=== PATIENT | female | born 1945 | race Caucasian/White ===

== ENCOUNTER → 2021-05-08 | Outpatient (CLI) | payer MEDICARE, OTHER ==
--- NOTE | 2021-05-08 15:21 | CT ---
EXAMINATION TYPE: CT brain wo con DATE OF EXAM: 05/08/2021 COMPARISON: None HISTORY: Headaches CT DLP: 1147.10 mGycm Automated exposure control for dose reduction was used. FINDINGS: Mild to moderate degenerative change of the greater frontal lobe component. Faint low attenuation in the white matter none. No acute hemorrhage. No midline shift or mass effect. Calvarium intact. Craniocervical junction maintained. Partially empty sella turcica. Orbits are symmetric. Lobe somewhat prominent in size likely clinically. Minimal changes of ethmoidal sinusitis or chronic IMPRESSION: 1. Degenerative and nonspecific white matter changes most typical of remote ischemia. 2. The globes are somewhat prominent size correlate with ophthalmological exam
== END | disposition home or self-care (01) ==
LOC: RADCTMAIN 14:43
PROVIDERS: ATTEND Internal Medicine
DX: R90.89 Other abnormal findings on diagnostic imaging of central nervous system (principal); R51.9 Headache, unspecified
CPT/HCPCS: 70450

== ENCOUNTER → 2021-06-14 | Outpatient (CLI) | payer MEDICARE, OTHER ==
[~2021-06-14] MED LIST: IODINE/POTASS IOD (LUGOLS) BOTTLE TOPICAL ONE
--- NOTE | 2021-06-20 08:38 | NM ---
EXAMINATION TYPE: NM DatScan Brain SPECT DATE OF EXAM: 06/14/2021 COMPARISON: Correlation CT 04/30/2021 HISTORY: 76-year-old female G20, Parkinson's disease TECHNIQUE: 10 drops of Lugol's solution was administered 1 hour prior to injection as a thyroid bloc sal agent. After the administration of 4.3 mCi I-123 Ioflupane DaTscan. Images obtained [address] injection. SPECT images of the brain were acquired with axial and coronal reconstructions. FINDINGS: There is normal background activity. On image 29 and 28, there is very questionable minimal asymmetry along the posterior aspect of the right corpus striatum. However, otherwise, activity appears symmet soledad. IMPRESSION: Favor normal study. Minimal asymmetry along the posterior aspect of the right corpus striatum (image 29 and 28) may be positional. Follow-up can be considered.
== END | disposition home or self-care (01) ==
LOC: RADNMMAIN 10:53
PROVIDERS: ATTEND Internal Medicine
DX: G20 Parkinson's disease (principal)
CPT/HCPCS: 78803; A9584

== ENCOUNTER → 2021-09-14 | Outpatient (CLI) | payer MEDICARE, OTHER ==
[2021-09-14 12:00] LABS: C Reactive Protein 0.6 mg/dL (0.00-0.80)
[2021-09-16 13:54] LABS: Anti-DNA, DS unit <1.0 IU/mL; Anti-Smith Ab Interp NEGATIVE (NEGATIVE); Cyclic Citrull Pep IgG Unit <0.5 U/mL; Cyclic Citrullinated Pep IgG NEGATIVE (NEGATIVE); DNA Double-Stranded NEGATIVE (NEGATIVE); JO-1 IgG Antibody <0.2 AI; Scleroderma SC-70 Ab <0.2 AI
== END | disposition home or self-care (01) ==
LOC: LABWHC1 09-13 12:14
PROVIDERS: ATTEND Nurse Practitioner Family
DX: M25.50 Pain in unspecified joint (principal); M62.82 Rhabdomyolysis
CPT/HCPCS: 36415; 82550; 83516; 86038; 86039; 86140; 86200; 86225; 86235; 86431

== ENCOUNTER → 2021-12-06 | Outpatient (CLI) | payer MEDICARE, OTHER ==
[2021-12-07 13:12] LABS: Coronavirus SARS CoV-2 Not Detected (Not Detected)
== END | disposition home or self-care (01) ==
LOC: LABWHC1 09:44
PROVIDERS: ATTEND Surgery
DX: Z01.818 Encounter for other preprocedural examination (principal)
CPT/HCPCS: U0003; C9803; U0005

== ENCOUNTER 2021-12-09 07:21 | Day surgery (SDC) | payer MEDICARE, OTHER ==
[2021-12-05 16:04] VITALS: BMI 25.0
[~2021-12-09 07:21] MED LIST changes: +DEXAMETHASONE SOD PHOSPHATE 4 MG/ML 1 ML VIAL IV ONE; +HYDROmorphone 0.5 MG/0.5 ML SYRINGE IVP PRN; -IODINE/POTASS IOD (LUGOLS) BOTTLE TOPICAL ONE; +LACTATED RINGERS 1,000 ML IV SCH; +LIDOCAINE 1% (10MG/ML) FOR IV START INTRADERMA PRN; +MIDAZOLAM 2 MG/2 ML VIAL IV PRN; +ONDANSETRON 4 MG/2 ML VIAL IVP ONE
[2021-12-09] MEDS ORDERED: HEPARIN SODIUM,PORCINE/PF 5,000 UNIT/0.5 ML SYRINGE SQ ONE (08:19)
[2021-12-09] MEDS ORDERED: ACETAMINOPHEN TAB 500 MG TAB ONE (08:20)
[2021-12-09 08:29] VITALS: RESP 16
[2021-12-09] MEDS ORDERED: PROPOFOL 10 MG/ML 20 ML VIAL IV ONE (08:38)
[2021-12-09] MEDS ORDERED: MIDAZOLAM 2 MG/2 ML VIAL ONE (08:38)
[2021-12-09] MEDS ORDERED: fentaNYL (PF) 50 MCG/ML 2 ML AMP ONE (08:38)
[2021-12-09] MEDS ORDERED: BUPIVACAIN-EPI 0.25%-1:200,000 30 ML VIAL SQ ONE ×2 (08:53→08:56)
[2021-12-09] MEDS ORDERED: ceFAZolin 1,000 MG VIAL IVPB ONE (08:55)
[2021-12-09 09:32] VITALS: TEMP 98
[2021-12-09] MEDS ORDERED: NALOXONE 0.4 MG/ML 1 ML VIAL IV PRN (09:34)
--- NOTE | 2021-12-09 09:37 | P.OP ---
Date of Procedure: 12/09/21 Procedure(s) Performed: PREOPERATIVE DIAGNOSIS: Myositis, muscle weakness POSTOPERATIVE DIAGNOSIS: Same PROCEDURE: Right quadriceps muscle biopsy SURGEON: Thanh EBL: Deny Del Cid ANESTHESIA: Gen. COMPLICATIONS: None OPERATIVE PROCEDURE: Patient place in the operative table in supine position. The patient was placed under general anesthesia. Right thigh was prepped and draped sterilely. A longitudinal incision was made overlying the mid aspect of the right thigh. The subcutaneous tissues were divided using electrocautery. The fascia was then divided as well. A 3 x 1 cm piece of muscle was removed. This was cut into 3 portions and sent to the [facility] as per their instructions. The fascia was reapproximated using a running 3-0 Vicryl stitch. Subcutaneous tissues closed using 3-0 Vicryl sutures. Skin closed using a 4-0 Monocryl sutures. Skin glue and sterile dressing was applied. DISPOSITION: Stable to recovery room
[2021-12-09 10:45] VITALS: BP 133/73; PULSE 61
== END 2021-12-09 11:25 | disposition home or self-care (01) ==
LOC: OR 07:21
PROVIDERS: ATTEND Surgery
DX: M60.9 Myositis, unspecified (principal); M62.81 Muscle weakness (generalized); I10 Essential (primary) hypertension; E78.5 Hyperlipidemia, unspecified; Z86.718 Personal history of other venous thrombosis and embolism; Z86.711 Personal history of pulmonary embolism; Z86.73 Personal history of transient ischemic attack (TIA), and cerebral infarction without residual deficits; Z79.82 Long term (current) use of aspirin
CPT/HCPCS: 20205; J2250; J1100; J2405; J0690; J3010; J2704; J1644

== ENCOUNTER 2022-03-06 10:00 | Inpatient (IN) | payer MEDICARE, OTHER ==
[2022-03-06] MEDS ORDERED: ONDANSETRON 4 MG/2 ML VIAL ONE (11:09)
[2022-03-06] MEDS ORDERED: cefTRIAXone IN SWFI 1,000 MG/10 ML SYRINGE IVP ONE (11:09)
[2022-03-06] MEDS ORDERED: HEPARIN SODIUM 1,000 UN/ML (10ML VL) IV PRN (16:35)
[2022-03-06] MEDS ORDERED: HEPARIN SODIUM 1,000 UN/ML (10ML VL) IV ONE (16:35)
[2022-03-06] MEDS ORDERED: ASPIRIN 81 MG PO STA (16:38)
--- NOTE | 2022-03-06 16:56 | XR ---
EXAMINATION TYPE: XR chest 2V DATE OF EXAM: 03/06/2022 4:44 PM COMPARISON: CT angiogram 03/06/2022. TECHNIQUE: XR chest 2V Frontal and lateral views of the chest. CLINICAL INDICATION:Female, 76 years old with history of SOB, BACK PAIN; FINDINGS: Note is made that the x-ray is mislabeled left. Lungs/Pleura: Pulmonary vascular congestion. Scattered hazy opacities seen throughout the lungs along with groundglass opacities which are better characterized on the prior CT. Pulmonary vascularity: Pulmonary vascular congestion. Heart/mediastinum: Cardiomediastinal silhouette is enlarged Musculoskeletal: No acute osseous pathology. IMPRESSION: Cardiomegaly and mild pulmonary vascular congestion. Correlate with BNP for congestive heart failure. Superimposed infectious process is not entirely excluded.
--- NOTE | 2022-03-06 16:57 | CT ---
EXAMINATION TYPE: CT abdomen pelvis w con DATE OF EXAM: 03/06/2022 COMPARISON: None available HISTORY: Shortness of breath post fall CT DLP: 1133.1 mGycm Automated exposure control for dose reduction was used. TECHNIQUE: Helical acquisition of images was performed from the lung bases through the pelvis. CONTRAST: Performed without Oral Contrast and with IV Contrast, patient injected with 100 mL of Isovue 370. FINDINGS: LUNG BASES: Lateral basal subsegmental pulmonary atelectasis and scattered areas of groundglass opaci ties, nonspecific. LIVER/GB: No significant abnormality is appreciated. PANCREAS: No significant abnormality is seen. SPLEEN: No significant abnormality is seen. ADRENALS: No significant abnormality is seen. KIDNEYS: Tiny left renal cyst, otherwise grossly unremarkable kidneys. FREE AIR: No free air is visualized. RETROPERITONEAL ADENOPATHY: None visualized REPRODUCTIVE ORGANS: Previous hysterectomy. No gross adnexal mass. URINARY BLADDER: No significant abnormality is seen. PELVIC ADENOPATHY: None visualized. OSSEOUS STRUCTURES: Diffuse osteopenia. L1 vertebral body collapse with upper endplate depression an d slight retropulsion into the spinal canal which could be acute or chronic, please correlate clinica lly. This was appreciated in lumbar spine x-ray dated 03/04/2022. BOWEL: No significant abnormality is seen. OTHER: Arterial atherosclerotic calcifications. No sizable ascites or collection. IMPRESSION: L1 vertebral body collapse as described above which could be acute or chronic, please relate clinical ly. This was appreciated in 03/04/2022 lumbar spine x-ray. Otherwise no definite acute abnormality see n in the abdomen or the pelvis. Incidental findings as described above.
--- NOTE | 2022-03-06 16:58 | CT ---
CTA chest HISTORY: Shortness of breath post fall Helical acquisition obtained through the chest following dynamic administration 100 cc Isovue-370 IV. Automated exposure control for dose reduction. DLP 371.6 mGycentimeters No comparisons There is a filling defects seen within subsegmental branches right lower lobe, for reference axial im age 69, 70. Results relayed 1535 to the telephone. There is no evident strain. There are nonspecif ic soft tissue density seen within the subpleural location left lower lobe, axial image 84, there is somewhat wedge-shaped peripherally. Additionally, soft tissue nodule is noted in the left upper lobe axial image 71 subpleural location. Scattered areas of groundglass opacity present bilaterally, there is a parenchymal bands. No evident pleural effusion. Soft tissue nodule is oval in shape in the left upper lobe axial image 56 measuring 13 mm. No evident pneumothorax. No pericardial effusion. No medi astinal, axillary, or hilar adenopathy. There is no evident aortic aneurysm. Wedge compression deformity present at T6 is mild, no evident re tropulsion, loss of height of approximately 25% noted, indeterminate acuity. IMPRESSION: Small pulmonary embolus as described. Results relayed to the at the time of interpreta tion. Findings in the lungs may represent sequela of infection, difficult to exclude edema, correlate for pneumonia, possible soft tissue nodules as described, follow-up is recommended. Thoracic eleuterio carlos deformity of indeterminate age.
[2022-03-06] MEDS ORDERED: AZITHROMYCIN 500 MG in SODIUM CHLORIDE 0.9% 250 ML IVPB STA (16:59)
[2022-03-06] MEDS ORDERED: MORPHINE SULFATE 2 MG/ML SYRINGE IVP STA (17:00)
[2022-03-06] MEDS: HEPARIN SOD,PORK IN 0.45% NACL 25,000 UNIT in 0.45% NACL 1 250ML.BAG IV SCH (17:23)
[2022-03-06 17:43] LABS: Albumin 3.5 g/dL (3.5-5.0); Calcium 9.2 mg/dL (8.4-10.2); Magnesium 2.3 mg/dL (1.6-2.3); Potassium 5.2 mmol/L (3.5-5.1); Total Protein 6.7 g/dL (6.3-8.2)
[2022-03-06 17:44] LABS: Creatine Kinase MB 4.3 ng/mL (0.0-2.4); Troponin I 0.284 ng/mL (0.000-0.034)
[2022-03-06 17:51] LABS: Anisocytosis Slight; Basophils % (A) 0 %; Eosinophils % (A) 0 %; HCT 37.6 % (34.0-46.0); Lymphocytes # (A) 0.9 k/uL (1.0-4.8); Lymphocytes % (A) 9 %; MCH 32.7 pg (25.0-35.0); MCHC 32.1 g/dL (31.0-37.0); MCV 102.2 fL (80.0-100.0); Macrocytosis Moderate; Mean Platelet Volume 7.4; Monocytes # (A) 0.2 k/uL (0-1.0); Monocytes % (A) 2 %; Neutrophils # (A) 9.1 k/uL (1.3-7.7); Neutrophils % (A) 89 %; Platelet Count 270 k/uL (150-450); RBC 3.68 m/uL (3.80-5.40); RDW 16.5 % (11.5-15.5); WBC 10.2 k/uL (3.8-10.6)
[2022-03-06 18:39] LABS: INR 0.9 (<1.2); Prothrombin Time 10.3 sec (9.0-12.0)
[2022-03-06 18:44] LABS: Amorphous Sediment,Urine Few /hpf; Appearance,Urine Cloudy (Clear); Bilirubin,Urine Negative (Negative); Blood,Urine Negative (Negative); Color,Urine Yellow; Glucose,Urine (UA) Negative (Negative); Hyaline Casts,Urine 3 /lpf (0-2); Ketones,Urine Negative (Negative); Leukocyte Esterase,Urine Negative (Negative); Mucus,Urine Occasional /hpf; Nitrite,Urine Negative (Negative); PH, Urine 5.5 (5.0-8.0); Protein,Urine 1+ (Negative); RBC,Urine 1 /hpf (0-5); Specific Gravity,Urine 1.022 (1.001-1.035); Squamous Epithelial Cell,Urine <1 /hpf (0-4); Urobilinogen,Urine <2.0 mg/dL (<2.0); WBC,Urine 4 /hpf (0-5)
[2022-03-07] MEDS: MORPHINE SULFATE 2 MG/ML SYRINGE IVP PRN ×3 (04:23→16:25)
[2022-03-07 10:54] LABS: Anisocytosis Slight; Basophils % (A) 0 %; Eosinophils # (A) 0.1 k/uL (0-0.7); Eosinophils % (A) 1 %; HCT 33.2 % (34.0-46.0); HGB 10.2 gm/dL (11.4-16.0); Hypochromasia Moderate; Lymphocytes # (A) 0.9 k/uL (1.0-4.8); Lymphocytes % (A) 13 %; MCH 32.5 pg (25.0-35.0); MCHC 30.7 g/dL (31.0-37.0); MCV 105.7 fL (80.0-100.0); Macrocytosis Moderate; Mean Platelet Volume 8.3; Monocytes # (A) 0.1 k/uL (0-1.0); Monocytes % (A) 2 %; Neutrophils # (A) 5.6 k/uL (1.3-7.7); Neutrophils % (A) 83 %; Platelet Count 258 k/uL (150-450); RBC 3.14 m/uL (3.80-5.40); RDW 16.3 % (11.5-15.5); WBC 6.7 k/uL (3.8-10.6)
[2022-03-07 10:57] LABS: Albumin 2.7 g/dL (3.5-5.0); Calcium 8.3 mg/dL (8.4-10.2); Potassium 4.2 mmol/L (3.5-5.1); Total Bilirubin 0.3 mg/dL (0.2-1.3); Total Protein 5.5 g/dL (6.3-8.2)
[2022-03-07] MEDS: predniSONE 20 MG TAB PO SCH ×2 (12:06→21:24)
[2022-03-07] MEDS: PANTOPRAZOLE 40 MG TABLET PO SCH (12:06)
[2022-03-07] MEDS: FERROUS SULFATE 325 MG TAB PO SCH (12:10)
[2022-03-07] MEDS: ESCITALOPRAM 10 MG TAB PO SCH (12:10)
[2022-03-07] MEDS: clonazePAM 0.5 MG TAB PO SCH ×2 (12:22→21:24)
--- NOTE | 2022-03-07 13:19 | CA ---
Transthoracic Echo Report Name: Fely Whitley Age: 76 Gender: F : 1945 Exam Date: 03/07/2022 07:37 Exam Location: [facility] Ht (in): 65 Wt (lb): 150 Ordering Physician: Fay Pemberton Attending/Referring Phys: Aircraft Life Support Fitter Nirmala Reeves RDCS Procedure CPT: Indications: PE Cardiac Hx: Technical Quality: Fair Contrast 1: Total Dose (mL): Contrast 2: Total Dose (mL): MEASUREMENTS (Male / Female) Normal Values 2D ECHO LV Diastolic Diameter PLAX 3.5 cm 4.2 - 5.9 / 3.9 - 5.3 cm LV Systolic Diameter PLAX 2.1 cm IVS Diastolic Thickness 1.4 cm 0.6 - 1.0 / 0.6 - 0.9 cm LVPW Diastolic Thickness 1.2 cm 0.6 - 1.0 / 0.6 - 0.9 cm LV Relative Wall Thickness 0.7 RV Internal Dim ED PLAX 2.6 cm LA Volume 29.9 cm??? 18 - 58 / 22 - 52 cm??? M-MODE Aortic Root Diameter MM 2.6 cm LA Systolic Diameter MM 2.7 cm LA Ao Ratio MM 1.0 AV Cusp Separation MM 2.0 cm DOPPLER AV Peak Velocity 170.1 cm/s AV Peak Gradient 11.6 mmHg AI Peak Velocity 366.0 cm/s AI Peak Gradient 53.6 mmHg AI Pressure Half Time 452.9 ms LVOT Peak Velocity 87.9 cm/s LVOT Peak Gradient 3.1 mmHg MV Area PHT 5.1 cm??? Mitral E Point Velocity 81.9 cm/s Mitral A Point Velocity 100.4 cm/s Mitral E to A Ratio 0.8 MV Deceleration Time 147.7 ms MV E' Velocity 5.8 cm/s Mitral E to MV E' Ratio 14.1 TR Peak Velocity 298.5 cm/s TR Peak Gradient 35.6 mmHg Right Ventricular Systolic Press 39.6 mmHg FINDINGS Left Ventricle Moderately increased left ventricular wall thickness. Normal left ventricular systolic function with no obvious regional wall motion abnormalities. Left ventricular cavity size normal. Left ventricular ejection fraction is estimated at 55-60 %. Normal left ventricular diastolic filling pattern. Right Ventricle Normal right ventricular size and function. Mild pulmonary hypertension. No right heart strain, TAPSE is 20 mm. Right Atrium Normal right atrial size. Left Atrium Normal left atrial size. No evidence for an atrial septal defect. Mitral Valve Structurally normal mitral valve. Trace mitral regurgitation. Aortic Valve Trileaflet aortic valve. Trace aortic regurgitation. Tricuspid Valve Structurally normal tricuspid valve. Mild tricuspid regurgitation. Pulmonic Valve Trace pulmonic regurgitation. Pericardium No pericardial effusion. Aorta Aortic root and proximal ascending aorta not well visualized. CONCLUSIONS Normal left ventricular dimension and systolic function Previewed by: Dr. Juan Carrasco MD (Electronically Signed) Final Date: 07 Mar 2022 13:18
--- NOTE | 2022-03-07 14:24 | US ---
EXAMINATION TYPE: US venous doppler duplex LE DATE OF EXAM: 03/07/2022 1:27 PM COMPARISON: NONE CLINICAL HISTORY: hypercoag ? thrombus on AC therapy. Swelling SIDE PERFORMED: Bilateral TECHNIQUE: The lower extremity deep venous system is examined utilizing real time linear array sonog sonal with graded compression, doppler sonography and color-flow sonography. VESSELS IMAGED: Common Femoral Vein Deep Femoral Vein Greater Saphenous Vein * Femoral Vein Popliteal Vein Small Saphenous Vein * Proximal Calf Veins (* superficial vessels) Right Leg: Negative for DVT Left Leg: Negative for DVT Grayscale, color doppler, spectral doppler imaging performed of the deep veins of the bilateral lower extremities. There is normal flow, compressibility, vascular waveforms. IMPRESSION: No ultrasound evidence for acute DVT in either lower extremity.
--- NOTE | 2022-03-07 14:25 | P.CNPUL ---
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 Since then, the patient becoming progressively weak and debilitated and currently she is at the point where she cannot ambulate and she is been essentially sedentary. I'm not sure if there is any other underlying connective tissue diseases along with her inclusion body myositis. She has a positive rheumatoid factor and she may have underlying rheumatoid arthritis. 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 The patient also has a remote history of pulmonary embolism. Around 10 years ago, she had a fall she sustained fractures to her ankles bilaterally. At that time, she was found to have bilateral clots in the lower extremities and pulmonary embolism. She was given a filter and the filter was ultimately taken and since then the patient has been on anticoagulants. Over the past 10 years, she has been on anticoagulants and she has recently taken Xarelto 20 mg by mouth daily. She has not missed any of her medication doses. For now, the patient is on chronic steroids also and she is taking prednisone 20 mg by mouth twice a day. Around 2 days ago, the patient came into the emergency room because of back pain, She was diagnosed having vertebral compression fracture and she was discharged home upon being treated with a combination of painkillers and she was given [place] 5 to be taken on outpatient basis. At that time, x-ray of the lumbar spine was done and it showed evidence of deformity at the level of L1 and degenerative lumbar spine changes. Yesterday, the patient came in to the emergency department again because of left lower quadrant pain and burning upon urination. CAT scan of the abdomen was done and showed L1 vertebral body collapse. Otherwise no other acute abdomen is a been noted. The CT angiogram of the chest was also completed any today's the concern for pulmonary embolism. Based on the report given by the radiologist, there was a very tiny filling defect in the right lower lobe subsegmental pulmonary artery branch. At the s logan time, there was evidence of bilateral pulmonary infiltrates consistent with chronic pneumonia/ILD. These are areas of groundglass opacities bilaterally without any on lymphadenopathy or pleural effusions. The patient denies having any cough or sputum production. She reports to be slightly more short of breath compared to her baseline. D-dimer level is at 0.9. The patient states that she has been compliant to Xarelto. The patient also had Doppler of the lower extremity that showed no evidence of any DVTs. Hemoglobin is at 10.2. Platelet count is at 258. Electrolytes are normal and there is a component of mild non- gap metabolic acidosis. Some mild abnormalities in the liver function tests. The troponin I was at 0.15 to, UA was essentially negative., COVID 19 testing was also negative. The patient denies having any pleurisy. No hemoptysis. She is currently on IV heparin. Review of Systems Constitutional: Reports chronic pain, Reports weakness Eyes: denies as per HPI, denies blurred vision, denies bulging eye, denies decreased vision, denies diplopia, denies discharge, denies dry eye, denies irritation, denies itching, denies pain, denies photophobia, denies loss of peripheral vision, denies loss of vision, denies tunnel vision/blind spots Ears: deny: decreased hearing, ear discharge, earache, tinnitus Ears, nose, mouth and throat: Reports as per HPI Breasts: absent: as per HPI, change in shape, gynecomastia, masses, nipple discharge, pain, skin changes, swelling Cardiovascular: Reports decreased exercise tolerance, Reports dyspnea on exertion, Reports shortness of breath Respiratory: Reports as per HPI, Reports dyspnea Gastrointestinal: Reports constipation Genitourinary: Reports as per HPI Menstruation: Reports as per HPI Musculoskeletal: Reports gait dysfunction, Reports limitation of motion, Reports low back pain, Reports myalgias Musculoskeletal: absent: ankle pain, ankle stiffness, ankle swelling Integumentary: Reports as per HPI Neurological: Reports as per HPI, Reports gait dysfunction, Reports weakness Psychiatric: Reports as per HPI Endocrine: Reports as per HPI Hematologic/Lymphatic: Reports as per HPI Allergic/Immunologic: Reports as per HPI Past Medical History Past Medical History: Chest Pain / Angina, Diabetes Mellitus, Deep Vein Thrombosis (DVT), Eye Disorder, Hyperlipidemia, Musculoskeletal Disorder, Pulmonary Embolus (PE), Skin Disorder Additional Past Medical History / Comment(s): Colitis. CVA 2015-was ruled out; had mult DVT's, PE's after a fall with multiple fractures. Has tremors hands. Glaucoma & macular degeneration bilat. Has "irreg heart rhythm -Wenckebach", hx told "pre-diabetic". Neuropathy hands, feet. Unable to walk now. Rash on legs. History of Any Multi-Drug Resistant Organisms: None Reported Past Surgical History: Adenoidectomy, Appendectomy, Ear Surgery, Hysterectomy, Tonsillectomy, Tubal Ligation Additional Past Surgical History / Comment(s): BILAT CATARACTS. REPAIR PERFORFATED LT EARDRUM. COLONOSCOPY. Has IVC Filter. Past Anesthesia/Blood Transfusion Reactions: Previous Problems w/ Anesthesia, Family History of Problems w/ Anesthesia, Motion Sickness Additional Past Anesthesia/Blood Transfusion Reaction / Comment(s): SLOW TO COME OUT OF ANESTHESIA, STATES "SISTER ALSO HAS A HARD TIME COMING OUT OF ANESTHESIA" Past Psychological History: Bipolar Smoking Status: Never smoker Past Alcohol Use History: None Reported Past Drug Use History: None Reported - Past Family History Brother(s) Family Medical History: Cancer Additional Family Medical History / Comment(s): leukemia Mother Family Medical History: Cancer Additional Family Medical History / Comment(s): Colon cancer; lung cancer now Medications and Allergies Home Medications Medication Instructions Recorded Confirmed Type Aspirin 81 mg PO DAILY 06/01/15 03/06/22 History Escitalopram [Lexapro] 10 mg PO DAILY 06/01/15 03/06/22 History Latanoprost Ophth [Xalatan 0.005%] 1 drops BOTH EYES HS 06/01/15 03/06/22 History Rivaroxaban [Xarelto] 20 mg PO PC-SUPPER 06/01/15 03/06/22 History clonazePAM [KlonoPIN] 0.5 mg PO BID 06/01/15 03/06/22 History Vit C/E/Zn/Coppr/Lutein/Zeaxan 1 cap PO BID 12/05/21 03/06/22 History [Preservision Areds 2 Softgel] HYDROcodone/APAP 5-325MG [[place] 1 tab PO Q6HR PRN #16 tab 03/04/22 03/06/22 Rx 5-325] Suarez Carbonate 300 mg PO HS 03/04/22 03/06/22 History Omeprazole 40 mg PO DAILY 03/04/22 03/06/22 History predniSONE [Deltasone] 20 mg PO BID 03/04/22 03/06/22 History Ferrous Gluconate 324 mg PO DAILY 03/06/22 03/06/22 History Allergies Allergy/AdvReac Type Severity Reaction Status Date / Time Sulfa (Sulfonamide Allergy Anaphylaxis Verified 03/06/22 10:26 Antibiotics) Physical Exam Vitals: Vital Signs Temp Pulse Pulse Resp BP BP Pulse Ox 03/07/22 14:00 18 03/07/22 12:17 97.8 F 83 18 122/75 94 L 03/07/22 09:21 98.0 F 95 16 147/68 96 03/07/22 07:00 96 03/07/22 06:00 97 03/07/22 05:00 96 03/07/22 04:00 93 129/73 97 03/07/22 03:00 92 16 139/64 96 03/07/22 00:00 90 114/64 03/06/22 23:00 96 03/06/22 22:00 94 L 03/06/22 21:00 90 16 110/46 98 03/06/22 19:59 78 17 120/59 93 L 03/06/22 17:31 78 18 119/93 91 L Intake and Output 03/06/22 03/07/22 03/07/22 22:59 06:59 14:59 Intake Total 155.036 790 Output Total 750 Balance 155.036 40 Intake: Intake, IV Titration 155.036 Amount Heparin Sod,Pork in 0.45% 155.036 NaCl 25,000 unit In 0.45 % NaCl 1 250ml.bag @ 18 UNITS/KG/HR 12.247 mls/hr IV .[id number] [facility] Rx#: [id number] Oral 790 Output: Urine 750 Straight 750 Other: Weight 68.039 kg General appearance: alert, in no apparent distress currently on oxygen and patient is on oxygen at 4 L Head exam: Present: atraumatic, normocephalic Eye exam: Present: normal appearance, PERRL ENT exam: Present: normal exam Neck exam: Present: normal inspection. Absent: tenderness, meningismus Respiratory exam: Present: normal lung sounds bilaterally, respiratory distress accident in the mid and lower lung nelson bilaterally Cardiovascular Exam: Present: regular rate, normal rhythm GI/Abdominal exam: Present: soft, distended. Absent: tenderness, guarding, rebound Extremities exam: Chronic muscle atrophy and muscle weakness in the lower extremities bilaterally Back exam: Present: paraspinal tenderness (Bilateral) Neurological exam: Present: alert, oriented X3, CN II-XII intact, chronic muscle weakness in lower extremities and upper extremities and the patient has proximal muscle weakness. Psychiatric exam: Present: normal affect, normal mood Skin exam: Present: warm, dry, intact. Absent: cyanosis, diaphoretic Results - Laboratory Findings CBC and BMP: 03/07/22 05:13 03/07/22 05:13 PT/INR, D-dimer PT 10.3 sec (9.0-12.0) 03/06/22 13:13 INR 0.9 (<1.2) 03/06/22 13:13 D-Dimer 0.98 mg/L FEU (<0.60) H 03/06/22 13:13 Abnormal lab findings: Abnormal Labs 03/06/22 03/06/22 03/06/22 11:13 11:13 11:13 RBC 3.68 L Hgb Hct MCV 102.2 H MCHC RDW 16.5 H Neutrophils # 9.1 H Lymphocytes # 0.9 L APTT D-Dimer Potassium 5.2 H Chloride Carbon Dioxide BUN 39 H Glucose 161 H Plasma Lactic Acid Celio Calcium AST 63 H ALT 52 H CK-MB (CK-2) 4.3 H Troponin I 0.284 H* Total Protein Albumin Amylase 125 H Urine Appearance Urine Protein Amorphous Sediment Hyaline Casts Urine Mucus 03/06/22 03/06/22 03/06/22 11:13 13:13 13:13 RBC Hgb Hct MCV MCHC RDW Neutrophils # Lymphocytes # APTT 21.0 L D-Dimer 0.98 H Potassium Chloride Carbon Dioxide BUN Glucose Plasma Lactic Acid Celio 2.6 H* Calcium AST ALT CK-MB (CK-2) Troponin I 0.237 H* Total Protein Albumin Amylase Urine Appearance Urine Protein Amorphous Sediment Hyaline Casts Urine Mucus 03/06/22 03/06/22 03/06/22 13:25 21:02 22:16 RBC Hgb Hct MCV MCHC RDW Neutrophils # Lymphocytes # APTT 82.6 H D-Dimer Potassium Chloride Carbon Dioxide BUN Glucose Plasma Lactic Acid Celio Calcium AST ALT CK-MB (CK-2) Troponin I 0.152 H* Total Protein Albumin Amylase Urine Appearance Cloudy H Urine Protein 1+ H Amorphous Sediment Few H Hyaline Casts 3 H Urine Mucus Occasional H 03/07/22 03/07/22 03/07/22 05:13 05:13 05:13 RBC 3.14 L Hgb 10.2 L Hct 33.2 L MCV 105.7 H MCHC 30.7 L RDW 16.3 H Neutrophils # Lymphocytes # 0.9 L APTT 76.5 H D-Dimer Potassium Chloride 112 H Carbon Dioxide 17 L BUN 29 H Glucose 103 H Plasma Lactic Acid Cleio Calcium 8.3 L AST 60 H ALT 46 H CK-MB (CK-2) Troponin I Total Protein 5.5 L Albumin 2.7 L Amylase Urine Appearance Urine Protein Amorphous Sediment Hyaline Casts Urine Mucus Assessment and Plan Plan: Acute hypoxic respiratory failure with development of bilateral pulmonary infiltrates with some groundglass characteristics. This could be infectious in nature. Nevertheless, based on her history, possibility of chronic ILD cannot be completely excluded. 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 Nevertheless, these type of connective tissue disease disorders, and combinations and the patient may have other clinical changes diseases such as RA/lupus/mixed connective disease which could potentially cause ILD. I'm not much concerned about pulmonary embolism. The filling defects and was seen by the radiologist was minimal and does not explain her hypoxemia. I do not consider this to be a treatment failure. D-dimer is low. Doppler of the lower extremity has been negative. Her COVID 19 is negative. Previous history of pulmonary embolism with insertion and removal of an IVC filter and the patient has been on long-term and coagulation with Xarelto, along with that, the patient had a DVT and this was triggered by a fall and ankle fracture that occurred approximately 10 years ago History of inclusion body myositis History of sedentary lifestyle immobility secondary to above Previous history of CVA Previous history of colitis Previous history of glaucoma and macular degeneration Previous history of heart block underwent chemo type History of carpal tunnel disease and peripheral neuropathy Diabetes mellitus Hyperlipidemia troponin leak Plan Continue IV heparin for now I'm going to shared my opinion with the primary care team. I do not think this is a embolic phenomena for now. The finding in the right lower lobe pulmonary artery branch subsegmental branch is very nonspecific and may not reflect an acute event/that the d-dimer is negative and the Doppler of the lower extremities negative. I'm more concerned about the interstitial bilateral pulmonary infiltrates which is suggestive of an underlying ILD. May need to be considered for an outpatient lung biopsy. Check a Legionella urine antigen. Check pro calcitonin level. Doubt any acute bacterial infection at this point in time. Cover this patient with antibiotics and I would suggest IV Levaquin. I personally do not think that this was a pulmonary embolus event and riding the patient again go back on her Xarelto 20 mg by mouth maintenance. Obtain echocardiogram Cardiology regarding the abnormal troponins Very important to obtain old films for comparison to assess the chronicity of the pulmonary infiltrates Resume home medications We'll continue to follow
--- NOTE | 2022-03-07 14:35 | P.HPIM ---
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 and she stood up and she ended up losing her balance and fell backward patient came to the emergency department at [facility] on 03/04/2022 and had an x-ray that did show evidence of possible sacral fracture as well as computed tomography scan of the abdomen and pelvis that didn't show L1 fracture along with an old T6 fracture, patient was released home she ended up coming back to the emergency department today with increased low back pain associated with increased shortness of breath, patient apparently became quite dyspneic and she was coughing and minimal phlegm production without any pleurisy, she was brought into the ER by EMS her oxygen saturation initially was in the low 80s she was placed on 6 L nasal cannula her oxygenation recovered to 92%, his of the pr esentation patient underwent CT angiography of the chest that was positive for segmental pulmonary embolism in the lower branches, with possible underlying grouse glass material stenosis of a possible pneumonia, she was started on IV antibiotic Rocephin and Zithromax and she was placed on heparin drip, she was admitted to the hospital, pulmonary consultation was obtained as well as hematology consultation as the patient was on chronic anticoagulation with Xarelto, 20 mg orally once every day, patient also would be seen in consultation by Dr. Self for L1 fracture with retropulsion and possible canal stenosis. REVIEW OF SYSTEMS: Constitutional: No documented fever, no chills, no night sweats. No weight change. No weakness, fatigue or lethargy. No daytime sleepiness. HEENT: No headache. No blurred vision or double vision, no loss of vision. hard of Hearing, no ringing in the ears, no dizziness. No nasal drainage or congestion. No epistaxis. No sore throat. Lungs: No shortness of breath, no cough, no sputum production. No wheezing. Reports dyspnea with activity. Cardiovascular: no chest pain, no lower extremity edema. No palpitations. No paroxysmal nocturnal dyspnea. No orthopnea. No lightheadedness or dizziness. No syncopal episodes. Abdominal: Reports abdominal pain. No nausea, vomiting. No diarrhea. No constipation. No bloody or tarry stools reports loss of appetite. Genitourinary: No dysuria, increased frequency, urgency. No urinary retention. Musculoskeletal: positive for myalgias. positive for muscle weakness, positive for gait dysfunction, positive for frequent falls. positive for back pain and neck pain. Integumentary: No wounds, no lesions. No rash or pruritus. No unusual bruising. No change in hair or nails. Neurologic: No aphasia. No facial droop. No change in mentation. No head injury. No headache. No paralysis. No paresthesia. Psychiatric: positive for depression, anxiety, mood swings Endocrine: No abnormal blood sugars. No weight change. PAST MEDICAL HISTORY: mixed hyperlipidemia. Inclusion body myositis. GERD with esophagitis History of colitis Coagulation defect Bipolar disorder with current manic episode without psychotic features. Osteoporosis. L1 fracture T6 fracture. PAST SURGICAL HISTORY: Total abdominal hysterectomy and bilateral salpingo-oophorectomy. Colonoscopy. Bilateral cataract Surgery. SOCIAL HISTORY: patient has a history of smoking, no history of drinking, no history of drug use or abuse. FAMILY HISTORY: father plan clear cause mother is alive 99-year-old patient has 2 brother's one of them and one sister she has a son and daughter who are healthy. PHYSICAL EXAMINATION: General: 76-year-old female laying down in bed in minimal distress HEENT: Head is atraumatic, normocephalic, pupils were equal round reactive to light and recommendation, extraocular muscle movement were intact, sclera nonicteric, conjunctivae were pale, mucous membranes of the mouth are somewhat dry. Neck: Supple, no JVP, normal carotid upstroke bilaterally, no lymphadenopathy. Chest: Decreased breath sounds at the bases, few rhonchi, no expiratory wheezes, no chest wall tenderness, no intercostal retractions. Heart: First heart sound is normal, second heart sound is normal there is systolic ejection murmur located at the left sternal border. Abdomen: Soft, mild tenderness to the left lower quadrant, no rebound or guarding positive bowel sounds. Extremities: There is no edema no calf tenderness DP +2 bilaterally. Neurologic examination: Patient is awake alert and oriented X3, cranial nerves II-12 appear grossly intact, muscle power were 5 out of 5 in upper extremities and 5 out of 5 in bilateral lower extremities, deep tendon reflexes normal bilaterally. ASSESSMENT AND PLAN: 1. acute hypoxemic respiratory failure likely related to by basilar pulmonary infiltrate along with pulmonary embolism of the right lower lobe branch. Continue heparin drip for now, continue Rocephin 1 g IV piggyback every 24 hours, continue Zithromax 500 mg IV piggyback every 24 hours, we'll obtain Pulmicort consultation, we'll obtain echo care gram for evaluation of LV function rule out any thrombus,the question whether or not this is a failure to the Xarelto or not, I will consult hematology oncology for now and keep the patient on heparin drip I would be more eager to start the patient on Eliquis instead of xarelto, down the line. 2. Inclusion body myositis. Continue patient on prednisone 20 mg orally twice every day. 3. GERD with esophagitis. Continue patient on Protonix 40 mg orally once every day. 4. History of bipolar disorder. Continue patient on lithium 300 mg at bedtime, except fro 20 mg orally once every day and Klonopin 0.5 minute gram orally twice every day. 5. L1 fracture appears to be acute along with an old T6 fracture. Consult spine surgery for evaluation patient will definitely need to be started on prolia 60 mg SC q 6 months along with weightbearing exercises and calcium 1200 mg every day vitamin D3 2000 units once every day. 6. 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 7. anemia. Continue patient on iron 325 milligrams orally once every day. 8. DVT prophylaxis. Continue patient on heparin drip for now. 9. GI prophylaxis. Continue patient on Protonix 40 mg once every day. 10. Physical therapy evaluation. 11. Admitted to inpatient. Estimated length of stay 2 midnights. 12. Patient is full code. Past Medical History Past Medical History: Chest Pain / Angina, Diabetes Mellitus, Deep Vein Thrombosis (DVT), Eye Disorder, Hyperlipidemia, Musculoskeletal Disorder, Pulmonary Embolus (PE), Skin Disorder Additional Past Medical History / Comment(s): Colitis. CVA 2014-was ruled out; had mult DVT's, PE's after a fall with multiple fractures. Has tremors hands. Glaucoma & macular degeneration bilat. Has "irreg heart rhythm -Wenckebach", hx told "pre-diabetic". Neuropathy hands, feet. Unable to walk now. Rash on legs. History of Any Multi-Drug Resistant Organisms: None Reported Past Surgical History: Adenoidectomy, Appendectomy, Ear Surgery, Hysterectomy, Tonsillectomy, Tubal Ligation Additional Past Surgical History / Comment(s): BILAT CATARACTS. REPAIR PERFORFATED LT EARDRUM. COLONOSCOPY. Has IVC Filter. Past Anesthesia/Blood Transfusion Reactions: Previous Problems w/ Anesthesia, Family History of Problems w/ Anesthesia, Motion Sickness Additional Past Anesthesia/Blood Transfusion Reaction / Comment(s): SLOW TO COME OUT OF ANESTHESIA, STATES "SISTER ALSO HAS A HARD TIME COMING OUT OF ANESTHESIA" Past Psychological History: Bipolar Smoking Status: Never smoker Past Alcohol Use History: None Reported Past Drug Use History: None Reported - Past Family History Brother(s) Family Medical History: Cancer Additional Family Medical History / Comment(s): leukemia Mother Family Medical History: Cancer Additional Family Medical History / Comment(s): Colon cancer; lung cancer now Medications and Allergies Home Medications Medication Instructions Recorded Confirmed Type Aspirin 81 mg PO DAILY 06/01/15 03/06/22 History Escitalopram [Lexapro] 10 mg PO DAILY 06/01/15 03/06/22 History Latanoprost Ophth [Xalatan 0.005%] 1 drops BOTH EYES HS 06/01/15 03/06/22 History Rivaroxaban [Xarelto] 20 mg PO PC-SUPPER 06/01/15 03/06/22 History clonazePAM [KlonoPIN] 0.5 mg PO BID 06/01/15 03/06/22 History Vit C/E/Zn/Coppr/Lutein/Zeaxan 1 cap PO BID 12/05/21 03/06/22 History [Preservision Areds 2 Softgel] HYDROcodone/APAP 5-325MG [[place] 1 tab PO Q6HR PRN #16 tab 03/04/22 03/06/22 Rx 5-325] [place] Carbonate 300 mg PO HS 03/04/22 03/06/22 History Omeprazole 40 mg PO DAILY 03/04/22 03/06/22 History predniSONE [Deltasone] 20 mg PO BID 03/04/22 03/06/22 History Ferrous Gluconate 324 mg PO DAILY 03/06/22 03/06/22 History Allergies Allergy/AdvReac Type Severity Reaction Status Date / Time Sulfa (Sulfonamide Allergy Anaphylaxis Verified 03/06/22 10:26 Antibiotics) Physical Exam Vitals: Vital Signs Temp Pulse Resp BP Pulse Ox 03/06/22 17:31 78 18 119/93 91 L 03/06/22 10:22 98.5 F 106 H 18 98/66 84 L Intake and Output 03/06/22 03/06/22 03/06/22 06:59 14:59 22:59 Other: Weight 68.039 kg Results CBC & Chem 7: 03/07/22 05:13 03/07/22 05:13
[2022-03-07] MEDS: HEPARIN SOD,PORK IN 0.45% NACL 25,000 UNIT in 0.45% NACL 1 250ML.BAG IV SCH ×2 (14:55→17:28)
--- NOTE | 2022-03-07 15:19 | P.CNOR ---
History of Present Illness - [facility] Consult date: 03/07/22 Requesting physician: David Verduzco Consult reason: fracture (L1 compression fracture deformity status post fall), low back pain (Acute traumatic low back pain) History of present illness: Patient is a very pleasant 76-year-old female who is known to our service who is seen and examined in the emergency room #25 for further evaluation of her lumbar spine. She sustained a fall on 02/27/2022 when leaning over falling on her left hip and lumbar spine. She's had significant low back pain and difficulty with mobilization and ambulation since that time. She states she has increased pain with trying to get out of bed, trying to sit up, and with ambulation. She presented to [facility] on 03/04/2022 for further evaluation. X-ray imaging was taken at that time which did show evidence of an L1 compression fracture she was discharged from the emergency department with plans for follow-up evaluation at our office at [facility] today, 03/07/2022. Prior to her scheduled appointment today she began to experience some shortness of breath. She presented back to the emergency department for further evaluation. I am unable to see any documentation to the emergency department. Patient in her family state she was diagnosed with pneu monia and a blood clot. She states she is already on anticoagulation medicine in the outpatient setting. She follows with Dr. Verduzco for outpatient treatment and evaluation. She was previously seen and examined in our office on 06/21/2021. We previously obtained x-ray and MRI imaging of her lumbar spine. Since her appointment she is undergone significant evaluation as she is having symptoms of unsteady gait, shuffling gait, upper extremity tremor, bilateral extremity weakness, upper extremity hyperreflexia, and symptoms of cervical myelopathy. She did not have significant findings in regards to her cervical spine that correlated well with these symptoms. She states after significant wo rkup and evaluation she underwent a muscle biopsy in December of 2021 at the [facility]. She was diagnosed with inclusion body myositis. She is currently on steroid medication. She states since her fall she has not had any change in the functionality or symptoms in her legs. She does have significant tremor currently in the bilateral lower extremities. She states based on her IBM diagnosis these tremors will worsen over time and we'll progress further into her upper extremities. She currently does have a tremor during physical examination at the right upper extremity. She states she chronically uses a walker to aid in ambulation. Past Medical History Past Medical History: Chest Pain / Angina, Diabetes Mellitus, Deep Vein Thrombosis (DVT), Eye Disorder, Hyperlipidemia, Musculoskeletal Disorder, Pulmonary Embolus (PE), Skin Disorder Additional Past Medical History / Comment(s): Colitis. CVA 2015-was ruled out; had mult DVT's, PE's after a fall with multiple fractures. Has tremors hands. Glaucoma & macular degeneration bilat. Has "irreg heart rhythm -Wenckebach", hx told "pre-diabetic". Neuropathy hands, feet. Unable to walk now. Rash on legs. History of Any Multi-Drug Resistant Organisms: None Reported Past Surgical History: Adenoidectomy, Appendectomy, Ear Surgery, Hysterectomy, Tonsillectomy, Tubal Ligation Additional Past Surgical History / Comment(s): BILAT CATARACTS. REPAIR PERFORFATED LT EARDRUM. COLONOSCOPY. Has IVC Filter. Past Anesthesia/Blood Transfusion Reactions: Previous Problems w/ Anesthesia, Family History of Problems w/ Anesthesia, Motion Sickness Additional Past Anesthesia/Blood Transfusion Reaction / Comm: SLOW TO COME OUT OF ANESTHESIA, STATES "SISTER ALSO HAS A HARD TIME COMING OUT OF ANESTHESIA" Past Psychological History: Bipolar Smoking Status: Never smoker Past Alcohol Use History: None Reported Past Drug Use History: None Reported - Past Family History Brother(s) Family Medical History: Cancer Additional Family Medical History / Comment(s): leukemia Mother Family Medical History: Cancer Additional Family Medical History / Comment(s): Colon cancer; lung cancer now Medications and Allergies Home Medications Medication Instructions Recorded Confirmed Type Aspirin 81 mg PO DAILY 06/01/15 03/06/22 History Escitalopram [Lexapro] 10 mg PO DAILY 06/01/15 03/06/22 History Latanoprost Ophth [Xalatan 0.005%] 1 drops BOTH EYES HS 06/01/15 03/06/22 History Rivaroxaban [Xarelto] 20 mg PO PC-SUPPER 06/01/15 03/06/22 History clonazePAM [KlonoPIN] 0.5 mg PO BID 06/01/15 03/06/22 History Vit C/E/Zn/Coppr/Lutein/Zeaxan 1 cap PO BID 12/05/21 03/06/22 History [Preservision Areds 2 Softgel] HYDROcodone/APAP 5-325MG [[place] 1 tab PO Q6HR PRN #16 tab 03/04/22 03/06/22 Rx 5-325] Ramos Carbonate 300 mg PO HS 03/04/22 03/06/22 History Omeprazole 40 mg PO DAILY 03/04/22 03/06/22 History predniSONE [Deltasone] 20 mg PO BID 03/04/22 03/06/22 History Ferrous Gluconate 324 mg PO DAILY 03/06/22 03/06/22 History Allergies Allergy/AdvReac Type Severity Reaction Status Date / Time Sulfa (Sulfonamide Allergy Anaphylaxis Verified 03/06/22 10:26 Antibiotics) Physical Examination Physical exam: Patient is awake, alert, and oriented 3 Vital signs stable Good chest excursion with deep inspiration and expiration Abdomen soft nontender Examination of lumbar spine reveals skin is intact with no abrasions, lacerations, or bruises; no erythema, purulence or signs of infection Significant pain with palpation along the midline of the lumbar spine Patient is able to perform some dorsiflexion and plantar flexion bilaterally but does have difficulty doing so bilaterally Patient is unable to independently lift the lower extremities off the bed bilaterally Negative Lasegue's test bilaterally No signs or symptoms of DVT; no calf pain No pain with internal and external rotation of the hips bilaterally Neurovascularly intact Significant tremor in the bilateral lower extremities Right upper extremity tremor Results Pertinent studies: X-rays of the lumbar spine taken on 03/04/2022: Evidence of of L1 superior endplate compression fracture deformity with approximately 30% height loss; L3- S1 degenerative disc disease; overall alignment is adequate maintained; no spondylolisthesis; degenerative scoliosis; L2-3 anterior osteophytic spurring X-ray of the left hip and pelvis taken on 03/04/2022: No obvious fracture or displacement within the pelvis; mild osteophytes of bilateral hip joint spacing X-rays lumbosacral spine taken at [facility] on 05/31/2021: L3-S1 degenerative disc disease; overall alignment is adequate maintained; no spondylolisthesis; no evidence of vertebral body compression fracture; degenerative scoliosis; L2-3 anterior osteophytic spurring - Labs Labs: Abnormal Lab Results - Last 24 Hours (Table) 03/06/22 03/06/22 03/06/22 Range/Units 11:13 11:13 11:13 RBC 3.68 L (3.80-5.40) m/uL Hgb (11.4-16.0) gm/dL Hct (34.0-46.0) % MCV 102.2 H (80.0-100.0) fL MCHC (31.0-37.0) g/dL RDW 16.5 H (11.5-15.5) % Neutrophils # 9.1 H (1.3-7.7) k/uL Lymphocytes # 0.9 L (1.0-4.8) k/uL APTT (22.0-30.0) sec D-Dimer (<0.60) mg/L FEU Potassium 5.2 H (3.5-5.1) mmol/L Chloride (98-107) mmol/L Carbon Dioxide (22-30) mmol/L BUN 39 H (7-17) mg/dL Glucose 161 H (74-99) mg/dL Plasma Lactic Acid Celio (0.7-2.0) mmol/L Calcium (8.4-10.2) mg/dL AST 63 H (14-36) U/L ALT 52 H (4-34) U/L CK-MB (CK-2) 4.3 H (0.0-2.4) ng/mL Troponin I 0.284 H* (0.000-0.034) ng/mL Total Protein (6.3-8.2) g/dL Albumin (3.5-5.0) g/dL Amylase 125 H (30-110) U/L Urine Appearance (Clear) Urine Protein (Negative) Amorphous Sediment (None) /hpf Hyaline Casts (0-2) /lpf Urine Mucus (None) /hpf 03/06/22 03/06/22 03/06/22 Range/Units 11:13 13:13 13:13 RBC (3.80-5.40) m/uL Hgb (11.4-16.0) gm/dL Hct (34.0-46.0) % MCV (80.0-100.0) fL MCHC (31.0-37.0) g/dL RDW (11.5-15.5) % Neutrophils # (1.3-7.7) k/uL Lymphocytes # (1.0-4.8) k/uL APTT 21.0 L (22.0-30.0) sec D-Dimer 0.98 H (<0.60) mg/L FEU Potassium (3.5-5.1) mmol/L Chloride (98-107) mmol/L Carbon Dioxide (22-30) mmol/L BUN (7-17) mg/dL Glucose (74-99) mg/dL Plasma Lactic Acid Celio 2.6 H* (0.7-2.0) mmol/L Calcium (8.4-10.2) mg/dL AST (14-36) U/L ALT (4-34) U/L CK-MB (CK-2) (0.0-2.4) ng/mL Troponin I 0.237 H* (0.000-0.034) ng/mL Total Protein (6.3-8.2) g/dL Albumin (3.5-5.0) g/dL Amylase (30-110) U/L Urine Appearance (Clear) Urine Protein (Negative) Amorphous Sediment (None) /hpf Hyaline Casts (0-2) /lpf Urine Mucus (None) /hpf 03/06/22 03/06/22 03/06/22 Range/Units 13:25 21:02 22:16 RBC (3.80-5.40) m/uL Hgb (11.4-16.0) gm/dL Hct (34.0-46.0) % MCV (80.0-100.0) fL MCHC (31.0-37.0) g/dL RDW (11.5-15.5) % Neutrophils # (1.3-7.7) k/uL Lymphocytes # (1.0-4.8) k/uL APTT 82.6 H (22.0-30.0) sec D-Dimer (<0.60) mg/L FEU Potassium (3.5-5.1) mmol/L Chloride (98-107) mmol/L Carbon Dioxide (22-30) mmol/L BUN (7-17) mg/dL Glucose (74-99) mg/dL Plasma Lactic Acid Celio (0.7-2.0) mmol/L Calcium (8.4-10.2) mg/dL AST (14-36) U/L ALT (4-34) U/L CK-MB (CK-2) (0.0-2.4) ng/mL Troponin I 0.152 H* (0.000-0.034) ng/mL Total Protein (6.3-8.2) g/dL Albumin (3.5-5.0) g/dL Amylase (30-110) U/L Urine Appearance Cloudy H (Clear) Urine Protein 1+ H (Negative) Amorphous Sediment Few H (None) /hpf Hyaline Casts 3 H (0-2) /lpf Urine Mucus Occasional H (None) /hpf 03/07/22 03/07/22 03/07/22 Range/Units 05:13 05:13 05:13 RBC 3.14 L (3.80-5.40) m/uL Hgb 10.2 L (11.4-16.0) gm/dL Hct 33.2 L (34.0-46.0) % MCV 105.7 H (80.0-100.0) fL MCHC 30.7 L (31.0-37.0) g/dL RDW 16.3 H (11.5-15.5) % Neutrophils # (1.3-7.7) k/uL Lymphocytes # 0.9 L (1.0-4.8) k/uL APTT 76.5 H (22.0-30.0) sec D-Dimer (<0.60) mg/L FEU Potassium (3.5-5.1) mmol/L Chloride 112 H (98-107) mmol/L Carbon Dioxide 17 L (22-30) mmol/L BUN 29 H (7-17) mg/dL Glucose 103 H (74-99) mg/dL Plasma Lactic Acid Celio (0.7-2.0) mmol/L Calcium 8.3 L (8.4-10.2) mg/dL AST 60 H (14-36) U/L ALT 46 H (4-34) U/L CK-MB (CK-2) (0.0-2.4) ng/mL Troponin I (0.000-0.034) ng/mL Total Protein 5.5 L (6.3-8.2) g/dL Albumin 2.7 L (3.5-5.0) g/dL Amylase (30-110) U/L Urine Appearance (Clear) Urine Protein (Negative) Amorphous Sediment (None) /hpf Hyaline Casts (0-2) /lpf Urine Mucus (None) /hpf Microbiology - Last 24 Hours (Table) 03/06/22 13:25 Urine Culture - Preliminary Urine,Voided H & H 03/06/22 03/07/22 Range/Units 11:13 05:13 Hgb 12.0 D 10.2 L (11.4-16.0) gm/dL Hct 37.6 33.2 L (34.0-46.0) % Coagulation 03/06/22 Range/Units 13:13 INR 0.9 (<1.2) Result Diagrams: 03/07/22 05:13 03/07/22 05:13 Assessment and Plan Assessment: Assessment: Acute traumatic L1 compression fracture deformity status post fall Acute severe low back pain Difficulty in mobilization due to fracture L3-S1 degenerative disc disease Degenerative scoliosis Unsteady gait Bilateral lower extremity weakness Significant bilateral lower extremity tremor Right upper extremity tremor 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 History of blood clots and pulmonary embolism currently on anticoagulation Diabetes mellitus Hyperlipidemia (1) Compression fracture of L1 vertebra Current Visit: Yes Status: Acute Code(s): S32.010A - WEDGE COMPRESSION FRACTURE OF FIRST LUMBAR VERTEBRA, INIT SNOMED Code(s): 132261298 (2) Acute low back pain Current Visit: Yes Status: Acute Code(s): M54.50 - LOW BACK PAIN, UNSPECIFIED SNOMED Code(s): 153102558 (3) Degenerative scoliosis Current Visit: Yes Status: Acute Code(s): M41.80 - OTHER FORMS OF SCOLIOSIS, SITE UNSPECIFIED SNOMED Code(s): 531805888 (4) Lumbar degenerative disc disease Current Visit: Yes Status: Acute Code(s): M51.36 - OTHER INTERVERTEBRAL DISC DEGENERATION, LUMBAR REGION SNOMED Code(s): 57097181 (5) Status post fall Current Visit: Yes Status: Acute Code(s): Z91.81 - HISTORY OF FALLING SNOMED Code(s): 930033853 (6) Unstable gait Current Visit: Yes Status: Acute Code(s): R26.81 - UNSTEADINESS ON FEET SNOMED Code(s): 31968568 (7) Lower extremity weakness Current Visit: Yes Status: Acute Code(s): R29.898 - OTH SYMPTOMS AND SIGNS INVOLVING THE MUSCULOSKELETAL SYSTEM SNOMED Code(s): 757324630 (8) Hyperlipemia Current Visit: Yes Status: Acute Code(s): E78.5 - HYPERLIPIDEMIA, UNSPECIFIED SNOMED Code(s): 35358149 (9) Diabetes Current Visit: Yes Status: Acute Code(s): E11.9 - TYPE 2 DIABETES MELLITUS WITHOUT COMPLICATIONS SNOMED Code(s): 82528184 (10) Tremor Current Visit: Yes Status: Acute Code(s): R25.1 - TREMOR, UNSPECIFIED SNOMED Code(s): 19031851 (11) Inclusion body myositis Current Visit: Yes Status: Acute Code(s): G72.41 - INCLUSION BODY MYOSITIS [IBM] SNOMED Code(s): 70532333 Plan: Plan: 1. Fely sustained a fall on 02/27/2022 when she fell in her lumbar spine and left hip after leaning forward. She has had increased lumbar pain and significant difficulty with mobilization, changing position, and ambulation since that time. She presented to [facility] for further evaluation on 03/04/2022. X-ray imaging did show evidence of an L1 compression fracture deformity. She was scheduled for further evaluation in our office today but presented back to the emergency department due to shortness of breath. Patient and her family states she was diagnosed with pneumonia and blood clot. She states her lumbar pain is different and has been significant following her fall. She does not have significant difficulty with generalized weakness and unsteady gait with the bilateral lower extremities. She's been recently diagnosed with inclusive body myositis diagnosed by muscle biopsy in December 2021 at the [facility]. After reviewing of imaging, physical examination the patient, and further discussion with the patient and her , will currently plan to continue with conservative treatment at this time. At this time we'll plan for bracing. A prescription has been written and provided to case management for a Exos LSO brace. Once this brace is delivered and fitted appropriately, patient should wear this brace while sitting upright at greater than 45, during increase activities, during ambulation. Brace is not have to or while lying in bed or while bathing. Following fitting of this brace, patient is clear for discharge from an orthopedic spine standpoint. Following discharge, patient may follow-up with Juan Pablo Ojeda PA-C or Dr. Basilio Self at [facility]. We did discuss until the brace is delivered and fitted properly, patient should avoid any excessive increased activities and increase ambulation. She may transfer to the restroom with with assistance. Once the brace is delivered and fitted appropriate she may increase her mobility and ambulation to her tolerance while avoiding excessive bending, twisting, lifting. 2. Patient will continue to be seen and examined by multiple other medical providers including medicine and pulmonology for her other medical diagnoses including pneumonia and blood clot Time with Patient: Greater than 30 (Including obtaining history, physical examination, reviewing of imaging, and dictation.me)
[2022-03-07 15:54] LABS: Reticulocyte % 3.1 % (0.5-2.0)
[2022-03-07 16:02] LABS: Glucose,Whole Blood 170 mg/dL (75-99)
[2022-03-07 16:20] LABS: Prothrombin Time 10.9 sec (9.0-12.0)
[2022-03-07] MEDS: LEVOFLOXACIN 750 MG TAB PO SCH (16:25)
[2022-03-07] MEDS: INSULIN ASPART (NovoLOG) 100 UNIT/ML VIAL SQ SCH ×2 (16:25→21:25)
[2022-03-07] MEDS: HYDROcodone/APAP 5-325MG 1 EACH TAB PO PRN (18:19)
--- NOTE | 2022-03-07 20:46 | P.CONS ---
History of Present Illness - Reason for Consult Consult date: 03/07/22 PE on Xarelto Requesting physician: David Verduzco - History of Present Illness Ms Whitley is a pleasant WF, initially seen in consult at [facility] on 07/24/14. She had been admitted to the hospital from 07/07/14 to 07/13/14 for colitis. She had had an IV placed in the left arm at that time. The pt had developed rednessand swelling involving the left forearm at home, and then started not feeling well, with intermittent chest discomfort with deep breathing, and malaise. She therefore cam in to the ER, and was found to have extensive B/L PE. She was admitted, placed on IV hepari, and discharged on Xarelto. About to years prior to this episode, she had broken both her ankles due to a fall. She then developed B/L DVT and PE, as well as a left axillary vein thrombosis. Of note, she was using a crutch on that side. She had an IVC filter placed and removed after 6 weeks. She was treated with IV heparin, and then placed on Xarelto for 6 mths, with good tolerance. A hypercoagulable w/u was ordered as an outpatient, and the pt seen for her 1st OV on 08/25/14. At that time in 2013 this was last time she was seen in office by Dr. vilchis he recommended:given recurrent VTE as noted. Both episodes would be considered provoked. However, recurrence does indicate possible underlying hypercoagulable condition in about 25% of cases. - Her hypercoagulable w/u is negative other than positive lupus anticoagulant, which can be due to anticoagulant therapy effect. Phosphatidylserine IgM antibody is positive in a low titre, which is a non-specific finding. However, she apparently has a h/o Sjogren's syndrome, due to which these could potentially be significant. I will repeat these when she is off the a nticoagulation. 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 However, this may have implications for her children, if their father is a silent carrier, in which case they could potentially inherit a deleterious mutation pattern. Thus they should consider testing. - Her anemia w/u was negative, other than a borderline B12 level. I will order homocysteine and methylmalonic acid level to check for functional deficiency. -Ordered prothrombin gene mutaion, as it was apparently not done - recommended a year of anticoagulation, after which she can transition to ASA, given that her event was provoked She now presents to [facility] with increased shortness of breath. Imaging of chest reviewed by pulmonary, who feels the area described as PE is too small to determine and ble doppler was negative for thrombus, therefore a filure to DOAC is difficult to conclude given the amount of inflammation in chest differentials of this area are open for question. Dr. Mcarthur and Dr vilchis agree to restart Xarelto when heparin drip is discontinued. Review of Systems All systems: negative Constitutional: Reports as per HPI Past Medical History Past Medical History: Chest Pain / Angina, Diabetes Mellitus, Deep Vein Thrombosis (DVT), Eye Disorder, Hyperlipidemia, Musculoskeletal Disorder, Pulmonary Embolus (PE), Skin Disorder Additional Past Medical History / Comment(s): Colitis. CVA 2014-was ruled out; had mult DVT's, PE's after a fall with multiple fractures. Has tremors hands. Glaucoma & macular degeneration bilat. Has "irreg heart rhythm -Wenckebach", hx told "pre-diabetic". Neuropathy hands, feet. Unable to walk now. Rash on legs. History of Any Multi-Drug Resistant Organisms: None Reported Past Surgical History: Adenoidectomy, Appendectomy, Ear Surgery, Hysterectomy, Tonsillectomy, Tubal Ligation Additional Past Surgical History / Comment(s): BILAT CATARACTS. REPAIR PERFORFATED LT EARDRUM. COLONOSCOPY. Has IVC Filter. Past Anesthesia/Blood Transfusion Reactions: Previous Problems w/ Anesthesia, Family History of Problems w/ Anesthesia, Motion Sickness Additional Past Anesthesia/Blood Transfusion Reaction / Comm: SLOW TO COME OUT OF ANESTHESIA, STATES "SISTER ALSO HAS A HARD TIME COMING OUT OF ANESTHESIA" Past Psychological History: Bipolar Smoking Status: Never smoker Past Alcohol Use History: None Reported Past Drug Use History: None Reported - Past Family History Brother(s) Family Medical History: Cancer Additional Family Medical History / Comment(s): leukemia Mother Family Medical History: Cancer Additional Family Medical History / Comment(s): Colon cancer; lung cancer now Medications and Allergies Home Medications Medication Instructions Recorded Confirmed Type Aspirin 81 mg PO DAILY 06/01/15 03/06/22 History Escitalopram [Lexapro] 10 mg PO DAILY 06/01/15 03/06/22 History Latanoprost Ophth [Xalatan 0.005%] 1 drops BOTH EYES HS 06/01/15 03/06/22 Hi story Rivaroxaban [Xarelto] 20 mg PO PC-SUPPER 06/01/15 03/06/22 History clonazePAM [KlonoPIN] 0.5 mg PO BID 06/01/15 03/06/22 History Vit C/E/Zn/Coppr/Lutein/Zeaxan 1 cap PO BID 12/05/21 03/06/22 History [Preservision Areds 2 Softgel] HYDROcodone/APAP 5-325MG [[place] 1 tab PO Q6HR PRN #16 tab 03/04/22 03/06/22 Rx 5-325] [place] Carbonate 300 mg PO HS 03/04/22 03/06/22 History Omeprazole 40 mg PO DAILY 03/04/22 03/06/22 History predniSONE [Deltasone] 20 mg PO BID 03/04/22 03/06/22 History Ferrous Gluconate 324 mg PO DAILY 03/06/22 03/06/22 History Allergies Allergy/AdvReac Type Severity Reaction Status Date / Time Sulfa (Sulfonamide Allergy Anaphylaxis Verified 03/06/22 10:26 Antibiotics) Physical Exam Vitals: Vital Signs Temp Pulse Pulse Resp BP BP Pulse Ox 03/07/22 12:17 97.8 F 83 18 122/75 94 L 03/07/22 09:21 98.0 F 95 16 147/68 96 03/07/22 07:00 96 03/07/22 06:00 97 03/07/22 05:00 96 03/07/22 04:00 93 129/73 97 03/07/22 03:00 92 16 139/64 96 03/07/22 00:00 90 114/64 03/06/22 23:00 96 03/06/22 22:00 94 L 03/06/22 21:00 90 16 110/46 98 03/06/22 19:59 78 17 120/59 93 L 03/06/22 17:31 78 18 119/93 91 L Intake and Output 03/06/22 03/07/22 03/07/22 22:59 06:59 14:59 Intake Total 155.036 240 Output Total 750 Balance 155.036 -510 Intake: Intake, IV Titration 155.036 Amount Heparin Sod,Pork in 0.45% 155.036 NaCl 25,000 unit In 0.45 % NaCl 1 250ml.bag @ 18 UNITS/KG/HR 12.247 mls/hr IV .[id number] [facility] Rx#: [id number] Oral 240 Output: Urine 750 Straight 750 Other: Weight 68.039 kg - Constitutional General appearance: cooperative, no acute distress - EENT ENT: NA/AT - Neck Neck: normal ROM - Respiratory Respiratory: bilateral: wheezing - Cardiovascular Rhythm: regularly irregular - Gastrointestinal General gastrointestinal: soft - Integumentary Integumentary: pale - Musculoskeletal Musculoskeletal: generalized weakness - Psychiatric Psychiatric: A&O x's 3 Results CBC & Chem 7: 03/07/22 05:13 03/07/22 05:13 Labs: Abnormal Lab Results - Last 24 Hours (Table) 03/06/22 03/06/22 03/06/22 Range/Units 11:13 11:13 11:13 RBC 3.68 L (3.80-5.40) m/uL Hgb (11.4-16.0) gm/dL Hct (34.0-46.0) % MCV 102.2 H (80.0-100.0) fL MCHC (31.0-37.0) g/dL RDW 16.5 H (11.5-15.5) % Neutrophils # 9.1 H (1.3-7.7) k/uL Lymphocytes # 0.9 L (1.0-4.8) k/uL APTT (22.0-30.0) sec D-Dimer (<0.60) mg/L FEU Potassium 5.2 H (3.5-5.1) mmol/L Chloride (98-107) mmol/L Carbon Dioxide (22-30) mmol/L BUN 39 H (7-17) mg/dL Glucose 161 H (74-99) mg/dL Plasma Lactic Acid Celio (0.7-2.0) mmol/L Calcium (8.4-10.2) mg/dL AST 63 H (14-36) U/L ALT 52 H (4-34) U/L CK-MB (CK-2) 4.3 H (0.0-2.4) ng/mL Troponin I 0.284 H* (0.000-0.034) ng/mL Total Protein (6.3-8.2) g/dL Albumin (3.5-5.0) g/dL Amylase 125 H (30-110) U/L Urine Appearance (Clear) Urine Protein (Negative) Amorphous Sediment (None) /hpf Hyaline Casts (0-2) /lpf Urine Mucus (None) /hpf 03/06/22 03/06/22 03/06/22 Range/Units 11:13 13:13 13:13 RBC (3.80-5.40) m/uL Hgb (11.4-16.0) gm/dL Hct (34.0-46.0) % MCV (80.0-100.0) fL MCHC (31.0-37.0) g/dL RDW (11.5-15.5) % Neutrophils # (1.3-7.7) k/uL Lymphocytes # (1.0-4.8) k/uL APTT 21.0 L (22.0-30.0) sec D-Dimer 0.98 H (<0.60) mg/L FEU Potassium (3.5-5.1) mmol/L Chloride (98-107) mmol/L Carbon Dioxide (22-30) mmol/L BUN (7-17) mg/dL Glucose (74-99) mg/dL Plasma Lactic Acid Celio 2.6 H* (0.7-2.0) mmol/L Calcium (8.4-10.2) mg/dL AST (14-36) U/L ALT (4-34) U/L CK-MB (CK-2) (0.0-2.4) ng/mL Troponin I 0.237 H* (0.000-0.034) ng/mL Total Protein (6.3-8.2) g/dL Albumin (3.5-5.0) g/dL Amylase (30-110) U/L Urine Appearance (Clear) Urine Protein (Negative) Amorphous Sediment (None) /hpf Hyaline Casts (0-2) /lpf Urine Mucus (None) /hpf 03/06/22 03/06/22 03/06/22 Range/Units 13:25 21:02 22:16 RBC (3.80-5.40) m/uL Hgb (11.4-16.0) gm/dL Hct (34.0-46.0) % MCV (80.0-100.0) fL MCHC (31.0-37.0) g/dL RDW (11.5-15.5) % Neutrophils # (1.3-7.7) k/uL Lymphocytes # (1.0-4.8) k/uL APTT 82.6 H (22.0-30.0) sec D-Dimer (<0.60) mg/L FEU Potassium (3.5-5.1) mmol/L Chloride (98-107) mmol/L Carbon Dioxide (22-30) mmol/L BUN (7-17) mg/dL Glucose (74-99) mg/dL Plasma Lactic Acid Celio (0.7-2.0) mmol/L Calcium (8.4-10.2) mg/dL AST (14-36) U/L ALT (4-34) U/L CK-MB (CK-2) (0.0-2.4) ng/mL Troponin I 0.152 H* (0.000-0.034) ng/mL Total Protein (6.3-8.2) g/dL Albumin (3.5-5.0) g/dL Amylase (30-110) U/L Urine Appearance Cloudy H (Clear) Urine Protein 1+ H (Negative) Amorphous Sediment Few H (None) /hpf Hyaline Casts 3 H (0-2) /lpf Urine Mucus Occasional H (None) /hpf 03/07/22 03/07/22 03/07/22 Range/Units 05:13 05:13 05:13 RBC 3.14 L (3.80-5.40) m/uL Hgb 10.2 L (11.4-16.0) gm/dL Hct 33.2 L (34.0-46.0) % MCV 105.7 H (80.0-100.0) fL MCHC 30.7 L (31.0-37.0) g/dL RDW 16.3 H (11.5-15.5) % Neutrophils # (1.3-7.7) k/uL Lymphocytes # 0.9 L (1.0-4.8) k/uL APTT 76.5 H (22.0-30.0) sec D-Dimer (<0.60) mg/L FEU Potassium (3.5-5.1) mmol/L Chloride 112 H (98-107) mmol/L Carbon Dioxide 17 L (22-30) mmol/L BUN 29 H (7-17) mg/dL Glucose 103 H (74-99) mg/dL Plasma Lactic Acid Celio (0.7-2.0) mmol/L Calcium 8.3 L (8.4-10.2) mg/dL AST 60 H (14-36) U/L ALT 46 H (4-34) U/L CK-MB (CK-2) (0.0-2.4) ng/mL Troponin I (0.000-0.034) ng/mL Total Protein 5.5 L (6.3-8.2) g/dL Albumin 2.7 L (3.5-5.0) g/dL Amylase (30-110) U/L Urine Appearance (Clear) Urine Protein (Negative) Amorphous Sediment (None) /hpf Hyaline Casts (0-2) /lpf Urine Mucus (None) /hpf Microbiology - Last 24 Hours (Table) 03/06/22 13:25 Urine Culture - Preliminary Urine,Voided CT scan - chest: report reviewed Venous US: report reviewed Assessment and Plan (1) Pulmonary embolism Narrative/Plan: Imaging of chest reviewed by pulmonary, who feels the area described as PE is too small to determine and ble doppler was negative for thrombus, therefore a filure to DOAC is difficult to conclude given the amount of inflammation in chest differentials of this area are open for question. Dr. Mcarthur and Dr vilchis agree to restart Xarelto when heparin drip is discontinued. Current Visit: Yes Status: Acute Code(s): I26.99 - OTHER PULMONARY EMBOLISM WITHOUT ACUTE COR PULMONALE SNOMED Code(s): 47713066 (2) Macrocytosis Current Visit: Yes Status: Acute Code(s): D75.89 - OTHER SPECIFIED DISEASES OF BLOOD AND BLOOD-FORMING ORGANS SNOMED Code(s): 745247521 (3) Pneumonia Current Visit: Yes Status: Acute Code(s): J18.9 - PNEUMONIA, UNSPECIFIED ORGANISM SNOMED Code(s): 714354108 (4) Macrocytic anemia Current Visit: Yes Status: Acute Code(s): D53.9 - NUTRITIONAL ANEMIA, UNSPECIFIED SNOMED Code(s): 43774121 (5) Fall Current Visit: No Status: Acute Code(s): W19.XXXA - UNSPECIFIED FALL, INITIAL ENCOUNTER SNOMED Code(s): 7107628 (6) Lumbar compression fracture Current Visit: No Status: Acute Code(s): S32.000A - WEDGE COMPRESSION FRACTURE OF UNSP LUMBAR VERTEBRA, INIT SNOMED Code(s): 691766593 (7) Liver function abnormality Current Visit: Yes Status: Acute Code(s): R94.5 - ABNORMAL RESULTS OF LIVER FUNCTION STUDIES SNOMED Code(s): 93322148 Plan: Restart Xarelto when cleared to do so by ortho spine surgery and other specialties Dr. Glez: I have completed the full history and physical and developed the above impression and plan, agree with dictation, dictated as a scribe.
[2022-03-07 21:07] LABS: Glucose,Whole Blood 148 mg/dL (75-99)
[2022-03-07] MEDS: VIT A,C & E-LUTEIN-MINERALS 1 EACH TAB PO SCH (21:24)
[2022-03-07] MEDS: LITHIUM CARBONATE 300 MG CAP PO SCH (21:25)
[2022-03-07 22:26] LABS: Glucose,Whole Blood 133 mg/dL (75-99)
[2022-03-07] MEDS: LATANOPROST 0.005% OPHTH DROPS 2.5 ML BTL BOTH EYES SCH (23:06)
[2022-03-07 23:26] LABS: % Iron Saturation 9.11 (12.00-45.00)
[2022-03-08 03:19] LABS: Cardiolipin Ab IgG Interp NEGATIVE (NEGATIVE); Cardiolipin Ab IgM Interp NEGATIVE (NEGATIVE); Cardiolipin IgA Antibody <2.0 U/mL; Cardiolipin IgM Antibody 1.7 U/mL
[2022-03-08 06:05] LABS: Glucose,Whole Blood 146 mg/dL (75-99)
[2022-03-08] MEDS: INSULIN ASPART (NovoLOG) 100 UNIT/ML VIAL SQ SCH ×4 (06:18→21:39)
[2022-03-08] MEDS: PANTOPRAZOLE 40 MG TABLET PO SCH (06:18)
--- NOTE | 2022-03-08 08:02 | P.PN ---
Progress Note - Text Progress Note Date: 03/08/22 Patient is seen and examined at bedside today. Her exam is essentially unchanged from yesterday in terms of her lumbar spine. She says pain at her lower back which does mobilize. They fit her with a brace yesterday but she has not yet been out of bed with it. Her lower extremities have good motor and sensory intact. She is neurologically intact in her lower extremity is. She has sustained dorsal to plantar flexion and EHL. Calves and thighs are soft nontender. Her back is tenderness to palpation at the upper lumbar spine and also with motion. Her abdomen soft nontender. Assessment plan Acute L1 compression fracture due to a fall, traumatic Some pulmonary issues being addressed with pulmonary service rule out embolism I think the patient can have good benefit with LSO brace use for her L1 compression fracture. The braces at bedside and she'll start to use it with therapy today. If she is able to mobilize with the brace on it is okay from a spine standpoint for her to be discharged home with follow-up on an outpatient basis the next 1-2 weeks. She could do well with brace treatment over the next 6-12 weeks and she may ambulate as tolerated with the brace on but should avoid any significant activity. If she is not doing well with the brace on outpatient basis than we can consider the possibly of kyphoplasty at L1. I discussed this with her and she understands. She'll need medical and pulmonary clearance before she is discharged, but from a spine standpoint is okay for discharge and she is able to be safely mobile with her LSO brace intact.
[2022-03-08] MEDS: clonazePAM 0.5 MG TAB PO SCH ×2 (09:33→21:33)
[2022-03-08] MEDS: FERROUS SULFATE 325 MG TAB PO SCH (09:33)
[2022-03-08] MEDS: predniSONE 20 MG TAB PO SCH ×2 (09:33→21:33)
[2022-03-08] MEDS: VIT A,C & E-LUTEIN-MINERALS 1 EACH TAB PO SCH ×2 (09:33→21:34)
[2022-03-08] MEDS: ASPIRIN 81 MG PO SCH (09:33)
[2022-03-08] MEDS: ESCITALOPRAM 10 MG TAB PO SCH (09:33)
[2022-03-08 11:03] LABS: Glucose,Whole Blood 258 mg/dL (75-99)
--- NOTE | 2022-03-08 11:41 | P.PN ---
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 and she stood up and she ended up losing her balance and fell backward patient came to the emergency department at [facility] on 03/04/2022 and had an x-ray that did show evidence of possible sacral fracture as well as computed tomography scan of the abdomen and pelvis that didn't show L1 fracture along with an old T6 fracture, patient was released home she ended up coming back to the emergency department today with increased low back pain associated with increased shortness of breath, patient apparently became quite dyspneic and she was coughing and minimal phlegm production without any pleurisy, she was brought into the ER by EMS her oxygen saturation initially was in the low 80s she was placed on 6 L nasal cannula her oxygenation recovered to 92%, his of the pre sentation patient underwent CT angiography of the chest that was positive for segmental pulmonary embolism in the lower branches, with possible underlying grouse glass material stenosis of a possible pneumonia, she was started on IV antibiotic Rocephin and Zithromax and she was placed on heparin drip, she was admitted to the hospital, pulmonary consultation was obtained as well as hematology consultation as the patient was on chronic anticoagulation with Xarelto, 20 mg orally once every day, patient also would be seen in consultation by Dr. Self for L1 fracture with retropulsion and possible canal stenosis. 03/07: Patient is laying down in bed she is waiting to find a bed telemetry unit, she was seen in the ER for the second day, she denies any chest pain at this time, she continues to have minimal cough, no phlegm production, she was seen in consultation by pulmonary medicine she was switched to oral Levaquin 750 mg orally once every day for the next 5 days, she was kept on heparin drip, I believe the patient to be switched to oral mucous is a posterior Xarelto since the patient developed to have a small clot on Xarelto, d-dimer is not very specific at this time but patient does have a prior history of pulmonary embolism as well as DVT, incarcerated L1 fractures overweight spine surgery evaluation she does appear to have retropulsion with minimal spinal stenosis, hematology evaluation is in order. Patient was seen by Dr. Luu in the past REVIEW OF SYSTEMS: Constitutional: No documented fever, no chills, no night sweats. No weight change. No weakness, fatigue or lethargy. No daytime sleepiness. HEENT: No headache. No blurred vision or double vision, no loss of vision. hard of Hearing, no ringing in the ears, no dizziness. No nasal drainage or congestion. No epistaxis. No sore throat. Lungs: No shortness of breath, no cough, no sputum production. No wheezing. Reports dyspnea with activity. Cardiovascular: no chest pain, no lower extremity edema. No palpitations. No paroxysmal nocturnal dyspnea. No orthopnea. No lightheadedness or dizziness. No syncopal episodes. Abdominal: Reports abdominal pain. No nausea, vomiting. No diarrhea. No constipation. No bloody or tarry stools reports loss of appetite. Genitourinary: No dysuria, increased frequency, urgency. No urinary retention. Musculoskeletal: positive for myalgias. positive for muscle weakness, positive for gait dysfunction, positive for frequent falls. positive for back pain and neck pain. Integumentary: No wounds, no lesions. No rash or pruritus. No unusual bruising. No change in hair or nails. Neurologic: No aphasia. No facial droop. No change in mentation. No head injury. No headache. No paralysis. No paresthesia. Psychiatric: positive for depression, anxiety, mood swings Endocrine: No abnormal blood sugars. No weight change. PHYSICAL EXAMINATION: General: 76-year-old female laying down in bed in minimal distress HEENT: Head is atraumatic, normocephalic, pupils were equal round reactive to light and recommendation, extraocular muscle movement were intact, sclera nonicteric, conjunctivae were pale, mucous membranes of the mouth are somewhat dry. Neck: Supple, no JVP, normal carotid upstroke bilaterally, no lymphadenopathy. Chest: Decreased breath sounds at the bases, few rhonchi, no expiratory wheezes, no chest wall tenderness, no intercostal retractions. Heart: First heart sound is normal, second heart sound is normal there is systolic ejection murmur located at the left sternal border. Abdomen: Soft, mild tenderness to the left lower quadrant, no rebound or guarding positive bowel sounds. Extremities: There is no edema no calf tenderness DP +2 bilaterally. Neurologic examination: Patient is awake alert and oriented X3, cranial nerves II-12 appear grossly intact, muscle power were 5 out of 5 in upper extremities and 5 out of 5 in bilateral lower extremities, deep tendon reflexes normal bilaterally. ASSESSMENT AND PLAN: 1. acute hypoxemic respiratory failure likely related to by basilar pulmonary infiltrate along with pulmonary embolism of the right lower lobe branch. Continue heparin drip for now, continue Levaquin 750 mg orally once every day, continue oxygen support as needed. Pulmonary evaluation. 2. Inclusion body myositis. Continue patient on prednisone 20 mg orally twice every day. 3. GERD with esophagitis. Continue patient on Protonix 40 mg orally once every day. 4. History of bipolar disorder. Continue patient on lithium 300 mg at bedtime, except fro 20 mg orally once every day and Klonopin 0.5 minute gram orally twice every day. 5. L1 fracture appears to be acute along with an old T6 fracture. Consult spine surgery for evaluation patient will definitely need to be started on prolia 60 m g SC q 6 months along with weightbearing exercises and calcium 1200 mg every day vitamin D3 2000 units once every day. 6. 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 7. anemia. Continue patient on iron 325 milligrams orally once every day. 8. DVT prophylaxis. Continue patient on heparin drip for now. 9. GI prophylaxis. Continue patient on Protonix 40 mg once every day. 10. Physical therapy evaluation. Objective - Vital Signs Vital signs: Vital Signs Temp 98.1 F 03/08/22 08:00 Pulse 69 03/08/22 08:00 Resp 16 03/08/22 08:00 BP 110/59 03/08/22 08:00 Pulse Ox 97 03/08/22 08:00 FiO2 Intake & Output 03/07/22 03/08/22 03/08/22 18:59 06:59 18:59 Intake Total 884.964 104.299 51.712 Output Total 750 700 Balance 134.964 -595.701 51.712 Weight 68.039 kg Intake: Intake, IV Titration 94.964 104.299 51.712 Amount Heparin Sod,Pork in 0.45% 94.964 104.299 51.712 NaCl 25,000 unit In 0.45 % NaCl 1 250ml.bag @ 18 UNITS/KG/HR 12.247 mls/hr IV .[id number] [facility] Rx#: [id number] Oral 790 Output: Urine 750 700 Straight 750 Other: Voiding Method Bedpan Bedpan - Labs CBC & Chem 7: 03/07/22 05:13 03/07/22 05:13 Labs: Abnormal Lab Results - Last 24 Hours (Table) 03/07/22 03/07/22 03/07/22 Range/Units 15:03 15:03 15:03 ESR 44 H (0-20) mm/hr Retic Count 3.1 H (0.5-2.0) % APTT (22.0-30.0) sec POC Glucose (mg/dL) (75-99) mg/dL Iron 22 L (50-170) ug/dL % Saturation 9.11 L (12.00-45.00) Transferrin 171.0 L (204.0-354.0) mg/dL Ferritin 648.0 H (10.0-291.0) ng/mL Lactate Dehydrogenase 1685 H (313-618) U/L Amylase 127 H (30-110) U/L Procalcitonin 0.55 H (0.02-0.09) ng/mL 03/07/22 03/07/22 03/07/22 Range/Units 16:01 20:41 22:24 ESR (0-20) mm/hr Retic Count (0.5-2.0) % APTT (22.0-30.0) sec POC Glucose (mg/dL) 170 H 148 H 133 H (75-99) mg/dL Iron (50-170) ug/dL % Saturation (12.00-45.00) Transferrin (204.0-354.0) mg/dL Ferritin (10.0-291.0) ng/mL Lactate Dehydrogenase (313-618) U/L Amylase (30-110) U/L Procalcitonin (0.02-0.09) ng/mL 03/08/22 03/08/22 03/08/22 Range/Units 03:52 05:39 08:51 ESR (0-20) mm/hr Retic Count (0.5-2.0) % APTT 79.3 H 66.0 H (22.0-30.0) sec POC Glucose (mg/dL) 146 H (75-99) mg/dL Iron (50-170) ug/dL % Saturation (12.00-45.00) Transferrin (204.0-354.0) mg/dL Ferritin (10.0-291.0) ng/mL Lactate Dehydrogenase (313-618) U/L Amylase (30-110) U/L Procalcitonin (0.02-0.09) ng/mL 03/08/22 Range/Units 11:01 ESR (0-20) mm/hr Retic Count (0.5-2.0) % APTT (22.0-30.0) sec POC Glucose (mg/dL) 258 H (75-99) mg/dL Iron (50-170) ug/dL % Saturation (12.00-45.00) Transferrin (204.0-354.0) mg/dL Ferritin (10.0-291.0) ng/mL Lactate Dehydrogenase (313-618) U/L Amylase (30-110) U/L Procalcitonin (0.02-0.09) ng/mL
[2022-03-08 12:04] LABS: Anisocytosis Slight; Basophils % (A) 0 %; Eosinophils % (A) 0 %; HCT 32.4 % (34.0-46.0); HGB 9.8 gm/dL (11.4-16.0); Hypochromasia Marked; Lymphocytes % (A) 17 %; MCH 32.2 pg (25.0-35.0); MCHC 30.2 g/dL (31.0-37.0); MCV 106.6 fL (80.0-100.0); Macrocytosis Marked; Monocytes # (A) 0.1 k/uL (0-1.0); Monocytes % (A) 2 %; Neutrophils # (A) 4.7 k/uL (1.3-7.7); Neutrophils % (A) 79 %; Platelet Count 269 k/uL (150-450); RBC 3.04 m/uL (3.80-5.40); RDW 16.2 % (11.5-15.5); WBC 5.9 k/uL (3.8-10.6)
--- NOTE | 2022-03-08 12:15 | P.PN ---
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 Since then, the patient becoming progressively weak and debilitated and currently she is at the point where she cannot ambulate and she is been essentially sedentary. I'm not sure if there is any other underlying connective tissue diseases along with her inclusion body myositis. She has a positive rheumatoid factor and she may have underlying rheumatoid arthritis. She also has positive ENEIDA, SSB, and anti [employer]. The patient also has a remote history of pulmonary embolism. Around 10 years ago, she had a fall she sustained fractures to her ankles bilaterally. At that time, she was found to have bilateral clots in the lower extremities and pulmonary embolism. She was given a filter and the filter was ultimately taken and since then the patient has been on anticoagulants. Over the past 10 years, she has been on anticoagulants and she has recently taken Xarelto 20 mg by mouth daily. She has not missed any of her medication doses. For now, the patient is on chronic steroids also and she is taking prednisone 20 mg by mouth twice a day. Around 2 days ago, the patient came into the emergency room because of back pain, She was diagnosed having vertebral compression fracture and she was discha rged home upon being treated with a combination of painkillers and she was given [place] 5 to be taken on outpatient basis. At that time, x-ray of the lumbar spine was done and it showed evidence of deformity at the level of L1 and degenerative lumbar spine changes. Yesterday, the patient came in to the emergency department again because of left lower quadrant pain and burning upon urination. CAT scan of the abdomen was done and showed L1 vertebral body collapse. Otherwise no other acute abdomen is a been noted. The CT angiogram of the chest was also completed any today's the concern for pulmonary embolism. Based on the report given by the radiologist, there was a very tiny filling defect in the right lower lobe subsegmental pulmonary artery branch. At the same time, there was evidence of bilateral pulmonary infiltrates consistent with chronic pneumonia/ILD. These are areas of groundglass opacities bilaterally without any on lymphadenopathy or pleural effusions. The patient denies having any cough or sputum production. She reports to be slightly more short of breath compared to her baseline. D-dimer level is at 0.9. The patient states that she has been compliant to Xarelto. The patient also had Doppler of the lower extremity that showed no evidence of any DVTs. Hemoglobin is at 10.2. Platelet count is at 258. Electrolytes are normal and there is a component of mild non- gap metabolic acidosis. Some mild abnormalities in the liver function tests. The troponin I was at 0.15 to, UA was essentially negative., COVID 19 testing was also negative. The patient denies having any pleurisy. No hemoptysis. She is currently on IV heparin. On today's evaluation of 02/28/2022, no new complaints and the patient remained on IV heparin. As mentioned, Dopplers were negative, d-dimer was low and the pulmonary embolism is questionable. I favor putting this patient back on Xarelto. He does have interstitial pulmonary infiltrates, likely chronic, likely related to ILD. The pro calcitonin level was at 0.55 and the patient is currently covered with empiric antibiotics with Levaquin. Anti-cardial lipid antibodies were also negative. Objective - Vital Signs Vital signs: Vital Signs Temp 98.0 F 03/08/22 11:56 Pulse 77 03/08/22 11:56 Resp 16 03/08/22 11:56 BP 123/56 03/08/22 11:56 Pulse Ox 96 03/08/22 11:56 FiO2 Intake & Output 03/07/22 03/08/22 03/08/22 18:59 06:59 18:59 Intake Total 884.964 104.299 51.712 Output Total 750 700 Balance 134.964 -595.701 51.712 Weight 68.039 kg Intake: Intake, IV Titration 94.964 104.299 51.712 Amount Heparin Sod,Pork in 0.45% 94.964 104.299 51.712 NaCl 25,000 unit In 0.45 % NaCl 1 250ml.bag @ 18 UNITS/KG/HR 12.247 mls/hr IV .[id number] [facility] Rx#: [id number] Oral 790 Output: Urine 750 700 Straight 750 Other: Voiding Method Bedpan Bedpan - Exam General appearance: alert, in no apparent distress currently on oxygen and patient is on oxygen at 3 L Head exam: Present: atraumatic, normocephalic Eye exam: Present: normal appearance, PERRL ENT exam: Present: normal exam Neck exam: Present: normal inspection. Absent: tenderness, meningismus Respiratory exam: Present: normal lung sounds bilaterally, respiratory distress accident in the mid and lower lung nelson bilaterally Cardiovascular Exam: Present: regular rate, normal rhythm GI/Abdominal exam: Present: soft, distended. Absent: tenderness, guarding, rebound Extremities exam: Chronic muscle atrophy and muscle weakness in the lower extremities bilaterally Back exam: Present: paraspinal tenderness (Bilateral) Neurological exam: Present: alert, oriented X3, CN II-XII intact, chronic muscle weakness in lower extremities and upper extremities and the patient has proximal muscle weakness. Psychiatric exam: Present: normal affect, normal mood Skin exam: Present: warm, dry, intact. Absent: cyanosis, diaphoretic - Labs CBC & Chem 7: 03/08/22 08:51 03/07/22 05:13 Labs: Abnormal Lab Results - Last 24 Hours (Table) 03/07/22 03/07/22 03/07/22 Range/Units 15:03 15:03 15:03 RBC (3.80-5.40) m/uL Hgb (11.4-16.0) gm/dL Hct (34.0-46.0) % MCV (80.0-100.0) fL MCHC (31.0-37.0) g/dL RDW (11.5-15.5) % Macrocytosis ESR 44 H (0-20) mm/hr Retic Count 3.1 H (0.5-2.0) % APTT (22.0-30.0) sec POC Glucose (mg/dL) (75-99) mg/dL Iron 22 L (50-170) ug/dL % Saturation 9.11 L (12.00-45.00) Transferrin 171.0 L (204.0-354.0) mg/dL Ferritin 648.0 H (10.0-291.0) ng/mL Lactate Dehydrogenase 1685 H (313-618) U/L Amylase 127 H (30-110) U/L Procalcitonin 0.55 H (0.02-0.09) ng/mL 03/07/22 03/07/22 03/07/22 Range/Units 16:01 20:41 22:24 RBC (3.80-5.40) m/uL Hgb (11.4-16.0) gm/dL Hct (34.0-46.0) % MCV (80.0-100.0) fL MCHC (31.0-37.0) g/dL RDW (11.5-15.5) % Macrocytosis ESR (0-20) mm/hr Retic Count (0.5-2.0) % APTT (22.0-30.0) sec POC Glucose (mg/dL) 170 H 148 H 133 H (75-99) mg/dL Iron (50-170) ug/dL % Saturation (12.00-45.00) Transferrin (204.0-354.0) mg/dL Ferritin (10.0-291.0) ng/mL Lactate Dehydrogenase (313-618) U/L Amylase (30-110) U/L Procalcitonin (0.02-0.09) ng/mL 03/08/22 03/08/22 03/08/22 Range/Units 03:52 05:39 08:51 RBC (3.80-5.40) m/uL Hgb (11.4-16.0) gm/dL Hct (34.0-46.0) % MCV (80.0-100.0) fL MCHC (31.0-37.0) g/dL RDW (11.5-15.5) % Macrocytosis ESR (0-20) mm/hr Retic Count (0.5-2.0) % APTT 79.3 H 66.0 H (22.0-30.0) sec POC Glucose (mg/dL) 146 H (75-99) mg/dL Iron (50-170) ug/dL % Saturation (12.00-45.00) Transferrin (204.0-354.0) mg/dL Ferritin (10.0-291.0) ng/mL Lactate Dehydrogenase (313-618) U/L Amylase (30-110) U/L Procalcitonin (0.02-0.09) ng/mL 03/08/22 03/08/22 Range/Units 08:51 11:01 RBC 3.04 L (3.80-5.40) m/uL Hgb 9.8 L (11.4-16.0) gm/dL Hct 32.4 L (34.0-46.0) % MCV 106.6 H (80.0-100.0) fL MCHC 30.2 L (31.0-37.0) g/dL RDW 16.2 H (11.5-15.5) % Macrocytosis Marked A ESR (0-20) mm/hr Retic Count (0.5-2.0) % APTT (22.0-30.0) sec POC Glucose (mg/dL) 258 H (75-99) mg/dL Iron (50-170) ug/dL % Saturation (12.00-45.00) Transferrin (204.0-354.0) mg/dL Ferritin (10.0-291.0) ng/mL Lactate Dehydrogenase (313-618) U/L Amylase (30-110) U/L Procalcitonin (0.02-0.09) ng/mL Assessment and Plan Plan: Acute hypoxic respiratory failure with development of bilateral pulmonary infiltrates with some groundglass characteristics. This could be infectious in nature. Nevertheless, based on her history, possibility of chronic ILD cannot be completely excluded. 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 Nevertheless, these type of connective tissue disease disorders, and combinations and the patient may have other clinical changes diseases such as RA/lupus/mixed connective disease which could potentially cause ILD. I'm not much concerned about pulmonary embolism. The filling defects and was seen by the radiologist was minimal and does not explain her hypoxemia. I do not consider this to be a treatment failure. D-dimer is low. Doppler of the lower extremity has been negative. Her COVID 19 is negative. Previous history of pulmonary embolism with insertion and removal of an IVC filter and the patient has been on long-term and coagulation with Xarelto, along with that, the patient had a DVT and this was triggered by a fall and ankle fracture that occurred approximately 10 years ago History of inclusion body myositis History of sedentary lifestyle immobility secondary to above Previous history of CVA Previous history of colitis Previous history of glaucoma and macular degeneration Previous history of heart block underwent chemo type History of carpal tunnel disease and peripheral neuropathy Diabetes mellitus Hyperlipidemia troponin leak Plan Oxygenation is stable and is improving and the patient currently is down to 3 L The pulmonary infiltrates are likely chronic and likely Presenting and chronic ILD Complete course of antibiotics Echo of the heart showing a normal LV function May need home O2 I do favor this continuing IV heparin and starting the patient back on Xarelto. If all agreeable, this change of be done today. Continue oral prednisone. Complete a total of seven-day course of antibiotics with Levaquin.
[2022-03-08 12:43] LABS: Albumin 2.8 g/dL (3.5-5.0); Calcium 8.1 mg/dL (8.4-10.2); Potassium 4.7 mmol/L (3.5-5.1); Total Bilirubin 0.2 mg/dL (0.2-1.3); Total Protein 5.4 g/dL (6.3-8.2)
[2022-03-08 12:51] LABS: Poikilocytosis (M) Present
--- NOTE | 2022-03-08 13:27 | P.PN ---
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 Calvin and she was started on prednisone 20 mg orally twice every day, patient was doing fine up until a week ago when she was at home and she tried to bend over to pear picker stuff from the ground and she stood up and she ended up losing her balance and fell backward patient came to the emergency department at [facility] on 03/04/2022 and had an x-ray that did show evidence of possible sacral fracture as well as computed tomography scan of the abdomen and pelvis that didn't show L1 fracture along with an old T6 fracture, patient was released home she ended up coming back to the emergency department today with increased low back pain associated with increased shortness of breath, patient apparently became quite dyspneic and she was coughing and minimal phlegm production without any pleurisy, she was brought into the ER by EMS her oxygen saturation initially was in the low 80s she was placed on 6 L nasal cannula her oxygenation recovered to 92%, his of the pre sentation patient underwent CT angiography of the chest that was positive for segmental pulmonary embolism in the lower branches, with possible underlying grouse glass material stenosis of a possible pneumonia, she was started on IV antibiotic Rocephin and Zithromax and she was placed on heparin drip, she was admitted to the hospital, pulmonary consultation was obtained as well as hematology consultation as the patient was on chronic anticoagulation with Xarelto, 20 mg orally once every day, patient also would be seen in consultation by Dr. Self for L1 fracture with retropulsion and possible canal stenosis. 03/07: Patient is laying down in bed she is waiting to find a bed telemetry unit, she was seen in the ER for the second day, she denies any chest pain at this time, she continues to have minimal cough, no phlegm production, she was seen in consultation by pulmonary medicine she was switched to oral Levaquin 750 mg orally once every day for the next 5 days, she was kept on heparin drip, I believe the patient to be switched to oral mucous is a posterior Xarelto since the patient developed to have a small clot on Xarelto, d-dimer is not very specific at this time but patient does have a prior history of pulmonary embolism as well as DVT, incarcerated L1 fractures overweight spine surgery evaluation she does appear to have retropulsion with minimal spinal stenosis, hematology evaluation is in order. Patient was seen by Dr. Luu in the past 03/08: Patient is embarrassed for today she is feeling a lot better, she denies any pleurisy, she denies any hemoptysis, she is less short of breath today, she has been maintained on Levaquin 750 mg orally once every day, oxygen she is currently at 2 L nasal cannula, patient will be switched from heparin drip to Xarelto if ok with Hematology, we'll continue to monitor the patient for another 24 hours, she can be discharged home tomorrow morning REVIEW OF SYSTEMS: Constitutional: No documented fever, no chills, no night sweats. No weight change. No weakness, fatigue or lethargy. No daytime sleepiness. HEENT: No headache. No blurred vision or double vision, no loss of vision. hard of Hearing, no ringing in the ears, no dizziness. No nasal drainage or congestion. No epistaxis. No sore throat. Lungs: No shortness of breath, no cough, no sputum production. No wheezing. Reports dyspnea with activity. Cardiovascular: no chest pain, no lower extremity edema. No palpitations. No paroxysmal nocturnal dyspnea. No orthopnea. No lightheadedness or dizziness. No syncopal episodes. Abdominal: Reports abdominal pain. No nausea, vomiting. No diarrhea. No constipation. No bloody or tarry stools reports loss of appetite. Genitourinary: No dysuria, increased frequency, urgency. No urinary retention. Musculoskeletal: positive for myalgias. positive for muscle weakness, positive for gait dysfunction, positive for frequent falls. positive for back pain and neck pain. Integumentary: No wounds, no lesions. No rash or pruritus. No unusual bruising. No change in hair or nails. Neurologic: No aphasia. No facial droop. No change in mentation. No head injury. No headache. No paralysis. No paresthesia. Psychiatric: positive for depression, anxiety, mood swings Endocrine: No abnormal blood sugars. No weight change. PHYSICAL EXAMINATION: General: 76-year-old female laying down in bed in minimal distress HEENT: Head is atraumatic, normocephalic, pupils were equal round reactive to light and recommendation, extraocular muscle movement were intact, sclera nonicteric, conjunctivae were pale, mucous membranes of the mouth are somewhat dry. Neck: Supple, no JVP, normal carotid upstroke bilaterally, no lymphadenopathy. Chest: Decreased breath sounds at the bases, few rhonchi, no expiratory wheezes, no chest wall tenderness, no intercostal retractions. Heart: First heart sound is normal, second heart sound is normal there is systolic ejection murmur located at the left sternal border. Abdomen: Soft, mild tenderness to the left lower quadrant, no rebound or guarding positive bowel sounds. Extremities: There is no edema no calf tenderness DP +2 bilaterally. Neurologic examination: Patient is awake alert and oriented X3, cranial nerves II-12 appear grossly intact, muscle power were 5 out of 5 in upper extremities and 5 out of 5 in bilateral lower extremities, deep tendon reflexes normal bilaterally. ASSESSMENT AND PLAN: 1. Acute hypoxemic respiratory failure likely related to by basilar pulmonary infiltrate along with pulmonary embolism of the right lower lobe branch. restart xarelto 20 mg po daily, continue Levaquin 750 mg orally once every day, continue oxygen support at 2 L NC, await hematology input 2. Inclusion body myositis. Continue patient on prednisone 20 mg orally twice every day. 3. GERD with esophagitis. Continue patient on Protonix 40 mg orally once every day. 4. History of bipolar disorder. Continue patient on lithium 300 mg at bedtime, except fro 20 mg orally once every day and Klonopin 0.5 minute gram orally twice every day. 5. L1 fracture appears to be acute along with an old T6 fracture. was seen by Spine surgery, we will continue with recommended brace for ambulation 6. 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 7. anemia. Continue patient on iron 325 milligrams orally once every day. 8. DVT prophylaxis. discontinue Heparin drip and restart Xarelto 20 mg po daily 9. GI prophylaxis. Continue patient on Protonix 40 mg once every day. 10. Physical therapy evaluation. 11. Possible chronic ILD. we will continue with current Levaquin and Prednisone. Objective - Vital Signs Vital signs: Vital Signs Temp 98.1 F 03/08/22 08:00 Pulse 69 03/08/22 08:00 Resp 16 03/08/22 08:00 BP 110/59 03/08/22 08:00 Pulse Ox 97 03/08/22 08:00 FiO2 Intake & Output 03/07/22 03/08/22 03/08/22 18:59 06:59 18:59 Intake Total 884.964 104.299 51.712 Output Total 750 700 Balance 134.964 -595.701 51.712 Weight 68.039 kg Intake: Intake, IV Titration 94.964 104.299 51.712 Amount Heparin Sod,Pork in 0.45% 94.964 104.299 51.712 NaCl 25,000 unit In 0.45 % NaCl 1 250ml.bag @ 18 UNITS/KG/HR 12.247 mls/hr IV .[id number] [facility] Rx#: [id number] Oral 790 Output: Urine 750 700 Straight 750 Other: Voiding Method Bedpan Bedpan - Labs CBC & Chem 7: 03/08/22 08:51 03/08/22 08:51 Labs: Abnormal Lab Results - Last 24 Hours (Table) 03/07/22 03/07/22 03/07/22 Range/Units 15:03 15:03 15:03 ESR 44 H (0-20) mm/hr Retic Count 3.1 H (0.5-2.0) % APTT (22.0-30.0) sec POC Glucose (mg/dL) (75-99) mg/dL Iron 22 L (50-170) ug/dL % Saturation 9.11 L (12.00-45.00) Transferrin 171.0 L (204.0-354.0) mg/dL Ferritin 648.0 H (10.0-291.0) ng/mL Lactate Dehydrogenase 1685 H (313-618) U/L Amylase 127 H (30-110) U/L Procalcitonin 0.55 H (0.02-0.09) ng/mL 03/07/22 03/07/22 03/07/22 Range/Units 16:01 20:41 22:24 ESR (0-20) mm/hr Retic Count (0.5-2.0) % APTT (22.0-30.0) sec POC Glucose (mg/dL) 170 H 148 H 133 H (75-99) mg/dL Iron (50-170) ug/dL % Saturation (12.00-45.00) Transferrin (204.0-354.0) mg/dL Ferritin (10.0-291.0) ng/mL Lactate Dehydrogenase (313-618) U/L Amylase (30-110) U/L Procalcitonin (0.02-0.09) ng/mL 03/08/22 03/08/22 03/08/22 Range/Units 03:52 05:39 08:51 ESR (0-20) mm/hr Retic Count (0.5-2.0) % APTT 79.3 H 66.0 H (22.0-30.0) sec POC Glucose (mg/dL) 146 H (75-99) mg/dL Iron (50-170) ug/dL % Saturation (12.00-45.00) Transferrin (204.0-354.0) mg/dL Ferritin (10.0-291.0) ng/mL Lactate Dehydrogenase (313-618) U/L Amylase (30-110) U/L Procalcitonin (0.02-0.09) ng/mL 03/08/22 Range/Units 11:01 ESR (0-20) mm/hr Retic Count (0.5-2.0) % APTT (22.0-30.0) sec POC Glucose (mg/dL) 258 H (75-99) mg/dL Iron (50-170) ug/dL % Saturation (12.00-45.00) Transferrin (204.0-354.0) mg/dL Ferritin (10.0-291.0) ng/mL Lactate Dehydrogenase (313-618) U/L Amylase (30-110) U/L Procalcitonin (0.02-0.09) ng/mL
[2022-03-08] MEDS ORDERED: RIVAROXABAN 20 MG TAB PO STA (13:29)
[2022-03-08] MEDS: LEVOFLOXACIN 750 MG TAB PO SCH (14:27)
[2022-03-08 16:37] LABS: Glucose,Whole Blood 145 mg/dL (75-99)
[2022-03-08 21:02] LABS: Glucose,Whole Blood 184 mg/dL (75-99)
[2022-03-08] MEDS: LITHIUM CARBONATE 300 MG CAP PO SCH (21:34)
[2022-03-08 21:49] LABS: Glucose,Whole Blood 177 mg/dL (75-99)
[2022-03-08] MEDS: LATANOPROST 0.005% OPHTH DROPS 2.5 ML BTL BOTH EYES SCH (21:51)
[2022-03-09] MEDS: PANTOPRAZOLE 40 MG TABLET PO SCH (06:43)
[2022-03-09] MEDS: INSULIN ASPART (NovoLOG) 100 UNIT/ML VIAL SQ SCH ×4 (06:44→21:58)
[2022-03-09 07:14] LABS: Glucose,Whole Blood 191 mg/dL (75-99)
[2022-03-09 07:29] LABS: Anisocytosis Slight; HCT 27.5 % (34.0-46.0); HGB 8.7 gm/dL (11.4-16.0); Hypochromasia Slight; MCH 32.4 pg (25.0-35.0); MCHC 31.6 g/dL (31.0-37.0); MCV 102.5 fL (80.0-100.0); Macrocytosis Moderate; Mean Platelet Volume 7.1; Platelet Count 285 k/uL (150-450); RBC 2.68 m/uL (3.80-5.40); RDW 16.2 % (11.5-15.5); WBC 5.6 k/uL (3.8-10.6)
[2022-03-09 07:41] LABS: Albumin 2.7 g/dL (3.5-5.0); Calcium 9.3 mg/dL (8.4-10.2); Potassium 5.1 mmol/L (3.5-5.1); Total Bilirubin 0.3 mg/dL (0.2-1.3); Total Protein 5.4 g/dL (6.3-8.2)
--- NOTE | 2022-03-09 08:08 | XR ---
EXAMINATION TYPE: XR chest 1V DATE OF EXAM: 03/09/2022 COMPARISON: 03/06/2022 INDICATION: Pneumonia TECHNIQUE: Single frontal view of the chest is obtained. FINDINGS: The heart size is normal. The pulmonary vasculature is somewhat prominent. Mild increased markings are present. Correlate for volume overload IMPRESSION: 1. Correlate for fine overload.
--- NOTE | 2022-03-09 09:01 | P.PN ---
Progress Note - Text Progress Note Date: 03/09/22 Patient is seen and examined at bedside. She says she has not yet been out of bed and she has a Contreras catheter in place. She has a long history of neuropathy and lower extremity weakness which is persisting for her. She sees neurology with Dr. Cordero as outpatient. She has some pain at her right lower back when she tries to mobilize and landed her right side. Pain is being controlled with medication. She is not yet been out of bed with therapy Physical Exam Afebrile with stable vital signs Abdomen is soft nontender. Chest has good excursion deep and space expiration Her lower extremities have weakness at her feet with dorsal flexion plantarflexion and knee flexion-extension. She says this has been chronic for her but she feels it is a bit worse over the past several weeks. She is unsure if this made her fall or if it was worse from the fall Calves and thighs were soft nontender without evidence of DVT. Assessment/Plan L1 acute compression fracture due to a fall. Chronic neurologic change that does not seem related to the fracture. We will continue to increase the patient's mobilization with therapy. I think he would be a good idea to have neurology see her in regards to her lower extremity weakness as well. We will continue pain control . She will begin physical therapy and mobilization with her LSO brace on when she is mobilizing. She does not need to have her brace on while in bed. She may remove the brace for bathing as well.
[2022-03-09] MEDS: ASPIRIN 81 MG PO SCH (09:34)
[2022-03-09] MEDS: predniSONE 20 MG TAB PO SCH ×2 (09:34→21:58)
[2022-03-09] MEDS: FERROUS SULFATE 325 MG TAB PO SCH (09:34)
[2022-03-09] MEDS: clonazePAM 0.5 MG TAB PO SCH ×2 (09:34→21:57)
[2022-03-09] MEDS: VIT A,C & E-LUTEIN-MINERALS 1 EACH TAB PO SCH ×2 (09:34→21:58)
[2022-03-09] MEDS: ESCITALOPRAM 10 MG TAB PO SCH (09:34)
--- NOTE | 2022-03-09 10:39 | P.CRDCN ---
History of Present Illness History of present illness: HISTORY OF PRESENTING ILLNESS Patient is pleasant 76-year-old female with history of clinical state on chronic anticoagulation, hyperlipidemia, colitis, GERD, bipolar disorder, diabetes keny itus, inclusion body myositis, normal coronary arteries by prior heart catheterization, recent diagnosis of pulmonary embolism who presented secondary to fall after bending over and standing up too quickly. She states she does get lightheaded with positioning if she stands up or bends over and is not careful and has had a number of falls in the past. She denies any acute syncope or lightheaded episodes without bending motion. She has been very debilitated secondary to inclusion body myositis with increased weakness and was placed on prednisone up to 60 mg daily which somewhat improved however still fairly debilitated on lower dose of prednisone. Patient was found to have mild lactic acidosis 2.6, mildly elevated AST 63, ALT 52, CK-MB 4.3, troponin 0.28, 0.23, 0.15 proBNP 1450, hemoglobin 12.0, creatinine 0.99 and d-dimer 0.98. Given elevated d-dimer CTA was performed which showed a small pulmonary embolus in the subsegmental right lower lobe branch. There is no note of any right heart strain on CT. Echocardiogram was performed 03/07/2022 which showed normal EF 55- 60% with normal right ventricular function with RVSP of 39. She did have prior heart catheterization from 07/17/2015 which showed normal coronary arteries. REVIEW OF SYSTEMS At the time of my exam: CONSTITUTIONAL: Denies fever or chills. CARDIOVASCULAR: Denies chest pain, shortness of breath, orthopnea, PND or palpitations. RESPIRATORY: Denies cough. GASTROINTESTINAL: Denies abdominal pain, diarrhea, constipation, nausea or vomiting. MUSCULOSKELETAL: Denies myalgias. NEUROLOGIC: Denies numbness, tingling or weakness. ENDOCRINE: Denies fatigue, weight change, polydipsia or polyurina. GENITOURINARY: Denies burning, hematuria or urgency with micturation. HEMATOLOGIC: Denies history of anemia or bleeding. PHYSICAL EXAMINATION Vital signs reviewed. CONSTITUTIONAL: No apparent distress. HEENT: Head is normocephalic. Pupils are equal, round. Sclerae anicteric. Mucous membranes of the mouth are moist. No JVD. No carotid bruit. CHEST EXAMINATION: Lungs are clear to auscultation. No chest wall tenderness is noted on palpation or with deep breathing. HEART EXAMINATION: Regular rate and rhythm. S1, S2 heard. No murmurs, gallops or rub. ABDOMEN: Soft, nontender. Positive bowel sounds. EXTREMITIES: 2+ peripheral pulses, no lower extremity edema and no calf tenderness. NEUROLOGIC EXAMINATION: Patient is awake, alert and oriented x3. ASSESSMENT 1. Non-STEMI likely type II mechanism possibly from PE, possibly related to lactic acidosis, as well as myositis 2. Inclusion body myositis 3. Normal coronary arteries by heart catheterization 2014 4. Borderline blood pressures on presentation with orthostatic symptoms 5. Chronic steroid use 6. Lumbar fracture 7. Small pulmonary embolism without right heart strain PLAN Patient appears to have had a new PE however was on anticoagulation. Clinical presentation appears more consistent with mechanical fall with orthostatic type symptoms. Unclear of if PE is new or old. She has been on anticoagulation. Further recommendations regarding further anticoagulation per hematology. Elevated troponins do not appear indicative of acute coronary syndrome and appear related to lactic acidosis, borderline hypotension and possible PE. Normal coronary arteries by prior heart catheterization. Echo showing normal ejection fraction. Continue with aspirin and no further workup as an inpatient. Patient may be discharged with outpatient follow-up. May consider Midodrin if continues to have orthostatic symptoms. Past Medical History Past Medical History: Chest Pain / Angina, Diabetes Mellitus, Deep Vein Thrombosis (DVT), Eye Disorder, Hyperlipidemia, Musculoskeletal Disorder, Pulmonary Embolus (PE), Skin Disorder Additional Past Medical History / Comment(s): Colitis. CVA 2014-was ruled out; had mult DVT's, PE's after a fall with multiple fractures. Has tremors hands. Glaucoma & macular degeneration bilat. Has "irreg heart rhythm -Wenckebach", hx told "pre-diabetic". Neuropathy hands, feet. Unable to walk now. Rash on legs. History of Any Multi-Drug Resistant Organisms: None Reported Past Surgical History: Adenoidectomy, Appendectomy, Ear Surgery, Hysterectomy, Tonsillectomy, Tubal Ligation Additional Past Surgical History / Comment(s): BILAT CATARACTS. REPAIR PERFORFATED LT EARDRUM. COLONOSCOPY. Has IVC Filter. Past Anesthesia/Blood Transfusion Reactions: Previous Problems w/ Anesthesia, Family History of Problems w/ Anesthesia, Motion Sickness Additional Past Anesthesia/Blood Transfusion Reaction / Comment(s): SLOW TO COME OUT OF ANESTHESIA, STATES "SISTER ALSO HAS A HARD TIME COMING OUT OF ANESTHESIA" Past Psychological History: Bipolar Smoking Status: Never smoker Past Alcohol Use History: None Reported Past Drug Use History: None Reported - Past Family History Brother(s) Family Medical History: Cancer Additional Family Medical History / Comment(s): leukemia Mother Family Medical History: Cancer Additional Family Medical History / Comment(s): Colon cancer; lung cancer now Medications and Allergies Home Medications Medication Instructions Recorded Confirmed Type Aspirin 81 mg PO DAILY 06/01/15 03/06/22 History Escitalopram [Lexapro] 10 mg PO DAILY 06/01/15 03/06/22 History Latanoprost Ophth [Xalatan 0.005%] 1 drops BOTH EYES HS 06/01/15 03/06/22 History Rivaroxaban [Xarelto] 20 mg PO PC-SUPPER 06/01/15 03/06/22 History clonazePAM [KlonoPIN] 0.5 mg PO BID 06/01/15 03/06/22 History Vit C/E/Zn/Coppr/Lutein/Zeaxan 1 cap PO BID 12/05/21 03/06/22 History [Preservision Areds 2 Softgel] HYDROcodone/APAP 5-325MG [[place] 1 tab PO Q6HR PRN #16 tab 03/04/22 03/06/22 Rx 5-325] [place]aden Carbonate 300 mg PO HS 03/04/22 03/06/22 History Omeprazole 40 mg PO DAILY 03/04/22 03/06/22 History predniSONE [Deltasone] 20 mg PO BID 03/04/22 03/06/22 History Ferrous Gluconate 324 mg PO DAILY 03/06/22 03/06/22 History Allergies Allergy/AdvReac Type Severity Reaction Status Date / Time Sulfa (Sulfonamide Allergy Anaphylaxis Verified 03/06/22 10:26 Antibiotics) Physical Exam Vitals: Vital Signs Temp Pulse Resp BP Pulse Ox 03/09/22 04:00 97.5 F L 71 12 131/73 100 03/09/22 00:00 97.6 F 70 12 137/73 96 03/08/22 19:28 97.9 F 81 12 131/66 97 03/08/22 16:00 98.1 F 73 16 123/64 97 03/08/22 14:00 77 16 03/08/22 11:56 98.0 F 77 16 123/56 96 Intake and Output 03/08/22 03/09/22 03/09/22 22:59 06:59 14:59 Intake Total 358 Output Total 500 800 Balance -500 -800 358 Intake: Oral 358 Output: Urine 500 800 Uretheral (Contreras) 500 Other: Voiding Method Indwelling Catheter Indwelling Catheter # Bowel Movements 0 Results 03/09/22 06:39 03/09/22 06:39 Cardiac Enzymes 03/08/22 03/08/22 03/09/22 Range/Units 08:51 08:51 06:39 AST 48 H 35 (14-36) U/L Troponin I 0.038 H* (0.000-0.034) ng/mL Coagulation 03/08/22 Range/Units 08:51 APTT 66.0 H (22.0-30.0) sec CBC 03/08/22 03/09/22 Range/Units 08:51 06:39 WBC 5.9 5.6 (3.8-10.6) k/uL RBC 3.04 L 2.68 L (3.80-5.40) m/uL Hgb 9.8 L 8.7 L (11.4-16.0) gm/dL Hct 32.4 L 27.5 L (34.0-46.0) % Plt Count 269 285 (150-450) k/uL Comprehensive Metabolic Panel 03/08/22 03/09/22 Range/Units 08:51 06:39 Sodium 141 136 L (137-145) mmol/L Potassium 4.7 5.1 (3.5-5.1) mmol/L Chloride 110 H 110 H (98-107) mmol/L Carbon Dioxide 13 L 21 L (22-30) mmol/L BUN 28 H 33 H (7-17) mg/dL Creatinine 0.82 0.89 (0.52-1.04) mg/dL Glucose 118 H 145 H (74-99) mg/dL Calcium 8.1 L 9.3 (8.4-10.2) mg/dL AST 48 H 35 (14-36) U/L ALT 40 H 37 H (4-34) U/L Alkaline Phosphatase 51 46 (38-126) U/L Total Protein 5.4 L 5.4 L (6.3-8.2) g/dL Albumin 2.8 L 2.7 L (3.5-5.0) g/dL Current Medications Generic Name Dose Route Start Last Admin Trade Name Jyothi PRN Reason Stop Dose Admin Hydrocodone Bitart/Acetaminophen 1 each 03/07/22 10:16 03/07/22 18:19 Hydrocodone/Apap 5-325mg 1 Each Tab PO 1 each Q6HR PRN Administration Pain Aspirin 81 mg 03/08/22 09:00 03/09/22 09:34 Aspirin 81 Mg PO 81 mg DAILY ERIKA Administration Clonazepam 0.5 mg 03/07/22 12:30 03/09/22 09:34 Clonazepam 0.5 Mg Tab PO 0.5 mg BID ERIKA Administration Escitalopram Oxalate 10 mg 03/07/22 10:30 03/09/22 09:34 Escitalopram 10 Mg Tab PO 10 mg DAILY ERIKA Administration Ferrous Sulfate 325 mg 03/07/22 10:30 03/09/22 09:34 Ferrous Sulfate 325 Mg Tab PO 325 mg DAILY ERIKA Administration Insulin Aspart 0 unit 03/07/22 17:30 03/09/22 06:44 Insulin Aspart (Novolog) 100 Unit/Ml Vial SQ 2 unit ACHS ERIKA Administration Protocol Latanoprost 1 drops 03/07/22 21:00 03/08/22 21:51 Latanoprost 0.005% Ophth Drops 2.5 Ml Btl BOTH EYES 1 drops HS ERIKA Administration Levofloxacin 750 mg 03/07/22 15:00 03/08/22 14:27 Levofloxacin 750 Mg Tab PO 750 mg DAILY@1500 ERIKA Administration Protocol Bladen Carbonate 300 mg 03/07/22 21:00 03/08/22 21:34 Bladen Carbonate 300 Mg Cap PO 300 mg HS ERIKA Administration Multivitamins/Minerals 1 each 03/07/22 21:00 03/09/22 09:34 Vit A,C & C-Apibwu-Nvrvpgyq 1 Each Tab PO 1 each BID ERIKA Administration Pantoprazole Sodium 40 mg 03/07/22 10:30 03/09/22 06:43 Pantoprazole 40 Mg Tablet PO 40 mg [id number] ERIKA Administration Prednisone 20 mg 03/07/22 10:30 03/09/22 09:34 Prednisone 20 Mg Tab PO 20 mg BID ERIKA Administration Rivaroxaban 20 mg 03/09/22 17:30 Rivaroxaban 20 Mg Tab PO W/SUPPER ERIKA Protocol Intake and Output 03/08/22 03/09/22 03/09/22 22:59 06:59 14:59 Intake Total 358 Output Total 500 800 Balance -500 -800 358 Intake: Oral 358 Output: Urine 500 800 Uretheral (Contreras) 500 Other: Voiding Method Indwelling Catheter Indwelling Catheter # Bowel Movements 0 03/09/22 06:39 03/09/22 06:39
--- NOTE | 2022-03-09 11:25 | P.PN ---
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 Since then, the patient becoming progressively weak and debilitated and currently she is at the point where she cannot ambulate and she is been essentially sedentary. I'm not sure if there is any other underlying connective tissue diseases along with her inclusion body myositis. She has a positive rheumatoid factor and she may have underlying rheumatoid arthritis. She also has positive ENEIDA, SSB, and anti MIXER PIGMENT. The patient also has a remote history of pulmonary embolism. Around 10 years ago, she had a fall she sustained fractures to her ankles bilaterally. At that time, she was found to have bilateral clots in the lower extremities and pulmonary embolism. She was given a filter and the filter was ultimately taken and since then the patient has been on anticoagulants. Over the past 10 years, she has been on anticoagulants and she has recently taken Xarelto 20 mg by mouth daily. She has not missed any of her medication doses. For now, the patient is on chronic steroids also and she is taking prednisone 20 mg by mouth twice a day. Around 2 days ago, the patient came into the emergency room because of back pain, She was diagnosed having vertebral compression fracture and she was discha rged home upon being treated with a combination of painkillers and she was given [place] 5 to be taken on outpatient basis. At that time, x-ray of the lumbar spine was done and it showed evidence of deformity at the level of L1 and degenerative lumbar spine changes. Yesterday, the patient came in to the emergency department again because of left lower quadrant pain and burning upon urination. CAT scan of the abdomen was done and showed L1 vertebral body collapse. Otherwise no other acute abdomen is a been noted. The CT angiogram of the chest was also completed any today's the concern for pulmonary embolism. Based on the report given by the radiologist, there was a very tiny filling defect in the right lower lobe subsegmental pulmonary artery branch. At the same time, there was evidence of bilateral pulmonary infiltrates consistent with chronic pneumonia/ILD. These are areas of groundglass opacities bilaterally without any on lymphadenopathy or pleural effusions. The patient denies having any cough or sputum production. She reports to be slightly more short of breath compared to her baseline. D-dimer level is at 0.9. The patient states that she has been compliant to Xarelto. The patient also had Doppler of the lower extremity that showed no evidence of any DVTs. Hemoglobin is at 10.2. Platelet count is at 258. Electrolytes are normal and there is a component of mild non- gap metabolic acidosis. Some mild abnormalities in the liver function tests. The troponin I was at 0.15 to, UA was essentially negative., COVID 19 testing was also negative. The patient denies having any pleurisy. No hemoptysis. She is currently on IV heparin. On today's evaluation of 03/08/2022, no new complaints and the patient remained on IV heparin. As mentioned, Dopplers were negative, d-dimer was low and the pulmonary embolism is questionable. I favor putting this patient back on Xarelto. He does have interstitial pulmonary infiltrates, likely chronic, likely related to ILD. The pro calcitonin level was at 0.55 and the patient is currently covered with empiric antibiotics with Levaquin. Anti-cardial lipid antibodies were also negative. On 03/09/2022, I'm seeing the patient for a follow-up. The patient has no new complaints. She has been weaned down to the 2 L of oxygen by nasal cannula. She was taken off the IV heparin the patient was started also Xarelto. Spine surgeries evaluating her pain as the patient has a fractured level of L1 spine. At the same time, the patient was seen by cardiology regarding the possibility of an acute non-STEMI likely attached to mechanism. The patient is profoundly weak in the lower extremities. The patient is inclusion body myositis. The white cell count of 5.6 with a hemoglobin of 8.7, BUN is a 33 with a creatinine of 0.8 and the sodium level is 136. Normal LFTs. The patient is currently on 2 L about 2 by nasal cannula. Shows improvement in infiltrates and the patient has some mild increased markings of the pulmonary vasculature bilaterally. Remains on Levaquin. Objective - Vital Signs Vital signs: Vital Signs Temp 98.1 F 03/09/22 08:00 Pulse 71 03/09/22 08:00 Resp 18 03/09/22 08:00 BP 144/82 03/09/22 08:00 Pulse Ox 97 03/09/22 08:00 FiO2 Intake & Output 03/08/22 03/09/2222 18:59 06:59 18:59 Intake Total 51.712 358 Output Total 500 800 Balance -448.288 -800 358 Intake: Intake, IV Titration 51.712 Amount Heparin Sod,Pork in 0.45% 51.712 NaCl 25,000 unit In 0.45 % NaCl 1 250ml.bag @ 18 UNITS/KG/HR 12.247 mls/hr IV .[id number] ERIKA Rx#: [id number] Oral 358 Output: Urine 500 800 Uretheral (Contreras) 500 Other: Voiding Method Bedpan Indwelling Catheter Indwelling Catheter # Bowel Movements 0 - Exam General appearance: alert, in no apparent distress currently on oxygen and patient is on oxygen at 2 L Head exam: Present: atraumatic, normocephalic Eye exam: Present: normal appearance, PERRL ENT exam: Present: normal exam Neck exam: Present: normal inspection. Absent: tenderness, meningismus Respiratory exam: Present: normal lung sounds bilaterally, respiratory distress accident in the mid and lower lung nelson bilaterally Cardiovascular Exam: Present: regular rate, normal rhythm GI/Abdominal exam: Present: soft, distended. Absent: tenderness, guarding, rebound Extremities exam: Chronic muscle atrophy and muscle weakness in the lower extremities bilaterally Back exam: Present: paraspinal tenderness (Bilateral) Neurological exam: Present: alert, oriented X3, CN II-XII intact, chronic muscle weakness in lower extremities and upper extremities and the patient has proximal muscle weakness. Psychiatric exam: Present: normal affect, normal mood Skin exam: Present: warm, dry, intact. Absent: cyanosis, diaphoretic - Labs CBC & Chem 7: 03/09/22 06:39 03/09/22 06:39 Labs: Abnormal Lab Results - Last 24 Hours (Table) 03/08/22 03/08/22 03/08/22 Range/Units 08:51 08:51 08:51 RBC 3.04 L (3.80-5.40) m/uL Hgb 9.8 L (11.4-16.0) gm/dL Hct 32.4 L (34.0-46.0) % MCV 106.6 H (80.0-100.0) fL MCHC 30.2 L (31.0-37.0) g/dL RDW 16.2 H (11.5-15.5) % Macrocytosis Marked A Sodium (137-145) mmol/L Chloride 110 H (98-107) mmol/L Carbon Dioxide 13 L (22-30) mmol/L BUN 28 H (7-17) mg/dL Glucose 118 H (74-99) mg/dL POC Glucose (mg/dL) (75-99) mg/dL Calcium 8.1 L (8.4-10.2) mg/dL AST 48 H (14-36) U/L ALT 40 H (4-34) U/L Troponin I 0.038 H* (0.000-0.034) ng/mL Total Protein 5.4 L (6.3-8.2) g/dL Albumin 2.8 L (3.5-5.0) g/dL 03/08/22 03/08/22 03/08/22 Range/Units 16:32 21:01 21:27 RBC (3.80-5.40) m/uL Hgb (11.4-16.0) gm/dL Hct (34.0-46.0) % MCV (80.0-100.0) fL MCHC (31.0-37.0) g/dL RDW (11.5-15.5) % Macrocytosis Sodium (137-145) mmol/L Chloride (98-107) mmol/L Carbon Dioxide (22-30) mmol/L BUN (7-17) mg/dL Glucose (74-99) mg/dL POC Glucose (mg/dL) 145 H 184 H 177 H (75-99) mg/dL Calcium (8.4-10.2) mg/dL AST (14-36) U/L ALT (4-34) U/L Troponin I (0.000-0.034) ng/mL Total Protein (6.3-8.2) g/dL Albumin (3.5-5.0) g/dL 03/09/22 03/09/22 03/09/22 Range/Units 06:39 06:39 07:13 RBC 2.68 L (3.80-5.40) m/uL Hgb 8.7 L (11.4-16.0) gm/dL Hct 27.5 L (34.0-46.0) % MCV 102.5 H (80.0-100.0) fL MCHC (31.0-37.0) g/dL RDW 16.2 H (11.5-15.5) % Macrocytosis Sodium 136 L (137-145) mmol/L Chloride 110 H (98-107) mmol/L Carbon Dioxide 21 L (22-30) mmol/L BUN 33 H (7-17) mg/dL Glucose 145 H (74-99) mg/dL POC Glucose (mg/dL) 191 H (75-99) mg/dL Calcium (8.4-10.2) mg/dL AST (14-36) U/L ALT 37 H (4-34) U/L Troponin I (0.000-0.034) ng/mL Total Protein 5.4 L (6.3-8.2) g/dL Albumin 2.7 L (3.5-5.0) g/dL Microbiology - Last 24 Hours (Table) 03/06/22 13:25 Urine Culture - Final Urine,Voided Assessment and Plan Plan: Acute hypoxic respiratory failure with development of bilateral pulmonary infiltrates with some groundglass characteristics. This could be infectious in nature. Nevertheless, based on her history, possibility of chronic ILD cannot be completely excluded. 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 Nevertheless, these type of connective tissue disease disorders, and combinations and the patient may have other clinical changes diseases such as RA/lupus/mixed connective disease which could potentially cause ILD. I'm not much concerned about pulmonary embolism. The filling defects and was seen by the radiologist was minimal and does not explain her hypoxemia. I do not consider this to be a treatment failure. D-dimer is low. Doppler of the lower extremity has been negative. Her COVID 19 is negative. Previous history of pulmonary embolism with insertion and removal of an IVC filter and the patient has been on long-term and coagulation with Xarelto, along with that, the patient had a DVT and this was triggered by a fall and ankle fracture that occurred approximately 10 years ago History of inclusion body myositis History of sedentary lifestyle immobility secondary to above Previous history of CVA Previous history of colitis Previous history of glaucoma and macular degeneration Previous history of heart block underwent chemo type History of carpal tunnel disease and peripheral neuropathy Diabetes mellitus Hyperlipidemia troponin leak Plan Patient is currently on Xarelto 20 mg by mouth daily and IV heparin was discontinued Oxygenation is stable and is improving and the patient currently is down to 2 L, wean the FiO2 further. Chest x-ray was noted The pulmonary infiltrates are likely chronic and likely Presenting and chronic ILD Complete course of antibiotics Echo of the heart showing a normal LV function May need home O2 I do favor this continuing IV heparin and starting the patient back on Xarelto. If all agreeable, this change of be done today. Continue oral prednisone. Spine surgery regarding the patient's ongoing back pain Provide an incentive spirometer Complete a total of seven-day course of antibiotics with Levaquin.
--- NOTE | 2022-03-09 11:36 | P.CNNES ---
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 Patient has been having problems with gait almost for last 1 year. She has been using a walker since then. She has difficulty going up and down steps, has got worse to the point that she does not use stairs at all. She stays on the main level. Her right leg always has been weaker. Her symptoms got worse early this year, for which she was seen by [facility], underwent muscle biopsy and diagnosed with inclusion body myositis. She was started on prednisone 60 mg daily in December 2021, but now the dose has been decreased to 20 mg twice a day. Patient states that on 02/27/2022 she was bending down, went got up, she lost balance, fell backwards and developed significant back pain. Patient has been in and out of the hospital and has been diagnosed with acute L1 compression fracture. Patient has been seen by orthopedic surgery, recommending use of back brace for 12 weeks. Patient at present complains of back pain 8/10, which is localized. No saddle anesthesia. No shooting or radiation to the legs. Neurology was consulted for leg weakness. Patient says that she has weakness of both hands as well. She cannot hold glass of milk with one hand, he has to use both hands otherwise she can drop it. Patient has developed proximal muscle weakness of the arms, cannot lift her arms overhead for last one-year. Patient states that she fell off high curb 8 years ago and fractured both ankles. She had a cast on the left foot, and a boot on the right foot. Patient states that her toes and bottom of feet are numb for last 1 year. Patient also complains of numbness of the hands only when she is lifting something with her hands, like picking of the fork, and becomes numb. She also has been diagnosed with carpal tunnel syndrome and RA. Patient follows up with a operation research analyst. 2-D echo revealed normal left ventricular dimension and systolic function. EF is between 55-60%. Left ventricular cavity size is normal. Left atrial size is normal. Lower extremity Doppler negative for DVT. Chest x-ray correlate for foot overload. CTA of the chest revealed small pulmonary embolus. Findings in the lungs may represent sequela of infection, difficult to exclude edema, correlate for pneumonia, possible soft tissue nodule. Thoracic wedge type compression deformity at T6, mild, with no retropulsion, of indeterminate age. CBC with normal WBC, hemoglobin 8.7 with elevated MCV 102.5. Platelets are normal 285. Sodium 136, potassium 5.1, BUN 33, creatinine 0.89. AST is borderline 37 with normal AST 35. B12 is normal 41, folate > 20.0, creatinine kinase normal 43. Patient denies any history of tobacco use, alcohol. Denies diabetes. Patient follows up with Dr. Larsen. Review of Systems As above, complains of numbness, weakness, back pain. No problems with bowel or bladder control. Denies any headache, double vision, loss of vision. She does have decreased hearing. All other 14 point of review systems are reviewed and unremarkable. Past Medical History Past Medical History: Chest Pain / Angina, Diabetes Mellitus, Deep Vein Th rombosis (DVT), Eye Disorder, Hyperlipidemia, Musculoskeletal Disorder, Pulmonary Embolus (PE), Skin Disorder Additional Past Medical History / Comment(s): Colitis. CVA 2015-was ruled out; had mult DVT's, PE's after a fall with multiple fractures. Has tremors hands. Glaucoma & macular degeneration bilat. Has "irreg heart rhythm -Wenckebach", hx told "pre-diabetic". Neuropathy hands, feet. Unable to walk now. Rash on legs. History of Any Multi-Drug Resistant Organisms: None Reported Past Surgical History: Adenoidectomy, Appendectomy, Ear Surgery, Hysterectomy, Tonsillectomy, Tubal Ligation Additional Past Surgical History / Comment(s): BILAT CATARACTS. REPAIR PERFORFATED LT EARDRUM. COLONOSCOPY. Has IVC Filter. Past Anesthesia/Blood Transfusion Reactions: Previous Problems w/ Anesthesia, Family History of Problems w/ Anesthesia, Motion Sickness Additional Past Anesthesia/Blood Transfusion Reaction / Comment(s): SLOW TO COME OUT OF ANESTHESIA, STATES "SISTER ALSO HAS A HARD TIME COMING OUT OF ANESTHESIA" Past Psychological History: Bipolar Smoking Status: Never smoker Past Alcohol Use History: None Reported Past Drug Use History: None Reported - Past Family History Brother(s) Family Medical History: Cancer Additional Family Medical History / Comment(s): leukemia Mother Family Medical History: Cancer Additional Family Medical History / Comment(s): Colon cancer; lung cancer now Medications and Allergies Home Medications Medication Instructions Recorded Confirmed Type Aspirin 81 mg PO DAILY 06/01/15 03/06/22 History Escitalopram [Lexapro] 10 mg PO DAILY 06/01/15 03/06/22 History Latanoprost Ophth [Xalatan 0.005%] 1 drops BOTH EYES HS 06/01/15 03/06/22 History Rivaroxaban [Xarelto] 20 mg PO PC-SUPPER 06/01/15 03/06/22 History clonazePAM [KlonoPIN] 0.5 mg PO BID 06/01/15 03/06/22 History Vit C/E/Zn/Coppr/Lutein/Zeaxan 1 cap PO BID 12/05/21 03/06/22 History [Preservision Areds 2 Softgel] HYDROcodone/APAP 5-325MG [[place] 1 tab PO Q6HR PRN #16 tab 03/04/22 03/06/22 Rx 5-325] Perry Carbonate 300 mg PO HS 03/04/22 03/06/22 History Omeprazole 40 mg PO DAILY 03/04/22 03/06/22 History predniSONE [Deltasone] 20 mg PO BID 03/04/22 03/06/22 History Ferrous Gluconate 324 mg PO DAILY 03/06/22 03/06/22 History Allergies Allergy/AdvReac Type Severity Reaction Status Date / Time Sulfa (Sulfonamide Allergy Anaphylaxis Verified 03/06/22 10:26 Antibiotics) Physical Examination - Vital Signs Vital Signs: Vital Signs Temp Pulse Resp BP Pulse Ox 03/09/22 04:00 97.5 F L 71 12 131/73 100 03/09/22 00:00 97.6 F 70 12 137/73 96 03/08/22 19:28 97.9 F 81 12 131/66 97 03/08/22 16:00 98.1 F 73 16 123/64 97 03/08/22 14:00 77 16 03/08/22 11:56 98.0 F 77 16 123/56 96 Intake and Output 03/08/22 03/09/22 03/09/22 22:59 06:59 14:59 Intake Total 358 Output Total 500 800 Balance -500 -800 358 Intake: Oral 358 Output: Urine 500 800 Uretheral (Contreras) 500 Other: Voiding Method Indwelling Catheter Indwelling Catheter # Bowel Movements 0 Patient is an elderly female, very pleasant, in no acute distress. Patient is alert awake oriented to time place and person. Speech and language functions are normal. Attention, concentration and fund of knowledge is adequate. No aphasia or dysarthria. On cranial examination, pupils are equal, round and reacting to light, visual nelson are full on confrontation, with no neglect on double simultaneous stimulation. Her extraocular muscles are intact with no nystagmus. Face is symmetric, tongue protrudes to the midline. Palatal elevation and sensation normal, hearing is moderately decreased and shoulder shrug normal, facial sensation normal. Shoulder shrug normal. On muscle strength testing, (right/left) deltoid 4+/4+, biceps 4+/4, triceps 4/4, outgoing inspector 4-/4-. In the lower extremities hip flexion is less than 3/3, knee extension 5/5 minus, ankle dorsiflexion 5/5, inversion 5/5, Peronei 5/5. Toe extension 4+/4+. Deep tendon reflexes are 1 in the right upper extremity, 1+ left upper extremity. These are 1+ in ankles 2 bilaterally. Plantars downgoing. Sensory to touch is equal with no neglect. Cerebellar function showed no ataxia for [id number] testing, although she is slightly tremulous. No dysdiadochokinesia. Tone and bulk of muscles normal. Gait not checked. On general examination, there is no carotid bruit or murmur, S1-S2 audible. Abdomen is soft nontender. No organomegaly, bowel sounds present. Chest is clear to auscultation. Peripheral pulses are present. No edema. Results - Laboratory Findings CBC and BMP: 03/09/22 06:39 03/09/22 06:39 Abnormal Lab Findings: Abnormal Labs 03/06/22 03/06/22 03/06/22 11:13 11:13 11:13 RBC 3.68 L Hgb Hct MCV 102.2 H MCHC RDW 16.5 H Neutrophils # 9.1 H Lymphocytes # 0.9 L Macrocytosis ESR Retic Count APTT D-Dimer Sodium Potassium 5.2 H Chloride Carbon Dioxide BUN 39 H Glucose 161 H POC Glucose (mg/dL) Plasma Lactic Acid Celio Calcium Iron % Saturation Transferrin Ferritin AST 63 H ALT 52 H Lactate Dehydrogenase CK-MB (CK-2) 4.3 H Troponin I 0.284 H* Total Protein Albumin Amylase 125 H Procalcitonin Urine Appearance Urine Protein Amorphous Sediment Hyaline Casts Urine Mucus 03/06/22 03/06/22 03/06/22 11:13 13:13 13:13 RBC Hgb Hct MCV MCHC RDW Neutrophils # Lymphocytes # Macrocytosis ESR Retic Count APTT 21.0 L D-Dimer 0.98 H Sodium Potassium Chloride Carbon Dioxide BUN Glucose POC Glucose (mg/dL) Plasma Lactic Acid Celio 2.6 H* Calcium Iron % Saturation Transferrin Ferritin AST ALT Lactate Dehydrogenase CK-MB (CK-2) Troponin I 0.237 H* Total Protein Albumin Amylase Procalcitonin Urine Appearance Urine Protein Amorphous Sediment Hyaline Casts Urine Mucus 03/06/22 03/06/22 03/06/22 13:25 21:02 22:16 RBC Hgb Hct MCV MCHC RDW Neutrophils # Lymphocytes # Macrocytosis ESR Retic Count APTT 82.6 H D-Dimer Sodium Potassium Chloride Carbon Dioxide BUN Glucose POC Glucose (mg/dL) Plasma Lactic Acid Celio Calcium Iron % Saturation Transferrin Ferritin AST ALT Lactate Dehydrogenase CK-MB (CK-2) Troponin I 0.152 H* Total Protein Albumin Amylase Procalcitonin Urine Appearance Cloudy H Urine Protein 1+ H Amorphous Sediment Few H Hyaline Casts 3 H Urine Mucus Occasional H 03/07/22 03/07/22 03/07/22 05:13 05:13 05:13 RBC 3.14 L Hgb 10.2 L Hct 33.2 L MCV 105.7 H MCHC 30.7 L RDW 16.3 H Neutrophils # Lymphocytes # 0.9 L Macrocytosis ESR Retic Count APTT 76.5 H D-Dimer Sodium Potassium Chloride 112 H Carbon Dioxide 17 L BUN 29 H Glucose 103 H POC Glucose (mg/dL) Plasma Lactic Acid Celio Calcium 8.3 L Iron % Saturation Transferrin Ferritin AST 60 H ALT 46 H Lactate Dehydrogenase CK-MB (CK-2) Troponin I Total Protein 5.5 L Albumin 2.7 L Amylase Procalcitonin Urine Appearance Urine Protein Amorphous Sediment Hyaline Casts Urine Mucus 03/07/22 03/07/22 03/07/22 15:03 15:03 15:03 RBC Hgb Hct MCV MCHC RDW Neutrophils # Lymphocytes # Macrocytosis ESR 44 H Retic Count 3.1 H APTT D-Dimer Sodium Potassium Chloride Carbon Dioxide BUN Glucose POC Glucose (mg/dL) Plasma Lactic Acid Celio Calcium Iron 22 L % Saturation 9.11 L Transferrin 171.0 L Ferritin 648.0 H AST ALT Lactate Dehydrogenase 1685 H CK-MB (CK-2) Troponin I Total Protein Albumin Amylase 127 H Procalcitonin 0.55 H Urine Appearance Urine Protein Amorphous Sediment Hyaline Casts Urine Mucus 03/07/22 03/07/22 03/07/22 16:01 20:41 22:24 RBC Hgb Hct MCV MCHC RDW Neutrophils # Lymphocytes # Macrocytosis ESR Retic Count APTT D-Dimer Sodium Potassium Chloride Carbon Dioxide BUN Glucose POC Glucose (mg/dL) 170 H 148 H 133 H Plasma Lactic Acid Celio Calcium Iron % Saturation Transferrin Ferritin AST ALT Lactate Dehydrogenase CK-MB (CK-2) Troponin I Total Protein Albumin Amylase Procalcitonin Urine Appearance Urine Protein Amorphous Sediment Hyaline Casts Urine Mucus 03/08/22 03/08/22 03/08/22 03:52 05:39 08:51 RBC Hgb Hct MCV MCHC RDW Neutrophils # Lymphocytes # Macrocytosis ESR Retic Count APTT 79.3 H 66.0 H D-Dimer Sodium Potassium Chloride Carbon Dioxide BUN Glucose POC Glucose (mg/dL) 146 H Plasma Lactic Acid Celio Calcium Iron % Saturation Transferrin Ferritin AST ALT Lactate Dehydrogenase CK-MB (CK-2) Troponin I Total Protein Albumin Amylase Procalcitonin Urine Appearance Urine Protein Amorphous Sediment Hyaline Casts Urine Mucus 03/08/22 03/08/22 03/08/22 08:51 08:51 08:51 RBC 3.04 L Hgb 9.8 L Hct 32.4 L MCV 106.6 H MCHC 30.2 L RDW 16.2 H Neutrophils # Lymphocytes # Macrocytosis Marked A ESR Retic Count APTT D-Dimer Sodium Potassium Chloride 110 H Carbon Dioxide 13 L BUN 28 H Glucose 118 H POC Glucose (mg/dL) Plasma Lactic Acid Celio Calcium 8.1 L Iron % Saturation Transferrin Ferritin AST 48 H ALT 40 H Lactate Dehydrogenase CK-MB (CK-2) Troponin I 0.038 H* Total Protein 5.4 L Albumin 2.8 L Amylase Procalcitonin Urine Appearance Urine Protein Amorphous Sediment Hyaline Casts Urine Mucus 03/08/22 03/08/22 03/08/22 11:01 16:32 21:01 RBC Hgb Hct MCV MCHC RDW Neutrophils # Lymphocytes # Macrocytosis ESR Retic Count APTT D-Dimer Sodium Potassium Chloride Carbon Dioxide BUN Glucose POC Glucose (mg/dL) 258 H 145 H 184 H Plasma Lactic Acid Celio Calcium Iron % Saturation Transferrin Ferritin AST ALT Lactate Dehydrogenase CK-MB (CK-2) Troponin I Total Protein Albumin Amylase Procalcitonin Urine Appearance Urine Protein Amorphous Sediment Hyaline Casts Urine Mucus 03/08/22 03/09/22 03/09/22 21:27 06:39 06:39 RBC 2.68 L Hgb 8.7 L Hct 27.5 L MCV 102.5 H MCHC RDW 16.2 H Neutrophils # Lymphocytes # Macrocytosis ESR Retic Count APTT D-Dimer Sodium 136 L Potassium Chloride 110 H Carbon Dioxide 21 L BUN 33 H Glucose 145 H POC Glucose (mg/dL) 177 H Plasma Lactic Acid Celio Calcium Iron % Saturation Transferrin Ferritin AST ALT 37 H Lactate Dehydrogenase CK-MB (CK-2) Troponin I Total Protein 5.4 L Albumin 2.7 L Amylase Procalcitonin Urine Appearance Urine Protein Amorphous Sediment Hyaline Casts Urine Mucus 03/09/22 07:13 RBC Hgb Hct MCV MCHC RDW Neutrophils # Lymphocytes # Macrocytosis ESR Retic Count APTT D-Dimer Sodium Potassium Chloride Carbon Dioxide BUN Glucose POC Glucose (mg/dL) 191 H Plasma Lactic Acid Celio Calcium Iron % Saturation Transferrin Ferritin AST ALT Lactate Dehydrogenase CK-MB (CK-2) Troponin I Total Protein Albumin Amylase Procalcitonin Urine Appearance Urine Protein Amorphous Sediment Hyaline Casts Urine Mucus Assessment and Plan Assessment: * Bilateral lower and upper extremity weakness, likely due to confirmed diagnosis of inclusion body myositis. * Status post fall, with L1 lumbar compression fractures. * Peripheral neuropathy * History of multiple bone fractures in the past, rule out osteoporosis * History of recurrent DVTs, PE, on long-term antibiotic regulation with Xarelto Plan: * Patient already has a confirmed diagnosis of inclusion body myositis. Patient follows up with [facility]. She was recommended to follow up with her neurologist/operation research analyst for management of [employer]. * Patient has history of fractures, currently on long-term steroids. She was recommended to have her primary physician check for osteoporosis. If abnormal, may benefit from Fosamax or other medications for osteoporosis. * Patient's B12, folate are normal. MMA pending. * Regarding L1 compression fracture, would defer to orthopedics spine. Patient to undergo use of back brace for 12 weeks. * Neurology will follow sporadically. Thank you for the consult.
[2022-03-09 12:03] LABS: Glucose,Whole Blood 138 mg/dL (75-99)
--- NOTE | 2022-03-09 14:36 | P.PN ---
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 Calvin and she was started on prednisone 20 mg orally twice every day, patient was doing fine up until a week ago when she was at home and she tried to bend over to pickling grader stuff from the ground and she stood up and she ended up losing her balance and fell backward patient came to the emergency department at [facility] on 03/04/2022 and had an x-ray that did show evidence of possible sacral fracture as well as computed tomography scan of the abdomen and pelvis that didn't show L1 fracture along with an old T6 fracture, patient was released home she ended up coming back to the emergency department today with increased low back pain associated with increased shortness of breath, patient apparently became quite dyspneic and she was coughing and minimal phlegm production without any pleurisy, she was brought into the ER by EMS her oxygen saturation initially was in the low 80s she was placed on 6 L nasal cannula her oxygenation recovered to 92%, his of the pre sentation patient underwent CT angiography of the chest that was positive for segmental pulmonary embolism in the lower branches, with possible underlying grouse glass material stenosis of a possible pneumonia, she was started on IV antibiotic Rocephin and Zithromax and she was placed on heparin drip, she was admitted to the hospital, pulmonary consultation was obtained as well as hematology consultation as the patient was on chronic anticoagulation with Xarelto, 20 mg orally once every day, patient also would be seen in consultation by Dr. Self for L1 fracture with retropulsion and possible canal stenosis. 03/07: Patient is laying down in bed she is waiting to find a bed telemetry unit, she was seen in the ER for the second day, she denies any chest pain at this time, she continues to have minimal cough, no phlegm production, she was seen in consultation by pulmonary medicine she was switched to oral Levaquin 750 mg orally once every day for the next 5 days, she was kept on heparin drip, I believe the patient to be switched to oral mucous is a posterior Xarelto since the patient developed to have a small clot on Xarelto, d-dimer is not very specific at this time but patient does have a prior history of pulmonary embolism as well as DVT, L1 fractures spine surgery evaluation she does appear to have retropulsion with minimal spinal stenosis, hematology evaluation is in order. Patient was seen by Dr. Luu in the past 03/08: Patient is embarrassed for today she is feeling a lot better, she denies any pleurisy, she denies any hemoptysis, she is less short of breath today, she has been maintained on Levaquin 750 mg orally once every day, oxygen she is currently at 2 L nasal cannula, patient will be switched from heparin drip to Xarelto if ok with Hematology, we'll continue to monitor the patient for another 24 hours, she can be discharged home tomorrow morning 03/09: Patient did have an episode of urinary retention yesterday with the post void residual of 500-750 mL, ended up having Contreras catheter in place for close drainage, she is doing better today, she continues to be somewhat weak in both lower extremities due to significant inclusion body myositis along with a recent L1 fracture with retropulsion and minimal spinal stenosis, patient has been complaining of increased numbness in the groin area along with urinary retention, she was seen earlier by spine surgery, he was recommended for the patient to continue with conservative management with the special brace, unfortunately physical therapy has not been in the at and the patient could not be discharged home until she is evaluated by physical therapy she will likely require to have a Contreras catheter in place for a few more days I will start her on small dose of Flomax 0.4 mg orally once every day, and a void trial hopefully on Thursday. REVIEW OF SYSTEMS: Constitutional: No documented fever, no chills, no night sweats. No weight change. No weakness, fatigue or lethargy. No daytime sleepiness. HEENT: No headache. No blurred vision or double vision, no loss of vision. hard of Hearing, no ringing in the ears, no dizziness. No nasal drainage or congestion. No epistaxis. No sore throat. Lungs: No shortness of breath, no cough, no sputum production. No wheezing. Reports dyspnea with activity. Cardiovascular: no chest pain, no lower extremity edema. No palpitations. No paroxysmal nocturnal dyspnea. No orthopnea. No lightheadedness or dizziness. No syncopal episodes. Abdominal: Reports abdominal pain. No nausea, vomiting. No diarrhea. No constipation. No bloody or tarry stools reports loss of appetite. Genitourinary: No dysuria, increased frequency, urgency. No urinary retention. Musculoskeletal: positive for myalgias. positive for muscle weakness, positive for gait dysfunction, positive for frequent falls. positive for back pain and neck pain. Integumentary: No wounds, no lesions. No rash or pruritus. No unusual bruising. No change in hair or nails. Neurologic: No aphasia. No facial droop. No change in mentation. No head injury. No headache. No paralysis. No paresthesia. Psychiatric: positive for depression, anxiety, mood swings Endocrine: No abnormal blood sugars. No weight change. PHYSICAL EXAMINATION: General: 76-year-old female laying down in bed in minimal distress HEENT: Head is atraumatic, normocephalic, pupils were equal round reactive to light and recommendation, extraocular muscle movement were intact, sclera nonicteric, conjunctivae were pale, mucous membranes of the mouth are somewhat dry. Neck: Supple, no JVP, normal carotid upstroke bilaterally, no lymphadenopathy. Chest: Decreased breath sounds at the bases, few rhonchi, no expiratory wheezes, no chest wall tenderness, no intercostal retractions. Heart: First heart sound is normal, second heart sound is normal there is systolic ejection murmur located at the left sternal border. Abdomen: Soft, mild tenderness to the left lower quadrant, no rebound or gu arding positive bowel sounds. Extremities: There is no edema no calf tenderness DP +2 bilaterally. Neurologic examination: Patient is awake alert and oriented X3, cranial nerves II-12 appear grossly intact, muscle power were 5 out of 5 in upper extremities and 5 out of 5 in bilateral lower extremities, deep tendon reflexes normal bilaterally. ASSESSMENT AND PLAN: 1. Acute hypoxemic respiratory failure likely related to by basilar pulmonary infiltrate along with pulmonary embolism of the right lower lobe branch. restart xarelto 20 mg po daily, continue Levaquin 750 mg orally once every day, patient is currently off oxygen, encourage Incentive spirometer 2. Inclusion body myositis. Continue patient on prednisone 20 mg orally twice every day, patient was seen in consultation by neurology today. 3. GERD with esophagitis. Continue patient on Protonix 40 mg orally once every day. 4. History of bipolar disorder. Continue patient on lithium 300 mg at bedtime, except fro 20 mg orally once every day and Klonopin 0.5 minute gram orally twice every day. 5. L1 fracture appears to be acute along with an old T6 fracture. was seen by Spine surgery, we will continue with recommended brace for ambulation 6. 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 7. anemia. Continue patient on iron 325 milligrams orally once every day. 8. DVT prophylaxis. discontinue Heparin drip and restart Xarelto 20 mg po daily 9. GI prophylaxis. Continue patient on Protonix 40 mg once every day. 10. Physical therapy evaluation. prior to discharge. 11. Possible chronic ILD. we will continue with current Levaquin and Prednisone. 12. Urinary retention partially is due to inclusion body myositis of the part due to old fracture. Continue Contreras catheter start the patient on Flomax 0.4 mg once every day may require urology evaluation as an outpatient,, void trial in 48 hours. Objective - Vital Signs Vital signs: Vital Signs Temp 98.0 F 03/09/22 12:00 Pulse 69 03/09/22 12:00 Resp 18 03/09/22 12:00 BP 133/78 03/09/22 12:00 Pulse Ox 94 L 03/09/22 12:00 FiO2 Intake & Output 03/08/22 03/09/22 03/09/22 18:59 06:59 18:59 Intake Total 51.712 358 Output Total 500 800 Balance -448.288 -800 358 Intake: Intake, IV Titration 51.712 Amount Heparin Sod,Pork in 0.45% 51.712 NaCl 25,000 unit In 0.45 % NaCl 1 250ml.bag @ 18 UNITS/KG/HR 12.247 mls/hr IV .[id number] [facility] Rx#: [id number] Oral 358 Output: Urine 500 800 Uretheral (Contreras) 500 Other: Voiding Method Bedpan Indwelling Catheter Indwelling Catheter # Bowel Movements 0 - Labs CBC & Chem 7: 03/09/22 06:39 03/09/22 06:39 Labs: Abnormal Lab Results - Last 24 Hours (Table) 03/08/22 03/08/22 03/08/22 Range/Units 16:32 21:01 21:27 RBC (3.80-5.40) m/uL Hgb (11.4-16.0) gm/dL Hct (34.0-46.0) % MCV (80.0-100.0) fL RDW (11.5-15.5) % Sodium (137-145) mmol/L Chloride (98-107) mmol/L Carbon Dioxide (22-30) mmol/L BUN (7-17) mg/dL Glucose (74-99) mg/dL POC Glucose (mg/dL) 145 H 184 H 177 H (75-99) mg/dL ALT (4-34) U/L Total Protein (6.3-8.2) g/dL Albumin (3.5-5.0) g/dL 03/09/22 03/09/22 03/09/22 Range/Units 06:39 06:39 07:13 RBC 2.68 L (3.80-5.40) m/uL Hgb 8.7 L (11.4-16.0) gm/dL Hct 27.5 L (34.0-46.0) % MCV 102.5 H (80.0-100.0) fL RDW 16.2 H (11.5-15.5) % Sodium 136 L (137-145) mmol/L Chloride 110 H (98-107) mmol/L Carbon Dioxide 21 L (22-30) mmol/L BUN 33 H (7-17) mg/dL Glucose 145 H (74-99) mg/dL POC Glucose (mg/dL) 191 H (75-99) mg/dL ALT 37 H (4-34) U/L Total Protein 5.4 L (6.3-8.2) g/dL Albumin 2.7 L (3.5-5.0) g/dL 03/09/22 Range/Units 12:01 RBC (3.80-5.40) m/uL Hgb (11.4-16.0) gm/dL Hct (34.0-46.0) % MCV (80.0-100.0) fL RDW (11.5-15.5) % Sodium (137-145) mmol/L Chloride (98-107) mmol/L Carbon Dioxide (22-30) mmol/L BUN (7-17) mg/dL Glucose (74-99) mg/dL POC Glucose (mg/dL) 138 H (75-99) mg/dL ALT (4-34) U/L Total Protein (6.3-8.2) g/dL Albumin (3.5-5.0) g/dL Microbiology - Last 24 Hours (Table) 03/06/22 13:25 Urine Culture - Final Urine,Voided
[2022-03-09] MEDS: LEVOFLOXACIN 750 MG TAB PO SCH (14:37)
[2022-03-09 16:51] LABS: Glucose,Whole Blood 186 mg/dL (75-99)
[2022-03-09] MEDS: RIVAROXABAN 20 MG TAB PO SCH (16:58)
[2022-03-09 21:06] LABS: Glucose,Whole Blood 204 mg/dL (75-99)
[2022-03-09] MEDS: LITHIUM CARBONATE 300 MG CAP PO SCH (21:59)
[2022-03-09] MEDS: LATANOPROST 0.005% OPHTH DROPS 2.5 ML BTL BOTH EYES SCH (22:01)
[2022-03-10 06:33] LABS: Glucose,Whole Blood 171 mg/dL (75-99)
[2022-03-10] MEDS: PANTOPRAZOLE 40 MG TABLET PO SCH (06:36)
[2022-03-10] MEDS: INSULIN ASPART (NovoLOG) 100 UNIT/ML VIAL SQ SCH ×4 (06:36→21:09)
[2022-03-10 06:44] LABS: Anisocytosis Slight; Basophils % (A) 0 %; Eosinophils % (A) 0 %; HCT 30.1 % (34.0-46.0); HGB 9.5 gm/dL (11.4-16.0); Hypochromasia Slight; Lymphocytes # (A) 0.7 k/uL (1.0-4.8); Lymphocytes % (A) 12 %; MCH 32.4 pg (25.0-35.0); MCHC 31.5 g/dL (31.0-37.0); MCV 102.5 fL (80.0-100.0); Macrocytosis Moderate; Monocytes # (A) 0.2 k/uL (0-1.0); Monocytes % (A) 4 %; Neutrophils # (A) 4.9 k/uL (1.3-7.7); Neutrophils % (A) 83 %; Platelet Count 306 k/uL (150-450); RBC 2.94 m/uL (3.80-5.40); RDW 16.3 % (11.5-15.5); WBC 5.9 k/uL (3.8-10.6)
[2022-03-10 07:24] LABS: Albumin 2.9 g/dL (3.5-5.0); Calcium 9.5 mg/dL (8.4-10.2); Potassium 4.9 mmol/L (3.5-5.1); Total Bilirubin 0.4 mg/dL (0.2-1.3); Total Protein 5.7 g/dL (6.3-8.2)
[2022-03-10] MEDS: ESCITALOPRAM 10 MG TAB PO SCH (09:25)
[2022-03-10] MEDS: predniSONE 20 MG TAB PO SCH ×2 (09:25→21:08)
[2022-03-10] MEDS: clonazePAM 0.5 MG TAB PO SCH ×2 (09:25→21:08)
[2022-03-10] MEDS: VIT A,C & E-LUTEIN-MINERALS 1 EACH TAB PO SCH ×2 (09:25→21:09)
[2022-03-10] MEDS: FERROUS SULFATE 325 MG TAB PO SCH (09:25)
[2022-03-10] MEDS: TAMSULOSIN 0.4 MG CAP.ER.24H PO SCH (09:25)
[2022-03-10] MEDS: ASPIRIN 81 MG PO SCH (09:25)
--- NOTE | 2022-03-10 09:56 | P.PN ---
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 Calvin and she was started on prednisone 20 mg orally twice every day, patient was doing fine up until a week ago when she was at home and she tried to bend over to leaf size picker stuff from the ground and she stood up and she ended up losing her balance and fell backward patient came to the emergency department at [facility] on 03/04/2022 and had an x-ray that did show evidence of possible sacral fracture as well as computed tomography scan of the abdomen and pelvis that didn't show L1 fracture along with an old T6 fracture, patient was released home she ended up coming back to the emergency department today with increased low back pain associated with increased shortness of breath, patient apparently became quite dyspneic and she was coughing and minimal phlegm production without any pleurisy, she was brought into the ER by EMS her oxygen saturation initially was in the low 80s she was placed on 6 L nasal cannula her oxygenation recovered to 92%, his of the pre sentation patient underwent CT angiography of the chest that was positive for segmental pulmonary embolism in the lower branches, with possible underlying grouse glass material stenosis of a possible pneumonia, she was started on IV antibiotic Rocephin and Zithromax and she was placed on heparin drip, she was admitted to the hospital, pulmonary consultation was obtained as well as hematology consultation as the patient was on chronic anticoagulation with Xarelto, 20 mg orally once every day, patient also would be seen in consultation by Dr. Self for L1 fracture with retropulsion and possible canal stenosis. 03/07: Patient is laying down in bed she is waiting to find a bed telemetry unit, she was seen in the ER for the second day, she denies any chest pain at this time, she continues to have minimal cough, no phlegm production, she was seen in consultation by pulmonary medicine she was switched to oral Levaquin 750 mg orally once every day for the next 5 days, she was kept on heparin drip, I believe the patient to be switched to oral mucous is a posterior Xarelto since the patient developed to have a small clot on Xarelto, d-dimer is not very specific at this time but patient does have a prior history of pulmonary embolism as well as DVT, L1 fractures spine surgery evaluation she does appear to have retropulsion with minimal spinal stenosis, hematology evaluation is in order. Patient was seen by Dr. Luu in the past 03/08: Patient is embarrassed for today she is feeling a lot better, she denies any pleurisy, she denies any hemoptysis, she is less short of breath today, she has been maintained on Levaquin 750 mg orally once every day, oxygen she is currently at 2 L nasal cannula, patient will be switched from heparin drip to Xarelto if ok with Hematology, we'll continue to monitor the patient for another 24 hours, she can be discharged home tomorrow morning 03/09: Patient did have an episode of urinary retention yesterday with the post void residual of 500-750 mL, ended up having Contreras catheter in place for close drainage, she is doing better today, she continues to be somewhat weak in both lower extremities due to significant inclusion body myositis along with a recent L1 fracture with retropulsion and minimal spinal stenosis, patient has been complaining of increased numbness in the groin area along with urinary retention, she was seen earlier by spine surgery, he was recommended for the patient to continue with conservative management with the special brace, unfortunately physical therapy has not been in the at and the patient could not be discharged home until she is evaluated by physical therapy she will likely require to have a Contreras catheter in place for a few more days I will start her on small dose of Flomax 0.4 mg orally once every day, and a void trial hopefully on Thursday. 03/10: Patient is sitting up in bed in no apparent distress, she did have a restful night, urine output through the catheter is good, she denies any chest pain, shortness breath, she is not utilizing any oxygen, we'll continue to wait for the physical therapy for evaluation for possible discharge home hopefully in the next 24 hours, we will do a void trial tomorrow morning keep the patient on Flomax 0.4 mg once every day, discontinue catheter tomorrow morning, patient has been complaining of increased numbness in both lower extremities her pain is well-controlled with the current treatment plan, we will repeat her labs tomorrow morning. REVIEW OF SYSTEMS: Constitutional: No documented fever, no chills, no night sweats. No weight change. No weakness, fatigue or lethargy. No daytime sleepiness. HEENT: No headache. No blurred vision or double vision, no loss of vision. hard of Hearing, no ringing in the ears, no dizziness. No nasal drainage or congestion. No epistaxis. No sore throat. Lungs: No shortness of breath, no cough, no sputum production. No wheezing. Reports dyspnea with activity. Cardiovascular: no chest pain, no lower extremity edema. No palpitations. No paroxysmal nocturnal dyspnea. No orthopnea. No lightheadedness or dizziness. No syncopal episodes. Abdominal: Reports abdominal pain. No nausea, vomiting. No diarrhea. No constipation. No bloody or tarry stools reports loss of appetite. Genitourinary: No dysuria, increased frequency, urgency. No urinary retention. Musculoskeletal: positive for myalgias. positive for muscle weakness, positive for gait dysfunction, positive for frequent falls. positive for back pain and neck pain. Integumentary: No wounds, no lesions. No rash or pruritus. No unusual bruising. No change in hair or nails. Neurologic: No aphasia. No facial droop. No change in mentation. No head injury. No headache. No paralysis. No paresthesia. Psychiatric: positive for depression, anxiety, mood swings Endocrine: No abnormal blood sugars. No weight change. PHYSICAL EXAMINATION: General: 76-year-old female laying down in bed in minimal distress HEENT: Head is atraumatic, normocephalic, pupils were equal round reactive to light and recommendation, extraocular muscle movement were intact, sclera nonicteric, conjunctivae were pale, mucous membranes of the mouth are somewhat dry. Neck: Supple, no JVP, normal carotid upstroke bilaterally, no lymphadenopathy. Chest: Decreased breath sounds at the bases, few rhonchi, no expiratory wheezes, no chest wall tenderness, no intercostal retractions. Heart: First heart sound is normal, second heart sound is normal there is systolic ejection murmur located at the left sternal border. Abdomen: Soft, mild tenderness to the left lower quadrant, no rebound or guarding positive bowel sounds. Extremities: There is no edema no calf tenderness DP +2 bilaterally. Neurologic examination: Patient is awake alert and oriented X3, cranial nerves II-12 appear grossly intact, muscle power were 5 out of 5 in upper extremities and 5 out of 5 in bilateral lower extremities, deep tendon reflexes normal bilaterally. ASSESSMENT AND PLAN: 1. Acute hypoxemic respiratory failure likely related to by basilar pulmonary infiltrate along with pulmonary embolism of the right lower lobe branch. restart xarelto 20 mg po daily, continue Levaquin 750 mg orally once every day, patient is currently off oxygen, encourage Incentive spirometer 2. Inclusion body myositis. Continue patient on prednisone 20 mg orally twice every day, patient was seen in consultation by neurology today. 3. GERD with esophagitis. Continue patient on Protonix 40 mg orally once every day. 4. History of bipolar disorder. Continue patient on lithium 300 mg at bedtime, except fro 20 mg orally once every day and Klonopin 0.5 minute gram orally twice every day. 5. L1 fracture appears to be acute along with an old T6 fracture. was seen by Spine surgery, we will continue with recommended brace for ambulation 6. 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 7. anemia. Continue patient on iron 325 milligrams orally once every day. 8. DVT prophylaxis. discontinue Heparin drip and restart Xarelto 20 mg po daily 9. GI prophylaxis. Continue patient on Protonix 40 mg once every day. 10. Physical therapy evaluation. prior to discharge. 11. Possible chronic ILD. we will continue with current Levaquin and Prednisone. 12. Urinary retention partially is due to inclusion body myositis and possibly recent L1 Fracture. Continue Contreras catheter start the patient on Flomax 0.4 mg once every day may require urology evaluation as an outpatient,, void trial in AM 13. Likely home in AM Objective - Vital Signs Vital signs: Vital Signs Temp 97.5 F L 03/10/22 03:30 Pulse 71 03/10/22 03:30 Resp 12 03/10/22 03:30 BP 155/80 05/30/22 03:30 Pulse Ox 96 03/10/22 03:30 FiO2 Intake & Output 03/09/22 03/10/22 03/10/22 18:59 06:59 18:59 Intake Total 476 240 Output Total 1050 1250 Balance -574 -1250 240 Intake: Oral 476 240 Output: Urine 1050 1250 Uretheral (Contreras) 800 Other: Voiding Method Indwelling Catheter Indwelling Catheter # Bowel Movements 0 1 - Labs CBC & Chem 7: 03/10/22 06:22 03/10/22 06:22 Labs: Abnormal Lab Results - Last 24 Hours (Table) 03/09/22 03/09/22 03/09/22 Range/Units 06:39 12:01 16:48 RBC (3.80-5.40) m/uL Hgb (11.4-16.0) gm/dL Hct (34.0-46.0) % MCV (80.0-100.0) fL RDW (11.5-15.5) % Lymphocytes # (1.0-4.8) k/uL Sodium (137-145) mmol/L Chloride (98-107) mmol/L Carbon Dioxide (22-30) mmol/L BUN (7-17) mg/dL Glucose (74-99) mg/dL POC Glucose (mg/dL) 138 H 186 H (75-99) mg/dL Hemoglobin A1c 7.2 H (0.0-6.0) % ALT (4-34) U/L Total Protein (6.3-8.2) g/dL Albumin (3.5-5.0) g/dL 03/09/22 03/10/22 03/10/22 Range/Units 21:05 06:22 06:22 RBC 2.94 L (3.80-5.40) m/uL Hgb 9.5 L (11.4-16.0) gm/dL Hct 30.1 L (34.0-46.0) % MCV 102.5 H (80.0-100.0) fL RDW 16.3 H (11.5-15.5) % Lymphocytes # 0.7 L (1.0-4.8) k/uL Sodium 136 L (137-145) mmol/L Chloride 110 H (98-107) mmol/L Carbon Dioxide 21 L (22-30) mmol/L BUN 36 H (7-17) mg/dL Glucose 141 H (74-99) mg/dL POC Glucose (mg/dL) 204 H (75-99) mg/dL Hemoglobin A1c (0.0-6.0) % ALT 38 H (4-34) U/L Total Protein 5.7 L (6.3-8.2) g/dL Albumin 2.9 L (3.5-5.0) g/dL 03/10/22 Range/Units 06:32 RBC (3.80-5.40) m/uL Hgb (11.4-16.0) gm/dL Hct (34.0-46.0) % MCV (80.0-100.0) fL RDW (11.5-15.5) % Lymphocytes # (1.0-4.8) k/uL Sodium (137-145) mmol/L Chloride (98-107) mmol/L Carbon Dioxide (22-30) mmol/L BUN (7-17) mg/dL Glucose (74-99) mg/dL POC Glucose (mg/dL) 171 H (75-99) mg/dL Hemoglobin A1c (0.0-6.0) % ALT (4-34) U/L Total Protein (6.3-8.2) g/dL Albumin (3.5-5.0) g/dL
--- NOTE | 2022-03-10 11:23 | P.PN ---
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 Since then, the patient becoming progressively weak and debilitated and currently she is at the point where she cannot ambulate and she is been essentially sedentary. I'm not sure if there is any other underlying connective tissue diseases along with her inclusion body myositis. She has a positive rheumatoid factor and she may have underlying rheumatoid arthritis. She also has positive ENEIDA, SSB, and anti DIAGNOSTIC ASSISTANT. The patient also has a remote history of pulmonary embolism. Around 10 years ago, she had a fall she sustained fractures to her ankles bilaterally. At that time, she was found to have bilateral clots in the lower extremities and pulmonary embolism. She was given a filter and the filter was ultimately taken and since then the patient has been on anticoagulants. Over the past 10 years, she has been on anticoagulants and she has recently taken Xarelto 20 mg by mouth daily. She has not missed any of her medication doses. For now, the patient is on chronic steroids also and she is taking prednisone 20 mg by mouth twice a day. Around 2 days ago, the patient came into the emergency room because of back pain, She was diagnosed having vertebral compression fracture and she was discha rged home upon being treated with a combination of painkillers and she was given [place] 5 to be taken on outpatient basis. At that time, x-ray of the lumbar spine was done and it showed evidence of deformity at the level of L1 and degenerative lumbar spine changes. Yesterday, the patient came in to the emergency department again because of left lower quadrant pain and burning upon urination. CAT scan of the abdomen was done and showed L1 vertebral body collapse. Otherwise no other acute abdomen is a been noted. The CT angiogram of the chest was also completed any today's the concern for pulmonary embolism. Based on the report given by the radiologist, there was a very tiny filling defect in the right lower lobe subsegmental pulmonary artery branch. At the same time, there was evidence of bilateral pulmonary infiltrates consistent with chronic pneumonia/ILD. These are areas of groundglass opacities bilaterally without any on lymphadenopathy or pleural effusions. The patient denies having any cough or sputum production. She reports to be slightly more short of breath compared to her baseline. D-dimer level is at 0.9. The patient states that she has been compliant to Xarelto. The patient also had Doppler of the lower extremity that showed no evidence of any DVTs. Hemoglobin is at 10.2. Platelet count is at 258. Electrolytes are normal and there is a component of mild non- gap metabolic acidosis. Some mild abnormalities in the liver function tests. The troponin I was at 0.15 to, UA was essentially negative., COVID 19 testing was also negative. The patient denies having any pleurisy. No hemoptysis. She is currently on IV heparin. On today's evaluation of 03/08/2022, no new complaints and the patient remained on IV heparin. As mentioned, Dopplers were negative, d-dimer was low and the pulmonary embolism is questionable. I favor putting this patient back on Xarelto. He does have interstitial pulmonary infiltrates, likely chronic, likely related to ILD. The pro calcitonin level was at 0.55 and the patient is currently covered with empiric antibiotics with Levaquin. Anti-cardial lipid antibodies were also negative. On 03/09/2022, I'm seeing the patient for a follow-up. The patient has no new complaints. She has been weaned down to the 2 L of oxygen by nasal cannula. She was taken off the IV heparin the patient was started also Xarelto. Spine surgeries evaluating her pain as the patient has a fractured level of L1 spine. At the same time, the patient was seen by cardiology regarding the possibility of an acute non-STEMI likely attached to mechanism. The patient is profoundly weak in the lower extremities. The patient is inclusion body myositis. The white cell count of 5.6 with a hemoglobin of 8.7, BUN is a 33 with a creatinine of 0.8 and the sodium level is 136. Normal LFTs. The patient is currently on 2 L about 2 by nasal cannula. Shows improvement in infiltrates and the patient has some mild increased markings of the pulmonary vasculature bilaterally. Remains on Levaquin. 03/10/2022, the patient is doing well and she is on room in oxygen. She is using incentive spirometer. I was able to reach out an old x-ray from [facility] the patient did not have any significant pulmonary infiltrates and earlier this year. As such, it's likely that this may be infectious infiltrates and the patient is currently on Levaquin. No clear indication for an underlying interstitial lung disease. The patient is on Xarelto. No new complaints otherwise for now. The weakness and lower eczematous of present and the patient is having some urinary retention and a Contreras catheter remains in place. The patient remains on prednisone 20 mg by mouth twice a day. Objective - Vital Signs Vital signs: Vital Signs Temp 97.5 F L 03/10/22 03:30 Pulse 71 03/10/22 03:30 Resp 12 03/10/22 03:30 BP 155/80 03/10/22 03:30 Pulse Ox 96 03/10/22 03:30 FiO2 Intake & Output 03/09/22 03/10/22 03/10/22 18:59 06:59 18:59 Intake Total 476 240 Output Total 1050 1250 Balance -574 -1250 240 Intake: Oral 476 240 Output: Urine 1050 1250 Uretheral (Contreras) 800 Other: Voiding Method Indwelling Catheter Indwelling Catheter # Bowel Movements 0 1 - Exam General appearance: alert, in no apparent distress currently on oxygen and patient is on room air oxygen Head exam: Present: atraumatic, normocephalic Eye exam: Present: normal appearance, PERRL ENT exam: Present: normal exam Neck exam: Present: normal inspection. Absent: tenderness, meningismus Respiratory exam: Present: normal lung sounds bilaterally, respiratory distress accident in the mid and lower lung nelson bilaterally Cardiovascular Exam: Present: regular rate, normal rhythm GI/Abdominal exam: Present: soft, distended. Absent: tenderness, guarding, rebound Extremities exam: Chronic muscle atrophy and muscle weakness in the lower extremities bilaterally Back exam: Present: paraspinal tenderness (Bilateral) Neurological exam: Present: alert, oriented X3, CN II-XII intact, chronic muscle weakness in lower extremities and upper extremities and the patient has proximal muscle weakness. Psychiatric exam: Present: normal affect, normal mood Skin exam: Present: warm, dry, intact. Absent: cyanosis, diaphoretic - Labs CBC & Chem 7: 03/10/22 06:22 03/10/22 06:22 Labs: Abnormal Lab Results - Last 24 Hours (Table) 03/09/22 03/09/22 03/09/22 Range/Units 06:39 12:01 16:48 RBC (3.80-5.40) m/uL Hgb (11.4-16.0) gm/dL Hct (34.0-46.0) % MCV (80.0-100.0) fL RDW (11.5-15.5) % Lymphocytes # (1.0-4.8) k/uL Sodium (137-145) mmol/L Chloride (98-107) mmol/L Carbon Dioxide (22-30) mmol/L BUN (7-17) mg/dL Glucose (74-99) mg/dL POC Glucose (mg/dL) 138 H 186 H (75-99) mg/dL Hemoglobin A1c 7.2 H (0.0-6.0) % ALT (4-34) U/L Total Protein (6.3-8.2) g/dL Albumin (3.5-5.0) g/dL 03/09/22 03/10/22 03/10/22 Range/Units 21:05 06:22 06:22 RBC 2.94 L (3.80-5.40) m/uL Hgb 9.5 L (11.4-16.0) gm/dL Hct 30.1 L (34.0-46.0) % MCV 102.5 H (80.0-100.0) fL RDW 16.3 H (11.5-15.5) % Lymphocytes # 0.7 L (1.0-4.8) k/uL Sodium 136 L (137-145) mmol/L Chloride 110 H (98-107) mmol/L Carbon Dioxide 21 L (22-30) mmol/L BUN 36 H (7-17) mg/dL Glucose 141 H (74-99) mg/dL POC Glucose (mg/dL) 204 H (75-99) mg/dL Hemoglobin A1c (0.0-6.0) % ALT 38 H (4-34) U/L Total Protein 5.7 L (6.3-8.2) g/dL Albumin 2.9 L (3.5-5.0) g/dL 03/10/22 Range/Units 06:32 RBC (3.80-5.40) m/uL Hgb (11.4-16.0) gm/dL Hct (34.0-46.0) % MCV (80.0-100.0) fL RDW (11.5-15.5) % Lymphocytes # (1.0-4.8) k/uL Sodium (137-145) mmol/L Chloride (98-107) mmol/L Carbon Dioxide (22-30) mmol/L BUN (7-17) mg/dL Glucose (74-99) mg/dL POC Glucose (mg/dL) 171 H (75-99) mg/dL Hemoglobin A1c (0.0-6.0) % ALT (4-34) U/L Total Protein (6.3-8.2) g/dL Albumin (3.5-5.0) g/dL Assessment and Plan Plan: Acute hypoxic respiratory failure with development of bilateral pulmonary infiltrates with some groundglass characteristics. This could be infectious in nature. Nevertheless, based on her history, possibility of chronic ILD cannot be completely excluded. 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 Nevertheless, these type of connective tissue disease disorders, and combinations and the patient may have other clinical changes diseases such as RA/lupus/mixed connective disease which could potentially cause ILD. I'm not much concerned about pulmonary embolism. The filling defects and was seen by the radiologist was minimal and does not explain her hypoxemia. I do not consider this to be a treatment failure. D-dimer is low. Doppler of the lower extremity has been negative. Her COVID 19 is negative. The patient is improved and the patient is currently on room air oxygen. I restart all the x-rays from earlier this evening this patient and back then the patient have any significant pulmonary infiltrates and as such I doubt the possibility of an underlying interstitial lung disease. This may be infectious and the patient is currently on Levaquin. Previous history of pulmonary embolism with insertion and removal of an IVC filter and the patient has been on long-term and coagulation with Xarelto, along with that, the patient had a DVT and this was triggered by a fall and ankle fracture that occurred approximately 10 years ago History of inclusion body myositis History of sedentary lifestyle immobility secondary to above Previous history of CVA Previous history of colitis Previous history of glaucoma and macular degeneration Previous history of heart block underwent chemo type History of carpal tunnel disease and peripheral neuropathy Diabetes mellitus Hyperlipidemia troponin leak Plan Patient is currently on Xarelto 20 mg by mouth daily Oxygenation is stable and is improving and the patient currently is on room air oxygen Chest x-ray was noted Complete course of antibiotics Echo of the heart showing a normal LV function May need home O2 Continue oral prednisone. Spine surgery regarding the patient's ongoing back pain Provide an incentive spirometer Complete a total of seven-day course of antibiotics with Levaquin.
[2022-03-10 11:27] LABS: Glucose,Whole Blood 214 mg/dL (75-99)
[2022-03-10] MEDS: LEVOFLOXACIN 750 MG TAB PO SCH (16:24)
[2022-03-10 16:47] LABS: Glucose,Whole Blood 346 mg/dL (75-99)
[2022-03-10] MEDS: RIVAROXABAN 20 MG TAB PO SCH (17:14)
[2022-03-10 20:15] LABS: Glucose,Whole Blood 329 mg/dL (75-99)
[2022-03-10] MEDS: LATANOPROST 0.005% OPHTH DROPS 2.5 ML BTL BOTH EYES SCH (21:09)
[2022-03-10] MEDS: LITHIUM CARBONATE 300 MG CAP PO SCH (21:09)
[2022-03-11 06:06] LABS: Glucose,Whole Blood 156 mg/dL (75-99)
[2022-03-11] MEDS: INSULIN ASPART (NovoLOG) 100 UNIT/ML VIAL SQ SCH ×2 (06:33→12:40)
[2022-03-11] MEDS: PANTOPRAZOLE 40 MG TABLET PO SCH (06:34)
[2022-03-11 07:54] LABS: Basophils % (A) 0 %; Eosinophils % (A) 0 %; HCT 30.7 % (34.0-46.0); HGB 9.7 gm/dL (11.4-16.0); Hypochromasia Slight; Lymphocytes # (A) 0.8 k/uL (1.0-4.8); Lymphocytes % (A) 12 %; MCHC 31.7 g/dL (31.0-37.0); Macrocytosis Slight; Mean Platelet Volume 7.4; Monocytes # (A) 0.2 k/uL (0-1.0); Monocytes % (A) 3 %; Neutrophils # (A) 5.6 k/uL (1.3-7.7); Neutrophils % (A) 84 %; Platelet Count 296 k/uL (150-450); RBC 3.04 m/uL (3.80-5.40); RDW 15.3 % (11.5-15.5); WBC 6.7 k/uL (3.8-10.6)
[2022-03-11] MEDS: FERROUS SULFATE 325 MG TAB PO SCH (08:34)
[2022-03-11] MEDS: clonazePAM 0.5 MG TAB PO SCH (08:34)
[2022-03-11] MEDS: TAMSULOSIN 0.4 MG CAP.ER.24H PO SCH (08:34)
[2022-03-11] MEDS: VIT A,C & E-LUTEIN-MINERALS 1 EACH TAB PO SCH (08:34)
[2022-03-11] MEDS: ASPIRIN 81 MG PO SCH (08:34)
[2022-03-11] MEDS: ESCITALOPRAM 10 MG TAB PO SCH (08:34)
[2022-03-11] MEDS: predniSONE 20 MG TAB PO SCH (08:34)
[2022-03-11] MEDS: HYDROcodone/APAP 5-325MG 1 EACH TAB PO PRN (08:38)
[2022-03-11 08:53] LABS: Calcium 9.5 mg/dL (8.4-10.2); Potassium 4.7 mmol/L (3.5-5.1)
[2022-03-11 10:48] LABS: APTT 171 Sec(s) (<43); APTT 1:1 Mix 130 Sec(s) (<43); DRVVT 1:1 Mix 42 Sec(s) (<44); Dilute Russell Viper Venom 48 Sec(s) (<44); Hexagonal Phase Neutralization Positive (Negative)
[2022-03-11 11:41] LABS: Glucose,Whole Blood 166 mg/dL (75-99)
--- NOTE | 2022-03-11 13:03 | P.DS ---
Providers Date of admission: 03/06/22 17:06 Expected date of discharge: 03/11/22 Attending physician: David Verduzco Consults: 03/07/22 10:18 Consult Physician Routine Consulting Provider: Edwige Mcarthur Consult Reason/Comments: PE Do you want consulting provider notified?: Yes Placement Type Exists?: Yes Consult Physician Routine Consulting Provider: Pb Luu Consult Reason/Comments: PE on Xarelto Do you want consulting provider notified?: Yes Placement Type Exists?: Yes 03/07/22 10:19 Consult Physician Routine Consulting Provider: Johnson Self Consult Reason/Comments: L1 Fracture Do you want consulting provider notified?: Yes Placement Type Exists?: Yes 03/09/22 09:01 Consult Physician Routine Consulting Provider: Lj Paul Consult Reason/Comments: Lower extremity weakness Do you want consulting provider notified?: Yes Placement Type Exists?: Yes Primary care physician: David Verduzco [facility] Course: HISTORY OF PRESENT ILLNESS: this is a 76-year-old female with a previous medical history significant for 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 Calvin and she was started on prednisone 20 mg orally twice every day, patient was doing fine up until a week ago when she was at home and she tried to bend over to tile picker stuff from the ground and she stood up and she ended up losing her balance and fell backward patient came to the emergency department at [facility] on 03/04/2022 and had an x-ray that did show evidence of possible sacral fracture as well as computed tomography scan of the abdomen and pelvis that didn't show L1 fracture along with an old T6 fracture, patient was released home she ended up coming back to the emergency department today with increased low back pain associated with increased shortness of breath, patient apparently became quite dyspneic and she was coughing and minimal phlegm production without any pleurisy, she was brought into the ER by EMS her oxygen saturation initially was in the low 80s she was placed on 6 L nasal cannula her oxygenation recovered to 92%, his of the presentation patient underwent CT angiography of the chest that was positive for segmental pulmonary embolism in the lower branches, with possible underlying grouse glass material stenosis of a possible pneumonia, she was started on IV antibiotic Rocephin and Zithromax and she was placed on heparin drip, she was admitted to the hospital, pulmonary consultation was obtained as well as hematology consultation as the patient was on chronic anticoagulation with Xarelto, 20 mg orally once every day, patient also would be seen in consultation by Dr. Self for L1 fracture with retropulsion and possible canal stenosis. 03/07: Patient is laying down in bed she is waiting to find a bed telemetry unit, she was seen in the ER for the second day, she denies any chest pain at this time, she continues to have minimal cough, no phlegm production, she was seen in consultation by pulmonary medicine she was switched to oral Levaquin 750 mg orally once every day for the next 5 days, she was kept on heparin drip, I believe the patient to be switched to oral mucous is a posterior Xarelto since the patient developed to have a small clot on Xarelto, d-dimer is not very specific at this time but patient does have a prior history of pulmonary embolism as well as DVT, L1 fractures spine surgery evaluation she does appear to have retropulsion with minimal spinal stenosis, hematology evaluation is in order. Patient was seen by Dr. Luu in the past 03/08: Patient is embarrassed for today she is feeling a lot better, she denies any pleurisy, she denies any hemoptysis, she is less short of breath today, she has been maintained on Levaquin 750 mg orally once every day, oxygen she is currently at 2 L nasal cannula, patient will be switched from heparin drip to Xarelto if ok with Hematology, we'll continue to monitor the patient for another 24 hours, she can be discharged home tomorrow morning 03/09: Patient did have an episode of urinary retention yesterday with the post void residual of 500-750 mL, ended up having Contreras catheter in place for close drainage, she is doing better today, she continues to be somewhat weak in both lower extremities due to significant inclusion body myositis along with a recent L1 fracture with retropulsion and minimal spinal stenosis, patient has been complaining of increased numbness in the groin area along with urinary retention, she was seen earlier by spine surgery, he was recommended for the patient to continue with conservative management with the special brace, unfortunately physical therapy has not been in the at and the patient could not be discharged home until she is evaluated by physical therapy she will likely require to have a Contreras catheter in place for a few more days I will start her on small dose of Flomax 0.4 mg orally once every day, and a void trial hopefully on Thursday. 03/10: Patient is sitting up in bed in no apparent distress, she did have a restful night, urine output through the catheter is good, she denies any chest pain, shortness breath, she is not utilizing any oxygen, we'll continue to wait for the physical therapy for evaluation for possible discharge home hopefully in the next 24 hours, we will do a void trial tomorrow morning keep the patient on Flomax 0.4 mg once every day, discontinue catheter tomorrow morning, patient has been complaining of increased numbness in both lower extremities her pain is well-controlled with the current treatment plan, we will repeat her labs tomorrow morning. 03/11: Patient is resting and recliner, is at bedside. Patient was evaluated by PT this morning with recommendations for rehab patient is adamant that she wants to go home and agreeable to home care. Patient has been afebrile, heart rate 79, blood pressure 136/71, pulse ox 96% on room air. Repeat blood work reveals WBC 6.7, hemoglobin 9.7, platelet count 296. Sodium 136, potassium 4.7, chloride 111, CO2 19, BUN 36 and creatinine 0.82. Capillary blood glucose running between 156 and 166 this morning. Blood sugar was running in the 300s yesterday. Hemoglobin A1c is 7.3. Urine cultures aren't finalized with no growth at 18 hours. Levaquin will be discontinued. Patient will be discharged home today in stable condition. DISCHARGE DIAGNOSES 1. Acute hypoxemic respiratory failure likely related to by basilar pulmonary infiltrate along with pulmonary embolism of the right lower lobe branch. 2. Inclusion body myositis. 3. GERD with esophagitis. 4. History of bipolar disorder. 5. L1 fracture appears to be acute along with an old T6 fracture. 6. Coagulation defect with a prior history of pulmonary embolism as well as DVT in the past status post inferior vena cava placement and removal 7. anemia. 8. Possible chronic ILD. 9. Urinary retention partially is due to inclusion body myositis and possibly recent L1 Fracture. DISCHARGE PLAN Home with home care Greater than 35 minutes was utilized and coordinating patient's discharge. Impression and plan of care have been directed as dictated by the signing physician. Caity Miles nurse practitioner acting as scribe for signing physician. Plan - Discharge Summary Discharge Rx Participant: No New Discharge Prescriptions: New Levofloxacin [Levaquin] 750 mg PO DAILY@1500 #5 tab Tamsulosin [Flomax] 0.4 mg PO PC-BRKFST #30 cap Continue Rivaroxaban [Xarelto] 20 mg PO PC-SUPPER Latanoprost Ophth [Xalatan 0.005%] 1 drops BOTH EYES HS clonazePAM [KlonoPIN] 0.5 mg PO BID Escitalopram [Lexapro] 10 mg PO DAILY Aspirin 81 mg PO DAILY Vit C/E/Zn/Coppr/Lutein/Zeaxan [Preservision Areds 2 Softgel] 1 cap PO BID [place] Carbonate 300 mg PO HS Omeprazole 40 mg PO DAILY Ferrous Gluconate 324 mg PO DAILY predniSONE [Deltasone] 20 mg PO BID Changed HYDROcodone/APAP 5-325MG [[place] 5-325] 1 tab PO BID #16 tab Discharge Medication List Aspirin 81 mg PO DAILY 06/01/15 [History] Escitalopram [Lexapro] 10 mg PO DAILY 06/01/15 [History] Latanoprost Ophth [Xalatan 0.005%] 1 drops BOTH EYES HS 06/01/15 [History] Rivaroxaban [Xarelto] 20 mg PO PC-SUPPER 06/01/15 [History] clonazePAM [KlonoPIN] 0.5 mg PO BID 06/01/15 [History] Vit C/E/Zn/Coppr/Lutein/Zeaxan [Preservision Areds 2 Softgel] 1 cap PO BID 12/05/21 [History] [place] Carbonate 300 mg PO HS 03/04/22 [History] Omeprazole 40 mg PO DAILY 03/04/22 [History] predniSONE [Deltasone] 20 mg PO BID 03/04/22 [History] Ferrous Gluconate 324 mg PO DAILY 03/06/22 [History] HYDROcodone/APAP 5-325MG [[place] 5-325] 1 tab PO BID #16 tab 03/11/22 [Rx] Levofloxacin [Levaquin] 750 mg PO DAILY@1500 #5 tab 03/11/22 [Rx] Tamsulosin [Flomax] 0.4 mg PO PC-BRKFST #30 cap 03/11/22 [Rx] Follow up Appointment(s)/Referral(s): Sam Daly DO [STAFF PHYSICIAN] - 1 Week Juan Pablo Ojeda PAC [PHYSICIAN HEALTH SCIENCE INSTRUCTOR] - 2 Weeks (Patient may follow-up with Juan Pablo Ojeda PA-C or Dr. Basilio Self at [facility] in 1-2 weeks following discharge. ) Activity/Diet/Wound Care/Special Instructions: 1. Patient may wear LSO brace for comfort and support while sitting upright at greater than 45, while working with therapy, and while ambulating; patient does not have to wear the brace while lying in bed or bathing 2. Patient should avoid excessive bending, twisting, and lifting; no lifting greater than 10 pounds 3. She is encouraged to continue using a walker to aid in ambulation Discharge Disposition: HOME WITH HOME HEALTH SERVICES
[2022-03-11 14:09] VITALS: BP 155/86; PULSE 70; RESP 20; TEMP 97.6
--- NOTE | 2022-03-11 14:16 | P.PN ---
Subjective Progress Note Date: 03/11/22 Principal diagnosis: Pulmonary embolism. On 03/09/2022, I'm seeing the patient for a follow-up. The patient has no new complaints. She has been weaned down to the 2 L of oxygen by nasal cannula. She was taken off the IV heparin the patient was started also Xarelto. Spine surgeries evaluating her pain as the patient has a fractured level of L1 spine. At the same time, the patient was seen by cardiology regarding the possibility of an acute non-STEMI likely attached to mechanism. The patient is profoundly weak in the lower extremities. The patient is inclusion body myositis. The white cell count of 5.6 with a hemoglobin of 8.7, BUN is a 33 with a creatinine of 0.8 and the sodium level is 136. Normal LFTs. The patient is currently on 2 L about 2 by nasal cannula. Shows improvement in infiltrates and the patient has some mild increased markings of the pulmonary vasculature bilaterally. Remains on Levaquin. 03/10/2022, the patient is doing well and she is on room in oxygen. She is using incentive spirometer. I was able to reach out an old x-ray from [facility] the patient did not have any significant pulmonary infiltrates and earlier this year. As such, it's likely that this may be infectious infiltrates and the patient is currently on Levaquin. No clear indication for an underlying interstitial lung disease. The patient is on Xa relto. No new complaints otherwise for now. The weakness and lower eczematous of present and the patient is having some urinary retention and a Contreras catheter remains in place. The patient remains on prednisone 20 mg by mouth twice a day. Progress note dated 03/11/2022. Currently, the patient is seen and examined in room 370. She is a 76-year-old female admitted with a diagnosis of pneumonia and pulmonary embolism. The patient is currently on a factor X a inhibitor. She's feeling much improved. She's currently on room air. She is not receiving any IV fluids. Current laboratory includes a white count of 6.7, hemoglobin 9.7, hematocrit 30.7, and a platelet count 296,000. Sodium is 136, potassium is 4.7, chlorides 111, CO2 19, BUN 36, and creatinine 0.82. Objective - Vital Signs Vital signs: Vital Signs Temp 97.6 F 03/11/22 11:40 Pulse 70 03/11/22 11:40 Resp 20 03/11/22 11:40 BP 155/86 03/11/22 11:40 Pulse Ox 96 03/11/22 11:40 FiO2 Intake & Output 03/10/22 03/11/22 03/11/22 18:59 06:59 18:59 Intake Total 960 360 Output Total 950 840 200 Balance 10 -840 160 Intake: Oral 960 360 Output: Urine 950 840 200 Uretheral (Contreras) 200 Other: Voiding Method Indwelling Catheter Indwelling Catheter Indwelling Catheter # Bowel Movements 1 1 - Exam No acute distress, oriented 3. No respiratory distress. Currently on room air. HEENT examination is grossly unremarkable. Neck supple. Full range of motion. No adenopathy thyromegaly or neck vein distention. Cardiovascular examination reveals regular rhythm rate. S1-S2 normal. No S3 or S4. No discernible murmur noted. Heart rate is 70 bpm. Lungs reveal scattered mild rhonchi. No wheezes. No crackles. Breath sounds equal bilaterally. Respiratory room air saturation is 96%. Abdomen soft bowel sounds are heard. No masses or tenderness. Extremities are intact. No cyanosis clubbing or edema. Skin is without rash or lesion. Neurologic examination is brief but nonfocal. - Labs CBC & Chem 7: 03/11/22 07:20 03/11/22 07:20 Labs: Abnormal Lab Results - Last 24 Hours (Table) 03/07/22 03/10/22 03/10/22 Range/Units 15:03 16:45 20:13 RBC (3.80-5.40) m/uL Hgb (11.4-16.0) gm/dL Hct (34.0-46.0) % MCV (80.0-100.0) fL Lymphocytes # (1.0-4.8) k/uL Lupus Anticoag aPTT 171 H (<43) Sec(s) Lupus Anticoag PTT Mix 130 H (<43) Sec(s) Dil Sylvester Viper Venom 48 H (<44) Sec(s) Lupus Hexagonal Phase Positive A (Negative) Sodium (137-145) mmol/L Chloride (98-107) mmol/L Carbon Dioxide (22-30) mmol/L BUN (7-17) mg/dL Glucose (74-99) mg/dL POC Glucose (mg/dL) 346 H 329 H (75-99) mg/dL Hemoglobin A1c (0.0-6.0) % 03/11/22 03/11/22 03/11/22 Range/Units 06:03 07:20 07:20 RBC 3.04 L (3.80-5.40) m/uL Hgb 9.7 L (11.4-16.0) gm/dL Hct 30.7 L (34.0-46.0) % MCV 101.0 H (80.0-100.0) fL Lymphocytes # 0.8 L (1.0-4.8) k/uL Lupus Anticoag aPTT (<43) Sec(s) Lupus Anticoag PTT Mix (<43) Sec(s) Dil Sylvester Viper Venom (<44) Sec(s) Lupus Hexagonal Phase (Negative) Sodium (137-145) mmol/L Chloride (98-107) mmol/L Carbon Dioxide (22-30) mmol/L BUN (7-17) mg/dL Glucose (74-99) mg/dL POC Glucose (mg/dL) 156 H (75-99) mg/dL Hemoglobin A1c 7.3 H (0.0-6.0) % 03/11/22 03/11/22 Range/Units 07:20 11:40 RBC (3.80-5.40) m/uL Hgb (11.4-16.0) gm/dL Hct (34.0-46.0) % MCV (80.0-100.0) fL Lymphocytes # (1.0-4.8) k/uL Lupus Anticoag aPTT (<43) Sec(s) Lupus Anticoag PTT Mix (<43) Sec(s) Dil Sylvester Viper Venom (<44) Sec(s) Lupus Hexagonal Phase (Negative) Sodium 136 L (137-145) mmol/L Chloride 111 H (98-107) mmol/L Carbon Dioxide 19 L (22-30) mmol/L BUN 36 H (7-17) mg/dL Glucose 137 H (74-99) mg/dL POC Glucose (mg/dL) 166 H (75-99) mg/dL Hemoglobin A1c (0.0-6.0) % Assessment and Plan Assessment: Acute hypoxic respiratory failure with development of bilateral pulmonary infiltrates with some groundglass characteristics. This could be infectious in nature. Nevertheless, based on her history, possibility of chronic ILD cannot be completely excluded. 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 Nevertheless, these type of connective tissue disease disorders, and combinations and the patient may have other clinical changes diseases such as RA/lupus/mixed connective disease which could potentially cause ILD. I'm not much concerned about pulmonary embolism. The filling defects and was seen by the radiologist was minimal and does not explain her hypoxemia. I do not consider this to be a treatment failure. D-dimer is low. Doppler of the lower extremity has been negative. Her COVID 19 is negative. The patient is improved and the patient is currently on room air oxygen. I restart all the x-rays from earlier this evening this patient and back then the patient have any significant pulmonary infiltrates and as such I doubt the possibility of an underlying interstitial lung disease. This may be infectious and the patient is currently on Levaquin. Previous history of pulmonary embolism with insertion and removal of an IVC filter and the patient has been on long-term and coagulation with Xarelto, along with that, the patient had a DVT and this was triggered by a fall and ankle fracture that occurred approximately 10 years ago. History of inclusion body myositis. Previous history of CVA. Previous history of colitis. Previous history of glaucoma and macular degeneration. History of carpal tunnel disease and peripheral neuropathy. Diabetes mellitus. Hyperlipidemia . Plan: Plan dated 03/11/2022. Currently, the patient's doing well. She may be discharged in the near future. She's currently on a factor X a inhibitor. She'll need a follow-up CT angiogram down the road. The patient will follow-up with my partner. No additional recommendations are made. Labs, x-rays, and medications are all reviewed. The patient's currently not receiving any IV fluids, and not receiving any supplemental oxygen. Time with Patient: Less than 30
[2022-03-11] MEDS: LEVOFLOXACIN 750 MG TAB PO SCH (14:21)
--- NOTE | 2022-03-11 16:24 | P.PN ---
Subjective Progress Note Date: 03/11/22 Patient was seen for a follow-up. Patient is sitting comfortably in the recliner. Patient has been having some urinary retention for which she has Foleys in. No new neurological concerns. Objective - Vital Signs Vital signs: Vital Signs Temp 97.4 F L 03/11/22 08:00 Pulse 79 03/11/22 08:00 Resp 24 03/11/22 08:00 BP 136/71 03/11/22 08:00 Pulse Ox 96 03/11/22 08:00 FiO2 Intake & Output 03/10/22 03/11/22 03/11/22 18:59 06:59 18:59 Intake Total 960 240 Output Total 950 840 Balance 10 -840 240 Intake: Oral 960 240 Output: Urine 950 840 Other: Voiding Method Indwelling Catheter Indwelling Catheter # Bowel Movements 1 1 - Exam Patient's mental status, speech and liver functions are normal. Cranial nerves are normal. 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 Hip flexion 4, ankle dorsiflexion 5. No edema. - Labs CBC & Chem 7: 03/11/22 07:20 03/11/22 07:20 Labs: Abnormal Lab Results - Last 24 Hours (Table) 03/07/22 03/10/22 03/10/22 Range/Units 15:03 11:26 16:45 RBC (3.80-5.40) m/uL Hgb (11.4-16.0) gm/dL Hct (34.0-46.0) % MCV (80.0-100.0) fL Lymphocytes # (1.0-4.8) k/uL Lupus Anticoag aPTT 171 H (<43) Sec(s) Lupus Anticoag PTT Mix 130 H (<43) Sec(s) Dil Sylvester Viper Venom 48 H (<44) Sec(s) Lupus Hexagonal Phase Positive A (Negative) Sodium (137-145) mmol/L Chloride (98-107) mmol/L Carbon Dioxide (22-30) mmol/L BUN (7-17) mg/dL Glucose (74-99) mg/dL POC Glucose (mg/dL) 214 H 346 H (75-99) mg/dL Hemoglobin A1c (0.0-6.0) % 03/10/22 03/11/22 03/11/22 Range/Units 20:13 06:03 07:20 RBC (3.80-5.40) m/uL Hgb (11.4-16.0) gm/dL Hct (34.0-46.0) % MCV (80.0-100.0) fL Lymphocytes # (1.0-4.8) k/uL Lupus Anticoag aPTT (<43) Sec(s) Lupus Anticoag PTT Mix (<43) Sec(s) Dil Sylvester Viper Venom (<44) Sec(s) Lupus Hexagonal Phase (Negative) Sodium (137-145) mmol/L Chloride (98-107) mmol/L Carbon Dioxide (22-30) mmol/L BUN (7-17) mg/dL Glucose (74-99) mg/dL POC Glucose (mg/dL) 329 H 156 H (75-99) mg/dL Hemoglobin A1c 7.3 H (0.0-6.0) % 03/11/22 03/11/22 Range/Units 07:20 07:20 RBC 3.04 L (3.80-5.40) m/uL Hgb 9.7 L (11.4-16.0) gm/dL Hct 30.7 L (34.0-46.0) % MCV 101.0 H (80.0-100.0) fL Lymphocytes # 0.8 L (1.0-4.8) k/uL Lupus Anticoag aPTT (<43) Sec(s) Lupus Anticoag PTT Mix (<43) Sec(s) Dil Sylvester Viper Venom (<44) Sec(s) Lupus Hexagonal Phase (Negative) Sodium 136 L (137-145) mmol/L Chloride 111 H (98-107) mmol/L Carbon Dioxide 19 L (22-30) mmol/L BUN 36 H (7-17) mg/dL Glucose 137 H (74-99) mg/dL POC Glucose (mg/dL) (75-99) mg/dL Hemoglobin A1c (0.0-6.0) % Assessment and Plan Assessment: * Bilateral lower and upper extremity weakness, likely due to confirmed diagnosis of inclusion body myositis. * Status post fall, with L1 lumbar compression fractures. * Peripheral neuropathy * History of multiple bone fractures in the past, rule out osteoporosis * History of recurrent DVTs, PE, on long-term antibiotic regulation with Xarelto Plan: * Patient already has a confirmed diagnosis of inclusion body myositis. Patient follows up with [facility]. She was recommended to follow up with her neurologist/rivet heater for management of IBM. * Patient has history of fractures, currently on long-term steroids. She was recommended to have her primary physician check for osteoporosis. If abnormal, may benefit from Fosamax or other medications for osteoporosis. * Patient's B12, folate are normal. MMA pending. Hemoglobin A1c 7.3. * Regarding L1 compression fracture, would defer to orthopedics spine. Patient to undergo use of back brace for 12 weeks. * Patient recommended to follow up with the neurologist/rivet heater regarding her IBM. * Neurology will sign off. Please reconsult if any concerns.
[2022-03-12 06:43] LABS: Methylmalonic Acid 0.18 umol/L (<0.40)
== END 2022-03-11 14:41 | disposition home health service (06) | DRG 175 ==
LOC: EC 10:00 → 3SCARD 17:06
PROVIDERS: ADMIT Internal Medicine; ATTEND Internal Medicine
DX: I26.99 Other pulmonary embolism without acute cor pulmonale (principal); J96.01 Acute respiratory failure with hypoxia; I21.A1 Myocardial infarction type 2; E72.12 Methylenetetrahydrofolate reductase deficiency; E87.2 Acidosis; D68.9 Coagulation defect, unspecified; S32.019A Unspecified fracture of first lumbar vertebra, initial encounter for closed fracture; J84.9 Interstitial pulmonary disease, unspecified; F31.10 Bipolar disorder, current episode manic without psychotic features, unspecified; G72.41 Inclusion body myositis [IBM]; E11.9 Type 2 diabetes mellitus without complications; M35.00 Sjogren syndrome, unspecified; M06.9 Rheumatoid arthritis, unspecified; Z20.822 Contact with and (suspected) exposure to COVID-19; M41.86 Other forms of scoliosis, lumbar region; M51.36 Other intervertebral disc degeneration, lumbar region; M81.0 Age-related osteoporosis without current pathological fracture; E78.2 Mixed hyperlipidemia; G62.9 Polyneuropathy, unspecified; H35.30 Unspecified macular degeneration; H40.9 Unspecified glaucoma; R25.1 Tremor, unspecified; D53.9 Nutritional anemia, unspecified; G56.00 Carpal tunnel syndrome, unspecified upper limb; K21.00 Gastro-esophageal reflux disease with esophagitis, without bleeding; R26.81 Unsteadiness on feet; R76.8 Other specified abnormal immunological findings in serum; R29.6 Repeated falls; R33.9 Retention of urine, unspecified; R74.01 Elevation of levels of liver transaminase levels; L30.9 Dermatitis, unspecified; Z79.82 Long term (current) use of aspirin; Z79.01 Long term (current) use of anticoagulants; Z79.52 Long term (current) use of systemic steroids; Z79.899 Other long term (current) drug therapy; Z87.19 Personal history of other diseases of the digestive system; Z90.710 Acquired absence of both cervix and uterus; Z90.79 Acquired absence of other genital organ(s); Z90.722 Acquired absence of ovaries, bilateral; Z91.81 History of falling; Z98.42 Cataract extraction status, left eye; Z98.41 Cataract extraction status, right eye; Z87.42 Personal history of other diseases of the female genital tract; Z86.711 Personal history of pulmonary embolism; Z86.718 Personal history of other venous thrombosis and embolism; Z90.89 Acquired absence of other organs; Z98.51 Tubal ligation status; Z86.69 Personal history of other diseases of the nervous system and sense organs; Z86.73 Personal history of transient ischemic attack (TIA), and cerebral infarction without residual deficits; Z87.81 Personal history of (healed) traumatic fracture; Z98.890 Other specified postprocedural states; W01.0XXA Fall on same level from slipping, tripping and stumbling without subsequent striking against object, initial encounter; Y92.009 Unspecified place in unspecified non-institutional (private) residence as the place of occurrence of the external cause; Z88.2 Allergy status to sulfonamides; Z80.6 Family history of leukemia; Z80.0 Family history of malignant neoplasm of digestive organs; Z80.1 Family history of malignant neoplasm of trachea, bronchus and lung
CPT/HCPCS: 36415; 51702; 71045; 71046; 71275; 72100; 73502; 74018; 74177; 80048; 80053; 81001; 82150; 82550; 82553; 82607; 82728; 82746; 83036; 83540; 83550; 83605; 83615; 83690; 83735; 83880; 83921; 84145; 84443; 84484; 85025; 85027; 85045; 85379; 85610; 85613; 85652; 85730; 86146; 86147; 87086; 87635; 93005; 93306; 93970; 96365; 96366; 96368; 96375; 96376; 99285

== ENCOUNTER → 2022-05-14 | Outpatient (CLI) | payer MEDICARE, OTHER ==
--- NOTE | 2022-05-14 19:28 | BD ---
EXAMINATION TYPE: Axial Bone Density DATE OF EXAM: 05/14/2022 COMPARISON: NONE CLINICAL HISTORY: 76 years year old Female. ICD-10 CODE: M80.00XD AGE RELATED OSTEOPOROSIS Height: 68 IN Weight: 147 LBS FRAX RISK QUESTIONS: Glucocorticoids (More than 3mos): 30 MG/ DAY FOR 5 MONTHS (Ex: prednisone, prednisolone, methylprednisolone, dexamethasone, and hydrocortisone). History of Fracture in Adulthood: L-SPINE FX AGE 76; SHARMILA ANKLE FX AGE 66 Rheumatoid Arthritis: YES Current Tobacco Use: RISK FACTORS HISTORY OF: Spine Fracture: L-SPINE AGE 76 Active: LIMITED Postmenopausal woman: TOTAL HYST AGE 52 Frequent falls: YES BALANCE ISSUES MEDICATIONS: Prednisone or other steroids: YES 30 MG/DAY FOR 5 MONTHS Additional Medications: PREDNISONE 30 MG PER DAY; LITHIUM CARBONATE, CLONAZEDAM, ESCITALOPRAM, XARELT O, LATANOPROST, OMEPRAZOLE, TAMSULOSIN, FERROUS GLUCO, EYE DROP, EXAM MEASUREMENTS: Bone mineral densitometry was performed using the [employer] System. Bone mineral density about the R hip (g/cm2): 0.827 Bone mineral density about the L hip (g/cm2): 0.877 T Score values are as follows: -----R Neck: -1.5 -----L Neck: -1.2 -----R Total: -1.3 -----L Total: -1.7 Bone mineral density BASELINE Bone mineral density about the L Wrist (g/cm2): 0.583 T Score values are as follows: -----Dist. R+U: -1.5 -----Prox. R+U: -1.4 -----Radius total: -1.5 Bone mineral density BASELINE FRAX%s: The graph provided illustrates a 24.1 chance for a major osteoporotic fx and a 5.5 chance for the hips probability for fx in 10 years time. IMPRESSION: Osteopenia (T Score between -2.5 and -1). There is slightly increased risk of fracture and the patient may be considered for treatment. Re-Screen 2-5 years. NOTE: T-SCORE=SD OF THE YOUNG ADULT MEAN.
== END | disposition home or self-care (01) ==
LOC: RADBDWWP 16:08
PROVIDERS: ATTEND Internal Medicine Rheumatology
DX: M80.00XD Age-related osteoporosis with current pathological fracture, unspecified site, subsequent encounter for fracture with routine healing (principal); X58.XXXD Exposure to other specified factors, subsequent encounter
CPT/HCPCS: 77080

== ENCOUNTER 2022-06-15 06:33 | Inpatient (IN) | payer MEDICARE, OTHER ==
--- NOTE | 2022-06-15 08:12 | XR ---
EXAMINATION TYPE: XR chest 2V DATE OF EXAM: 06/15/2022 7:59 AM COMPARISON: Chest radiographs from 05/27/2022, CT chest abdomen pelvis 03/06/2022. TECHNIQUE: XR chest 2V Frontal and lateral views of the chest. CLINICAL INDICATION:Female, 77 years old with history of shortness of breath/ weakness; FINDINGS: Lungs/Pleura: There is no evidence of pleural effusion, focal consolidation, or pneumothorax. Pulmonary vascularity: Unremarkable. Heart/mediastinum: Cardiomediastinal silhouette is enlarged and stable. Musculoskeletal: Stable chronic compression deformity of the T6 and L2 vertebral bodies. IMPRESSION: No acute cardiopulmonary disease/process.
--- NOTE | 2022-06-15 08:15 | ED ---
General Adult HPI - General Chief complaint: Weakness Stated complaint: Poss UTI, weakness Time Seen by Provider: 06/15/22 06:58 Source: patient, RN notes reviewed Mode of arrival: wheelchair Limitations: no limitations - History of Present Illness Initial comments: Patient is a 77-year-old female presents the emergency room with increase in generalized weakness and some mild confusion ongoing for approximately 24 hours. Have her spouse reports that she was very fatigued yesterday with occasional lethargy and excessive amount of sleeping. Today he reports worsening of her confusion with inappropriate statements such as wide as the television on the television isn't on being made at home. She was recently treated for urinary tract infection and her spouse is concerned that that may be going on. From a symptomatology standpoint she denies any dysuria, hematuria urinary frequency or urgency. 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 She is normally alert and orientated incommunicative despite her physical weakness. She is reporting some nausea, generalized malaise, occasional cough, intermittent moderate grade fevers of 99.8-101. She denies any chest pain, shortness of breath, abdominal pain, vomiting, diarrhea, headache or chills. 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 - Related Data Home Medications Medication Instructions Recorded Confirmed Aspirin 81 mg PO DAILY 06/01/15 06/15/22 Escitalopram [Lexapro] 10 mg PO DAILY 06/01/15 06/15/22 Latanoprost Ophth [Xalatan 0.005%] 1 drops BOTH EYES HS 06/01/15 06/15/22 Rivaroxaban [Xarelto] 20 mg PO W/SUPPER 06/01/15 06/15/22 Vit C/E/Zn/Coppr/Lutein/Zeaxan 1 cap PO DAILY 12/05/21 06/15/22 [Preservision Areds 2 Softgel] [place] Carbonate 300 mg PO HS 03/04/22 06/15/22 Omeprazole 40 mg PO DAILY 03/04/22 06/15/22 Ferrous Gluconate 324 mg PO DAILY@1700 03/06/22 06/15/22 Brimonidine Tartrate/Timolol 1 drop BOTH EYES BID 05/27/22 06/15/22 [Combigan 0.2%-0.5% Eye Drops] Dapagliflozin Propanediol [Farxiga] 10 mg PO DAILY 05/27/22 06/15/22 Losartan Potassium [Cozaar] 50 mg PO BID 05/27/22 06/15/22 Ondansetron [Zofran] 4 mg PO Q8HR PRN 05/27/22 06/15/22 Tamsulosin [Flomax] 0.4 mg PO DAILY 05/27/22 06/15/22 predniSONE 10 mg PO BID 06/15/22 06/15/22 Previous Rx's Medication Instructions Recorded clonazePAM [KlonoPIN] 0.5 mg PO BID #6 tab 03/14/22 Amoxic-Pot Clav 875-125Mg 1 each PO Q12HR #20 tab 06/22/22 [Augmentin 875-125] Metoprolol Succinate (ER) [Toprol 50 mg PO DAILY #90 tab 06/22/22 XL] Allergies Allergy/AdvReac Type Severity Reaction Status Date / Time Sulfa (Sulfonamide Allergy Anaphylaxis Verified 06/15/22 13:59 Antibiotics) Review of Systems ROS Statement: Those systems with pertinent positive or pertinent negative responses have been documented in the HPI. ROS Other: All systems not noted in ROS Statement are negative. Past Medical History Past Medical History: Chest Pain / Angina, Diabetes Mellitus, Deep Vein Thrombosis (DVT), Eye Disorder, Hyperlipidemia, Musculoskeletal Disorder, Pulmonary Embolus (PE), Skin Disorder Additional Past Medical History / Comment(s): Colitis. mult DVT's, PE's after a fall with multiple fractures. Has tremors hands. Glaucoma & macular degeneration bilat.Neuropathy hands, feet. Unable to walk now. Rash on legs. History of Any Multi-Drug Resistant Organisms: None Reported Past Surgical History: Adenoidectomy, Appendectomy, Ear Surgery, Hysterectomy, Tonsillectomy, Tubal Ligation Additional Past Surgical History / Comment(s): BILAT CATARACTS. REPAIR PERFORFATED LT EARDRUM. COLONOSCOPY. Has IVC Filter. Past Anesthesia/Blood Transfusion Reactions: Previous Problems w/ Anesthesia, Family History of Problems w/ Anesthesia, Motion Sickness Additional Past Anesthesia/Blood Transfusion Reaction / Comment(s): SLOW TO COME OUT OF ANESTHESIA, STATES "SISTER ALSO HAS A HARD TIME COMING OUT OF ANESTHESIA" Past Psychological History: Bipolar Smoking Status: Never smoker Past Alcohol Use History: None Reported Past Drug Use History: None Reported - Past Family History Brother(s) Family Medical History: Cancer Additional Family Medical History / Comment(s): leukemia Mother Family Medical History: Cancer Additional Family Medical History / Comment(s): Colon cancer; lung cancer now General Exam General appearance: alert, in no apparent distress Head exam: Present: atraumatic Eye exam: Present: PERRL, other (Exophthalmos). Absent: scleral icterus, conjunctival injection ENT exam: Present: normal exam, mucous membranes moist Neck exam: Present: normal inspection Respiratory exam: Present: normal lung sounds bilaterally. Absent: respiratory distress, wheezes, rales, rhonchi, stridor Cardiovascular Exam: Present: regular rate, normal rhythm, normal heart sounds. Absent: systolic murmur, diastolic murmur, rubs, gallop, clicks GI/Abdominal exam: Present: soft, normal bowel sounds. Absent: distended, tenderness, guarding, rebound, rigid Extremities exam: Present: pedal edema (Bilateral trace) Neurological exam: Present: alert Expanded Patient oriented to: Present: person, place. Absent: time Psychiatric exam: Present: normal affect, normal mood Skin exam: Present: warm, dry, intact, normal color. Absent: rash Course Vital Signs 06/15/22 06/15/22 06/15/22 06:37 09:04 10:32 Temperature 99.1 F 99.8 F H Pulse Rate 105 H 94 92 Respiratory 16 20 16 Rate Blood Pressure 121/81 117/65 123/52 O2 Sat by Pulse 93 L 93 L 93 L Oximetry 06/15/22 06/15/22 06/15/22 11:44 14:58 17:32 Temperature 99.8 F H 98.7 F Pulse Rate 89 86 76 Respiratory 16 16 16 Rate Blood Pressure 124/60 113/54 114/60 O2 Sat by Pulse 97 96 99 Oximetry Medical Decision Making - Medical Decision Making 77-year-old female presenting to the emergency room with her spouse with complaints of altered mental status, occasional cough, nausea and weakness ongoing for approximately 24 hours. Recently treated for urinary tract in fection. The setting of altered mental status with acute onset on blood thinners will check CT of the brain. Will check EKG, chest x-ray along with CBC, CMP, troponin, magnesium, urinalysis and coags. CT the brain negative for acute findings, a EKG baseline rhythm, chest x-ray with no acute cardiopulmonary process. Mild leukocytosis noted. Troponin negative. Mild dehydration on CMP. Urinalysis negative for urinary UTI. Will check COVID swab and give 1 L fluid bolus. Covid swabs negative. Unable to find source of infection at this time however concern for discharging patient home with altered mental status and mild leukocytosis. Case presented to [facility] covering for patient's primary care provider Dr. Verduzco for admission for workup regarding leukocytosis and altered mental status. Dr. Beltrán with [facility] accepting patients admission. Case discussed with Dr. Woods - Lab Data Result diagrams: 06/22/22 07:13 06/22/22 07:07 Lab Results 06/15/22 06/15/22 06/15/22 Range/Units 09:20 09:20 09:20 WBC 10.7 H (3.8-10.6) k/uL RBC 3.63 L (3.80-5.40) m/uL Hgb 11.2 L (11.4-16.0) gm/dL Hct 35.6 (34.0-46.0) % MCV 98.2 (80.0-100.0) fL MCH 30.9 (25.0-35.0) pg MCHC 31.5 (31.0-37.0) g/dL RDW 16.2 H (11.5-15.5) % Plt Count 319 (150-450) k/uL MPV 7.0 Immature Gran % (Auto) % Absolute Nucleated RBC (0.00-0.00) X 10*3/uL Neutrophils % 86 % Lymphocytes % 10 % Monocytes % 3 % Eosinophils % 0 % Basophils % 0 % Immature Gran # (0.00-0.04) X 10*3/uL Neutrophils # 9.1 H (1.3-7.7) k/uL Lymphocytes # 1.1 (1.0-4.8) k/uL Monocytes # 0.3 (0-1.0) k/uL Eosinophils # 0.0 (0-0.7) k/uL Basophils # 0.0 (0-0.2) k/uL NRBC/100 WBC Diff (0.0-0.0) /100 WBCS Hypochromasia Slight Anisocytosis Slight Macrocytosis Slight Sodium 135 L (137-145) mmol/L Potassium 4.7 (3.5-5.1) mmol/L Chloride 107 (98-107) mmol/L Carbon Dioxide 22 (22-30) mmol/L Anion Gap 6 mmol/L BUN 29 H (7-17) mg/dL Creatinine 0.71 (0.52-1.04) mg/dL Est GFR (CKD-EPI)AfAm >90 (>60 ml/min/1.73 sqM) Est GFR (CKD-EPI)NonAf 84 (>60 ml/min/1.73 sqM) BUN/Creatinine Ratio (12.00-20.00) Ratio Glucose 86 (74-99) mg/dL POC Glucose (mg/dL) (70-110) mg/dL POC Glu Rn Appeals ID Plasma Lactic Acid Celio 1.3 (0.7-2.0) mmol/L Calcium 9.2 (8.4-10.2) mg/dL Magnesium 1.9 (1.6-2.3) mg/dL Total Bilirubin 1.0 (0.2-1.3) mg/dL AST 42 H (14-36) U/L ALT 36 H (4-34) U/L Alkaline Phosphatase 55 (38-126) U/L C-Reactive Protein (0.00-0.80) mg/dL Total Protein 6.2 L (6.3-8.2) g/dL Albumin 3.2 L (3.5-5.0) g/dL Globulin (1.6-3.3) g/dL Albumin/Globulin Ratio (1.60-3.17) g/dL Procalcitonin (0.02-0.09) ng/mL TSH 1.820 (0.465-4.680) mIU/L Urine Color Urine Appearance (Clear) Urine pH (5.0-8.0) Ur Specific [place] (1.001-1.035) Urine Protein (Negative) Urine Glucose (UA) (Negative) Urine Ketones (Negative) Urine Blood (Negative) Urine Nitrite (Negative) Urine Bilirubin (Negative) Urine Urobilinogen (<2.0) mg/dL Ur Leukocyte Esterase (Negative) [place] mmol/L Coronavirus (PCR) (Not Detectd) 0906/15/22 06/15/22 Range/Units 10:31 11:43 20:17 WBC (3.8-10.6) k/uL RBC (3.80-5.40) m/uL Hgb (11.4-16.0) gm/dL Hct (34.0-46.0) % MCV (80.0-100.0) fL MCH (25.0-35.0) pg MCHC (31.0-37.0) g/dL RDW (11.5-15.5) % Plt Count (150-450) k/uL MPV Immature Gran % (Auto) % Absolute Nucleated RBC (0.00-0.00) X 10*3/uL Neutrophils % % Lymphocytes % % Monocytes % % Eosinophils % % Basophils % % Immature Gran # (0.00-0.04) X 10*3/uL Neutrophils # (1.3-7.7) k/uL Lymphocytes # (1.0-4.8) k/uL Monocytes # (0-1.0) k/uL Eosinophils # (0-0.7) k/uL Basophils # (0-0.2) k/uL NRBC/100 WBC Diff (0.0-0.0) /100 WBCS Hypochromasia Anisocytosis Macrocytosis Sodium (137-145) mmol/L Potassium (3.5-5.1) mmol/L Chloride (98-107) mmol/L Carbon Dioxide (22-30) mmol/L Anion Gap mmol/L BUN (7-17) mg/dL Creatinine (0.52-1.04) mg/dL Est GFR (CKD-EPI)AfAm (>60 ml/min/1.73 sqM) Est GFR (CKD-EPI)NonAf (>60 ml/min/1.73 sqM) BUN/Creatinine Ratio (12.00-20.00) Ratio Glucose (74-99) mg/dL POC Glucose (mg/dL) (70-110) mg/dL POC Glu Rn Appeals ID Plasma Lactic Acid Celio (0.7-2.0) mmol/L Calcium (8.4-10.2) mg/dL Magnesium (1.6-2.3) mg/dL Total Bilirubin (0.2-1.3) mg/dL AST (14-36) U/L ALT (4-34) U/L Alkaline Phosphatase (38-126) U/L C-Reactive Protein (0.00-0.80) mg/dL Total Protein (6.3-8.2) g/dL Albumin (3.5-5.0) g/dL Globulin (1.6-3.3) g/dL Albumin/Globulin Ratio (1.60-3.17) g/dL Procalcitonin (0.02-0.09) ng/mL TSH (0.465-4.680) mIU/L Urine Color Yellow Urine Appearance Clear (Clear) Urine pH 5.5 (5.0-8.0) Ur Specific [place] 1.014 (1.001-1.035) Urine Protein Negative (Negative) Urine Glucose (UA) 3+ H (Negative) Urine Ketones Negative (Negative) Urine Blood Negative (Negative) Urine Nitrite Negative (Negative) Urine Bilirubin Negative (Negative) Urine Urobilinogen <2.0 (<2.0) mg/dL Ur Leukocyte Esterase Negative (Negative) [place] 0.4 mmol/L Coronavirus (PCR) Not Detected (Not Detectd) 06/15/22 06/16/22 06/16/22 Range/Units 22:01 05:23 05:23 WBC 8.85 (3.8-10.6) k/uL RBC 3.19 L (3.80-5.40) m/uL Hgb 9.8 L (11.4-16.0) gm/dL Hct 32.1 L (34.0-46.0) % MCV 100.6 H (80.0-100.0) fL MCH 30.7 (25.0-35.0) pg MCHC 30.5 L (31.0-37.0) g/dL RDW 16.4 H (11.5-15.5) % Plt Count 229 (150-450) k/uL MPV 9.4 L Immature Gran % (Auto) 1.1 % Absolute Nucleated RBC 0 (0.00-0.00) X 10*3/uL Neutrophils % 83.4 % Lymphocytes % 11.1 % Monocytes % 4.2 % Eosinophils % 0 % Basophils % 0.2 % Immature Gran # 0.10 H (0.00-0.04) X 10*3/uL Neutrophils # 7.38 (1.3-7.7) k/uL Lymphocytes # 0.98 (1.0-4.8) k/uL Monocytes # 0.37 (0-1.0) k/uL Eosinophils # 0 L (0-0.7) k/uL Basophils # 0.02 (0-0.2) k/uL NRBC/100 WBC Diff 0 (0.0-0.0) /100 WBCS Hypochromasia Anisocytosis Macrocytosis Sodium (137-145) mmol/L Potassium (3.5-5.1) mmol/L Chloride (98-107) mmol/L Carbon Dioxide (22-30) mmol/L Anion Gap mmol/L BUN (7-17) mg/dL Creatinine (0.52-1.04) mg/dL Est GFR (CKD-EPI)AfAm (>60 ml/min/1.73 sqM) Est GFR (CKD-EPI)NonAf (>60 ml/min/1.73 sqM) BUN/Creatinine Ratio (12.00-20.00) Ratio Glucose (74-99) mg/dL POC Glucose (mg/dL) 78 (70-110) mg/dL POC Glu Rn Appeals ID Mayela Mey Plasma Lactic Acid Celio (0.7-2.0) mmol/L Calcium (8.4-10.2) mg/dL Magnesium (1.6-2.3) mg/dL Total Bilirubin (0.2-1.3) mg/dL AST (14-36) U/L ALT (4-34) U/L Alkaline Phosphatase (38-126) U/L C-Reactive Protein (0.00-0.80) mg/dL Total Protein (6.3-8.2) g/dL Albumin (3.5-5.0) g/dL Globulin (1.6-3.3) g/dL Albumin/Globulin Ratio (1.60-3.17) g/dL Procalcitonin 0.15 H (0.02-0.09) ng/mL TSH (0.465-4.680) mIU/L Urine Color Urine Appearance (Clear) Urine pH (5.0-8.0) Ur Specific [place] (1.001-1.035) Urine Protein (Negative) Urine Glucose (UA) (Negative) Urine Ketones (Negative) Urine Blood (Negative) Urine Nitrite (Negative) Urine Bilirubin (Negative) Urine Urobilinogen (<2.0) mg/dL Ur Leukocyte Esterase (Negative) [place] mmol/L Coronavirus (PCR) (Not Detectd) 06/16/22 06/16/22 06/16/22 Range/Units 05:23 07:05 11:59 WBC (3.8-10.6) k/uL RBC (3.80-5.40) m/uL Hgb (11.4-16.0) gm/dL Hct (34.0-46.0) % MCV (80.0-100.0) fL MCH (25.0-35.0) pg MCHC (31.0-37.0) g/dL RDW (11.5-15.5) % Plt Count (150-450) k/uL MPV Immature Gran % (Auto) % Absolute Nucleated RBC (0.00-0.00) X 10*3/uL Neutrophils % % Lymphocytes % % Monocytes % % Eosinophils % % Basophils % % Immature Gran # (0.00-0.04) X 10*3/uL Neutrophils # (1.3-7.7) k/uL Lymphocytes # (1.0-4.8) k/uL Monocytes # (0-1.0) k/uL Eosinophils # (0-0.7) k/uL Basophils # (0-0.2) k/uL NRBC/100 WBC Diff (0.0-0.0) /100 WBCS Hypochromasia Anisocytosis Macrocytosis Sodium 144 (137-145) mmol/L Potassium 4.3 (3.5-5.1) mmol/L Chloride 111 H (98-107) mmol/L Carbon Dioxide 20.5 (22-30) mmol/L Anion Gap 12.70 mmol/L BUN 14.2 (7-17) mg/dL Creatinine 0.6 (0.52-1.04) mg/dL Est GFR (CKD-EPI)AfAm 104.3 (>60 ml/min/1.73 sqM) Est GFR (CKD-EPI)NonAf 90.0 (>60 ml/min/1.73 sqM) BUN/Creatinine Ratio 24.32 H (12.00-20.00) Ratio Glucose 89 (74-99) mg/dL POC Glucose (mg/dL) 89 108 (70-110) mg/dL POC Glu Rn Appeals Deni Vincent Michele Plasma Lactic Acid Celio (0.7-2.0) mmol/L Calcium 9.0 (8.4-10.2) mg/dL Magnesium (1.6-2.3) mg/dL Total Bilirubin 0.50 (0.2-1.3) mg/dL AST 28 (14-36) U/L ALT 43 (4-34) U/L Alkaline Phosphatase 81 (38-126) U/L C-Reactive Protein 14.50 H (0.00-0.80) mg/dL Total Protein 5.0 L (6.3-8.2) g/dL Albumin 2.9 L (3.5-5.0) g/dL Globulin 2.1 (1.6-3.3) g/dL Albumin/Globulin Ratio 1.41 L (1.60-3.17) g/dL Procalcitonin (0.02-0.09) ng/mL TSH (0.465-4.680) mIU/L Urine Color Urine Appearance (Clear) Urine pH (5.0-8.0) Ur Specific [place] (1.001-1.035) Urine Protein (Negative) Urine Glucose (UA) (Negative) Urine Ketones (Negative) Urine Blood (Negative) Urine Nitrite (Negative) Urine Bilirubin (Negative) Urine Urobilinogen (<2.0) mg/dL Ur Leukocyte Esterase (Negative) [place] mmol/L Coronavirus (PCR) (Not Detectd) 06/16/22 06/16/22 06/17/22 Range/Units 17:07 20:03 07:09 WBC (3.8-10.6) k/uL RBC (3.80-5.40) m/uL Hgb (11.4-16.0) gm/dL Hct (34.0-46.0) % MCV (80.0-100.0) fL MCH (25.0-35.0) pg MCHC (31.0-37.0) g/dL RDW (11.5-15.5) % Plt Count (150-450) k/uL MPV Immature Gran % (Auto) % Absolute Nucleated RBC (0.00-0.00) X 10*3/uL Neutrophils % % Lymphocytes % % Monocytes % % Eosinophils % % Basophils % % Immature Gran # (0.00-0.04) X 10*3/uL Neutrophils # (1.3-7.7) k/uL Lymphocytes # (1.0-4.8) k/uL Monocytes # (0-1.0) k/uL Eosinophils # (0-0.7) k/uL Basophils # (0-0.2) k/uL NRBC/100 WBC Diff (0.0-0.0) /100 WBCS Hypochromasia Anisocytosis Macrocytosis Sodium (137-145) mmol/L Potassium (3.5-5.1) mmol/L Chloride (98-107) mmol/L Carbon Dioxide (22-30) mmol/L Anion Gap mmol/L BUN (7-17) mg/dL Creatinine (0.52-1.04) mg/dL Est GFR (CKD-EPI)AfAm (>60 ml/min/1.73 sqM) Est GFR (CKD-EPI)NonAf (>60 ml/min/1.73 sqM) BUN/Creatinine Ratio (12.00-20.00) Ratio Glucose (74-99) mg/dL POC Glucose (mg/dL) 156 H 189 H 132 H (70-110) mg/dL POC Glu Rn Appeals Deni Vincent Megan Bell, Michele Plasma Lactic Acid Celio (0.7-2.0) mmol/L Calcium (8.4-10.2) mg/dL Magnesium (1.6-2.3) mg/dL Total Bilirubin (0.2-1.3) mg/dL AST (14-36) U/L ALT (4-34) U/L Alkaline Phosphatase (38-126) U/L C-Reactive Protein (0.00-0.80) mg/dL Total Protein (6.3-8.2) g/dL Albumin (3.5-5.0) g/dL Globulin (1.6-3.3) g/dL Albumin/Globulin Ratio (1.60-3.17) g/dL Procalcitonin (0.02-0.09) ng/mL TSH (0.465-4.680) mIU/L Urine Color Urine Appearance (Clear) Urine pH (5.0-8.0) Ur Specific [place] (1.001-1.035) Urine Protein (Negative) Urine Glucose (UA) (Negative) Urine Ketones (Negative) Urine Blood (Negative) Urine Nitrite (Negative) Urine Bilirubin (Negative) Urine Urobilinogen (<2.0) mg/dL Ur Leukocyte Esterase (Negative) [place] mmol/L Coronavirus (PCR) (Not Detectd) - EKG Data EKG Comments: Sinus rhythm, possible anterior myocardial infarction indeterminate age, ventricular rate 95 bpm ND interval 151 ms, QRS duration 80 ms, QT/QTC 319/372 ms, PRT axes 24, -9, 38 - Radiology Data Radiology results: report reviewed, image reviewed CT brain without contrast impression: No acute intracranial process. Nonspecific white matter changes, likely secondary to chronic small vessel ischemic disease. Sphenoid sinus disease with air fluid levels which may resent represent acute sinusitis. Bilateral exophthalmos. Chest x-ray two-view shows no acute cardiopulmonary process. Stable chronic compression deformity of T6 and L2 vertebrae. Disposition Clinical Impression: AMS (altered mental status), Fever of unknown origin, Hyponatremia, Dehydration Disposition: ADMITTED IP TO THIS HOSP Condition: Fair Is patient prescribed a controlled substance at d/c from ED?: No Time of Disposition: 14:36
--- NOTE | 2022-06-15 08:18 | CT ---
EXAMINATION TYPE: CT brain wo con CT DLP: 1123.4 mGycm, Automated exposure control for dose reduction was used. DATE OF EXAM: 06/15/2022 7:55 AM COMPARISON: Prior CT Brain from 05/08/2021 . CLINICAL INDICATION:Female, 77 years old with history of AMS/weakness, AMS and weakness TECHNIQUE: Brain: Multiple axial CT images of the brain were obtained without IV contrast. Coronal and sagittal reformats reviewed. FINDINGS: Brain: Extra-axial spaces: No abnormal extra-axial fluid collections. Ventricular system: Within normal limits Cerebral parenchyma: No acute intraparenchymal hemorrhage or mass effect. The samano-white junction is well differentiated. Scattered hypoattenuating areas are seen within the white matter. Cerebral vol ume loss. Cerebellum: Unremarkable. Mass effect: No evidence of midline shift. Intracranial vasculature: Atherosclerotic calcifications of the intracranial vessels. Soft tissues: Normal. Calvarium/osseous structures: No depressed skull fracture. Paranasal sinuses and mastoid air cells: Mastoid air cells are clear. Air-fluid levels within the sph enoid sinus. Visualized orbits: The lenses are surgically removed from the globes. Bilateral exophthalmos. Retroco nal fat is clear. IMPRESSION: 1. No acute intracranial process. 2. Nonspecific white matter changes, likely secondary to chronic small vessel ischemic disease. 3. Sphenoid sinus disease with air-fluid levels which may represent acute sinusitis. 4. Bilateral exophthalmos.
[2022-06-15 09:31] LABS: Anisocytosis Slight; Basophils % (A) 0 %; Eosinophils % (A) 0 %; HCT 35.6 % (34.0-46.0); HGB 11.2 gm/dL (11.4-16.0); Hypochromasia Slight; Lymphocytes # (A) 1.1 k/uL (1.0-4.8); Lymphocytes % (A) 10 %; MCH 30.9 pg (25.0-35.0); MCHC 31.5 g/dL (31.0-37.0); MCV 98.2 fL (80.0-100.0); Macrocytosis Slight; Monocytes # (A) 0.3 k/uL (0-1.0); Monocytes % (A) 3 %; Neutrophils # (A) 9.1 k/uL (1.3-7.7); Neutrophils % (A) 86 %; Platelet Count 319 k/uL (150-450); RBC 3.63 m/uL (3.80-5.40); RDW 16.2 % (11.5-15.5); WBC 10.7 k/uL (3.8-10.6)
[2022-06-15 09:40] LABS: ALT 36 U/L (4-34); African American GFR (CKD) >90 (>60 ml/min/1.73 sqM); Albumin 3.2 g/dL (3.5-5.0); Anion Gap 6 mmol/L; Blood Urea Nitrogen 29 mg/dL (7-17); Calcium 9.2 mg/dL (8.4-10.2); Carbon Dioxide 22 mmol/L (22-30); Chloride 107 mmol/L (98-107); Glucose 86 mg/dL (74-99); Non-African American GFR(CKD) 84 (>60 ml/min/1.73 sqM); Sodium 135 mmol/L (137-145); Total Protein 6.2 g/dL (6.3-8.2)
[2022-06-15 09:44] LABS: AST 42 U/L (14-36); Alkaline Phosphatase 55 U/L (38-126); Magnesium 1.9 mg/dL (1.6-2.3); Potassium 4.7 mmol/L (3.5-5.1)
[2022-06-15] MEDS ORDERED: SODIUM CHLORIDE 0.9% 1,000 ML IV STA (09:46)
[2022-06-15 10:53] LABS: Appearance,Urine Clear (Clear); Bilirubin,Urine Negative (Negative); Blood,Urine Negative (Negative); Color,Urine Yellow; Glucose,Urine (UA) 3+ (Negative); Ketones,Urine Negative (Negative); Leukocyte Esterase,Urine Negative (Negative); Nitrite,Urine Negative (Negative); PH, Urine 5.5 (5.0-8.0); Protein,Urine Negative (Negative); Specific Gravity,Urine 1.014 (1.001-1.035); Urobilinogen,Urine <2.0 mg/dL (<2.0)
[2022-06-15] MEDS ORDERED: NALOXONE 0.4 MG/ML 1 ML VIAL IV PRN (14:18)
[2022-06-15] MEDS ORDERED: cefTRIAXone IN SWFI 1,000 MG/10 ML SYRINGE IVP STA (14:20)
[2022-06-15] MEDS: SODIUM CHLORIDE 0.9% 1,000 ML IV SCH (14:50)
[2022-06-15] MEDS ORDERED: IOPAMIDOL CONTRAST (ORAL USE) VIAL PO PRN (16:54)
[2022-06-15] MEDS: AMPICILLIN-SULBACTAM 3 GM in SODIUM CHLORIDE 0.9% 100 ML IVPB SCH ×2 (18:21→23:42)
--- NOTE | 2022-06-15 19:56 | P.HPIM ---
History of Present Illness H&P Date: 06/15/22 Chief Complaint: Weakness/possible UTI 77-year-old female presents the emergency room with increase in generalized weakness and some mild confusion ongoing for approximately 24 hours. Have her spouse reports that she was very fatigued yesterday with occasional lethargy and excessive amount of sleeping. Today he reports worsening of her confusion with inappropriate statements such as wide as the television on the television isn't on being made at home. She was recently treated for urinary tract infection and her spouse is concerned that that may be going on. From a symptomatology standpoint she denies any dysuria, hematuria urinary frequency or urgency. 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 She is normally alert and orientated incommunicative despite her physical weakness. She is reporting some nausea, generalized malaise, occasional cough, intermittent moderate grade fevers of 99.8-101. She denies any chest pain, shortness of breath, abdominal pain, vomiting, diarrhea, headache or chills. 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 Workup completed in ED reveals a WBC of 10.7, hemoglobin of 11.1. Count of 319, sodium 135, potassium 4.7, BUN/creatinine of 29/0.7 and a blood glucose of 86; lactic acid level of 1.3; AST/ALT mildly elevated at 42/36; Coronavirus PCR is negative CT of the brain is negative for any acute intracranial process; sphenoid sinus disease with air-fluid levels which may represent acute sinusitis EKG reveals Sinus rhythm, possible anterior myocardial infarction indeterminate age, ventricular rate 95 bpm NE interval 151 ms, QRS duration 80 ms, QT/QTC 319/372 ms, PRT axes 24, -9, 38 Review of Systems ROS unobtainable: due to mental status Past Medical History Past Medical History: Chest Pain / Angina, Diabetes Mellitus, Deep Vein Thrombosis (DVT), Eye Disorder, Hyperlipidemia, Musculoskeletal Disorder, Pulmonary Embolus (PE), Skin Disorder Additional Past Medical History / Comment(s): Colitis. mult DVT's, PE's after a fall with multiple fractures. Has tremors hands. Glaucoma & macular degeneration bilat.Neuropathy hands, feet. Unable to walk now. Rash on legs. History of Any Multi-Drug Resistant Organisms: None Reported Past Surgical History: Adenoidectomy, Appendectomy, Ear Surgery, Hysterectomy, Tonsillectomy, Tubal Ligation Additional Past Surgical History / Comment(s): BILAT CATARACTS. REPAIR PERFORFATED LT EARDRUM. COLONOSCOPY. Has IVC Filter. Past Anesthesia/Blood Transfusion Reactions: Previous Problems w/ Anesthesia, Family History of Problems w/ Anesthesia, Motion Sickness Additional Past Anesthesia/Blood Transfusion Reaction / Comment(s): SLOW TO COME OUT OF ANESTHESIA, STATES "SISTER ALSO HAS A HARD TIME COMING OUT OF ANESTHESIA" Past Psychological History: Bipolar Smoking Status: Never smoker Past Alcohol Use History: None Reported Past Drug Use History: None Reported - Past Family History Brother(s) Family Medical History: Cancer Additional Family Medical History / Comment(s): leukemia Mother Family Medical History: Cancer Additional Family Medical History / Comment(s): Colon cancer; lung cancer now Medications and Allergies Home Medications Medication Instructions Recorded Confirmed Type Aspirin 81 mg PO DAILY 06/01/15 06/15/22 History Escitalopram [Lexapro] 10 mg PO DAILY 06/01/15 06/15/22 History Latanoprost Ophth [Xalatan 0.005%] 1 drops BOTH EYES HS 06/01/15 06/15/22 History Rivaroxaban [Xarelto] 20 mg PO W/SUPPER 06/01/15 06/15/22 History Vit C/E/Zn/Coppr/Lutein/Zeaxan 1 cap PO DAILY 12/05/21 06/15/22 History [Preservision Areds 2 Softgel] [place] Carbonate 300 mg PO HS 03/04/22 06/15/22 History Omeprazole 40 mg PO DAILY 03/04/22 06/15/22 History Ferrous Gluconate 324 mg PO DAILY@1700 03/06/22 06/15/22 History clonazePAM [KlonoPIN] 0.5 mg PO BID #6 tab 03/14/22 06/15/22 Rx Brimonidine Tartrate/Timolol 1 drop BOTH EYES BID 05/27/22 06/15/22 History [Combigan 0.2%-0.5% Eye Drops] Dapagliflozin Propanediol [Farxiga] 10 mg PO DAILY 05/27/22 06/15/22 History Losartan Potassium [Cozaar] 50 mg PO BID 05/27/22 06/15/22 History Ondansetron [Zofran] 4 mg PO Q8HR PRN 05/27/22 06/15/22 History Tamsulosin [Flomax] 0.4 mg PO DAILY 05/27/22 06/15/22 History predniSONE 10 mg PO BID 06/15/22 06/15/22 History Allergies Allergy/AdvReac Type Severity Reaction Status Date / Time Sulfa (Sulfonamide Allergy Anaphylaxis Verified 06/15/22 13:59 Antibiotics) Physical Exam Vitals: Vital Signs Temp Pulse Pulse Resp BP BP Pulse Ox 06/15/22 18:31 99.7 F H 80 18 124/67 96 06/15/22 17:32 98.7 F 76 16 114/60 99 06/15/22 14:58 99.8 F H 86 16 113/54 96 06/15/22 11:44 89 16 124/60 97 06/15/22 10:32 92 16 123/52 93 L 06/15/22 09:04 99.8 F H 94 20 117/65 93 L 06/15/22 06:37 99.1 F 105 H 16 121/81 93 L Intake and Output 06/15/22 06/15/22 06/15/22 06:59 14:59 22:59 Output Total 75 Balance -75 Output: Urine 75 Straight 75 Other: Weight 66.678 kg General appearance: alert, in no apparent distress Head exam: Present: atraumatic Eye exam: Present: PERRL, other (Exophthalmos). Absent: scleral icterus, conjunctival injection ENT exam: Present: normal exam, mucous membranes moist Neck exam: Present: normal inspection Respiratory exam: Present: normal lung sounds bilaterally. Absent: respiratory distress, wheezes, rales, rhonchi, stridor Cardiovascular Exam: Present: regular rate, normal rhythm, normal heart sounds. Absent: systolic murmur, diastolic murmur, rubs, gallop, clicks GI/Abdominal exam: Present: soft, normal bowel sounds. Absent: distended, tenderness, guarding, rebound, rigid Extremities exam: Present: pedal edema (Bilateral trace) Neurological exam: Present: alert Expanded Patient oriented to: Present: person, place. Absent: time Psychiatric exam: Present: normal affect, normal mood Skin exam: Present: warm, dry, intact, normal color. Absent: rash Results CBC & Chem 7: 06/15/22 09:20 06/15/22 09:20 Labs: Abnormal Lab Results - Last 24 Hours (Table) 06/15/22 06/15/22 06/15/22 Range/Units 09:20 09:20 10:31 WBC 10.7 H (3.8-10.6) k/uL RBC 3.63 L (3.80-5.40) m/uL Hgb 11.2 L (11.4-16.0) gm/dL RDW 16.2 H (11.5-15.5) % Neutrophils # 9.1 H (1.3-7.7) k/uL Sodium 135 L (137-145) mmol/L BUN 29 H (7-17) mg/dL AST 42 H (14-36) U/L ALT 36 H (4-34) U/L Total Protein 6.2 L (6.3-8.2) g/dL Albumin 3.2 L (3.5-5.0) g/dL Urine Glucose (UA) 3+ H (Negative) Assessment and Plan Assessment: 1. Altered mental status/leukocytosis; acute sinusitis -No other infectious source indicated at this time - Patient received Rocephin 1 g IV daily which has been changed to Unasyn 3 g IV every 6 hours per ID recommendations - Patient has been pancultured; UA is negative; we will recommend CT of abdomen and pelvis - We will monitor CBC, CRP and pro-calcitonin - Consult ID for further recommendations 2. Altered mental status; with leukocytosis - Initial CT of the brain was negative; we will order neuro checks; consult urology for further evaluation 3. Hypertension; patient takes losartan at home 50 mg twice a day; blood pressure is soft; we will plan to hold off on losartan until blood pressure improves 4. Mild renal injury; IV fluid hydration with normal saline at rate of 75 mL an hour; monitor renal function and electrolytes; strict TORIN's; avoid nephrotoxins and hypotension 5. History of DVT; patient remains on Xarelto 20 mg daily 6. Bipolar disorder; continue with home dose of lithium 300 mg by mouth daily at bedtime DVT prophylaxis; SCDs/systemic anticoagulation CODE STATUS; full code
[2022-06-15] MEDS: LATANOPROST 0.005% OPHTH DROPS 2.5 ML BTL BOTH EYES SCH (21:48)
[2022-06-15] MEDS: predniSONE 10 MG TAB PO SCH (21:48)
[2022-06-15] MEDS: LITHIUM CARBONATE 300 MG CAP PO SCH (21:48)
--- NOTE | 2022-06-15 22:02 | CT ---
EXAMINATION TYPE: CT abdomen pelvis w con DATE OF EXAM: 06/15/2022 COMPARISON: 03/06/2022 HISTORY: abd pain and leukocytosis CT DLP: 803.5 mGycm Automated exposure control for dose reduction was used. CONTRAST: Performed with IV Contrast, patient injected with 100ML mL of Isovue 300. Images obtained from the diaphragm to the floor the pelvis with the IV contrast Isovue 100 mL. There is some patchy atelectasis at the lung bases. Heart size is normal. No pericardial effusion. No pleural effusion. Liver is intact. The bile ducts are not dilated. There is dilated gallbladder measuring 5.5 cm. Splee n is intact. The stomach is intact. No evidence of pancreatic mass. There is no adrenal mass. Kidneys have normal size. No definite renal calculus. No retroperitoneal ad enopathy. Bladder distends smoothly. No inguinal hernia. No free fluid in the pelvis. No pelvic mass. The lumbar vertebra have normal alignment. There is L1 anterior wedging 50%. There is degenerative sp urring in the lower lumbar spine and lower thoracic spine. The bony pelvis is intact. Hip joints are intact. No hip fracture. Sacroiliac joints appear normal. There is no mesenteric edema. No ascites or free air. No sign of a bowel obstruction delayed images s how normal renal excretion. Appendix not seen. No sign of thickened appendix. IMPRESSION: There is L1 compression fracture that has progressed compared to old exam. Dilated gallbladder suggestive of cholecystitis or gallbladder dysfunction. Gallbladder increased sli ghtly compared to old exam. No dilated ducts. There is some scarring and atelectasis at the lung bases without change.
[2022-06-15 22:03] LABS: Glucose,Whole Blood 78 mg/dL (70-110)
--- NOTE | 2022-06-15 23:20 | P.CONS ---
History of Present Illness - Reason for Consult Consult date: 06/15/22 Leukocytosis Requesting physician: Fito Beltrán - Chief Complaint Not feeling well x few days - History of Present Illness Patient is a 77-year-old female was brought into the ER this morning for evaluation of generalized weakness and some confusion apparently has been going on for about a day before the patient has been brought to the hospital patient mention has been more fatigue lethargic and noticed to have excess amount of sleeping by that has been patient apparently was recently treated for UTI with the symptoms the patient was evaluated by the ER physician on arrival to the ER patient apparently did have a fever the highest temperature recorded here is 99.8 F patient did have white count of 10.7 with a left shift kidney function has been normal liver exams are mildly elevated urine has been negative COVID testing was negative patient did have a chest x-ray no acute cardiopulmonary process infectious was consulted for further management of fever and need for antibiotic therapy, patient has been complaining of some vague abdominal pain mostly in the lower abdominal area unable to quantify it any further without any nausea or vomiting however has been complaining of some black tarry stool for the last few days Review of Systems Positive point has been mentioned in the HPI rest of the systems are negative Past Medical History Past Medical History: Chest Pain / Angina, Diabetes Mellitus, Deep Vein Thrombosis (DVT), Eye Disorder, Hyperlipidemia, Musculoskeletal Disorder, Pulmonary Embolus (PE), Skin Disorder Additional Past Medical History / Comment(s): Colitis. mult DVT's, PE's after a fall with multiple fractures. Has tremors hands. Glaucoma & macular degeneration bilat.Neuropathy hands, feet. Unable to walk now. Rash on legs. History of Any Multi-Drug Resistant Organisms: None Reported Past Surgical History: Adenoidectomy, Appendectomy, Ear Surgery, Hysterectomy, Tonsillectomy, Tubal Ligation Additional Past Surgical History / Comment(s): BILAT CATARACTS. REPAIR PERFORFATED LT EARDRUM. COLONOSCOPY. Has IVC Filter. Past Anesthesia/Blood Transfusion Reactions: Previous Problems w/ Anesthesia, Family History of Problems w/ Anesthesia, Motion Sickness Additional Past Anesthesia/Blood Transfusion Reaction / Comm: SLOW TO COME OUT OF ANESTHESIA, STATES "SISTER ALSO HAS A HARD TIME COMING OUT OF ANESTHESIA" Past Psychological History: Bipolar Smoking Status: Never smoker Past Alcohol Use History: None Reported Past Drug Use History: None Reported - Past Family History Brother(s) Family Medical History: Cancer Additional Family Medical History / Comment(s): leukemia Mother Family Medical History: Cancer Additional Family Medical History / Comment(s): Colon cancer; lung cancer now Medications and Allergies Home Medications Medication Instructions Recorded Confirmed Type Aspirin 81 mg PO DAILY 06/01/15 06/15/22 History Escitalopram [Lexapro] 10 mg PO DAILY 06/01/15 06/15/22 History Latanoprost Ophth [Xalatan 0.005%] 1 drops BOTH EYES HS 06/01/15 06/15/22 History Rivaroxaban [Xarelto] 20 mg PO W/SUPPER 06/01/15 06/15/22 History Vit C/E/Zn/Coppr/Lutein/Zeaxan 1 cap PO DAILY 12/05/21 06/15/22 History [Preservision Areds 2 Softgel] [place] Carbonate 300 mg PO HS 03/04/22 06/15/22 History Omeprazole 40 mg PO DAILY 03/04/22 06/15/22 History Ferrous Gluconate 324 mg PO DAILY@1700 03/06/22 06/15/22 History clonazePAM [KlonoPIN] 0.5 mg PO BID #6 tab 03/14/22 06/15/22 Rx Brimonidine Tartrate/Timolol 1 drop BOTH EYES BID 05/27/22 06/15/22 History [Combigan 0.2%-0.5% Eye Drops] Dapagliflozin Propanediol [Farxiga] 10 mg PO DAILY 05/27/22 06/15/22 History Losartan Potassium [Cozaar] 50 mg PO BID 05/27/22 06/15/22 History Ondansetron [Zofran] 4 mg PO Q8HR PRN 05/27/22 06/15/22 History Tamsulosin [Flomax] 0.4 mg PO DAILY 05/27/22 06/15/22 History predniSONE 10 mg PO BID 06/15/22 06/15/22 History Allergies Allergy/AdvReac Type Severity Reaction Status Date / Time Sulfa (Sulfonamide Allergy Anaphylaxis Verified 06/15/22 13:59 Antibiotics) Physical Exam Vitals: Vital Signs Temp Pulse Resp BP Pulse Ox 06/15/22 14:58 99.8 F H 86 16 113/54 96 06/15/22 11:44 89 16 124/60 97 06/15/22 10:32 92 16 123/52 93 L 06/15/22 09:04 99.8 F H 94 20 117/65 93 L 06/15/22 06:37 99.1 F 105 H 16 121/81 93 L Intake and Output 06/15/22 06/15/22 06/15/22 06:59 14:59 22:59 Output Total 75 Balance -75 Output: Urine 75 Straight 75 Other: Weight 66.678 kg GENERAL DESCRIPTION: Elderly female lying in bed, no distress. No tachypnea or accessory muscle of respiration use. HEENT: Shows Pallor , no scleral icterus. Oral mucous membrane is dry. No pharyngeal erythema or thrush NECK: Trachea central, no thyromegaly. LUNGS: Unlabored breathing. Clear to auscultation anteriorly. No wheeze or crackle. HEART: S1, S2, regular rate and rhythm. No loud murmur ABDOMEN: Soft, mild tenderness , no guarding or rigidity, no organomegaly EXTREMITIES: No edema of feet. SKIN: No rash, no masses palpable. NEUROLOGICAL: The patient is awake, alert, oriented x3, mood and affect normal. Results CBC & Chem 7: 06/15/22 09:20 06/15/22 09:20 Labs: Abnormal Lab Results - Last 24 Hours (Table) 06/15/22 06/15/22 06/15/22 Range/Units 09:20 09:20 10:31 WBC 10.7 H (3.8-10.6) k/uL RBC 3.63 L (3.80-5.40) m/uL Hgb 11.2 L (11.4-16.0) gm/dL RDW 16.2 H (11.5-15.5) % Neutrophils # 9.1 H (1.3-7.7) k/uL Sodium 135 L (137-145) mmol/L BUN 29 H (7-17) mg/dL AST 42 H (14-36) U/L ALT 36 H (4-34) U/L Total Protein 6.2 L (6.3-8.2) g/dL Albumin 3.2 L (3.5-5.0) g/dL Urine Glucose (UA) 3+ H (Negative) Assessment and Plan (1) Fever of unknown origin Current Visit: Yes Status: Acute Code(s): R50.9 - FEVER, UNSPECIFIED SNOMED Code(s): 6915045 Plan: 1patient presented to hospital with a fever in this patient also having some abdominal symptoms of pain and black stools likely abdominal etiology as the patient did have a negative UA chest x-ray was negative no evidence of any cellulitis or joint swelling. 2we will obtain a CT of abdominal pelvis with contrast 3empirically start the patient on Unasyn while awaiting further work-up to be completed We will follow on clinical condition and cultures to further adjust medication if needed Thank you for this consultation will follow this patient along with you Time with Patient: Greater than 30
[2022-06-16] MEDS: SODIUM CHLORIDE 0.9% 1,000 ML IV SCH ×4 (02:42→21:48)
[2022-06-16] MEDS: AMPICILLIN-SULBACTAM 3 GM in SODIUM CHLORIDE 0.9% 100 ML IVPB SCH ×4 (05:54→23:40)
[2022-06-16 07:07] LABS: Glucose,Whole Blood 89 mg/dL (70-110)
[2022-06-16 09:13] LABS: Basophils # (A) 0.02 X 10*3/uL (0.00-0.10); Basophils % (A) 0.2 %; Eosinophils # (A) 0 X 10*3/uL (0.04-0.35); Eosinophils % (A) 0 %; HCT 32.1 % (37.2-46.3); HGB 9.8 g/dL (12.0-15.0); Immature Grans, Automated 1.1 %; Lymphocytes # (A) 0.98 X 10*3/uL (0.90-5.00); Lymphocytes % (A) 11.1 %; MCH 30.7 pg (27.0-32.0); MCHC 30.5 g/dL (32.0-37.0); MCV 100.6 fL (80.0-97.0); Mean Platelet Volume 9.4 fL (9.5-12.2); Monocytes # (A) 0.37 X 10*3/uL (0.20-1.00); Monocytes % (A) 4.2 %; NRBC Per 100 WBC 0 /100 WBCS (0.0-0.0); Neutrophils # (A) 7.38 X 10*3/uL (1.80-7.70); Neutrophils % (A) 83.4 %; Platelet Count 229 X 10*3/uL (140-440); RBC 3.19 X 10*6/uL (4.10-5.20); RDW 16.4 % (11.5-14.5); WBC 8.85 X 10*3/uL (4.50-10.00)
[2022-06-16] MEDS: TAMSULOSIN 0.4 MG CAP.ER.24H PO SCH (10:02)
[2022-06-16] MEDS: predniSONE 10 MG TAB PO SCH ×2 (10:02→21:47)
[2022-06-16] MEDS: PANTOPRAZOLE 40 MG TABLET PO SCH (10:02)
[2022-06-16] MEDS: ASPIRIN 81 MG PO SCH (10:02)
[2022-06-16 10:04] LABS: African American GFR (CKD) 104.3 (60.0-200.0); Albumin 2.9 g/dL (3.8-4.9); Albumin/Globulin Ratio 1.41 (1.60-3.17); Anion Gap 12.7 mmol/L (10.00-18.00); BUN/Creat Ratio 24.32 Ratio (12.00-20.00); Blood Urea Nitrogen 14.2 mg/dL (9.0-27.0); Carbon Dioxide 20.5 mmol/L (20.0-27.5); Globulin 2.1 g/dL (1.6-3.3); Potassium 4.3 mmol/L (3.5-5.5); Total Bilirubin 0.5 mg/dL (0.30-1.20)
[2022-06-16] MEDS: DAPAGLIFLOZIN PROPANEDIOL 10 MG PO SCH (10:04)
[2022-06-16 10:05] LABS: C Reactive Protein 14.5 mg/dL (0.00-0.80)
--- NOTE | 2022-06-16 10:25 | P.GSCN ---
History of Present Illness Consult date: 06/16/22 Reason for Consult: Distended gallbladder History of present illness: Patient brought to the hospital because of increased weakness and mental status changes. Patient apparently has had some intermittent nausea vomiting and diarrhea at home. She has had some fevers as well. Patient said she was having some back pain. Denied any significant abdominal pain however a CAT scan was performed showing a mildly distended gallbladder. Upon questioning the patient states she may have some pain there. Looking at the ER evaluation she appeared to be nontender on arrival. She was admitted for the patient's leukocytosis and mental status changes. We were consulted for the distended gallbladder. No history of previous gallbladder issues. Transaminases were slightly elevated yesterday were normal today. White blood cell count is normal today. Review of Systems The patient denies any acute changes in vision or hearing, no dysphagia or odynophagia, no chest pain or shortness of breath, no dysuria or hematuria, no headache, no runny nose, no rectal bleeding or melena, no unexplained weight loss Past Medical History Past Medical History: Chest Pain / Angina, Diabetes Mellitus, Deep Vein Thrombosis (DVT), Eye Disorder, Hyperlipidemia, Musculoskeletal Disorder, Pul monary Embolus (PE), Skin Disorder Additional Past Medical History / Comment(s): Colitis. mult DVT's, PE's after a fall with multiple fractures. Has tremors hands. Glaucoma & macular degeneration bilat.Neuropathy hands, feet. Unable to walk now. Rash on legs. History of Any Multi-Drug Resistant Organisms: None Reported Past Surgical History: Adenoidectomy, Appendectomy, Ear Surgery, Hysterectomy, Tonsillectomy, Tubal Ligation Additional Past Surgical History / Comment(s): BILAT CATARACTS. REPAIR PERFORFATED LT EARDRUM. COLONOSCOPY. Has IVC Filter. Past Anesthesia/Blood Transfusion Reactions: Previous Problems w/ Anesthesia, Family History of Problems w/ Anesthesia, Motion Sickness Additional Past Anesthesia/Blood Transfusion Reaction / Comm: SLOW TO COME OUT OF ANESTHESIA, STATES "SISTER ALSO HAS A HARD TIME COMING OUT OF ANESTHESIA" Past Psychological History: Bipolar Smoking Status: Never smoker Past Alcohol Use History: None Reported Past Drug Use History: None Reported - Past Family History Brother(s) Family Medical History: Cancer Additional Family Medical History / Comment(s): leukemia Mother Family Medical History: Cancer Additional Family Medical History / Comment(s): Colon cancer; lung cancer now Medications and Allergies Home Medications Medication Instructions Recorded Confirmed Type Aspirin 81 mg PO DAILY 06/01/15 06/15/22 History Escitalopram [Lexapro] 10 mg PO DAILY 06/01/15 06/15/22 History Latanoprost Ophth [Xalatan 0.005%] 1 drops BOTH EYES HS 06/01/15 06/15/22 History Rivaroxaban [Xarelto] 20 mg PO W/SUPPER 06/01/15 06/15/22 History Vit C/E/Zn/Coppr/Lutein/Zeaxan 1 cap PO DAILY 12/05/21 06/15/22 History [Preservision Areds 2 Softgel] [place] Carbonate 300 mg PO HS 03/04/22 06/15/22 History Omeprazole 40 mg PO DAILY 03/04/22 06/15/22 History Ferrous Gluconate 324 mg PO DAILY@1700 03/06/22 06/15/22 History clonazePAM [KlonoPIN] 0.5 mg PO BID #6 tab 03/14/22 06/15/22 Rx Brimonidine Tartrate/Timolol 1 drop BOTH EYES BID 05/27/22 06/15/22 History [Combigan 0.2%-0.5% Eye Drops] Dapagliflozin Propanediol [Farxiga] 10 mg PO DAILY 05/27/22 06/15/22 History Losartan Potassium [Cozaar] 50 mg PO BID 05/27/22 06/15/22 History Ondansetron [Zofran] 4 mg PO Q8HR PRN 05/27/22 06/15/22 History Tamsulosin [Flomax] 0.4 mg PO DAILY 05/27/22 06/15/22 History predniSONE 10 mg PO BID 06/15/22 06/15/22 History Allergies Allergy/AdvReac Type Severity Reaction Status Date / Time Sulfa (Sulfonamide Allergy Anaphylaxis Verified 06/15/22 13:59 Antibiotics) Surgical - Exam Vital Signs Temp Pulse Resp BP Pulse Ox 99.1 F 105 H 16 121/81 93 L 06/15/22 06:37 06/15/22 06:37 06/15/22 06:37 06/15/22 06:37 06/15/22 06:37 Physical exam: General: Well-developed, well-nourished HEENT: Normocephalic, sclerae nonicteric Abdomen: Mild diffuse tenderness, no rebound or guarding Extremities: No edema Neuro: Alert and oriented Results - Labs 06/16/22 05:23 06/16/22 05:23 Abnormal Lab Results - Last 24 Hours (Table) 06/15/22 06/16/22 06/16/22 Range/Units 10:31 05:23 05:23 RBC 3.19 L (4.10-5.20) X 10*6/uL Hgb 9.8 L (12.0-15.0) g/dL Hct 32.1 L (37.2-46.3) % MCV 100.6 H (80.0-97.0) fL MCHC 30.5 L (32.0-37.0) g/dL RDW 16.4 H (11.5-14.5) % MPV 9.4 L (9.5-12.2) fL Immature Gran # 0.10 H (0.00-0.04) X 10*3/uL Eosinophils # 0 L (0.04-0.35) X 10*3/uL Chloride (96-109) mmol/L BUN/Creatinine Ratio (12.00-20.00) Ratio C-Reactive Protein (0.00-0.80) mg/dL Total Protein (6.2-8.2) g/dL Albumin (3.8-4.9) g/dL Albumin/Globulin Ratio (1.60-3.17) g/dL Procalcitonin 0.15 H (0.02-0.09) ng/mL Urine Glucose (UA) 3+ H (Negative) 06/16/22 Range/Units 05:23 RBC (4.10-5.20) X 10*6/uL Hgb (12.0-15.0) g/dL Hct (37.2-46.3) % MCV (80.0-97.0) fL MCHC (32.0-37.0) g/dL RDW (11.5-14.5) % MPV (9.5-12.2) fL Immature Gran # (0.00-0.04) X 10*3/uL Eosinophils # (0.04-0.35) X 10*3/uL Chloride 111 H (96-109) mmol/L BUN/Creatinine Ratio 24.32 H (12.00-20.00) Ratio C-Reactive Protein 14.50 H (0.00-0.80) mg/dL Total Protein 5.0 L (6.2-8.2) g/dL Albumin 2.9 L (3.8-4.9) g/dL Albumin/Globulin Ratio 1.41 L (1.60-3.17) g/dL Procalcitonin (0.02-0.09) ng/mL Urine Glucose (UA) (Negative) Diabetes panel 06/16/22 Range/Units 05:23 Sodium 144 (135-145) mmol/L Potassium 4.3 (3.5-5.5) mmol/L Chloride 111 H (96-109) mmol/L Carbon Dioxide 20.5 (20.0-27.5) mmol/L BUN 14.2 (9.0-27.0) mg/dL Creatinine 0.6 (0.6-1.5) mg/dL Glucose 89 (70-110) mg/dL Calcium 9.0 (8.7-10.3) mg/dL AST 28 (13-35) U/L ALT 43 (8-44) U/L Alkaline Phosphatase 81 (41-126) U/L Total Protein 5.0 L (6.2-8.2) g/dL Albumin 2.9 L (3.8-4.9) g/dL Calcium panel 06/16/22 Range/Units 05:23 Calcium 9.0 (8.7-10.3) mg/dL Albumin 2.9 L (3.8-4.9) g/dL Pituitary panel 06/16/22 Range/Units 05:23 Sodium 144 (135-145) mmol/L Potassium 4.3 (3.5-5.5) mmol/L Chloride 111 H (96-109) mmol/L Carbon Dioxide 20.5 (20.0-27.5) mmol/L BUN 14.2 (9.0-27.0) mg/dL Creatinine 0.6 (0.6-1.5) mg/dL Glucose 89 (70-110) mg/dL Calcium 9.0 (8.7-10.3) mg/dL Adrenal panel 06/16/22 Range/Units 05:23 Sodium 144 (135-145) mmol/L Potassium 4.3 (3.5-5.5) mmol/L Chloride 111 H (96-109) mmol/L Carbon Dioxide 20.5 (20.0-27.5) mmol/L BUN 14.2 (9.0-27.0) mg/dL Creatinine 0.6 (0.6-1.5) mg/dL Glucose 89 (70-110) mg/dL Calcium 9.0 (8.7-10.3) mg/dL Total Bilirubin 0.50 (0.30-1.20) mg/dL AST 28 (13-35) U/L ALT 43 (8-44) U/L Alkaline Phosphatase 81 (41-126) U/L Total Protein 5.0 L (6.2-8.2) g/dL Albumin 2.9 L (3.8-4.9) g/dL Assessment and Plan (1) Abnormal CT scan, gallbladder Narrative/Plan: Will order abdominal ultrasound to evaluate for cholecystitis. May continue regular diet as ordered. We'll follow with you. Current Visit: Yes Status: Acute Code(s): R93.2 - ABNORMAL FINDINGS ON DX IMAGING OF LIVER AND BILIARY TRACT SNOMED Code(s): [id number]
[2022-06-16 12:00] LABS: Glucose,Whole Blood 108 mg/dL (70-110)
--- NOTE | 2022-06-16 13:00 | US ---
EXAMINATION TYPE: US gallbladder DATE OF EXAM: 06/16/2022 COMPARISON: CT 06/15/2022 CLINICAL HISTORY: Evaluate for cholecystitis. TECHNIQUE: Multiple sonographic images of the right upper quadrant are obtained. FINDINGS: EXAM MEASUREMENTS: Liver Length: 13.5 cm Gallbladder Wall: 0.3 cm CBD: 0.4 cm Right Kidney: 9.4 x 4.5 x 5.0 cm FLOORWORKER NOTES: Pancreas: visualized portions wnl Liver: difficult to penetrate . No intrahepatic biliary ductal dilatation or focal lesion within li mitation of exam. Gallbladder: mildly distended at 8 cm. No pericholecystic fluid or wall thickening. No cholelithiasi s. Gallbladder sludge. Evidence for sonographic Wilkinson's sign: Yes CBD: wnl Right Kidney: No hydronephrosis or masses seen . No shadowing calculi. IMPRESSION: Mildly distended gallbladder with biliary sludge and no cholelithiasis, pericholecystic fluid, or wal l thickening. Reported positive sonographic Wilkinson's sign. Findings are equivocal for acute cholecyst itis. Consider further evaluation with nuclear medicine HIDA scan.
[2022-06-16 17:09] LABS: Glucose,Whole Blood 156 mg/dL (70-110)
[2022-06-16] MEDS: RIVAROXABAN 20 MG TAB PO SCH (17:14)
[2022-06-16] MEDS: FERROUS SULFATE 325 MG TAB PO SCH (17:14)
[2022-06-16 20:05] LABS: Glucose,Whole Blood 189 mg/dL (70-110)
--- NOTE | 2022-06-16 20:38 | P.PN ---
Subjective 77-year-old female presents the emergency room with increase in generalized weakness and some mild confusion ongoing for approximately 24 hours. Have her spouse reports that she was very fatigued yesterday with occasional lethargy and excessive amount of sleeping. Today he reports worsening of her confusion with inappropriate statements such as wide as the television on the television isn't on being made at home. She was recently treated for urinary tract infection and her spouse is concerned that that may be going on. From a symptomatology standpoint she denies any dysuria, hematuria urinary frequency or urgency. 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 She is normally alert and orientated incommunicative despite her physical weakness. She is reporting some nausea, generalized malaise, occasional cough, intermittent moderate grade fevers of 99.8-101. She denies any chest pain, shortness of breath, abdominal pain, vomiting, diarrhea, headache or chills. 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 Workup completed in ED reveals a WBC of 10.7, hemoglobin of 11.1. Count of 319, sodium 135, potassium 4.7, BUN/creatinine of 29/0.7 and a blood glucose of 86; lactic acid level of 1.3; AST/ALT mildly elevated at 42/36; Coronavirus PCR is negative CT of the brain is negative for any acute intracranial process; sphenoid sinus disease with air-fluid levels which may represent acute sinusitis EKG reveals Sinus rhythm, possible anterior myocardial infarction indeterminate age, ventricular rate 95 bpm LA interval 151 ms, QRS duration 80 ms, QT/QTC 319/372 ms, PRT axes 24, -9, 38 06/16/2022 This is a pleasant 77 years old female with admitted with possible cholecystitis and sepsis with fever and leukocytosis secondary to cholecystitis patient is been kept on Unasyn. She has low-grade fever of 99.8. Today patient is fully awake and oriented to time, place and person, she is calm, she has insight and follow commands. She has some right upper quadrant pain and tenderness about 70/10. No black stools or GI bleed seen by the patient Leukocytosis improved, WBC 8.8, hemoglobin 9.8, liver enzymes mildly elevated. Production calcitonin 0.15. TSH is normal at 1.8. Gallbladder ultrasound recommended by surgery team showing the vocal findings for acute cholecystitis with positive Wilkinson sign and HIDA scan was recommended. Patient also is on normal saline with 130 mL/h. Her pain looks controlled She is on prednisone 10 mg twice daily for her autoimmune muscular disorder and she follow up with Dr. Ivey, patient is going for surgery it may be switched to stress dose. Objective - Vital Signs Vital signs: Vital Signs Temp 97.7 F 06/16/22 11:35 Pulse 78 06/16/22 11:35 Resp 16 06/16/22 11:35 BP 125/69 06/16/22 11:35 Pulse Ox 94 L 06/16/22 11:35 FiO2 Intake & Output 06/15/22 06/16/22 06/16/22 18:59 06:59 18:59 Output Total 75 500 600 Balance -75 -500 -600 Weight 81.5 kg Output: Urine 75 500 600 Straight 75 Other: Voiding Method Diaper Diaper External Catheter External Catheter # Voids 1 - Exam GENERAL: The patient is alert and oriented x3, not in any acute distress. Well developed, well nourished. HEENT: Pupils are round and equally reacting to light. EOMI. No scleral icterus. No conjunctival pallor. Normocephalic, atraumatic. No pharyngeal erythema. No thyromegaly. CARDIOVASCULAR: S1 and S2 present. No murmurs, rubs, or gallops. PULMONARY: Chest is clear to auscultation, no wheezing or crackles. -ABDOMEN: Soft, mild RUQ tenderness, nondistended, normoactive bowel sounds. No palpable organomegaly. MUSCULOSKELETAL: No joint swelling or deformity. EXTREMITIES: No cyanosis, clubbing, or pedal edema. NEUROLOGICAL: Gross neurological examination did not reveal any focal deficits. SKIN: No rashes. no petechiae. - Labs CBC & Chem 7: 06/16/22 05:23 06/16/22 05:23 Labs: Abnormal Lab Results - Last 24 Hours (Table) 06/16/22 06/16/22 06/16/22 Range/Units 05:23 05:23 05:23 RBC 3.19 L (4.10-5.20) X 10*6/uL Hgb 9.8 L (12.0-15.0) g/dL Hct 32.1 L (37.2-46.3) % MCV 100.6 H (80.0-97.0) fL MCHC 30.5 L (32.0-37.0) g/dL RDW 16.4 H (11.5-14.5) % MPV 9.4 L (9.5-12.2) fL Immature Gran # 0.10 H (0.00-0.04) X 10*3/uL Eosinophils # 0 L (0.04-0.35) X 10*3/uL Chloride 111 H (96-109) mmol/L BUN/Creatinine Ratio 24.32 H (12.00-20.00) Ratio C-Reactive Protein 14.50 H (0.00-0.80) mg/dL Total Protein 5.0 L (6.2-8.2) g/dL Albumin 2.9 L (3.8-4.9) g/dL Albumin/Globulin Ratio 1.41 L (1.60-3.17) g/dL Procalcitonin 0.15 H (0.02-0.09) ng/mL Microbiology - Last 24 Hours (Table) 06/15/22 09:00 Blood Culture - Preliminary Blood No Growth after 24 hours 06/15/22 09:15 Blood Culture - Preliminary Blood No Growth after 24 hours Assessment and Plan Assessment: 1. Acute cholecystitis -Continue with antibiotic -Surgery team on the case -Ultrasound is a "focal and HIDA scan as recommended, deferred to surgery team 2. Sepsis with fever and leukocytosis, secondary to above -Continue with Unasyn -ID team on the case 3. Hypertension; patient takes losartan at home 50 mg twice a day; blood pressure is soft; we will plan to hold off on losartan until blood pressure improves 4. Mild renal injury; IV fluid hydration with normal saline at rate of 75 mL an hour; monitor renal function and electrolytes; strict TORIN's; avoid nephrotoxins and hypotension 5. History of DVT; patient remains on Xarelto 20 mg daily 6. Bipolar disorder; continue with home dose of lithium 300 mg by mouth daily at bedtime 7. Altered mental status; with leukocytosis Resolved and patient is fully awake and oriented DVT prophylaxis; SCDs/systemic anticoagulation, on Xarelto GI prophylaxis: Protonix CODE STATUS; full code Dr. Verduzco will resume the care of the patient tomorrow
[2022-06-16] MEDS: LITHIUM CARBONATE 300 MG CAP PO SCH (21:47)
[2022-06-16] MEDS: LATANOPROST 0.005% OPHTH DROPS 2.5 ML BTL BOTH EYES SCH (21:47)
[2022-06-17] MEDS: SODIUM CHLORIDE 0.9% 1,000 ML IV SCH ×3 (04:17→21:39)
[2022-06-17] MEDS: AMPICILLIN-SULBACTAM 3 GM in SODIUM CHLORIDE 0.9% 100 ML IVPB SCH ×4 (06:16→23:46)
[2022-06-17 07:10] LABS: Glucose,Whole Blood 132 mg/dL (70-110)
[2022-06-17] MEDS: TAMSULOSIN 0.4 MG CAP.ER.24H PO SCH (08:34)
[2022-06-17] MEDS: predniSONE 10 MG TAB PO SCH ×2 (08:34→21:42)
[2022-06-17] MEDS: DAPAGLIFLOZIN PROPANEDIOL 10 MG PO SCH (08:34)
[2022-06-17] MEDS: PANTOPRAZOLE 40 MG TABLET PO SCH (08:34)
[2022-06-17] MEDS: ASPIRIN 81 MG PO SCH (08:34)
--- NOTE | 2022-06-17 08:49 | P.CNNES ---
History of Present Illness Consult date: 06/16/22 Requesting physician: Holly Mccracken Reason for Consult: Altered mental status History of Present Illness: Patient is a 77-year-old female with history of inclusion body myositis, known to me from previous admission to the hospital, now came to the hospital yesterday at 6:33 AM for pain in the stomach, lightheadedness. Patient states that 2 weeks ago she was treated for UTI. Yesterday she has been feeling stomach pain, abdominal and back pain, lightheadedness, memory disturbance, couldn't remember the phone numbers. Patient's was also present, who mentions that on the day prior to arrival, she was confused, telling him by the TV is on although it was not. Then she said to him while he was in bed "why are you completely dressed" although he was not. She thought that her UTI was acting up. Patient states that she has suffered from vertebral fracture in February 2022. Patient's mental status has been fluctuating on and off. She has been taking [place] very occasionally when needed for back pain. Patient admits that she was not drinking fluids and off but lately. Patient has history of [employer]. She is an appointment at [facility] on 07/01/[facility]22. Patient's has mentioned that sometimes she knows what she wants to say, but doesn't come out. She has been talking slowly. No facial droop, no visual problems. Her speech is much improved today. Vital signs on arrival blood pressure 121/81 pulse rate 105, temperature 99.1. T-max is 99.8. Blood test shows WBC 10.7 hemoglobin 11.2, platelets 3 or 19. Sodium 135 potassium 4.7, BUN 29 creatinine 0.71. AST borderline 42, ALT 36. TSH is normal 1.82. UA shows 3+ glucose. [place] level is 0.4 and [employer] PCR negative. MCV is elevated 100.6. Patient's hemoglobin A1c 7.0 on 03/17/2022. Her previous B12 was 941, methylmalonic acid 0.18 and folate > 20.0. Patient does have positive rheumatoid factor 196, CCP is normal, ENEIDA positive, SSA- B antibodies positive, COMM[employer] LETTERING antibody positive. Cardiolipin antibodies negative. CT head revealed no acute intracranial process. Nonspecific white matter changes, likely secondary to chronic small vessel ischemic disease. Sphenoid sinus disease with air fluid levels which were present acute sinusitis. Bilateral exopthalmos. EKG shows sinus rhythm, possible anterior VT. Age undetermined. Chest x-ray showed no acute process. CT of abdomen and pelvis revealed L1 compression fracture that has progressed compared to old exam. Dilated gallbladder suggestive of cholecystitis or gallbladder dysfunction. Gallbladder increased slightly compared to old exam. No dilated ducts. There is some scarring and atelectasis at the lung bases without change. Patient was seen by myself, last time on 03/11/2022. Patient has history of inclusion body myositis. Patient had suffered from a fall with L1 lumbar compression fractures. Patient has peripheral neuropathy. She has history of multiple bone fractures in the past, rule out osteoporosis. Patient also has history of recurrent DVTs, PE on long-term anticoagulation with Xarelto. Review of Systems Constitutional: Denies chills, Denies fever Eyes: denies blurred vision, denies pain Ears, nose, mouth and throat: Denies headache, Denies sore throat Cardiovascular: Denies chest pain, Denies shortness of breath Respiratory: Denies cough Gastrointestinal: Reports abdominal pain, Denies constipation, Denies diarrhea, Denies hematemesis, Denies nausea, Denies vomiting Genitourinary: Denies dysuria, Denies hematuria Musculoskeletal: Denies myalgias Integumentary: Denies pruritus, Denies rash Neurological: Reports weakness, Denies numbness, Denies seizures Psychiatric: Reports memory loss, Denies anxiety, Denies depression Endocrine: Reports fatigue, Denies weight change Hematologic/Lymphatic: Denies easy bleeding Past Medical History Past Medical History: Chest Pain / Angina, Diabetes Mellitus, Deep Vein Thrombosis (DVT), Eye Disorder, Hyperlipidemia, Musculoskeletal Disorder, Pulmonary Embolus (PE), Skin Disorder Additional Past Medical History / Comment(s): Colitis. mult DVT's, PE's after a fall with multiple fractures. Has tremors hands. Glaucoma & macular degeneration bilat.Neuropathy hands, feet. Unable to walk now. Rash on legs. History of Any Multi-Drug Resistant Organisms: None Reported Past Surgical History: Adenoidectomy, Appendectomy, Ear Surgery, Hysterectomy, Tonsillectomy, Tubal Ligation Additional Past Surgical History / Comment(s): BILAT CATARACTS. REPAIR PERFORFATED LT EARDRUM. COLONOSCOPY. Has IVC Filter. Past Anesthesia/Blood Transfusion Reactions: Previous Problems w/ Anesthesia, Family History of Problems w/ Anesthesia, Motion Sickness Additional Past Anesthesia/Blood Transfusion Reaction / Comment(s): SLOW TO COME OUT OF ANESTHESIA, STATES "SISTER ALSO HAS A HARD TIME COMING OUT OF ANESTHESIA" Past Psychological History: Bipolar Smoking Status: Never smoker Past Alcohol Use History: None Reported Past Drug Use History: None Reported - Past Family History Brother(s) Family Medical History: Cancer Additional Family Medical History / Comment(s): leukemia Mother Family Medical History: Cancer Additional Family Medical History / Comment(s): Colon cancer; lung cancer now Medications and Allergies Home Medications Medication Instructions Recorded Confirmed Type Aspirin 81 mg PO DAILY 06/01/15 06/15/22 History Escitalopram [Lexapro] 10 mg PO DAILY 06/01/15 06/15/22 History Latanoprost Ophth [Xalatan 0.005%] 1 drops BOTH EYES HS 06/01/15 06/15/22 History Rivaroxaban [Xarelto] 20 mg PO W/SUPPER 06/01/15 06/15/22 History Vit C/E/Zn/Coppr/Lutein/Zeaxan 1 cap PO DAILY 12/05/21 06/15/22 History [Preservision Areds 2 Softgel] [place] Carbonate 300 mg PO HS 03/04/22 06/15/22 History Omeprazole 40 mg PO DAILY 03/04/22 06/15/22 History Ferrous Gluconate 324 mg PO DAILY@1700 03/06/22 06/15/22 History clonazePAM [KlonoPIN] 0.5 mg PO BID #6 tab 03/14/22 06/15/22 Rx Brimonidine Tartrate/Timolol 1 drop BOTH EYES BID 05/27/22 06/15/22 History [Combigan 0.2%-0.5% Eye Drops] Dapagliflozin Propanediol [Farxiga] 10 mg PO DAILY 05/27/22 06/15/22 History Losartan Potassium [Cozaar] 50 mg PO BID 05/27/22 06/15/22 History Ondansetron [Zofran] 4 mg PO Q8HR PRN 05/27/22 06/15/22 History Tamsulosin [Flomax] 0.4 mg PO DAILY 05/27/22 06/15/22 History predniSONE 10 mg PO BID 06/15/22 06/15/22 History Allergies Allergy/AdvReac Type Severity Reaction Status Date / Time Sulfa (Sulfonamide Allergy Anaphylaxis Verified 06/15/22 13:59 Antibiotics) Physical Examination - Vital Signs Vital Signs: Vital Signs Temp Pulse Pulse Resp BP BP Pulse Ox 06/16/22 11:35 97.7 F 78 16 125/69 94 L 06/16/22 04:52 98.5 F 74 16 120/69 98 06/15/22 18:31 99.7 F H 80 18 124/67 96 06/15/22 17:32 98.7 F 76 16 114/60 99 Intake and Output 06/16/22 06/16/22 06/16/22 06:59 14:59 22:59 Output Total 500 600 Balance -500 -600 Output: Urine 500 600 Other: Voiding Method Diaper External Catheter Weight 81.5 kg Patient is an elderly female, in no acute distress. Patient is alert awake oriented to time place and person. Patient knows it is May 2022 and that she is in "[facility]" in [facility]. Patient knows name of the current president Speech and language functions are normal. Patient can name and repeat very well. No aphasia or dysarthria. Attention, concentration and fund of knowledge is adequate. On cranial nerve examination, pupils are equal, round and reacting to light, visual nelson are full on confrontation, with no neglect on double simultaneous stimulation. Extraocular muscles are intact with no nystagmus. Face is symmetric, tongue protrudes to the midline. Palatal elevation and sensation normal, hearing is mild to moderately decreased and shoulder shrug normal, facial sensation normal. 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 Patient's ankles wiggles constantly while testing. Deep tendon reflexes are (right/left) biceps 1/1+, brachioradialis 1/1+, knees are 1+/1+, ankles 2/2, and plantars downgoing bilaterally. Sensory to touch is equal with no neglect on double simultaneous stimulation. Cerebellar function showed no ataxia for [id number] testing. Patient has mild to moderate fine tremors of outstretched hands bilaterally. Cannot assess for ataxia for [id number] testing on either side. Tone and bulk of muscles normal. Patient has constant tremoring of the feet bilaterally particularly when testing. Patient has mild to moderate Gait deferred.. On general examination, there is no carotid bruit or murmur, S1-S2 audible. Chest is clear on consultation. Abdomen is soft nontender. No organomegaly, bowel sounds present. Peripheral pulses are present. No edema. Results - Laboratory Findings CBC and BMP: 06/16/22 05:23 06/16/22 05:23 Abnormal Lab Findings: Abnormal Labs 06/15/22 06/15/22 06/15/22 09:20 09:20 10:31 WBC 10.7 H RBC 3.63 L Hgb 11.2 L Hct MCV MCHC RDW 16.2 H MPV Immature Gran # Neutrophils # 9.1 H Eosinophils # Sodium 135 L Chloride BUN 29 H BUN/Creatinine Ratio AST 42 H ALT 36 H C-Reactive Protein Total Protein 6.2 L Albumin 3.2 L Albumin/Globulin Ratio Procalcitonin Urine Glucose (UA) 3+ H 06/16/22 06/16/22 06/16/22 05:23 05:23 05:23 WBC RBC 3.19 L Hgb 9.8 L Hct 32.1 L MCV 100.6 H MCHC 30.5 L RDW 16.4 H MPV 9.4 L Immature Gran # 0.10 H Neutrophils # Eosinophils # 0 L Sodium Chloride 111 H BUN BUN/Creatinine Ratio 24.32 H AST ALT C-Reactive Protein 14.50 H Total Protein 5.0 L Albumin 2.9 L Albumin/Globulin Ratio 1.41 L Procalcitonin 0.15 H Urine Glucose (UA) Assessment and Plan Assessment: * Altered mental status, likely due to acute delirium. Exact cause is uncertain, although multifactorial due to reasons mentioned below. Patient does not take excessive amount of pain medications. * Macrocytic Anemia, with normal B12 and folate levels. * Transient transaminitis, now resolved. * Abnormal computed tomography scan abdomen and pelvis, with possible cholecystitis. * Diabetes, somewhat well controlled, last A1c 7.0 * Inclusion body myositis * History of L1 compression fracture. * Peripheral neuropathy * SSB antibodies positive. Rheumatoid factor positive. 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 Plan: * Patient was possibly dehydrated. Her mentation is improving. * Patient is being worked up for possible cholecystitis. * Treatment of anemia as per IM. * Re: [facility], patient follows up with [facility], and has an appointment with her neurologist on 07/01/2022. * Neurologically, no other workup indicated. Neurology will follow sporadically. * Thank you for the consult.
--- NOTE | 2022-06-17 11:03 | NM ---
EXAMINATION TYPE: NM hepatobiliary wo EF DATE OF EXAM: 06/17/2022 COMPARISON: Ultrasound gallbladder from yesterday. CT abdomen and pelvis from 2 days ago HISTORY: Rule out cystic duct occlusion. Epigastric pain with diminished appetite and nausea and vomi ting per patient. TECHNIQUE: After the intravenous administration of 4.93 mCi Tc 99m Mebrofenin hepatobiliary scintigra phy is performed. Immediate images post injection. FINDINGS: There is satisfactory initial accumulation of tracer by the liver. The gallbladder is visualized wit hin 15 minutes. The small bowel activity is noted within 30 minutes. IMPRESSION: No cystic or CBD duct obstruction. Normal study.
[2022-06-17 12:01] LABS: Glucose,Whole Blood 98 mg/dL (70-110)
[2022-06-17 19:17] LABS: Glucose,Whole Blood 145 mg/dL (70-110)
[2022-06-17] MEDS: FERROUS SULFATE 325 MG TAB PO SCH (19:47)
[2022-06-17] MEDS: RIVAROXABAN 20 MG TAB PO SCH (19:47)
[2022-06-17 20:22] LABS: Glucose,Whole Blood 162 mg/dL (70-110)
--- NOTE | 2022-06-17 21:33 | P.PN ---
Subjective Progress Note Date: 06/17/22 Principal diagnosis: Chronic cholecystitis patient without new complaints. Denies nausea or vomiting. Mild bilateral upper quadrant bilateral upper quadrant Ultrasound of the gallbladder showed sludge without gallstones She had mild Tenderness there. a HIDA scan was ord ered a HIDA scan was ordered cystic duct occlusion. Objective - Vital Signs Vital signs: Vital Signs Temp 97.9 F 06/17/22 12:09 Pulse 66 06/17/22 12:09 Resp 16 06/17/22 12:09 BP 160/79 06/17/22 12:09 Pulse Ox 91 L 06/17/22 12:09 FiO2 Intake & Output 06/17/22 06/17/22 06/18/22 06:59 18:59 06:59 Intake Total 1010 Balance 1010 Intake: Intake, IV Titration 1010 Amount Ampicillin-Sulbactam 3 gm 100 In Sodium Chloride 0.9% 100 ml @ 200 mls/hr IVPB Q6HR [facility] Rx#:[id number] Sodium Chloride 0.9% 1, 910 000 ml @ 130 mls/hr IV . Q7H42M [facility] Rx#:[id number] Other: Voiding Method Diaper Diaper External Catheter External Catheter # Voids 1 - Exam Abdomen: Soft, nondistended, mild bilateral upper quadrant tenderness - Labs CBC & Chem 7: 06/16/22 05:23 06/16/22 05:23 Labs: Abnormal Lab Results - Last 24 Hours (Table) 06/17/22 06/17/22 06/17/22 Range/Units 07:09 17:18 20:21 POC Glucose (mg/dL) 132 H 145 H 162 H (70-110) mg/dL Microbiology - Last 24 Hours (Table) 06/15/22 09:15 Blood Culture - Preliminary Blood No Growth after 48 hours 06/15/22 09:00 Blood Culture - Preliminary Blood No Growth after 48 hours Assessment and Plan (1) Abnormal CT scan, gallbladder Narrative/Plan: HIDA scan results came back later this evening. We will discussed these findings with the patient and her tomorrow. Hold Xarelto for today. Current Visit: Yes Status: Acute Code(s): R93.2 - ABNORMAL FINDINGS ON DX IMAGING OF LIVER AND BILIARY TRACT SNOMED Code(s): [id number]
[2022-06-17] MEDS: LITHIUM CARBONATE 300 MG CAP PO SCH (21:42)
[2022-06-17] MEDS: LATANOPROST 0.005% OPHTH DROPS 2.5 ML BTL BOTH EYES SCH (22:14)
[2022-06-18] MEDS: AMPICILLIN-SULBACTAM 3 GM in SODIUM CHLORIDE 0.9% 100 ML IVPB SCH ×3 (05:59→18:48)
[2022-06-18 07:06] LABS: Glucose,Whole Blood 79 mg/dL (70-110)
[2022-06-18 09:12] LABS: HCT 32.7 % (34.0-46.0); HGB 10.1 gm/dL (11.4-16.0); Hypochromasia Marked; MCH 30.9 pg (25.0-35.0); MCHC 30.8 g/dL (31.0-37.0); MCV 100.3 fL (80.0-100.0); Macrocytosis Slight; Mean Platelet Volume 7.2; Platelet Count 281 k/uL (150-450); RBC 3.26 m/uL (3.80-5.40); WBC 5.4 k/uL (3.8-10.6)
--- NOTE | 2022-06-18 09:27 | P.PN ---
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 Patient presented to [facility] emergency center due to generalized weakness and confusion, increasing fatigue and increasing sleep. CAT scan of the brain was negative. Chest x-ray showed no acute cardiopulmonary process. WBC was 10.7, temperature max 99.8. COVID testing was negative. Patient had vague abdominal discomfort without nausea or vomiting however did have some black tarry stools for a few days. Patient was admitted to the [facility] floor and has been seen by general surgery, Dr. Law. CAT scan of the abdomen revealed L1 compression fracture, dilated gallbladder suggestive of cholecystitis or gallbladder dysfunction, scarring atelectasis at lung bases. Ultrasound to rule out cholecystitis was ordered which revealed sludge without gallstones and HIDA scan was ordered Patient was also seen by neurology for mental status changes thought to be acute delirium cause uncertain but entertained possibility of excessive amount of pain medications, dehydration. Patient is currently on prednisone 10 mg twice daily. REVIEW OF SYSTEMS: Constitutional: No documented fever, no chills, no night sweats. No weight change. Noted weakness, fatigue or lethargy. Noted daytime sleepiness. HEENT: No headache. No blurred vision or double vision, no loss of vision. hard of Hearing, no ringing in the ears, no dizziness. No nasal drainage or congestion. No epistaxis. No sore throat. Lungs: No shortness of breath, no cough, no sputum production. No wheezing. Reports dyspnea with activity. Cardiovascular: no chest pain, no lower extremity edema. No palpitations. No paroxysmal nocturnal dyspnea. No orthopnea. No lightheadedness or dizziness. No syncopal episodes. Abdominal: Reports abdominal pain. No nausea, vomiting. No diarrhea. No constipation. No bloody or tarry stools reports loss of appetite. Genitourinary: No dysuria, increased frequency, urgency. No urinary retention. Musculoskeletal: positive for myalgias. positive for muscle weakness, positive for gait dysfunction, positive for frequent falls. positive for back pain and neck pain. Integumentary: No wounds, no lesions. No rash or pruritus. No unusual bruising. No change in hair or nails. Neurologic: No aphasia. No facial droop. Noted change in mentation. No head injury. No headache. No paralysis. No paresthesia. Psychiatric: positive for depression, anxiety, mood swings Endocrine: No abnormal blood sugars. No weight change. PHYSICAL EXAMINATION: General: 77-year-old female laying down in bed in minimal distress HEENT: Head is atraumatic, normocephalic, pupils were equal round reactive to light and recommendation, extraocular muscle movement were intact, sclera nonicteric, conjunctivae were pale, mucous membranes of the mouth are somewhat dry. Neck: Supple, no JVP, normal carotid upstroke bilaterally, no lymphadenopathy. Chest: Decreased breath sounds at the bases, few rhonchi, no expiratory wheezes, no chest wall tenderness, no intercostal retractions. Heart: First heart sound is normal, second heart sound is normal there is systolic ejection murmur located at the left sternal border. Abdomen: Soft, mild tenderness to the left lower quadrant, no rebound or guarding positive bowel sounds. Extremities: There is no edema no calf tenderness DP +2 bilaterally. Neurologic examination: Patient is awake alert and oriented to person and place, cranial nerves II-12 appear grossly intact, muscle power were 5 out of 5 in upper extremities and 5 out of 5 in bilateral lower extremities, deep tendon reflexes normal bilaterally. ASSESSMENT AND PLAN: 1. Acute metabolic encephalopathy most likely secondary to sepsis, possible acute cholecystitis. Consult with Gen. surgery appreciated. HIDA scan was ordered. Patient is on a regular diet and tolerating. 2. Acute cholecystitis. Patient continued on IV antibiotics the form of Unasyn, consult with Dr. Cardozo-Bridget appreciated. 3. Hypertension. Losartan 50 mg twice daily is on hold, continue monitor blood pressure closely. 4. 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 Continue patient on anticoagulation with Xarelto 20 mg daily. 5. 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 Patient is continued on prednisone 10 mg twice daily. 6. Bipolar disorder. Continue lithium 300 mg daily at bedtime. 7. History of pulmonary embolism right lower lobe branch. Continue Xarelto 20 mg daily. 8. L1 fracture and old T6 fracture. 9. Anemia of chronic disease. Continue patient on iron 325 milligrams orally once every day. 10. DVT prophylaxis. Continue patient on Xarelto. 11. GI prophylaxis. Continue patient on Protonix 40 mg once every day. 12. Physical therapy evaluation. 13. Patient is full code. Objective - Vital Signs Vital signs: Vital Signs Temp 98 F 06/18/22 07:35 Pulse 71 06/18/22 07:35 Resp 19 06/18/22 07:35 BP 175/79 06/18/22 07:35 Pulse Ox 94 L 06/18/22 07:35 FiO2 Intake & Output 06/17/22 06/18/22 06/18/22 18:59 06:59 18:59 Intake Total 120 Output Total 500 Balance -380 Intake: Oral 120 Output: Urine 500 Other: Voiding Method Diaper Diaper External Catheter External Catheter # Bowel Movements 1 - Labs CBC & Chem 7: 06/16/22 05:23 06/16/22 05:23 Labs: Abnormal Lab Results - Last 24 Hours (Table) 06/17/22 06/17/22 Range/Units 17:18 20:21 POC Glucose (mg/dL) 145 H 162 H (70-110) mg/dL Microbiology - Last 24 Hours (Table) 06/15/22 09:15 Blood Culture - Preliminary Blood No Growth after 48 hours 06/15/22 09:00 Blood Culture - Preliminary Blood No Growth after 48 hours
[2022-06-18 09:34] LABS: ALT 30 U/L (4-34); AST 24 U/L (14-36); African American GFR (CKD) >90 (>60 ml/min/1.73 sqM); Albumin 2.8 g/dL (3.5-5.0); Albumin/Globulin Ratio 1.1; Alkaline Phosphatase 75 U/L (38-126); Anion Gap 8 mmol/L; Blood Urea Nitrogen 10 mg/dL (7-17); Carbon Dioxide 21 mmol/L (22-30); Chloride 115 mmol/L (98-107); Globulin 2.6 g/dL; Glucose 73 mg/dL (74-99); Non-African American GFR(CKD) 86 (>60 ml/min/1.73 sqM); Potassium 3.3 mmol/L (3.5-5.1); Sodium 144 mmol/L (137-145); Total Bilirubin 0.5 mg/dL (0.2-1.3); Total Protein 5.4 g/dL (6.3-8.2)
[2022-06-18] MEDS: SODIUM CHLORIDE 0.9% 1,000 ML IV SCH ×3 (09:59→18:46)
[2022-06-18] MEDS: predniSONE 10 MG TAB PO SCH ×2 (10:52→20:52)
[2022-06-18] MEDS: ASPIRIN 81 MG PO SCH (10:52)
[2022-06-18] MEDS: PANTOPRAZOLE 40 MG TABLET PO SCH (10:52)
[2022-06-18] MEDS: TAMSULOSIN 0.4 MG CAP.ER.24H PO SCH (10:52)
[2022-06-18] MEDS: DAPAGLIFLOZIN PROPANEDIOL 10 MG PO SCH (10:54)
[2022-06-18] MEDS: LOSARTAN 50 MG TAB PO SCH ×2 (11:02→20:52)
[2022-06-18 11:12] LABS: Glucose,Whole Blood 94 mg/dL (70-110)
[2022-06-18] MEDS ORDERED: HYDROmorphone 0.5 MG/0.5 ML SYRINGE IVP PRN (12:24)
[2022-06-18] MEDS ORDERED: ONDANSETRON 4 MG/2 ML VIAL IVP PRN (12:24)
--- NOTE | 2022-06-18 14:07 | P.PN ---
Subjective Progress Note Date: 06/18/22 CHIEF COMPLAINT: Chronic cholecystitis HISTORY OF PRESENT ILLNESS: Patient continues to have right upper quadrant abdominal pain. She reports that she is nauseous after eating. Ultrasound had showed distended gallbladder with sludge. HIDA scan was normal. No cystic or CBD duct obstruction noted. Afebrile. WBC is 5.4 Hgb 10.1 platelets 281 sodium 144 potassium 3.3 creatinine 0.68 PHYSICAL EXAM: VITAL SIGNS: Reviewed. GENERAL: Well-developed in no acute distress. HEENT: No sclera icterus. Extraocular movements grossly intact. Moist buccal mucosa. Head is atraumatic, normocephalic. ABDOMEN: Soft. Nondistended. Right upper quadrant tenderness with palpation NEUROLOGIC: Alert and oriented. Cranial nerves II through XII grossly intact. ASSESSMENT: 1. Cholecystitis with gallbladder sludge and right upper quadrant pain PLAN: -Patient scheduled for laparoscopic cholecystectomy tomorrow with Dr. Law -Nothing by mouth after midnight -Continue antibiotics -Continue IV fluids -Continue antiemetics as needed -Continue to hold Xarelto Physician [employer] Specialist note has been reviewed by physician. Signing provider agrees with the documented findings, assessment, and plan of care. Objective - Vital Signs Vital signs: Vital Signs Temp 98.3 F 06/18/22 11:24 Pulse 74 06/18/22 11:24 Resp 20 06/18/22 11:24 BP 185/81 06/18/22 11:24 Pulse Ox 91 L 06/18/22 11:24 FiO2 Intake & Output 06/17/22 06/18/22 06/18/22 18:59 06:59 18:59 Intake Total 120 Output Total 500 1200 Balance -380 -1200 Intake: Oral 120 Output: Urine 500 1200 Other: Voiding Method Diaper Diaper Diaper External Catheter External Catheter External Catheter # Bowel Movements 1 - Labs CBC & Chem 7: 06/18/22 08:24 06/18/22 08:24 Labs: Abnormal Lab Results - Last 24 Hours (Table) 06/17/22 06/17/22 06/18/22 Range/Units 17:18 20:21 08:24 RBC 3.26 L (3.80-5.40) m/uL Hgb 10.1 L (11.4-16.0) gm/dL Hct 32.7 L (34.0-46.0) % MCV 100.3 H (80.0-100.0) fL MCHC 30.8 L (31.0-37.0) g/dL RDW 16.0 H (11.5-15.5) % Potassium (3.5-5.1) mmol/L Chloride (98-107) mmol/L Carbon Dioxide (22-30) mmol/L Glucose (74-99) mg/dL POC Glucose (mg/dL) 145 H 162 H (70-110) mg/dL Total Protein (6.3-8.2) g/dL Albumin (3.5-5.0) g/dL 06/18/22 Range/Units 08:24 RBC (3.80-5.40) m/uL Hgb (11.4-16.0) gm/dL Hct (34.0-46.0) % MCV (80.0-100.0) fL MCHC (31.0-37.0) g/dL RDW (11.5-15.5) % Potassium 3.3 L (3.5-5.1) mmol/L Chloride 115 H (98-107) mmol/L Carbon Dioxide 21 L (22-30) mmol/L Glucose 73 L (74-99) mg/dL POC Glucose (mg/dL) (70-110) mg/dL Total Protein 5.4 L (6.3-8.2) g/dL Albumin 2.8 L (3.5-5.0) g/dL Microbiology - Last 24 Hours (Table) 06/15/22 09:00 Blood Culture - Preliminary Blood No Growth after 72 hours 06/15/22 09:15 Blood Culture - Preliminary Blood No Growth after 72 hours
[2022-06-18] MEDS ORDERED: POTASSIUM CHLORIDE ER 20 MEQ TAB.ER PO STA (14:11)
--- NOTE | 2022-06-18 16:05 | P.PN ---
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 Patient presented to [facility] emergency center due to generalized weakness and confusion, increasing fatigue and increasing sleep. CAT scan of the brain was negative. Chest x-ray showed no acute cardiopulmonary process. WBC was 10.7, temperature max 99.8. COVID testing was negative. Patient had vague abdominal discomfort without nausea or vomiting however did have some black tarry stools for a few days. Patient was admitted to the [facility] floor and has been seen by general surgery, Dr. Law. CAT scan of the abdomen revealed L1 compression fracture, dilated gallbladder suggestive of cholecystitis or gallbladder dysfunction, scarring atelectasis at lung bases. Ultrasound to rule out cholecystitis was ordered which revealed sludge without gallstones and HIDA scan was ordered Patient was also seen by neurology for mental status changes thought to be acute delirium cause uncertain but entertained possibility of excessive amount of pain medications, dehydration. Patient is currently on prednisone 10 mg twice daily. 06/18: Patient remains afebrile, heart rate 74, blood pressure 185/81, pulse ox 91% on room air. Repeat blood work reveals WBC 5.4, hemoglobin 10.1, platelet count 281. Sodium 144, potassium 3.3, chloride 115, CO2 21, BUN 10 and creatinine 0.68. Blood sugar 73. Capillary blood glucose running between 79 and 162. Blood culture is no growth at 72 hours. HIDA scan revealed no cystic or CBD duct obstruction. Normal study. Dr. Law will discuss results of HIDA scan, Xarelto is on hold. Plan is for lap ayana for tomorrow. She complains of mid abd pain and nausea and vomiting improved with Zofran. REVIEW OF SYSTEMS: Constitutional: No documented fever, no chills, no night sweats. No weight change. Noted weakness, fatigue or lethargy. Noted daytime sleepiness. HEENT: No headache. No blurred vision or double vision, no loss of vision. hard of Hearing, no ringing in the ears, no dizziness. No nasal drainage or congestion. No epistaxis. No sore throat. Lungs: No shortness of breath, no cough, no sputum production. No wheezing. Reports dyspnea with activity. Cardiovascular: no chest pain, no lower extremity edema. No palpitations. No paroxysmal nocturnal dyspnea. No orthopnea. No lightheadedness or dizziness. No syncopal episodes. Abdominal: Reports abdominal pain. Reports nausea, vomiting. No diarrhea. No constipation. No bloody or tarry stools reports loss of appetite. Genitourinary: No dysuria, increased frequency, urgency. No urinary retention. Musculoskeletal: positive for myalgias. positive for muscle weakness, positive for gait dysfunction, positive for frequent falls. positive for back pain and neck pain. Integumentary: No wounds, no lesions. No rash or pruritus. No unusual bruising. No change in hair or nails. Neurologic: No aphasia. No facial droop. Noted change in mentation. No head injury. No headache. No paralysis. No paresthesia. Psychiatric: positive for depression, anxiety, mood swings Endocrine: No abnormal blood sugars. No weight change. PHYSICAL EXAMINATION: General: 77-year-old female laying down in bed in no acute distress HEENT: Head is atraumatic, normocephalic, pupils were equal round reactive to light and recommendation, extraocular muscle movement were intact, sclera nonicteric, conjunctivae were pale, mucous membranes of the mouth are somewhat dry. Neck: Supple, no JVP, normal carotid upstroke bilaterally, no lymphadenopathy. Chest: Decreased breath sounds at the bases, few rhonchi, no expiratory wheezes, no chest wall tenderness, no intercostal retractions. Heart: First heart sound is normal, second heart sound is normal there is systolic ejection murmur located at the left sternal border. Abdomen: Soft, mild tenderness to the mid abdomen, no rebound or guarding positive bowel sounds. Extremities: There is no edema no calf tenderness DP +2 bilaterally. Neurologic examination: Patient is awake alert and oriented to person and place, cranial nerves II-12 appear grossly intact, muscle power were 5 out of 5 in upper extremities and 5 out of 5 in bilateral lower extremities, deep tendon reflexes normal bilaterally. ASSESSMENT AND PLAN: 1. Acute metabolic encephalopathy most likely secondary to sepsis, possible acute cholecystitis. Consult with Gen. surgery appreciated. HIDA scan as above. Patient is on a regular diet and tolerating. Xarelto placed on hold by surgery. Plan for lap ayana tomorrow. 2. Acute cholecystitis. Patient continued on IV antibiotics the form of Unasyn, consult with Dr. Contreras appreciated. 3. Hypertension. Losartan 50 mg twice daily is on hold, continue monitor blood pressure closely. 4. 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 Continue patient on anticoagulation with Xarelto 20 mg daily-on hold. 5. 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 Patient is continued on prednisone 10 mg twice daily. 6. Bipolar disorder. Continue lithium 300 mg daily at bedtime. 7. History of pulmonary embolism right lower lobe branch. Continue Xarelto 20 mg daily. 8. L1 fracture and old T6 fracture. 9. Anemia of chronic disease. Continue patient on iron 325 milligrams orally once every day. 10. DVT prophylaxis. Continue patient on Xarelto. 11. GI prophylaxis. Continue patient on Protonix 40 mg once every day. 12. Physical therapy evaluation. 13. Patient is full code. DISCHARGE PLAN Home with [facility] Impression and plan of care have been directed as dictated by the signing physician. Caity Miles nurse practitioner acting as scribe for signing physician. Objective - Vital Signs Vital signs: Vital Signs Temp 98 F 06/18/22 07:35 Pulse 71 06/18/22 07:35 Resp 19 06/18/22 07:35 BP 175/79 06/18/22 07:35 Pulse Ox 94 L 06/18/22 07:35 FiO2 Intake & Output 06/17/22 06/18/22 06/18/22 18:59 06:59 18:59 Intake Total 120 Output Total 500 Balance -380 Intake: Oral 120 Output: Urine 500 Other: Voiding Method Diaper Diaper External Catheter External Catheter # Bowel Movements 1 - Labs CBC & Chem 7: 06/18/22 08:24 06/18/22 08:24 Labs: Abnormal Lab Results - Last 24 Hours (Table) 06/17/22 06/17/22 Range/Units 17:18 20:21 POC Glucose (mg/dL) 145 H 162 H (70-110) mg/dL Microbiology - Last 24 Hours (Table) 06/15/22 09:15 Blood Culture - Preliminary Blood No Growth after 48 hours 06/15/22 09:00 Blood Culture - Preliminary Blood No Growth after 48 hours
[2022-06-18 17:24] LABS: Glucose,Whole Blood 139 mg/dL (70-110)
[2022-06-18] MEDS: ESCITALOPRAM 10 MG TAB PO SCH (18:45)
[2022-06-18] MEDS: FERROUS SULFATE 325 MG TAB PO SCH (18:45)
[2022-06-18 20:38] LABS: Glucose,Whole Blood 196 mg/dL (70-110)
[2022-06-18] MEDS: clonazePAM 0.5 MG TAB PO SCH (20:52)
[2022-06-18] MEDS: LITHIUM CARBONATE 300 MG CAP PO SCH (20:52)
[2022-06-18] MEDS: LATANOPROST 0.005% OPHTH DROPS 2.5 ML BTL BOTH EYES SCH (20:52)
[2022-06-19] MEDS: AMPICILLIN-SULBACTAM 3 GM in SODIUM CHLORIDE 0.9% 100 ML IVPB SCH ×5 (00:40→23:10)
[2022-06-19] MEDS: SODIUM CHLORIDE 0.9% 1,000 ML IV SCH ×2 (06:14→09:10)
[2022-06-19 07:16] LABS: Glucose,Whole Blood 104 mg/dL (70-110)
[2022-06-19] MEDS: LOSARTAN 50 MG TAB PO SCH ×2 (10:17→21:15)
[2022-06-19 10:37] LABS: Basophils # (A) 0 X 10*3/uL (0.00-0.10); Basophils % (A) 0 %; Eosinophils # (A) 0 X 10*3/uL (0.04-0.35); Eosinophils % (A) 0 %; HGB 8.8 g/dL (12.0-15.0); Lymphocytes # (A) 1.04 X 10*3/uL (0.90-5.00); MCH 30.7 pg (27.0-32.0); MCHC 31.4 g/dL (32.0-37.0); MCV 97.6 fL (80.0-97.0); Mean Platelet Volume 8.9 fL (9.5-12.2); Monocytes % (A) 5.8 %; NRBC Per 100 WBC 0 /100 WBCS (0.0-0.0); Neutrophils # (A) 3.81 X 10*3/uL (1.80-7.70); Neutrophils % (A) 73.2 %; Platelet Count 217 X 10*3/uL (140-440); RBC 2.87 X 10*6/uL (4.10-5.20); RDW 15.9 % (11.5-14.5)
[2022-06-19 10:50] LABS: African American GFR (CKD) 105.5 (60.0-200.0); Anion Gap 9.5 mmol/L (10.00-18.00); BUN/Creat Ratio 16.15 Ratio (12.00-20.00); Blood Urea Nitrogen 9.1 mg/dL (9.0-27.0); Calcium 8.8 mg/dL (8.7-10.3); Carbon Dioxide 22.9 mmol/L (20.0-27.5); Non-African American GFR(CKD) 91.1 (60.0-200.0)
[2022-06-19 11:20] LABS: Glucose,Whole Blood 82 mg/dL (70-110)
[2022-06-19] MEDS: DAPAGLIFLOZIN PROPANEDIOL 10 MG PO SCH (11:41)
[2022-06-19] MEDS: PANTOPRAZOLE 40 MG TABLET PO SCH (11:41)
[2022-06-19] MEDS: ASPIRIN 81 MG PO SCH (11:41)
[2022-06-19] MEDS: clonazePAM 0.5 MG TAB PO SCH ×2 (11:41→21:15)
[2022-06-19] MEDS: predniSONE 10 MG TAB PO SCH ×2 (11:42→21:15)
[2022-06-19] MEDS: VIT A,C & E-LUTEIN-MINERALS 1 EACH TAB PO SCH (11:42)
--- NOTE | 2022-06-19 13:50 | P.PN ---
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 Patient presented to [facility] emergency center due to generalized weakness and confusion, increasing fatigue and increasing sleep. CAT scan of the brain was negative. Chest x-ray showed no acute cardiopulmonary process. WBC was 10.7, temperature max 99.8. COVID testing was negative. Patient had vague abdominal discomfort without nausea or vomiting however did have some black tarry stools for a few days. Patient was admitted to the [facility] floor and has been seen by general surgery, Dr. Law. CAT scan of the abdomen revealed L1 compression fracture, dilated gallbladder suggestive of cholecystitis or gallbladder dysfunction, scarring atelectasis at lung bases. Ultrasound to rule out cholecystitis was ordered which revealed sludge without gallstones and HIDA scan was ordered Patient was also seen by neurology for mental status changes thought to be acute delirium cause uncertain but entertained possibility of excessive amount of pain medications, dehydration. Patient is currently on prednisone 10 mg twice daily. 06/18: Patient remains afebrile, heart rate 74, blood pressure 185/81, pulse ox 91% on room air. Repeat blood work reveals WBC 5.4, hemoglobin 10.1, platelet count 281. Sodium 144, potassium 3.3, chloride 115, CO2 21, BUN 10 and creatinine 0.68. Blood sugar 73. Capillary blood glucose running between 79 and 162. Blood culture is no growth at 72 hours. HIDA scan revealed no cystic or CBD duct obstruction. Normal study. Dr. Law will discuss results of HIDA scan, Xarelto is on hold. Plan is for lap ayana for tomorrow. She complains of mid abd pain and nausea and vomiting improved with Zofran. 06/19: Patient is continued on Unasyn, scheduled for lap cholecystectomy this afternoon. Patient has been afebrile, heart rate 66, blood pressure 177/80, pulse ox 90-91% on room air. REVIEW OF SYSTEMS: Constitutional: No documented fever, no chills, no night sweats. No weight change. Noted weakness, fatigue or lethargy. Noted daytime sleepiness. HEENT: No headache. No blurred vision or double vision, no loss of vision. hard of Hearing, no ringing in the ears, no dizziness. No nasal drainage or congestion. No epistaxis. No sore throat. Lungs: No shortness of breath, no cough, no sputum production. No wheezing. Reports dyspnea with activity. Cardiovascular: no chest pain, no lower extremity edema. No palpitations. No paroxysmal nocturnal dyspnea. No orthopnea. No lightheadedness or dizziness. No syncopal episodes. Abdominal: Reports abdominal pain. Reports nausea, vomiting. No diarrhea. No constipation. No bloody or tarry stools reports loss of appetite. Genitourinary: No dysuria, increased frequency, urgency. No urinary retention. Musculoskeletal: positive for myalgias. positive for muscle weakness, positive for gait dysfunction, positive for frequent falls. positive for back pain and neck pain. Integumentary: No wounds, no lesions. No rash or pruritus. No unusual bruising. No change in hair or nails. Neurologic: No aphasia. No facial droop. Noted change in mentation. No head injury. No headache. No paralysis. No paresthesia. Psychiatric: positive for depression, anxiety, mood swings Endocrine: No abnormal blood sugars. No weight change. PHYSICAL EXAMINATION: General: 77-year-old female laying down in bed in no acute distress HEENT: Head is atraumatic, normocephalic, pupils were equal round reactive to light and recommendation, extraocular muscle movement were intact, sclera nonicteric, conjunctivae were pale, mucous membranes of the mouth are somewhat dry. Neck: Supple, no JVP, normal carotid upstroke bilaterally, no lymphadenopathy. Chest: Decreased breath sounds at the bases, few rhonchi, no expiratory wheezes, no chest wall tenderness, no intercostal retractions. Heart: First heart sound is normal, second heart sound is normal there is systolic ejection murmur located at the left sternal border. Abdomen: Soft, mild tenderness to the mid abdomen, no rebound or guarding positive bowel sounds. Extremities: There is no edema no calf tenderness DP +2 bilaterally. Neurologic examination: Patient is awake alert and oriented to person and place, cranial nerves II-12 appear grossly intact, muscle power were 5 out of 5 in upper extremities and 5 out of 5 in bilateral lower extremities, deep tendon reflexes normal bilaterally. ASSESSMENT AND PLAN: 1. Acute metabolic encephalopathy most likely secondary to sepsis, possible acute cholecystitis. Consult with Gen. surgery appreciated. HIDA scan as above. Patient is on a regular diet and tolerating. Xarelto placed on hold by surgery. Plan for lap ayana today. 2. Acute cholecystitis. Patient continued on IV antibiotics the form of Unasyn, consult with Dr. Contreras appreciated. 3. Hypertension. Losartan 50 mg twice daily is on hold, continue monitor blood pressure closely. 4. 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 Continue patient on anticoagulation with Xarelto 20 mg daily-on hold. 5. 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 Patient is continued on prednisone 10 mg twice daily. 6. Bipolar disorder. Continue lithium 300 mg daily at bedtime. 7. History of pulmonary embolism right lower lobe branch. Continue Xarelto 20 mg daily. 8. L1 fracture and old T6 fracture. 9. Anemia of chronic disease. Continue patient on iron 325 milligrams orally once every day. 10. DVT prophylaxis. Continue patient on Xarelto. 11. GI prophylaxis. Continue patient on Protonix 40 mg once every day. 12. Physical therapy evaluation. 13. Patient is full code. DISCHARGE PLAN Home with [facility] on Thursday Impression and plan of care have been directed as dictated by the signing physician. Caity Miles nurse practitioner acting as scribe for signing physic jolie. Objective - Vital Signs Vital signs: Vital Signs Temp 97.7 F 06/19/22 05:00 Pulse 66 06/19/22 05:00 Resp 16 06/19/22 05:00 BP 177/80 06/19/22 05:00 Pulse Ox 90 L 06/19/22 05:00 FiO2 Intake & Output 06/18/22 06/19/22 06/19/22 18:59 06:59 18:59 Intake Total 1300 1000 Output Total 2200 Balance -900 1000 Intake: IV 100 100 Ampicillin-Sulbactam 3 gm 100 100 In Sodium Chloride 0.9% 100 ml @ 200 mls/hr IVPB Q6HR [facility] Rx#:[id number] Intake, IV Titration 1200 900 Amount Sodium Chloride 0.9% 1, 1200 900 000 ml @ 75 mls/hr IV . [id number] [facility] Rx#:[id number] Output: Urine 2200 Other: Voiding Method Diaper Diaper External Catheter External Catheter - Labs CBC & Chem 7: 06/19/22 06:41 06/19/22 06:41 Labs: Abnormal Lab Results - Last 24 Hours (Table) 06/18/22 06/18/22 Range/Units 17:22 20:36 POC Glucose (mg/dL) 139 H 196 H (70-110) mg/dL Microbiology - Last 24 Hours (Table) 06/15/22 09:00 Blood Culture - Preliminary Blood No Growth after 72 hours 06/15/22 09:15 Blood Culture - Preliminary Blood No Growth after 72 hours
[2022-06-19 14:14] LABS: Glucose,Whole Blood 64 mg/dL (70-110)
[2022-06-19] MEDS ORDERED: LACTATED RINGERS 1,000 ML IV ONE ×3 (14:17→16:40)
[2022-06-19] MEDS ORDERED: HEPARIN SODIUM,PORCINE/PF 5,000 UNIT/0.5 ML SYRINGE SQ ONE (14:30)
[2022-06-19] MEDS ORDERED: HEPARIN SODIUM,PORCINE 5,000 UNIT/ML 1 ML VIAL SQ ONE (14:35)
[2022-06-19] MEDS ORDERED: DEXTROSE 50% SYRINGE 50 ML IVP ONE (14:48)
[2022-06-19] MEDS ORDERED: HYDROCORTISONE SUCCINATE 100 MG/2 ML VIAL IVP ONE (14:51)
[2022-06-19] MEDS ORDERED: ONDANSETRON 4 MG/2 ML VIAL IVP ONE (14:51)
[2022-06-19] MEDS ORDERED: LIDOCAINE 2% INJ 20 MG/ML (2 ML VIAL) ONE (14:52)
[2022-06-19] MEDS ORDERED: SODIUM CHLORIDE 0.9% 100 ML BAG ONE (14:52)
[2022-06-19] MEDS ORDERED: SUCCINYLCHOLINE CHLORIDE 200 MG/10 ML VIAL IV ONE (14:52)
[2022-06-19] MEDS ORDERED: MIDAZOLAM 2 MG/2 ML VIAL ONE (14:52)
[2022-06-19] MEDS ORDERED: ePHEDrine 50 MG/ML 1 ML VIAL ONE (14:52)
[2022-06-19] MEDS ORDERED: ROCURONIUM 10 MG/ML (5 ML VIAL) IV ONE (14:52)
[2022-06-19] MEDS ORDERED: GLYCOPYRROLATE 0.2 MG/ML 2 ML VIAL ONE (14:52)
[2022-06-19] MEDS ORDERED: PROPOFOL 10 MG/ML 20 ML VIAL IV ONE (14:52)
[2022-06-19] MEDS ORDERED: fentaNYL (PF) 50 MCG/ML 2 ML AMP ONE (14:52)
[2022-06-19] MEDS ORDERED: NEOSTIGMINE 1 MG/ML 10 ML VIAL ONE (14:52)
[2022-06-19] MEDS ORDERED: ceFAZolin 1,000 MG VIAL ONE (14:52)
[2022-06-19] MEDS ORDERED: BUPIVACAIN-EPI 0.25%-1:200,000 30 ML VIAL SQ ONE ×2 (14:55)
[2022-06-19] MEDS: ESCITALOPRAM 10 MG TAB PO SCH (15:48)
[2022-06-19] MEDS: TAMSULOSIN 0.4 MG CAP.ER.24H PO SCH (15:48)
--- NOTE | 2022-06-19 16:04 | P.OP ---
Date of Procedure: 06/19/22 Procedure(s) Performed: PREOPERATIVE DIAGNOSIS: Chronic cholecystitis POSTOPERATIVE DIAGNOSIS: Same PROCEDURE: Laparoscopic cholecystectomy SURGEON: Thanh EBL: Minimal see anesthesia record ANESTHESIA: Gen. COMPLICATIONS: None OPERATIVE PROCEDURE: The patient was brought and placed on the operating room table in the supine position. The patient was placed under general anesthesia at that time. The abdomen was prepped and draped in the usual sterile fashion. A small vertical infraumbilical incision was made. The fascia was grasped with the Ekta forceps. The fascia was retracted anteriorly. The Veress needle was advanced into the peritoneal cavity. The saline drop test was normal. Insufflation took place up to 15 mmHg. A 5 mm optical trocar was advanced and the peritoneal cavity. 2 additional 5 mm trochars were placed in the right upper quadrant under direct visualization. A 12 mm trocar was advanced into the epigastric incision site. The gallbladder was retracted superiorly and laterally. The peritoneum overlying the infundibulum was bluntly dissected. The patient's cystic duct was visualized. The junction between the cystic duct common and hepatic duct was identified. The critical view of safety was achieved after blunt dissection. The cystic duct was then divided after placement of 3 12 mm clips on the patient's side and one on the specimen side. The cystic artery was identified and clipped as well. A small vessel was seen along the gallbladder fossa and clipped as well. The gallbladder was then removed from the liver bed using electrocautery. The gallbladder was then removed from the epigastric trocar site with an Endo Catch bag. The gallbladder fossa was irrigated with saline. There was no evidence of any bleeding or biliary drainage seen. The fascia at the 12 millimeter site was closed using a Ralf-Tanisha 0 Vicryl stitch. The trochars were then removed. The skin at all 4 sites was closed using a 4-0 Monocryl stitch. Skin glue was utilized on the incision sites. At the end of this procedure the sponge and needle counts were correct. DISPOSITION: Stable to the recovery room
[2022-06-19 16:15] LABS: Glucose,Whole Blood 101 mg/dL (70-110)
[2022-06-19] MEDS ORDERED: HYDROmorphone 0.5 MG/0.5 ML SYRINGE IVP ONE (17:07)
[2022-06-19] MEDS ORDERED: SODIUM CHLORIDE 0.9% 1,000 ML IV ONE (17:31)
[2022-06-19] MEDS: FERROUS SULFATE 325 MG TAB PO SCH (17:48)
[2022-06-19 20:41] LABS: Glucose,Whole Blood 159 mg/dL (70-110)
[2022-06-19] MEDS: LATANOPROST 0.005% OPHTH DROPS 2.5 ML BTL BOTH EYES SCH (21:15)
[2022-06-19] MEDS: LITHIUM CARBONATE 300 MG CAP PO SCH (21:15)
[2022-06-20] MEDS: SODIUM CHLORIDE 0.9% 1,000 ML IV SCH (02:57)
[2022-06-20] MEDS: LOSARTAN 50 MG TAB PO SCH ×2 (05:11→22:49)
[2022-06-20] MEDS: AMPICILLIN-SULBACTAM 3 GM in SODIUM CHLORIDE 0.9% 100 ML IVPB SCH ×3 (05:11→17:22)
[2022-06-20 07:10] LABS: Glucose,Whole Blood 108 mg/dL (70-110)
--- NOTE | 2022-06-20 08:01 | P.PN ---
Subjective Progress Note Date: 06/16/22 Principal diagnosis: Fever and leukocytosis Patient is a 77-year-old female presenting to the hospital with generalized weakness Some vomiting in this patient with evidence of a low-grade fever, patient did have a CT of abdominal problems that had been suggestive dilated gallbladder concerning for cholecystitis. On today's evaluation that is 06/16/2022, patient denies having any fever or any chills, the patient has been restarted comfortably still feeling weak, no energy some abdominal discomfort and nausea no further vomiting and no diarrhea Objective - Vital Signs Vital signs: Vital Signs Temp 98.4 F 06/16/22 18:03 Pulse 72 06/16/22 18:03 Resp 16 06/16/22 18:03 BP 115/67 06/16/22 18:03 Pulse Ox 97 06/16/22 18:03 FiO2 Intake & Output 06/16/22 06/16/22 06/17/22 06:59 18:59 06:59 Output Total 500 1400 Balance -500 -1400 Weight 81.5 kg Output: Urine 500 1400 Other: Voiding Method Diaper Diaper External Catheter External Catheter # Voids 1 - Exam GENERAL DESCRIPTION: An elderly female lying in bed in no distress RESPIRATORY SYSTEM: Unlabored breathing , decreased breath sounds at bases HEART: S1 S2 regular rate and rhythm , ABDOMEN: Soft , no tenderness EXTREMITIES: No edema feet - Labs CBC & Chem 7: 06/19/22 06:41 06/19/22 06:41 Labs: Abnormal Lab Results - Last 24 Hours (Table) 06/16/22 06/16/22 06/16/22 Range/Units 05:23 05:23 05:23 RBC 3.19 L (4.10-5.20) X 10*6/uL Hgb 9.8 L (12.0-15.0) g/dL Hct 32.1 L (37.2-46.3) % MCV 100.6 H (80.0-97.0) fL MCHC 30.5 L (32.0-37.0) g/dL RDW 16.4 H (11.5-14.5) % MPV 9.4 L (9.5-12.2) fL Immature Gran # 0.10 H (0.00-0.04) X 10*3/uL Eosinophils # 0 L (0.04-0.35) X 10*3/uL Chloride 111 H (96-109) mmol/L BUN/Creatinine Ratio 24.32 H (12.00-20.00) Ratio POC Glucose (mg/dL) (70-110) mg/dL C-Reactive Protein 14.50 H (0.00-0.80) mg/dL Total Protein 5.0 L (6.2-8.2) g/dL Albumin 2.9 L (3.8-4.9) g/dL Albumin/Globulin Ratio 1.41 L (1.60-3.17) g/dL Procalcitonin 0.15 H (0.02-0.09) ng/mL 06/16/22 06/16/22 Range/Units 17:07 20:03 RBC (4.10-5.20) X 10*6/uL Hgb (12.0-15.0) g/dL Hct (37.2-46.3) % MCV (80.0-97.0) fL MCHC (32.0-37.0) g/dL RDW (11.5-14.5) % MPV (9.5-12.2) fL Immature Gran # (0.00-0.04) X 10*3/uL Eosinophils # (0.04-0.35) X 10*3/uL Chloride (96-109) mmol/L BUN/Creatinine Ratio (12.00-20.00) Ratio POC Glucose (mg/dL) 156 H 189 H (70-110) mg/dL C-Reactive Protein (0.00-0.80) mg/dL Total Protein (6.2-8.2) g/dL Albumin (3.8-4.9) g/dL Albumin/Globulin Ratio (1.60-3.17) g/dL Procalcitonin (0.02-0.09) ng/mL Microbiology - Last 24 Hours (Table) 06/15/22 09:00 Blood Culture - Preliminary Blood No Growth after 24 hours 06/15/22 09:15 Blood Culture - Preliminary Blood No Growth after 24 hours Assessment and Plan (1) Fever of unknown origin Current Visit: Yes Status: Acute Code(s): R50.9 - FEVER, UNSPECIFIED SNOMED Code(s): 1784058 Plan: 1patient presented to hospital with a fever in this patient also having some abdominal symptoms of pain and black stools likely abdominal etiology as the pa tient did have a negative UA chest x-ray was negative no evidence of any cellulitis or joint swelling. 2 CT of abdominal pelvis has been suggestive of cholecystitis and Gen. surgery has been consulted 3patient will continue with Unasyn while awaiting further work-up to be completed Time with Patient: Less than 30
--- NOTE | 2022-06-20 08:04 | P.PN ---
Subjective Progress Note Date: 06/17/22 Principal diagnosis: Fever and leukocytosis Patient is a 77-year-old female presenting to the hospital with generalized weakness Some vomiting in this patient with evidence of a low-grade fever, patient did have a CT of abdominal problems that had been suggestive dilated gallbladder concerning for cholecystitis. Ultrasound shows distended gallbladder however HIDA scan came back negative On today's evaluation that is 06/17/2022, patient remains to be afebrile, the p atient is breathing comfortably on room air, still complaining of slight nausea but no vomiting and vague abdominal discomfort no diarrhea no urinary symptoms Objective - Vital Signs Vital signs: Vital Signs Temp 97.9 F 06/17/22 12:09 Pulse 66 06/17/22 12:09 Resp 16 06/17/22 12:09 BP 160/79 06/17/22 12:09 Pulse Ox 91 L 06/17/22 12:09 FiO2 Intake & Output 06/17/22 06/17/22 06/18/22 06:59 18:59 06:59 Intake Total 1010 Balance 1010 Intake: Intake, IV Titration 1010 Amount Ampicillin-Sulbactam 3 gm 100 In Sodium Chloride 0.9% 100 ml @ 200 mls/hr IVPB Q6HR [facility] Rx#:[id number] Sodium Chloride 0.9% 1, 910 000 ml @ 130 mls/hr IV . [id number] [facility] Rx#:[id number] Other: Voiding Method Diaper Diaper External Catheter External Catheter # Voids 1 - Exam GENERAL DESCRIPTION: An elderly female lying in bed in no distress RESPIRATORY SYSTEM: Unlabored breathing , decreased breath sounds at bases HEART: S1 S2 regular rate and rhythm , ABDOMEN: Soft , no tenderness EXTREMITIES: No edema feet - Labs CBC & Chem 7: 06/19/22 06:41 06/19/22 06:41 Labs: Abnormal Lab Results - Last 24 Hours (Table) 06/17/22 06/17/22 06/17/22 Range/Units 07:09 17:18 20:21 POC Glucose (mg/dL) 132 H 145 H 162 H (70-110) mg/dL Microbiology - Last 24 Hours (Table) 06/15/22 09:15 Blood Culture - Preliminary Blood No Growth after 48 hours 06/15/22 09:00 Blood Culture - Preliminary Blood No Growth after 48 hours Assessment and Plan (1) Fever of unknown origin Current Visit: Yes Status: Acute Code(s): R50.9 - FEVER, UNSPECIFIED SNOME D Code(s): 6211760 Plan: 1patient presented to hospital with a fever in this patient also having some abdominal symptoms of pain and black stools likely abdominal etiology as the patient did have a negative UA chest x-ray was negative no evidence of any iron lulitis or joint swelling. 2 CT of abdominal pelvis has been suggestive of cholecystitis and Gen. surgery is following the patient has followed ultrasound followed by HIDA scan 3patient has had some clinical improvement and will continue with Unasyn Time with Patient: Less than 30
--- NOTE | 2022-06-20 08:05 | P.PN ---
Subjective Progress Note Date: 06/18/22 Principal diagnosis: Fever and leukocytosis Patient is a 77-year-old female presenting to the hospital with generalized weakness Some vomiting in this patient with evidence of a low-grade fever, patient did have a CT of abdominal problems that had been suggestive dilated gallbladder concerning for cholecystitis. Ultrasound shows distended gallbladder however HIDA scan came back negative On today's evaluation that is 06/18/2022, patient continues to be afebrile, the patient is breathing comfortably on room air, patient denies any further vomiting or abdominal pain no diarrhea no urinary symptoms Objective - Vital Signs Vital signs: Vital Signs Temp 98.3 F 06/18/22 11:24 Pulse 74 06/18/22 11:24 Resp 20 06/18/22 11:24 BP 185/81 06/18/22 11:24 Pulse Ox 91 L 06/18/22 11:24 FiO2 Intake & Output 06/17/22 06/18/22 06/18/22 18:59 06:59 18:59 Intake Total 120 Output Total 500 1200 Balance -380 -1200 Intake: Oral 120 Output: Urine 500 1200 Other: Voiding Method Diaper Diaper Diaper External Catheter External Catheter External Catheter # Bowel Movements 1 - Exam GENERAL DESCRIPTION: An elderly female lying in bed in no distress RESPIRATORY SYSTEM: Unlabored breathing , decreased breath sounds at bases HEART: S1 S2 regular rate and rhythm , ABDOMEN: Soft , no tenderness EXTREMITIES: No edema feet - Labs CBC & Chem 7: 06/19/22 06:41 06/19/22 06:41 Labs: Abnormal Lab Results - Last 24 Hours (Table) 06/17/22 06/17/22 06/18/22 Range/Units 17:18 20:21 08:24 RBC 3.26 L (3.80-5.40) m/uL Hgb 10.1 L (11.4-16.0) gm/dL Hct 32.7 L (34.0-46.0) % MCV 100.3 H (80.0-100.0) fL MCHC 30.8 L (31.0-37.0) g/dL RDW 16.0 H (11.5-15.5) % Potassium (3.5-5.1) mmol/L Chloride (98-107) mmol/L Carbon Dioxide (22-30) mmol/L Glucose (74-99) mg/dL POC Glucose (mg/dL) 145 H 162 H (70-110) mg/dL Total Protein (6.3-8.2) g/dL Albumin (3.5-5.0) g/dL 06/18/22 Range/Units 08:24 RBC (3.80-5.40) m/uL Hgb (11.4-16.0) gm/dL Hct (34.0-46.0) % MCV (80.0-100.0) fL MCHC (31.0-37.0) g/dL RDW (11.5-15.5) % Potassium 3.3 L (3.5-5.1) mmol/L Chloride 115 H (98-107) mmol/L Carbon Dioxide 21 L (22-30) mmol/L Glucose 73 L (74-99) mg/dL POC Glucose (mg/dL) (70-110) mg/dL Total Protein 5.4 L (6.3-8.2) g/dL Albumin 2.8 L (3.5-5.0) g/dL Microbiology - Last 24 Hours (Table) 06/15/22 09:00 Blood Culture - Preliminary Blood No Growth after 72 hours 06/15/22 09:15 Blood Culture - Preliminary Blood No Growth after 72 hours Assessment and Plan (1) Fever of unknown origin Current Visit: Yes Status: Acute Code(s): R50.9 - FEVER, UNSPECIFIED SNOMED Code(s): 5761782 Plan: 1patient presented to hospital with a fever in this patient also having some abdominal symptoms of pain and black stools likely abdominal etiology as the patient did have a negative UA chest x-ray was negative no evidence of any cellulitis or joint swelling. 2 CT of abdominal pelvis has been suggestive of cholecystitis , patient did have subsequently ultrasound followed by HIDA scan and Gen. surgery is following the patient planning for possible cholecystectomy in the morning 3patient to continue with Unasyn and monitor clinical course closely Time with Patient: Less than 30
--- NOTE | 2022-06-20 08:07 | P.PN ---
Subjective Progress Note Date: 06/19/22 Principal diagnosis: Fever and leukocytosis Patient is a 77-year-old female presenting to the hospital with generalized weakness Some vomiting in this patient with evidence of a low-grade fever, patient did have a CT of abdominal problems that had been suggestive dilated gallbladder concerning for cholecystitis. Ultrasound shows distended gallbladder however HIDA scan came back negative On today's evaluation that is 06/19/2022, patient denies any fever or any chill s, the patient is breathing comfortably on room air, patient mentioned she did have an episode of vomiting last night, denies having any worsening abdominal pain no diarrhea and no urinary symptoms Objective - Vital Signs Vital signs: Vital Signs Temp 98.1 F 06/19/22 11:30 Pulse 74 06/19/22 11:30 Resp 18 06/19/22 11:30 BP 175/85 06/19/22 11:30 Pulse Ox 93 L 06/19/22 11:30 FiO2 Intake & Output 06/18/22 06/19/22 06/19/22 18:59 06:59 18:59 Intake Total 1300 1000 Output Total 2200 Balance -900 1000 Intake: IV 100 100 Ampicillin-Sulbactam 3 gm 100 100 In Sodium Chloride 0.9% 100 ml @ 200 mls/hr IVPB Q6HR [facility] Rx#:[id number] Intake, IV Titration 1200 900 Amount Sodium Chloride 0.9% 1, 1200 900 000 ml @ 75 mls/hr IV . [id number] [facility] Rx#:[id number] Output: Urine 2200 Other: Voiding Method Diaper Diaper Diaper External Catheter External Catheter External Catheter - Exam GENERAL DESCRIPTION: An elderly female lying in bed in no distress RESPIRATORY SYSTEM: Unlabored breathing , decreased breath sounds at bases HEART: S1 S2 regular rate and rhythm , ABDOMEN: Soft , no tenderness EXTREMITIES: No edema feet - Labs CBC & Chem 7: 06/19/22 06:41 06/19/22 06:41 Labs: Abnormal Lab Results - Last 24 Hours (Table) 06/18/22 06/18/22 06/19/22 Range/Units 17:22 20:36 06:41 RBC 2.87 L (4.10-5.20) X 10*6/uL Hgb 8.8 L (12.0-15.0) g/dL Hct 28.0 L (37.2-46.3) % MCV 97.6 H (80.0-97.0) fL MCHC 31.4 L (32.0-37.0) g/dL RDW 15.9 H (11.5-14.5) % MPV 8.9 L (9.5-12.2) fL Immature Gran # 0.05 H (0.00-0.04) X 10*3/uL Eosinophils # 0 L (0.04-0.35) X 10*3/uL Sodium (135-145) mmol/L Chloride (96-109) mmol/L Anion Gap (10.00-18.00) mmol/L POC Glucose (mg/dL) 139 H 196 H (70-110) mg/dL 06/19/22 Range/Units 06:41 RBC (4.10-5.20) X 10*6/uL Hgb (12.0-15.0) g/dL Hct (37.2-46.3) % MCV (80.0-97.0) fL MCHC (32.0-37.0) g/dL RDW (11.5-14.5) % MPV (9.5-12.2) fL Immature Gran # (0.00-0.04) X 10*3/uL Eosinophils # (0.04-0.35) X 10*3/uL Sodium 147 H (135-145) mmol/L Chloride 114 H (96-109) mmol/L Anion Gap 9.50 L (10.00-18.00) mmol/L POC Glucose (mg/dL) (70-110) mg/dL Microbiology - Last 24 Hours (Table) 06/15/22 09:00 Blood Culture - Preliminary Blood No Growth after 96 hours 06/15/22 09:15 Blood Culture - Preliminary Blood No Growth after 96 hours Assessment and Plan (1) Fever of unknown origin Current Visit: Yes Status: Acute Code(s): R50.9 - FEVER, UNSPECIFIED SNOMED Code(s): 4262142 Plan: 1patient presented to hospital with a fever in this patient also having some abdominal symptoms of pain and black stools likely abdominal etiology as the patient did have a negative UA chest x-ray was negative no evidence of any cellulitis or joint swelling. 2 CT of abdominal pelvis has been suggestive of cholecystitis , patient did have subsequently ultrasound followed by HIDA scan and Gen. surgery is following the patient planning for cholecystectomy this afternoon 3patient has shown clinical improvement fever resolved, white count has normalized will continue with Unasyn and monitor clinical course closely Time with Patient: Less than 30
[2022-06-20] MEDS: HYDROcodone/APAP 5-325MG 1 EACH TAB PO PRN ×3 (08:21→17:21)
[2022-06-20] MEDS: clonazePAM 0.5 MG TAB PO SCH ×2 (08:22→22:48)
[2022-06-20] MEDS: VIT A,C & E-LUTEIN-MINERALS 1 EACH TAB PO SCH (08:22)
[2022-06-20] MEDS: PANTOPRAZOLE 40 MG TABLET PO SCH (08:22)
[2022-06-20] MEDS: ASPIRIN 81 MG PO SCH (08:22)
[2022-06-20] MEDS: ESCITALOPRAM 10 MG TAB PO SCH (08:22)
[2022-06-20] MEDS: TAMSULOSIN 0.4 MG CAP.ER.24H PO SCH (08:22)
[2022-06-20] MEDS: predniSONE 10 MG TAB PO SCH ×2 (08:22→22:49)
[2022-06-20] MEDS: DAPAGLIFLOZIN PROPANEDIOL 10 MG PO SCH (08:23)
[2022-06-20] MEDS ORDERED: HYDROmorphone 1 MG/ML 1 ML SYRINGE IVP PRN (08:44)
[2022-06-20] MEDS: hydrALAZINE HCL 20 MG/ML 1 ML VIAL IVP PRN (09:40)
[2022-06-20] MEDS: METOPROLOL SUCCINATE (ER) 50 MG TAB.ER.24H PO SCH (09:40)
--- NOTE | 2022-06-20 10:01 | P.PN ---
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 Patient presented to [facility] emergency center due to generalized weakness and confusion, increasing fatigue and increasing sleep. CAT scan of the brain was negative. Chest x-ray showed no acute cardiopulmonary process. WBC was 10.7, temperature max 99.8. COVID testing was negative. Patient had vague abdominal discomfort without nausea or vomiting however did have some black tarry stools for a few days. Patient was admitted to the [facility] floor and has been seen by general surgery, Dr. Law. CAT scan of the abdomen revealed L1 compression fracture, dilated gallbladder suggestive of cholecystitis or gallbladder dysfunction, scarring atelectasis at lung bases. Ultrasound to rule out cholecystitis was ordered which revealed sludge without gallstones and HIDA scan was ordered Patient was also seen by neurology for mental status changes thought to be acute delirium cause uncertain but entertained possibility of excessive amount of pain medications, dehydration. Patient is currently on prednisone 10 mg twice daily. 06/18: Patient remains afebrile, heart rate 74, blood pressure 185/81, pulse ox 91% on room air. Repeat blood work reveals WBC 5.4, hemoglobin 10.1, platelet count 281. Sodium 144, potassium 3.3, chloride 115, CO2 21, BUN 10 and creatinine 0.68. Blood sugar 73. Capillary blood glucose running between 79 and 162. Blood culture is no growth at 72 hours. HIDA scan revealed no cystic or CBD duct obstruction. Normal study. Dr. Law will discuss results of HIDA scan, Xarelto is on hold. Plan is for lap ayana for tomorrow. She complains of mid abd pain and nausea and vomiting improved with Zofran. 06/19: Patient is continued on Unasyn, scheduled for lap cholecystectomy this afternoon. Patient has been afebrile, heart rate 66, blood pressure 177/80, pulse ox 90-91% on room air. 06/20: Patient is status post O scopic cholecystectomy done yesterday by Dr. Law. Pathology report is pending. She does have significant pain today at the mid abdomen area in the same area as preoperatively, she states it's more severe then prior to surgery. Patient has multiple laparoscopic surgical wounds all glued and show no signs of infection or drainage. Patient states she has decreased appetite. She had clear liquid diet this morning and tolerated wi thout nausea or vomiting. Blood pressure is extremely high this morning and Toprol-XL added as well as hydralazine IV as needed. Dilaudid increased to 1 mg in frequency increased to every 3 hours. Patient is also followed by infectious disease and continued on Unasyn. PT has recommended subacute rehab but the patient states that she wishes to go home and has everything in place to manage sufficiently. Anticipate probable discharge to home over the weekend. REVIEW OF SYSTEMS: Constitutional: No documented fever, no chills, no night sweats. No weight change. Noted weakness, fatigue or lethargy. Noted daytime sleepiness. HEENT: No headache. No blurred vision or double vision, no loss of vision. hard of Hearing, no ringing in the ears, no dizziness. No nasal drainage or congestion. No epistaxis. No sore throat. Lungs: No shortness of breath, no cough, no sputum production. No wheezing. Reports dyspnea with activity. Cardiovascular: no chest pain, no lower extremity edema. No palpitations. No paroxysmal nocturnal dyspnea. No orthopnea. No lightheadedness or dizziness. No syncopal episodes. Abdominal: Reports abdominal pain. Denies nausea, vomiting. No diarrhea. No constipation. No bloody or tarry stools. Reports loss of appetite. Genitourinary: No dysuria, increased frequency, urgency. No urinary retention. Musculoskeletal: positive for myalgias. positive for muscle weakness, positive for gait dysfunction, positive for frequent falls. positive for back pain and neck pain. Integumentary: No wounds, no lesions. No rash or pruritus. No unusual brui sing. No change in hair or nails. Neurologic: No aphasia. No facial droop. No change in mentation. No head injury. No headache. No paralysis. No paresthesia. Psychiatric: positive for depression, anxiety, mood swings Endocrine: No abnormal blood sugars. No weight change. PHYSICAL EXAMINATION: General: 77-year-old female laying down in bed in no acute distress HEENT: Head is atraumatic, normocephalic, pupils were equal round reactive to light and recommendation, extraocular muscle movement were intact, sclera nonicteric, conjunctivae were pale, mucous membranes of the mouth are somewhat dry. Neck: Supple, no JVP, normal carotid upstroke bilaterally, no lymphadenopathy. Chest: Decreased breath sounds at the bases, few rhonchi, no expiratory wheezes, no chest wall tenderness, no intercostal retractions. Heart: First heart sound is normal, second heart sound is normal there is systolic ejection murmur located at the left sternal border. Abdomen: Soft, mild tenderness to the mid abdomen, no rebound or guarding positive bowel sounds. Surgical sites are glued with no sign of drainage, significant erythema. Extremities: There is no edema no calf tenderness DP +2 bilaterally. Neurologic examination: Patient is awake alert and oriented x3, cranial nerves II-12 appear grossly intact, muscle power were 5 out of 5 in upper extremities and 5 out of 5 in bilateral lower extremities, deep tendon reflexes normal bilaterally. ASSESSMENT AND PLAN: 1. Acute metabolic encephalopathy most likely secondary to sepsis, possible acute cholecystitis s/p laparoscopic cholecystectomy 06/19. Consult with Gen. surgery appreciated. Xarelto will be resumed once cleared by surgery 2. Acute cholecystitis. Patient continued on IV antibiotics the form of Unasyn, consult with Dr. Contreras appreciated. 3. Hypertension. Continue patient onLosartan 50 mg twice daily, Toprol-XL 50 mg daily, hydralazine 20 mg IV push every 4 hours as needed for systolic blood pressure greater than 160 or diastolic blood pressure greater than 90, continue to monitor blood pressure closely. 4. 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 Continue patient on anticoagulation with Xarelto 20 mg daily. 5. 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 Patient is continued on prednisone 10 mg twice daily. 6. Bipolar disorder. Continue lithium 300 mg daily at bedtime. 7. History of pulmonary embolism right lower lobe branch. Continue Xarelto 20 mg daily. 8. L1 fracture and old T6 fracture. 9. Anemia of chronic disease. Continue patient on iron 325 milligrams orally once every day. 10. DVT prophylaxis. Continue patient on Xarelto. 11. GI prophylaxis. Continue patient on Protonix 40 mg once every day. 12. Physical therapy evaluation. 13. Patient is full code. DISCHARGE PLAN Home with [facility] over weekend Impression and plan of care have been directed as dictated by the signing physician. Caity Miles nurse practitioner acting as scribe for signing physician. Objective - Vital Signs Vital signs: Vital Signs Temp 97.8 F 06/20/22 04:38 Pulse 56 L 06/20/22 08:41 Resp 16 06/20/22 04:38 BP 180/77 06/20/22 08:41 Pulse Ox 99 06/20/22 08:41 FiO2 Intake & Output 06/19/22 06/20/22 06/20/22 18:59 06:59 18:59 Intake Total 1150 Output Total 1505 800 700 Balance -355 -800 -700 Intake: IV 1150 Ampicillin-Sulbactam 3 gm 100 In Sodium Chloride 0.9% 100 ml @ 200 mls/hr IVPB Q6HR [facility] Rx#:[id number] Output: Urine 1500 800 700 Estimated Blood Loss 5 Other: Voiding Method Diaper Diaper Diaper External Catheter Incontinent Incontinent External Catheter External Catheter - Labs CBC & Chem 7: 06/19/22 06:41 06/19/22 06:41 Labs: Abnormal Lab Results - Last 24 Hours (Table) 06/19/22 06/19/22 06/19/22 Range/Units 06:41 06:41 14:12 RBC 2.87 L (4.10-5.20) X 10*6/uL Hgb 8.8 L (12.0-15.0) g/dL Hct 28.0 L (37.2-46.3) % MCV 97.6 H (80.0-97.0) fL MCHC 31.4 L (32.0-37.0) g/dL RDW 15.9 H (11.5-14.5) % MPV 8.9 L (9.5-12.2) fL Immature Gran # 0.05 H (0.00-0.04) X 10*3/uL Eosinophils # 0 L (0.04-0.35) X 10*3/uL Sodium 147 H (135-145) mmol/L Chloride 114 H (96-109) mmol/L Anion Gap 9.50 L (10.00-18.00) mmol/L POC Glucose (mg/dL) 64 L (70-110) mg/dL 06/19/22 Range/Units 20:40 RBC (4.10-5.20) X 10*6/uL Hgb (12.0-15.0) g/dL Hct (37.2-46.3) % MCV (80.0-97.0) fL MCHC (32.0-37.0) g/dL RDW (11.5-14.5) % MPV (9.5-12.2) fL Immature Gran # (0.00-0.04) X 10*3/uL Eosinophils # (0.04-0.35) X 10*3/uL Sodium (135-145) mmol/L Chloride (96-109) mmol/L Anion Gap (10.00-18.00) mmol/L POC Glucose (mg/dL) 159 H (70-110) mg/dL Microbiology - Last 24 Hours (Table) 06/15/22 09:00 Blood Culture - Preliminary Blood No Growth after 96 hours 06/15/22 09:15 Blood Culture - Preliminary Blood No Growth after 96 hours
[2022-06-20 11:21] LABS: Glucose,Whole Blood 123 mg/dL (70-110)
--- NOTE | 2022-06-20 12:30 | P.PN ---
Subjective Progress Note Date: 06/20/22 CHIEF COMPLAINT: Chronic cholecystitis HISTORY OF PRESENT ILLNESS: Patient postop #1 status post laparoscopic cholecystectomy. She is complaining abdominal pain mostly at the epigastric incisional site. Patient did require extra sutures to be placed at the incision site per Dr. Bernstein. She did have some nausea. Blood pressure has been elevated. Medicine service is adjusting pain meds and blood pressure meds. Afebrile. Glucose 123. Patient requesting advancement of diet. She is sick of clear liquids PHYSICAL EXAM: VITAL SIGNS: Reviewed. GENERAL: Well-developed in no acute distress. HEENT: No sclera icterus. Extraocular movements grossly intact. Moist buccal mucosa. Head is atraumatic, normocephalic. ABDOMEN: Soft. Nondistended. Incision sites clean dry and intact. Incision site in the epigastric region with ecchymosis. No drainage. NEUROLOGIC: Alert and oriented. Cranial nerves II through XII grossly intact. ASSESSMENT: 1. Chronic cholecystitis status post laparoscopic cholecystectomy PLAN: -Advance diet to low-fat -Continue current pain medication -Encouraged patient to increase activity level -Okay to resume Xarelto tomorrow 06/21/2022 from surgical standpoint -Discontinue IV fluids Physician Manager Interventional note has been reviewed by physician. Signing provider agrees with the documented findings, assessment, and plan of care. I have personally seen and examined the patient, reviewed the [employer] /PAs history, exam and MDM and agree with the assessment and plan as written. Based on total visit time, I have performed more than 50% of the visit. As above: Patient complaining of mild abdominal pain. She is tolerating her diet. No nausea or vomiting. Abdomen soft, nondistended, incisions clean and dry, mild tenderness. Continue gradually advancing diet. Objective - Vital Signs Vital signs: Vital Signs Temp 98.3 F 06/20/22 11:22 Pulse 66 06/20/22 11:22 Resp 16 06/20/22 11:22 BP 125/66 06/20/22 11:22 Pulse Ox 94 L 06/20/22 11:22 FiO2 Intake & Output 06/19/22 06/20/22 06/20/22 18:59 06:59 18:59 Intake Total 1150 Output Total 1505 800 700 Balance -355 -800 -700 Intake: IV 1150 Ampicillin-Sulbactam 3 gm 100 In Sodium Chloride 0.9% 100 ml @ 200 mls/hr IVPB Q6HR [facility] Rx#:[id number] Output: Urine 1500 800 700 Estimated Blood Loss 5 Other: Voiding Method Diaper Diaper Diaper External Catheter Incontinent Incontinent External Catheter External Catheter - Labs CBC & Chem 7: 06/19/22 06:41 06/19/22 06:41 Labs: Abnormal Lab Results - Last 24 Hours (Table) 06/19/22 06/19/22 06/20/22 Range/Units 14:12 20:40 11:19 POC Glucose (mg/dL) 64 L 159 H 123 H (70-110) mg/dL Microbiology - Last 24 Hours (Table) 06/15/22 09:15 Blood Culture - Preliminary Blood No Growth after 120 hours 06/15/22 09:00 Blood Culture - Preliminary Blood No Growth after 120 hours
[2022-06-20 17:11] LABS: Glucose,Whole Blood 149 mg/dL (70-110)
[2022-06-20] MEDS: FERROUS SULFATE 325 MG TAB PO SCH (17:22)
[2022-06-20 20:39] LABS: Glucose,Whole Blood 126 mg/dL (70-110)
[2022-06-20] MEDS: LITHIUM CARBONATE 300 MG CAP PO SCH (22:48)
[2022-06-20] MEDS: LATANOPROST 0.005% OPHTH DROPS 2.5 ML BTL BOTH EYES SCH (23:03)
[2022-06-21] MEDS: AMPICILLIN-SULBACTAM 3 GM in SODIUM CHLORIDE 0.9% 100 ML IVPB SCH ×5 (00:22→23:42)
[2022-06-21] MEDS: hydrALAZINE HCL 20 MG/ML 1 ML VIAL IVP PRN (04:41)
[2022-06-21 07:17] LABS: Glucose,Whole Blood 107 mg/dL (70-110)
[2022-06-21 08:53] LABS: Basophils # (A) 0 X 10*3/uL (0.00-0.10); Basophils % (A) 0 %; Eosinophils # (A) 0.03 X 10*3/uL (0.04-0.35); Eosinophils % (A) 0.4 %; HCT 30.5 % (37.2-46.3); HGB 9.4 g/dL (12.0-15.0); Immature Grans, Automated 0.8 %; Lymphocytes # (A) 0.72 X 10*3/uL (0.90-5.00); Lymphocytes % (A) 9.8 %; MCH 30.7 pg (27.0-32.0); MCHC 30.8 g/dL (32.0-37.0); MCV 99.7 fL (80.0-97.0); Mean Platelet Volume 9.1 fL (9.5-12.2); Monocytes # (A) 0.32 X 10*3/uL (0.20-1.00); Monocytes % (A) 4.4 %; NRBC Per 100 WBC 0 /100 WBCS (0.0-0.0); Neutrophils % (A) 84.6 %; Platelet Count 238 X 10*3/uL (140-440); RBC 3.06 X 10*6/uL (4.10-5.20); RDW 16.2 % (11.5-14.5); WBC 7.33 X 10*3/uL (4.50-10.00)
[2022-06-21 09:04] LABS: African American GFR (CKD) 98.2 (60.0-200.0); Albumin/Globulin Ratio 1.43 (1.60-3.17); BUN/Creat Ratio 21.14 Ratio (12.00-20.00); Blood Urea Nitrogen 14.8 mg/dL (9.0-27.0); Calcium 9.1 mg/dL (8.7-10.3); Globulin 2.1 g/dL (1.6-3.3); Non-African American GFR(CKD) 84.8 (60.0-200.0); Potassium 3.7 mmol/L (3.5-5.5); Total Bilirubin 0.3 mg/dL (0.30-1.20); Total Protein 5.1 g/dL (6.2-8.2)
--- NOTE | 2022-06-21 09:12 | P.PN ---
Progress Note - Text Progress Note Date: 06/21/22 Patient states she feels better. On exam vital signs are stable. Abdomen soft. Incision sites clean and intact. Status post laparoscopic close it. Patiently discharged home per the medical service. She'll follow-up Dr. Law next week.
--- NOTE | 2022-06-21 10:28 | P.PN ---
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 Patient presented to [facility] emergency center due to generalized weakness and confusion, increasing fatigue and increasing sleep. CAT scan of the brain was negative. Chest x-ray showed no acute cardiopulmonary process. WBC was 10.7, temperature max 99.8. COVID testing was negative. Patient had vague abdominal discomfort without nausea or vomiting however did have some black tarry stools for a few days. Patient was admitted to the [facility] floor and has been seen by general surgery, Dr. Law. CAT scan of the abdomen revealed L1 compression fracture, dilated gallbladder suggestive of cholecystitis or gallbladder dysfunction, scarring atelectasis at lung bases. Ultrasound to rule out cholecystitis was ordered which revealed sludge without gallstones and HIDA scan was ordered Patient was also seen by neurology for mental status changes thought to be acute delirium cause uncertain but entertained possibility of excessive amount of pain medications, dehydration. Patient is currently on prednisone 10 mg twice daily. 06/18: Patient remains afebrile, heart rate 74, blood pressure 185/81, pulse ox 91% on room air. Repeat blood work reveals WBC 5.4, hemoglobin 10.1, platelet count 281. Sodium 144, potassium 3.3, chloride 115, CO2 21, BUN 10 and creatinine 0.68. Blood sugar 73. Capillary blood glucose running between 79 and 162. Blood culture is no growth at 72 hours. HIDA scan revealed no cystic or CBD duct obstruction. Normal study. Dr. Law will discuss results of HIDA scan, Xarelto is on hold. Plan is for lap ayana for tomorrow. She complains of mid abd pain and nausea and vomiting improved with Zofran. 06/19: Patient is continued on Unasyn, scheduled for lap cholecystectomy this afternoon. Patient has been afebrile, heart rate 66, blood pressure 177/80, pulse ox 90-91% on room air. 06/20: Patient is status post O scopic cholecystectomy done yesterday by Dr. Law. Pathology report is pending. She does have significant pain today at the mid abdomen area in the same area as preoperatively, she states it's more severe then prior to surgery. Patient has multiple laparoscopic surgical wounds all glued and show no signs of infection or drainage. Patient states she has decreased appetite. She had clear liquid diet this morning and tolerated wi thout nausea or vomiting. Blood pressure is extremely high this morning and Toprol-XL added as well as hydralazine IV as needed. Dilaudid increased to 1 mg in frequency increased to every 3 hours. Patient is also followed by infectious disease and continued on Unasyn. PT has recommended subacute rehab but the patient states that she wishes to go home and has everything in place to manage sufficiently. Anticipate probable discharge to home over the weekend. 06/21: Patient sitting up in bed she is a bit short of breath today, she is currently on 2 L nasal cannula, we will obtain a chest x-ray this point in time, we'll give the patient 20 mg of Lasix IV push 1, we will continue to monitor the patient over the next 24 hours, if she continues to require oxygen she has to stay in the hospital for Thursday otherwise she can be discharged home tomorrow morning with home health care REVIEW OF SYSTEMS: Constitutional: No documented fever, no chills, no night sweats. No weight change. Noted weakness, fatigue or lethargy. Noted daytime sleepiness. HEENT: No headache. No blurred vision or double vision, no loss of vision. hard of Hearing, no ringing in the ears, no dizziness. No nasal drainage or congestion. No epistaxis. No sore throat. Lungs: No shortness of breath, no cough, no sputum production. No wheezing. Reports dyspnea with activity. Cardiovascular: no chest pain, no lower extremity edema. No palpitations. No paroxysmal nocturnal dyspnea. No orthopnea. No lightheadedness or dizziness. No syncopal episodes. Abdominal: Reports abdominal pain. Denies nausea, vomiting. No diarrhea. No constipation. No bloody or tarry stools. Reports loss of appetite. Genitourinary: No dysuria, increased frequency, urgency. No urinary retention. Musculoskeletal: positive for myalgias. positive for muscle weakness, positive for gait dysfunction, positive for frequent falls. positive for back pain and neck pain. Integumentary: No wounds, no lesions. No rash or pruritus. No unusual bruising. No change in hair or nails. Neurologic: No aphasia. No facial droop. No change in mentation. No head injury. No headache. No paralysis. No paresthesia. Psychiatric: positive for depression, anxiety, mood swings Endocrine: No abnormal blood sugars. No weight change. PHYSICAL EXAMINATION: General: 77-year-old female laying down in bed in no acute distress HEENT: Head is atraumatic, normocephalic, pupils were equal round reactive to light and recommendation, extraocular muscle movement were intact, sclera nonicteric, conjunctivae were pale, mucous membranes of the mouth are somewhat dry. Neck: Supple, no JVP, normal carotid upstroke bilaterally, no lymphadenopathy. Chest: Decreased breath sounds at the bases, few rhonchi, no expiratory wheezes, no chest wall tenderness, no intercostal retractions. Heart: First heart sound is normal, second heart sound is normal there is systolic ejection murmur located at the left sternal border. Abdomen: Soft, mild tenderness to the mid abdomen, no rebound or guarding positive bowel sounds. Surgical sites are glued with no sign of drainage, significant erythema. Extremities: There is no edema no calf tenderness DP +2 bilaterally. Neurologic examination: Patient is awake alert and oriented x3, cranial nerves II-12 appear grossly intact, muscle power were 5 out of 5 in upper extremities and 5 out of 5 in bilateral lower extremities, deep tendon reflexes normal bilaterally. ASSESSMENT AND PLAN: 1. Acute hypoxemic respiratory insufficiency requiring 2 L nasal cannula likely related to fluid overload. Discontinue IV fluid computed give the patient Lasix 20 mg IV push 1, chest x-ray, continue incentive spirometer, continue oxygen, follow-up with the patient over the next 24 hours. 2. Acute metabolic encephalopathy most likely secondary to sepsis, possible acute cholecystitis s/p laparoscopic cholecystectomy 06/19. Consult with Gen. surgery appreciated. Xarelto will be resumed once cleared by surgery 3. Acute cholecystitis. Patient continued on IV antibiotics the form of Unasy n, consult with Dr. Contreras appreciated. 4. Hypertension. Continue patient on Losartan 50 mg twice daily, Toprol-XL 50 mg daily, hydralazine 20 mg IV push every 4 hours as needed for systolic blood p ressure greater than 160 or diastolic blood pressure greater than 90, continue to monitor blood pressure closely. 5. 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 Continue patient on anticoagulation with Xarelto 20 mg daily. 6. 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 Patient is continued on prednisone 10 mg twice daily. 7. Bipolar disorder. Continue lithium 300 mg daily at bedtime. 8. History of pulmonary embolism right lower lobe branch. Continue Xarelto 20 mg daily. 9. L1 fracture and old T6 fracture. 10. Anemia of chronic disease. Continue patient on iron 325 milligrams orally once every day. 11. DVT prophylaxis. Continue patient on Xarelto. 12. GI prophylaxis. Continue patient on Protonix 40 mg once every day. 13. Physical therapy evaluation.. Patient is full code. DISCHARGE PLAN Home with [facility] hopefully tomorrow morning. Objective - Vital Signs Vital signs: Vital Signs Temp 98.1 F 06/21/22 04:28 Pulse 59 L 06/21/22 04:28 Resp 15 06/21/22 04:28 BP 143/74 06/21/22 07:24 Pulse Ox 93 L 06/21/22 04:28 FiO2 Intake & Output 06/20/22 06/21/22 06/21/22 18:59 06:59 18:59 Intake Total 100 Output Total 1400 1000 Balance -1300 -1000 Intake: IV 100 Ampicillin-Sulbactam 3 gm 100 In Sodium Chloride 0.9% 100 ml @ 200 mls/hr IVPB Q6HR [facility] Rx#:[id number] Output: Urine 1400 1000 Other: Voiding Method Diaper Diaper Incontinent External Catheter External Catheter - Labs CBC & Chem 7: 06/21/22 05:31 06/21/22 05:25 Labs: Abnormal Lab Results - Last 24 Hours (Table) 06/20/22 06/20/22 06/20/22 Range/Units 11:19 17:08 20:37 RBC (4.10-5.20) X 10*6/uL Hgb (12.0-15.0) g/dL Hct (37.2-46.3) % MCV (80.0-97.0) fL MCHC (32.0-37.0) g/dL RDW (11.5-14.5) % MPV (9.5-12.2) fL Immature Gran # (0.00-0.04) X 10*3/uL Lymphocytes # (0.90-5.00) X 10*3/uL Eosinophils # (0.04-0.35) X 10*3/uL Chloride (96-109) mmol/L Anion Gap (10.00-18.00) mmol/L BUN/Creatinine Ratio (12.00-20.00) Ratio Glucose (70-110) mg/dL POC Glucose (mg/dL) 123 H 149 H 126 H (70-110) mg/dL Total Protein (6.2-8.2) g/dL Albumin (3.8-4.9) g/dL Albumin/Globulin Ratio (1.60-3.17) g/dL 06/21/22 06/21/22 Range/Units 05:25 05:31 RBC 3.06 L (4.10-5.20) X 10*6/uL Hgb 9.4 L (12.0-15.0) g/dL Hct 30.5 L (37.2-46.3) % MCV 99.7 H (80.0-97.0) fL MCHC 30.8 L (32.0-37.0) g/dL RDW 16.2 H (11.5-14.5) % MPV 9.1 L (9.5-12.2) fL Immature Gran # 0.06 H (0.00-0.04) X 10*3/uL Lymphocytes # 0.72 L (0.90-5.00) X 10*3/uL Eosinophils # 0.03 L (0.04-0.35) X 10*3/uL Chloride 112 H (96-109) mmol/L Anion Gap 8.00 L (10.00-18.00) mmol/L BUN/Creatinine Ratio 21.14 H (12.00-20.00) Ratio Glucose 113 H (70-110) mg/dL POC Glucose (mg/dL) (70-110) mg/dL Total Protein 5.1 L (6.2-8.2) g/dL Albumin 3.0 L (3.8-4.9) g/dL Albumin/Globulin Ratio 1.43 L (1.60-3.17) g/dL Microbiology - Last 24 Hours (Table) 06/15/22 09:15 Blood Culture - Preliminary Blood No Growth after 120 hours 06/15/22 09:00 Blood Culture - Preliminary Blood No Growth after 120 hours
[2022-06-21] MEDS ORDERED: FUROSEMIDE 10 MG/ML 2 ML VIAL IV ONE (10:45)
[2022-06-21] MEDS: clonazePAM 0.5 MG TAB PO SCH ×2 (10:47→20:45)
[2022-06-21] MEDS: LOSARTAN 50 MG TAB PO SCH ×2 (10:47→20:46)
[2022-06-21] MEDS: ESCITALOPRAM 10 MG TAB PO SCH (10:47)
[2022-06-21] MEDS: DAPAGLIFLOZIN PROPANEDIOL 10 MG PO SCH (10:47)
[2022-06-21] MEDS: ASPIRIN 81 MG PO SCH (10:47)
[2022-06-21] MEDS: VIT A,C & E-LUTEIN-MINERALS 1 EACH TAB PO SCH ×2 (10:48→10:58)
[2022-06-21] MEDS: predniSONE 10 MG TAB PO SCH ×2 (10:48→20:46)
[2022-06-21] MEDS: TAMSULOSIN 0.4 MG CAP.ER.24H PO SCH ×2 (10:48→10:58)
[2022-06-21] MEDS: METOPROLOL SUCCINATE (ER) 50 MG TAB.ER.24H PO SCH (10:48)
[2022-06-21] MEDS: PANTOPRAZOLE 40 MG TABLET PO SCH (10:48)
--- NOTE | 2022-06-21 11:01 | XR ---
EXAMINATION TYPE: XR chest 1V DATE OF EXAM: 06/21/2022 10:47 AM COMPARISON: Chest radiographs from 06/15/2022. TECHNIQUE: XR chest 1V Portable AP radiograph of the chest. CLINICAL INDICATION:Female, 77 years old with history of SOB; FINDINGS: Lungs/Pleura: Bibasilar atelectasis. No evidence for pneumothorax pleural effusion or focal consolida tion. Pulmonary vascularity: Unremarkable. Heart/mediastinum: Cardiomediastinal silhouette is enlarged and stable. Musculoskeletal: No acute osseous pathology. IMPRESSION: No acute cardiopulmonary disease/process.
[2022-06-21 11:26] LABS: Glucose,Whole Blood 141 mg/dL (70-110)
[2022-06-21 17:12] LABS: Glucose,Whole Blood 171 mg/dL (70-110)
[2022-06-21] MEDS ORDERED: RIVAROXABAN 20 MG TAB PO SCH (17:30)
[2022-06-21] MEDS: FERROUS SULFATE 325 MG TAB PO SCH (17:40)
[2022-06-21 20:25] LABS: Glucose,Whole Blood 188 mg/dL (70-110)
[2022-06-21] MEDS: LATANOPROST 0.005% OPHTH DROPS 2.5 ML BTL BOTH EYES SCH (20:45)
[2022-06-21] MEDS: LITHIUM CARBONATE 300 MG CAP PO SCH (20:46)
--- NOTE | 2022-06-22 00:50 | P.PN ---
Subjective Progress Note Date: 06/20/22 Principal diagnosis: Fever and leukocytosis Patient is a 77-year-old female presenting to the hospital with generalized weakness Some vomiting in this patient with evidence of a low-grade fever, patient did have a CT of abdominal problems that had been suggestive dilated gallbladder concerning for cholecystitis. Ultrasound shows distended gallbladder however HIDA scan came back negative On today's evaluation that is 06/20/2022, patient remains to be afebrile, the p atient is breathing comfortably on room air, patient still complaining of some abdominal discomfort or nausea and vomiting no chest pain shortness of breath or cough Objective - Vital Signs Vital signs: Vital Signs Temp 98.3 F 06/20/22 11:22 Pulse 66 06/20/22 11:22 Resp 16 06/20/22 11:22 BP 125/66 06/20/22 11:22 Pulse Ox 94 L 06/20/22 11:22 FiO2 Intake & Output 06/19/22 06/20/22 06/20/22 18:59 06:59 18:59 Intake Total 1150 Output Total 1505 800 700 Balance -355 -800 -700 Intake: IV 1150 Ampicillin-Sulbactam 3 gm 100 In Sodium Chloride 0.9% 100 ml @ 200 mls/hr IVPB Q6HR [facility] Rx#:[id number] Output: Urine 1500 800 700 Estimated Blood Loss 5 Other: Voiding Method Diaper Diaper Diaper External Catheter Incontinent Incontinent External Catheter External Catheter - Exam GENERAL DESCRIPTION: An elderly female lying in bed in no distress RESPIRATORY SYSTEM: Unlabored breathing , decreased breath sounds at bases HEART: S1 S2 regular rate and rhythm , ABDOMEN: Soft , no tenderness EXTREMITIES: No edema feet - Labs CBC & Chem 7: 06/21/22 05:31 06/21/22 05:25 Labs: Abnormal Lab Results - Last 24 Hours (Table) 06/19/22 06/19/22 06/20/22 Range/Units 14:12 20:40 11:19 POC Glucose (mg/dL) 64 L 159 H 123 H (70-110) mg/dL Microbiology - Last 24 Hours (Table) 06/15/22 09:15 Blood Culture - Preliminary Blood No Growth after 120 hours 06/15/22 09:00 Blood Culture - Preliminary Blood No Growth after 120 hours Assessment and Plan (1) Fever of unknown origin Current Visit: Yes Status: Acute Code(s): R50.9 - FEVER, UNSPECIFIED SNOMED Code(s): 7125489 Plan: 1patient presented to hospital with a fever in this patient also having some abdominal symptoms of pain and black stools likely abdominal etiology as the patient did have a negative UA chest x-ray was negative no evidence of any cellulitis or joint swelling. 2 CT of abdominal pelvis has been suggestive of cholecystitis , patient did have subsequently ultrasound followed by HIDA scan and patient is status post cholecystectomy completed on 06/29/2022 3patient fever resolved, white count has normalized and culture has been negative 4patient is will continue with Unasyn and monitor clinical course closely Time with Patient: Less than 30
--- NOTE | 2022-06-22 00:52 | P.PN ---
Subjective Progress Note Date: 06/21/22 Principal diagnosis: Fever and leukocytosis Patient is a 77-year-old female presenting to the hospital with generalized weakness Some vomiting in this patient with evidence of a low-grade fever, patient did have a CT of abdominal problems that had been suggestive dilated gallbladder concerning for cholecystitis. Ultrasound shows distended gallbladder however HIDA scan came back negative On today's evaluation that is 06/21/2022, patient continues to be afebrile, the patient is breathing comfortably on room air, patient abdominal discomfort has decreased in intensity, some nausea but no vomiting no diarrhea no chest pain shortness of breath and no cough Objective - Vital Signs Vital signs: Vital Signs Temp 98.3 F 06/21/22 11:58 Pulse 61 06/21/22 11:58 Resp 18 06/21/22 11:58 BP 143/70 06/21/22 11:58 Pulse Ox 100 06/21/22 11:58 FiO2 Intake & Output 06/20/22 06/21/22 06/21/22 18:59 06:59 18:59 Intake Total 100 Output Total 1400 1000 750 Balance -1300 -1000 -750 Intake: IV 100 Ampicillin-Sulbactam 3 gm 100 In Sodium Chloride 0.9% 100 ml @ 200 mls/hr IVPB Q6HR [facility] Rx#:[id number] Output: Urine 1400 1000 750 Other: Voiding Method Diaper Diaper Diaper Incontinent External Catheter External Catheter External Catheter - Exam GENERAL DESCRIPTION: An elderly female lying in bed in no distress RESPIRATORY SYSTEM: Unlabored breathing , decreased breath sounds at bases HEART: S1 S2 regular rate and rhythm , ABDOMEN: Soft , no tenderness EXTREMITIES: No edema feet - Labs CBC & Chem 7: 06/21/22 05:31 06/21/22 05:25 Labs: Abnormal Lab Results - Last 24 Hours (Table) 06/20/22 06/20/22 06/21/22 Range/Units 17:08 20:37 05:25 RBC (4.10-5.20) X 10*6/uL Hgb (12.0-15.0) g/dL Hct (37.2-46.3) % MCV (80.0-97.0) fL MCHC (32.0-37.0) g/dL RDW (11.5-14.5) % MPV (9.5-12.2) fL Immature Gran # (0.00-0.04) X 10*3/uL Lymphocytes # (0.90-5.00) X 10*3/uL Eosinophils # (0.04-0.35) X 10*3/uL Chloride 112 H (96-109) mmol/L Anion Gap 8.00 L (10.00-18.00) mmol/L BUN/Creatinine Ratio 21.14 H (12.00-20.00) Ratio Glucose 113 H (70-110) mg/dL POC Glucose (mg/dL) 149 H 126 H (70-110) mg/dL Total Protein 5.1 L (6.2-8.2) g/dL Albumin 3.0 L (3.8-4.9) g/dL Albumin/Globulin Ratio 1.43 L (1.60-3.17) g/dL 06/21/22 06/21/22 Range/Units 05:31 11:24 RBC 3.06 L (4.10-5.20) X 10*6/uL Hgb 9.4 L (12.0-15.0) g/dL Hct 30.5 L (37.2-46.3) % MCV 99.7 H (80.0-97.0) fL MCHC 30.8 L (32.0-37.0) g/dL RDW 16.2 H (11.5-14.5) % MPV 9.1 L (9.5-12.2) fL Immature Gran # 0.06 H (0.00-0.04) X 10*3/uL Lymphocytes # 0.72 L (0.90-5.00) X 10*3/uL Eosinophils # 0.03 L (0.04-0.35) X 10*3/uL Chloride (96-109) mmol/L Anion Gap (10.00-18.00) mmol/L BUN/Creatinine Ratio (12.00-20.00) Ratio Glucose (70-110) mg/dL POC Glucose (mg/dL) 141 H (70-110) mg/dL Total Protein (6.2-8.2) g/dL Albumin (3.8-4.9) g/dL Albumin/Globulin Ratio (1.60-3.17) g/dL Microbiology - Last 24 Hours (Table) 06/15/22 09:00 Blood Culture - Final Blood No Growth after 144 hours 06/15/22 09:15 Blood Culture - Final Blood No Growth after 144 hours Assessment and Plan (1) Fever of unknown origin Current Visit: Yes Status: Acute Code(s): R50.9 - FEVER, UNSPECIFIED SNOMED Code(s): 5564972 Plan: 1patient presented to hospital with a fever in this patient also having some abdominal symptoms of pain and black stools likely abdominal etiology as the patient did have a negative UA chest x-ray was negative no evidence of any cellulitis or joint swelling. 2 CT of abdominal pelvis has been suggestive of cholecystitis , patient did have subsequently ultrasound followed by HIDA scan and patient is status post cholecystectomy completed on 06/29/2022 3patient fever resolved, white count has normalized and culture has been negative 4patient seemed clinical improvement will continue with Unasyn and plan to finish therapy with oral antibiotics Time with Patient: Less than 30
[2022-06-22 04:22] VITALS: RESP 18
[2022-06-22] MEDS: AMPICILLIN-SULBACTAM 3 GM in SODIUM CHLORIDE 0.9% 100 ML IVPB SCH (05:35)
[2022-06-22 07:07] LABS: Glucose,Whole Blood 113 mg/dL (70-110)
[2022-06-22 07:54] LABS: ALT 20 U/L (4-34); AST 20 U/L (14-36); African American GFR (CKD) >90 (>60 ml/min/1.73 sqM); Albumin 2.7 g/dL (3.5-5.0); Albumin/Globulin Ratio 1.1; Alkaline Phosphatase 65 U/L (38-126); Anion Gap 5 mmol/L; Blood Urea Nitrogen 16 mg/dL (7-17); Carbon Dioxide 26 mmol/L (22-30); Chloride 110 mmol/L (98-107); Globulin 2.4 g/dL; Glucose 112 mg/dL (74-99); Non-African American GFR(CKD) 83 (>60 ml/min/1.73 sqM); Sodium 141 mmol/L (137-145); Total Bilirubin 0.5 mg/dL (0.2-1.3); Total Protein 5.1 g/dL (6.3-8.2)
[2022-06-22] MEDS: DAPAGLIFLOZIN PROPANEDIOL 10 MG PO SCH (08:01)
[2022-06-22] MEDS: predniSONE 10 MG TAB PO SCH (08:14)
[2022-06-22] MEDS: ESCITALOPRAM 10 MG TAB PO SCH (08:14)
[2022-06-22] MEDS: ASPIRIN 81 MG PO SCH (08:14)
[2022-06-22] MEDS: PANTOPRAZOLE 40 MG TABLET PO SCH (08:14)
[2022-06-22] MEDS: clonazePAM 0.5 MG TAB PO SCH (08:14)
[2022-06-22] MEDS: METOPROLOL SUCCINATE (ER) 50 MG TAB.ER.24H PO SCH (08:15)
[2022-06-22] MEDS: LOSARTAN 50 MG TAB PO SCH (08:15)
--- NOTE | 2022-06-22 10:40 | P.DS ---
Providers Date of admission: 06/17/22 11:09 Expected date of discharge: 06/22/22 Attending physician: David Verduzco Consults: 06/15/22 14:18 Consult Physician Routine Consulting Provider: Lj Paul Consult Reason/Comments: AMs Do you want consulting provider notified?: Yes Consult Physician Routine Consulting Provider: Mariza Contreras Consult Reason/Comments: Leukocytosis 06/15/22 23:20 Consult Physician Routine Consulting Provider: Johan Law Consult Reason/Comments: cholecystitis Do you want consulting provider notified?: Yes Primary care physician: David Verduzco Hospital Course: HISTORY OF PRESENT ILLNESS: This is a 77-year-old female with a previous medical history significant for 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 Patient presented to [facility] emergency center due to generalized weakness and confusion, increasing fatigue and increasing sleep. CAT scan of the brain was negative. Chest x-ray showed no acute cardiopulmonary process. WBC was 10.7, temperature max 99.8. COVID testing was negative. Patient had vague abdominal discomfort without nausea or vomiting however did have some black tarry stools for a few days. Patient was admitted to the [facility] floor and has been seen by general surgery, Dr. Law. CAT scan of the abdomen revealed L1 compression fracture, dilated gallbladder suggestive of cholecystitis or gallbladder dysfunction, scarring atelectasis at lung bases. Ultrasound to rule out cholecystitis was ordered which revealed sludge without gallstones and HIDA scan was ordered Patient was also seen by neurology for mental status changes thought to be acute delirium cause uncertain but entertained possibility of excessive amount of pain medications, dehydration. Patient is currently on prednisone 10 mg twice daily. 06/18: Patient remains afebrile, heart rate 74, blood pressure 185/81, pulse ox 91% on room air. Repeat blood work reveals WBC 5.4, hemoglobin 10.1, platelet count 281. Sodium 144, potassium 3.3, chloride 115, CO2 21, BUN 10 and creatinine 0.68. Blood sugar 73. Capillary blood glucose running between 79 and 162. Blood culture is no growth at 72 hours. HIDA scan revealed no cystic or CBD duct obstruction. Normal study. Dr. Law will discuss results of HIDA scan, Xarelto is on hold. Plan is for lap debra for tomorrow. She complains of mid abd pain and nausea and vomiting improved with Zofran. 06/19: Patient is continued on Unasyn, scheduled for lap cholecystectomy this afternoon. Patient has been afebrile, heart rate 66, blood pressure 177/80, pulse ox 90-91% on room air. 06/20: Patient is status post O scopic cholecystectomy done yesterday by Dr. Law. Pathology report is pending. She does have significant pain today at the mid abdomen area in the same area as preoperatively, she states it's more severe then prior to surgery. Patient has multiple laparoscopic surgical wounds all glued and show no signs of infection or drainage. Patient states she has decreased appetite. She had clear liquid diet this morning and tolerated without nausea or vomiting. Blood pressure is extremely high this morning and Toprol-XL added as well as hydralazine IV as needed. Dilaudid increased to 1 mg in frequency increased to every 3 hours. Patient is also followed by infectious disease and continued on Unasyn. PT has recommended subacute rehab but the patient states that she wishes to go home and has everything in place to manage sufficiently. Anticipate probable discharge to home over the weekend. 06/21: Patient sitting up in bed she is a bit short of breath today, she is currently on 2 L nasal cannula, we will obtain a chest x-ray this point in time, we'll give the patient 20 mg of Lasix IV push 1, we will continue to monitor the patient over the next 24 hours, if she continues to require oxygen she has to stay in the hospital for Thursday otherwise she can be discharged home tomorrow morning with home health care Discharge Diagnoses: 1. Acute hypoxemic respiratory insufficiency requiring 2 L nasal cannula likely related to fluid overload. 2. Acute metabolic encephalopathy most likely secondary to sepsis. 3. Acute cholecystitis post Lap-Debra 4. Hypertension and hypertensive cardiovascular disease. 5. Coagulation defect with history of pulmonary embolism, DVT, status post inferior vena cava filter placement and removal. 6. Inclusion body myositis 7. Bipolar disorder. 8. History of pulmonary embolism right lower lobe branch. 9. L1 fracture and old T6 fracture. 10. Anemia of chronic disease. Patient Condition at Discharge: Fair Plan - Discharge Summary New Discharge Prescriptions: No Action Rivaroxaban [Xarelto] 20 mg PO W/SUPPER Latanoprost Ophth [Xalatan 0.005%] 1 drops BOTH EYES HS Escitalopram [Lexapro] 10 mg PO DAILY Aspirin 81 mg PO DAILY Vit C/E/Zn/Coppr/Lutein/Zeaxan [Preservision Areds 2 Softgel] 1 cap PO DAILY [place] Carbonate 300 mg PO HS Omeprazole 40 mg PO DAILY Ferrous Gluconate 324 mg PO DAILY@1700 Ondansetron [Zofran] 4 mg PO Q8HR PRN PRN Reason: Nausea Brimonidine Tartrate/Timolol [Combigan 0.2%-0.5% Eye Drops] 1 drop BOTH EYES BID Dapagliflozin Propanediol [Farxiga] 10 mg PO DAILY clonazePAM [KlonoPIN] 0.5 mg PO BID #6 tab Losartan Potassium [Cozaar] 50 mg PO BID Tamsulosin [Flomax] 0.4 mg PO DAILY predniSONE 10 mg PO BID Discharge Medication List Aspirin 81 mg PO DAILY 06/01/15 [History] Escitalopram [Lexapro] 10 mg PO DAILY 06/01/15 [History] Latanoprost Ophth [Xalatan 0.005%] 1 drops BOTH EYES HS 06/01/15 [History] Rivaroxaban [Xarelto] 20 mg PO W/SUPPER 06/01/15 [History] Vit C/E/Zn/Coppr/Lutein/Zeaxan [Preservision Areds 2 Softgel] 1 cap PO DAILY 12/05/21 [History] [place] Carbonate 300 mg PO HS 03/04/22 [History] Omeprazole 40 mg PO DAILY 03/04/22 [History] Ferrous Gluconate 324 mg PO DAILY@1700 03/06/22 [History] clonazePAM [KlonoPIN] 0.5 mg PO BID #6 tab 03/14/22 [Rx] Brimonidine Tartrate/Timolol [Combigan 0.2%-0.5% Eye Drops] 1 drop BOTH EYES BID 05/27/22 [History] Dapagliflozin Propanediol [Farxiga] 10 mg PO DAILY 05/27/22 [History] Losartan Potassium [Cozaar] 50 mg PO BID 05/27/22 [History] Ondansetron [Zofran] 4 mg PO Q8HR PRN 05/27/22 [History] Tamsulosin [Flomax] 0.4 mg PO DAILY 05/27/22 [History] predniSONE 10 mg PO BID 06/15/22 [History] Follow up Appointment(s)/Referral(s): David Verduzco MD [Primary Care Provider] - 1-2 days
--- NOTE | 2022-06-22 10:41 | P.PN ---
Progress Note - Text Progress Note Date: 06/22/22 Patient remains stable. Her abdomen soft nontender Status post laparoscopic ostectomy. Patient will be discharged home per medical service
[2022-06-22 11:31] LABS: Glucose,Whole Blood 109 mg/dL (70-110)
[2022-06-22 11:39] LABS: Basophils # (A) 0.01 X 10*3/uL (0.00-0.10); Basophils % (A) 0.2 %; Eosinophils # (A) 0.01 X 10*3/uL (0.04-0.35); Eosinophils % (A) 0.2 %; HCT 28.5 % (37.2-46.3); HGB 8.8 g/dL (12.0-15.0); Immature Grans, Automated 0.8 %; Lymphocytes # (A) 1.08 X 10*3/uL (0.90-5.00); Lymphocytes % (A) 17.6 %; MCH 30.7 pg (27.0-32.0); MCHC 30.9 g/dL (32.0-37.0); MCV 99.3 fL (80.0-97.0); Mean Platelet Volume 9.3 fL (9.5-12.2); Monocytes # (A) 0.34 X 10*3/uL (0.20-1.00); Monocytes % (A) 5.6 %; NRBC Per 100 WBC 0 /100 WBCS (0.0-0.0); Neutrophils # (A) 4.63 X 10*3/uL (1.80-7.70); Neutrophils % (A) 75.6 %; Platelet Count 225 X 10*3/uL (140-440); RBC 2.87 X 10*6/uL (4.10-5.20); RDW 15.9 % (11.5-14.5); WBC 6.12 X 10*3/uL (4.50-10.00)
[2022-06-22 12:22] VITALS: BP 175/73; PULSE 55; TEMP 98.2
[2022-06-22] MEDS ORDERED: AMOXIC-POT CLAV 875-125MG 1 EACH TAB PO SCH (21:00)
--- NOTE | 2022-06-26 16:39 | P.PN ---
Subjective Progress Note Date: 06/17/22 Patient was seen for a follow-up. Patient is laying comfortably in the bed. Patient's was also present today. Patient complains of nausea but no vomiting. Patient has some abdominal pain. Patient states that Dr. Dalton is planning for laparoscopic cholecystectomy on , 06/19/2022. Patient says this feels better, not as confused. Denies any hallucinations. Patient states that sometimes she "doesn't click", says something and then loses train of thought. Denies any focal symptoms. Patient says that she does use cane a lot. Sometimes walker. Patient states her neuropathy is up to the knees, for last 10 years. Objective - Vital Signs Vital signs: Vital Signs Temp 97.9 F 06/17/22 12:09 Pulse 66 06/17/22 12:09 Resp 16 06/17/22 12:09 BP 160/79 06/17/22 12:09 Pulse Ox 91 L 06/17/22 12:09 FiO2 Intake & Output 06/17/22 06/17/22 06/18/22 06:59 18:59 06:59 Intake Total 1010 120 Balance 1010 120 Intake: Intake, IV Titration 1010 Amount Ampicillin-Sulbactam 3 gm 100 In Sodium Chloride 0.9% 100 ml @ 200 mls/hr IVPB Q6HR [facility] Rx#:[id number] Sodium Chloride 0.9% 1, 910 000 ml @ 130 mls/hr IV . Q7H42M [facility] Rx#:[id number] Oral 120 Other: Voiding Method Diaper Diaper External Catheter External Catheter # Voids 1 - Exam Patient is alert and awake in no distress. Speech and language functions are normal. Patient knows it is June 2022 and that she is in [place] in [facility]. She knows name of the current president. Cranial nerves are normal. Rest of the examination is unchanged. Please refer to examination from yesterday. - Labs CBC & Chem 7: 06/22/22 07:13 06/22/22 07:07 Labs: Abnormal Lab Results - Last 24 Hours (Table) 06/17/22 06/17/22 06/17/22 Range/Units 07:09 17:18 20:21 POC Glucose (mg/dL) 132 H 145 H 162 H (70-110) mg/dL Microbiology - Last 24 Hours (Table) 06/15/22 09:15 Blood Culture - Preliminary Blood No Growth after 48 hours 06/15/22 09:00 Blood Culture - Preliminary Blood No Growth after 48 hours Assessment and Plan Assessment: * Altered mental status, likely due to acute delirium. Exact cause is uncerta in, although multifactorial due to reasons mentioned below. Patient does not take excessive amount of pain medications. * Acute cholecystitis. * Macrocytic Anemia, with normal B12 and folate levels. * Transient transaminitis, now resolved. * Abnormal computed tomography scan abdomen and pelvis, with possible cholecystitis. * Diabetes, somewhat well controlled, last A1c 7.0 * Inclusion body myositis * History of L1 compression fracture. * Peripheral neuropathy * SSB antibodies positive. Rheumatoid factor positive. 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 Plan: * Patient was possibly dehydrated. Her mentation is improving. * Patient is scheduled for laparoscopic cholecystectomy on . * Treatment of anemia as per IM. * Re: [facility], patient follows up with [facility], and has an appointment with her neurologist on 07/01/2022. * Neurologically, no other workup indicated. Neurology will follow sporadically. * Neurology will sign off. Please reconsult if any concerns.
--- NOTE | 2022-06-27 13:16 | P.PN ---
Subjective Progress Note Date: 06/22/22 Principal diagnosis: Fever and leukocytosis Patient is a 77-year-old female presenting to the hospital with generalized weakness Some vomiting in this patient with evidence of a low-grade fever, patient did have a CT of abdominal problems that had been suggestive dilated gallbladder concerning for cholecystitis. Ultrasound shows distended gallbladder however HIDA scan came back negative On today's evaluation that is 06/22/2022, patient remains to be afebrile, the p atient is breathing comfortably on room air, patient abdominal pain has improved the patient denies any nausea or vomiting no diarrhea no chest pain shortness of breath and no cough Objective - Vital Signs Vital signs: Vital Signs Temp 98.2 F 06/22/22 11:32 Pulse 55 L 06/22/22 11:32 Resp 18 06/22/22 11:32 BP 175/73 06/22/22 11:32 Pulse Ox 90 L 06/22/22 11:32 FiO2 Intake & Output 06/21/22 06/22/22 06/22/22 18:59 06:59 18:59 Intake Total 360 Output Total 2550 600 1 Balance -2190 -600 -1 Intake: Oral 360 Output: Urine 2550 600 1 Other: Voiding Method Diaper Diaper Diaper External Catheter External Catheter External Catheter - Exam GENERAL DESCRIPTION: An elderly female lying in bed in no distress RESPIRATORY SYSTEM: Unlabored breathing , decreased breath sounds at bases HEART: S1 S2 regular rate and rhythm , ABDOMEN: Soft , no tenderness EXTREMITIES: No edema feet - Labs CBC & Chem 7: 06/22/22 07:13 06/22/22 07:07 Labs: Abnormal Lab Results - Last 24 Hours (Table) 06/21/22 06/21/22 06/22/22 Range/Units 17:11 20:23 07:06 RBC (4.10-5.20) X 10*6/uL Hgb (12.0-15.0) g/dL Hct (37.2-46.3) % MCV (80.0-97.0) fL MCHC (32.0-37.0) g/dL RDW (11.5-14.5) % MPV (9.5-12.2) fL Immature Gran # (0.00-0.04) X 10*3/uL Eosinophils # (0.04-0.35) X 10*3/uL Chloride (98-107) mmol/L Glucose (74-99) mg/dL POC Glucose (mg/dL) 171 H 188 H 113 H (70-110) mg/dL Total Protein (6.3-8.2) g/dL Albumin (3.5-5.0) g/dL 06/22/22 06/22/22 Range/Units 07:07 07:13 RBC 2.87 L (4.10-5.20) X 10*6/uL Hgb 8.8 L (12.0-15.0) g/dL Hct 28.5 L (37.2-46.3) % MCV 99.3 H (80.0-97.0) fL MCHC 30.9 L (32.0-37.0) g/dL RDW 15.9 H (11.5-14.5) % MPV 9.3 L (9.5-12.2) fL Immature Gran # 0.05 H (0.00-0.04) X 10*3/uL Eosinophils # 0.01 L (0.04-0.35) X 10*3/uL Chloride 110 H (98-107) mmol/L Glucose 112 H (74-99) mg/dL POC Glucose (mg/dL) (70-110) mg/dL Total Protein 5.1 L (6.3-8.2) g/dL Albumin 2.7 L (3.5-5.0) g/dL Microbiology - Last 24 Hours (Table) 06/15/22 09:00 Blood Culture - Final Blood No Growth after 144 hours 06/15/22 09:15 Blood Culture - Final Blood No Growth after 144 hours Assessment and Plan (1) Fever of unknown origin Status: Acute Code(s): R50.9 - FEVER, UNSPECIFIED SNOMED Code(s): 0456271 Plan: 1patient presented to hospital with a fever in this patient also having some abdominal symptoms of pain and black stools likely abdominal etiology as the patient did have a negative UA chest x-ray was negative no evidence of any cellulitis or joint swelling. 2 CT of abdominal pelvis has been suggestive of cholecystitis , patient did have subsequently ultrasound followed by HIDA scan and patient is status post cholecystectomy completed on 06/29/2022 3patient fever resolved, white count has normalized and culture has been negative 4patient seemed clinical improvement will continue with Unasyn, plan is to finish therapy with oral Augmentin and close outpatient follow-up Time with Patient: Less than 30
== END 2022-06-22 13:55 | disposition home health service (06) | DRG 853 ==
LOC: EC 06:33 → 6NMEDSUR 12:32 → 5NMEDONC 17:07 → OBSVTOIN 06-17 11:09
PROVIDERS: ADMIT Internal Medicine; ATTEND Internal Medicine
PROC: 0FT44ZZ Resection of Gallbladder, Percutaneous Endoscopic Approach (ICD-10-PCS; principal; 2022-06-19 07:30)
DX: A41.9 Sepsis, unspecified organism (principal); G93.41 Metabolic encephalopathy; K81.2 Acute cholecystitis with chronic cholecystitis; E87.1 Hypo-osmolality and hyponatremia; J98.11 Atelectasis; D68.9 Coagulation defect, unspecified; G72.41 Inclusion body myositis [IBM]; D63.8 Anemia in other chronic diseases classified elsewhere; H05.20 Unspecified exophthalmos; E11.42 Type 2 diabetes mellitus with diabetic polyneuropathy; F31.9 Bipolar disorder, unspecified; Z20.822 Contact with and (suspected) exposure to COVID-19; I11.9 Hypertensive heart disease without heart failure; J01.30 Acute sphenoidal sinusitis, unspecified; E87.70 Fluid overload, unspecified; E86.0 Dehydration; R09.02 Hypoxemia; E78.2 Mixed hyperlipidemia; D53.9 Nutritional anemia, unspecified; H35.30 Unspecified macular degeneration; H40.9 Unspecified glaucoma; S32.019D Unspecified fracture of first lumbar vertebra, subsequent encounter for fracture with routine healing; K21.00 Gastro-esophageal reflux disease with esophagitis, without bleeding; M54.9 Dorsalgia, unspecified; R25.1 Tremor, unspecified; R26.2 Difficulty in walking, not elsewhere classified; R21 Rash and other nonspecific skin eruption; R76.8 Other specified abnormal immunological findings in serum; R74.01 Elevation of levels of liver transaminase levels; R32 Unspecified urinary incontinence; Z79.82 Long term (current) use of aspirin; Z79.84 Long term (current) use of oral hypoglycemic drugs; Z79.01 Long term (current) use of anticoagulants; Z79.899 Other long term (current) drug therapy; Z87.440 Personal history of urinary (tract) infections; Z95.828 Presence of other vascular implants and grafts; Z99.3 Dependence on wheelchair; Z86.718 Personal history of other venous thrombosis and embolism; Z86.711 Personal history of pulmonary embolism; Z88.2 Allergy status to sulfonamides
CPT/HCPCS: 36415; 70450; 71045; 71046; 74177; 76705; 78226; 80048; 80053; 80178; 81003; 83605; 83735; 84145; 84443; 85025; 85027; 86140; 87040; 87635; 88304; 93005; 94760; 96361; 96374; 99285

== ENCOUNTER 2023-06-13 14:41 | Inpatient (IN) | payer MEDICARE, OTHER ==
[2023-06-13] MEDS ORDERED: SODIUM CHLORIDE 0.9% 1,000 ML IV STA ×3 (14:55→15:47)
[2023-06-13] MEDS ORDERED: VANCOMYCIN IV PER PHARMACY 1 EACH MISC MISCELLANE PRN (14:55)
[2023-06-13] MEDS ORDERED: ACETAMINOPHEN SUPPOSITORY 650 MG SUPP RECTAL STA (14:57)
[2023-06-13 15:11] LABS: ABG Base Excess 0.7 mmol/L; ABG HCO3 25 mmol/L (21-25); ABG Oxygen Saturation 97.1 % (94-97); ABG PCO2 37 mmHg (35-45); ABG PH 7.44 (7.35-7.45); ABG PO2 90 mmHg (83-108); ABG TCO2 26 mmol/L (19-24); Allen Test Performed? Yes
[2023-06-13 15:15] LABS: Basophils % (A) 0 %; Eosinophils % (A) 0 %; HCT 30.1 % (34.0-46.0); HGB 9.5 gm/dL (11.4-16.0); Lymphocytes # (A) 1.7 k/uL (1.0-4.8); Lymphocytes % (A) 27 %; MCHC 31.7 g/dL (31.0-37.0); MCV 94.7 fL (80.0-100.0); Monocytes # (A) 0.2 k/uL (0-1.0); Monocytes % (A) 3 %; Neutrophils # (A) 4.3 k/uL (1.3-7.7); Neutrophils % (A) 68 %; Platelet Count 499 k/uL (150-450); RBC 3.18 m/uL (3.80-5.40); RDW 14.6 % (11.5-15.5); WBC 6.4 k/uL (3.8-10.6)
[2023-06-13] MEDS ORDERED: CEFEPIME 2 GM in SODIUM CHLORIDE 0.9% 100 ML IVPB ONE (15:15)
[2023-06-13 15:27] LABS: INR 0.9 (<1.2); Prothrombin Time 9.4 sec (9.0-12.0)
[2023-06-13 15:28] LABS: Partial Thromboplastin Time 20.8 sec (22.0-30.0)
[2023-06-13 15:47] LABS: ALT 49 U/L (4-34); AST 87 U/L (14-36); African American GFR (CKD) 44 (>60 ml/min/1.73 sqM); Albumin 3.4 g/dL (3.5-5.0); Alkaline Phosphatase 112 U/L (38-126); Anion Gap 10 mmol/L; Calcium 8.9 mg/dL (8.4-10.2); Carbon Dioxide 24 mmol/L (22-30); Chloride 100 mmol/L (98-107); Glucose 174 mg/dL (74-99); Magnesium 4.5 mg/dL (1.6-2.3); Non-African American GFR(CKD) 38 (>60 ml/min/1.73 sqM); Sodium 134 mmol/L (137-145); Total Bilirubin 0.5 mg/dL (0.2-1.3); Total Protein 7.2 g/dL (6.3-8.2)
--- NOTE | 2023-06-13 15:48 | XR ---
EXAMINATION TYPE: XR chest 1V portable DATE OF EXAM: 06/13/2023 3:39 PM COMPARISON: Chest radiographs from 06/21/2022 TECHNIQUE: XR chest 1V portable Portable AP radiograph of the chest. CLINICAL INDICATION:Female, 78 years old with history of cough; FINDINGS: Lungs/Pleura: Small right pleural effusion with right basilar consolidation. Hyperinflation. No pneum othorax. Pulmonary vascularity: Unremarkable. Heart/mediastinum: Cardiomediastinal silhouette is unremarkable. Musculoskeletal: No acute osseous pathology. IMPRESSION: 1. Small right pleural effusion with right basilar consolidation concerning for pneumonia. 2. COPD changes.
[2023-06-13] MEDS ORDERED: VANCOMYCIN 1,500 MG in SODIUM CHLORIDE 0.9% 500 ML 500 ML IVPB ONE (16:00)
[2023-06-13] MEDS ORDERED: ACETAMINOPHEN IV (For NPO) 1,000 MG in EMPTY BAG 1 BAG IVPB ONE (16:00)
[2023-06-13 16:03] LABS: Potassium 7.6 mmol/L (3.5-5.1)
[2023-06-13 16:04] LABS: Blood Urea Nitrogen 124 mg/dL (7-17)
[2023-06-13] MEDS ORDERED: DEXTROSE 50% SYRINGE 50 ML IVP ONE ×2 (16:20→21:00)
[2023-06-13] MEDS ORDERED: SODIUM ZIRCONIUM CYCLOSILICATE 10 GM PACKET PO ONE ×2 (16:20→21:00)
[2023-06-13] MEDS ORDERED: SODIUM BICARB 8.4% 50 ML SYR (1 MEQ/ML) IV ONE ×2 (16:20→21:00)
[2023-06-13] MEDS ORDERED: INSULIN REGULAR 100 UNIT/ML VIAL (IV) IV ONE ×2 (16:20→21:00)
[2023-06-13] MEDS ORDERED: CALCIUM GLUCONATE IN NACL 1 GM in SALINE 1 100ML.BAG IVPB ONE ×2 (16:40→22:00)
[2023-06-13 16:46] LABS: Appearance,Urine Clear (Clear); Bilirubin,Urine Negative (Negative); Blood,Urine Negative (Negative); Color,Urine Light Yellow; Glucose,Urine (UA) Negative (Negative); Ketones,Urine Negative (Negative); Leukocyte Esterase,Urine Trace (Negative); Nitrite,Urine Negative (Negative); PH, Urine 7.5 (5.0-8.0); Protein,Urine Trace (Negative); RBC,Urine 3 /hpf (0-5); Specific Gravity,Urine 1.014 (1.001-1.035); Urobilinogen,Urine <2.0 mg/dL (<2.0); WBC,Urine 3 /hpf (0-5)
[2023-06-13] MEDS ORDERED: NALOXONE 0.4 MG/ML 1 ML VIAL IV PRN (16:54)
[2023-06-13] MEDS ORDERED: ONDANSETRON 4 MG/2 ML VIAL IVP PRN (16:54)
--- NOTE | 2023-06-13 17:00 | ED ---
General Adult HPI - General Chief complaint: Shortness of Breath Stated complaint: Low O2 Time Seen by Provider: 06/13/23 14:51 Source: family, EMS, RN notes reviewed, old records reviewed Mode of arrival: EMS Limitations: no limitations - History of Present Illness Initial comments: Patient is a 78-year-old female with past medical history remarkable for diabetes, recent cardiac stent, history of PEs on xeralto, who is no code presents emergency Department from her nursing facility [facility] for shortness of breath. She thinks she may have aspirated. Also noticed that she was febrile. Patient appears to be somewhat at her baseline alert and oriented 2. Patient has a feeding tube as well. Patient denies any chest pain to me. Does endorse coughing. No other acute complaints. Patient was initially hypoxic on nonrebreather to 86% with a poor waveform. She did have increased work of breathing was tachycardic and febrile upon arrival. Initially placed on BiPAP upon arrival. ABG was drawn as the pulse ox was unremarkable. Presents for further evaluation. - Related Data Home Medications Medication Instructions Recorded Confirmed Aspirin 81 mg PEG/G-TUBE DAILY 06/01/15 06/13/23 Escitalopram [Lexapro] 10 mg PEG/G-TUBE DAILY 06/01/15 06/13/23 Latanoprost Ophth [Xalatan 0.005%] 1 drops BOTH EYES HS 06/01/15 06/13/23 Rivaroxaban [Xarelto] 20 mg PEG/G-TUBE HS 06/01/15 06/13/23 Brimonidine Tartrate/Timolol 1 drop BOTH EYES BID 05/27/22 06/13/23 [Combigan 0.2%-0.5% Eye Drops] Losartan Potassium [Cozaar] 50 mg PEG/G-TUBE BID 05/27/22 06/13/23 Ondansetron [Zofran] 4 mg PEG/G-TUBE Q8HR PRN 05/27/22 06/13/23 Acetaminophen Tab [Tylenol] 650 mg PEG/G-TUBE Q6H PRN 06/13/23 06/13/23 Acetaminophen-Codeine 300-30mg 1 tab PEG/G-TUBE TID PRN 06/13/23 06/13/23 [Tylenol w/codeine #3] Atorvastatin [Lipitor] 40 mg PEG/G-TUBE HS 06/13/23 06/13/23 Clopidogrel [Plavix] 75 mg PEG/G-TUBE DAILY 06/13/23 06/13/23 Ezetimibe [Zetia] 10 mg PEG/G-TUBE HS 06/13/23 06/13/23 Ferrous Sulfate [Feosol] 325 mg PEG/G-TUBE MOWEFR 06/13/23 06/13/23 Folic Acid 1 mg PEG/G-TUBE DAILY 06/13/23 06/13/23 Magnesium Hydroxide [Milk of 2,400 mg PEG/G-TUBE DAILY 06/13/23 06/13/23 Magnesia] Melatonin 3 mg PEG/G-TUBE HS PRN 06/13/23 06/13/23 Multivitamins, Thera [Multivitamin 1 tab PEG/G-TUBE DAILY 06/13/23 06/13/23 (formulary)] Pantoprazole [Protonix] 40 mg PEG/G-TUBE DAILY 06/13/23 06/13/23 QUEtiapine [SEROquel] 12.5 mg PEG/G-TUBE HS 06/13/23 06/13/23 clonazePAM [KlonoPIN] 0.5 mg PEG/G-TUBE BID 06/13/23 06/13/23 Allergies Allergy/AdvReac Type Severity Reaction Status Date / Time Sulfa (Sulfonamide Allergy Anaphylaxis Verified 06/13/23 15:51 Antibiotics) Review of Systems ROS Statement: Those systems with pertinent positive or pertinent negative responses have been documented in the HPI. ROS Other: All systems not noted in ROS Statement are negative. Past Medical History Past Medical History: Chest Pain / Angina, Diabetes Mellitus, Deep Vein Thrombosis (DVT), Eye Disorder, Hyperlipidemia, Musculoskeletal Disorder, Pulmonary Embolus (PE), Skin Disorder Additional Past Medical History / Comment(s): Colitis. mult DVT's, PE's after a fall with multiple fractures. Has tremors hands. Glaucoma & macular degeneration bilat.Neuropathy hands, feet. Unable to walk now. Rash on legs. History of Any Multi-Drug Resistant Organisms: None Reported Past Surgical History: Adenoidectomy, Appendectomy, Ear Surgery, Hysterectomy, Tonsillectomy, Tubal Ligation Additional Past Surgical History / Comment(s): BILAT CATARACTS. REPAIR PERFORFATED LT EARDRUM. COLONOSCOPY. Has IVC Filter. Past Anesthesia/Blood Transfusion Reactions: Previous Problems w/ Anesthesia, Family History of Problems w/ Anesthesia, Motion Sickness Additional Past Anesthesia/Blood Transfusion Reaction / Comment(s): SLOW TO COME OUT OF ANESTHESIA, STATES "SISTER ALSO HAS A HARD TIME COMING OUT OF ANESTHESIA" Past Psychological History: Bipolar Smoking Status: Never smoker Past Alcohol Use History: None Reported Past Drug Use History: None Reported - Past Family History Brother(s) Family Medical History: Cancer Additional Family Medical History / Comment(s): leukemia Mother Family Medical History: Cancer Additional Family Medical History / Comment(s): Colon cancer; lung cancer now General Exam - General Exam Comments Initial Comments: General: Appears in acute respiratory distress. HEAD: Normal with no signs of head trauma. EYES: PERRLA, EOMI, conjunctiva normal, no discharge. ENT: Hearing grossly intact, normal oropharynx. RESPIRATORY: Coarse breath sounds over the right lung. Hypoxia on nonrebreather. Increased work of breathing. C/V: Tachycardic with a regular rhythm. S1 and S2 auscultated. Peripheral pulses 2+ intact throughout. ABD: Abd is soft, nontender, nondistended EXT: Normal range of motion, no obvious deformity SKIN: No rashes or lesions observed on exposed skin. NEURO: Alert and oriented 4. Limitations: no limitations Course Vital Signs 06/13/23 06/13/23 06/13/23 14:43 14:50 14:55 Temperature 102.1 F H Pulse Rate 130 H Respiratory 28 H 36 H Rate Blood Pressure 125/107 O2 Sat by Pulse 86 L Oximetry Fraction of Inspired Oxygen (FIO2) 06/13/23 06/13/23 06/13/23 14:57 14:58 15:30 Temperature Pulse Rate 107 H Respiratory 31 H Rate Blood Pressure 90/50 O2 Sat by Pulse 95 Oximetry Fraction of 100 100 Inspired Oxygen (FIO2) 06/13/23 06/13/23 06/13/23 16:00 16:23 17:00 Temperature Pulse Rate 110 H 113 H 114 H Respiratory 36 H 26 H 32 H Rate Blood Pressure 86/70 127/53 109/53 O2 Sat by Pulse 95 94 L 98 Oximetry Fraction of Inspired Oxygen (FIO2) 06/13/23 06/13/23 06/13/23 17:30 17:35 18:16 Temperature 97.1 F L Pulse Rate 114 H Respiratory 22 Rate Blood Pressure 85/50 O2 Sat by Pulse 99 Oximetry Fraction of 60 Inspired Oxygen (FIO2) 06/13/23 06/13/23 06/13/23 18:17 18:25 19:00 Temperature Pulse Rate 92 92 Respiratory 24 21 Rate Blood Pressure 98/54 101/46 O2 Sat by Pulse 94 L 94 L Oximetry Fraction of 40 Inspired Oxygen (FIO2) 06/13/23 06/13/23 06/13/23 19:25 19:30 19:32 Temperature Pulse Rate 93 91 Respiratory 22 20 Rate Blood Pressure 101/47 101/47 O2 Sat by Pulse 94 L 93 L Oximetry Fraction of 40 Inspired Oxygen (FIO2) 06/13/23 06/13/23 06/13/23 19:34 20:00 20:30 Temperature Pulse Rate 90 104 H 92 Respiratory 20 22 25 H Rate Blood Pressure 103/50 104/54 112/48 O2 Sat by Pulse 94 L 94 L 94 L Oximetry Fraction of Inspired Oxygen (FIO2) 06/13/23 06/13/23 06/13/23 21:00 21:30 21:37 Temperature Pulse Rate 91 92 Respiratory 28 H 25 H 24 Rate Blood Pressure 108/60 121/57 115/63 O2 Sat by Pulse 93 L 93 L 93 L Oximetry Fraction of Inspired Oxygen (FIO2) 06/13/23 22:00 Temperature Pulse Rate 88 Respiratory 30 H Rate Blood Pressure 101/76 O2 Sat by Pulse 93 L Oximetry Fraction of Inspired Oxygen (FIO2) Procedures - [place] Protocol (Time Out) Nurse: Castro Monte - Sepsis Sepsis Focused Exam #1 Time Sepsis Criteria Met: 14:55 Sepsis Focused Exam Date: 06/13/23 Sepsis Focused Exam Time: 19:00 Sepsis Focused Exam Complete: Yes Vital Signs & RN Notes Reviewed: Yes Capillary Refill: > 2 Seconds: Fingers, Toes Peripheral Pulses: Normal: Radial (R), Radial (L) Skin Color: Normal for Patient Respiratory Exam: rhonchi Cardiovascular Exam: tachycardia, irregular rhythm Medical Decision Making - Medical Decision Making Was pt. sent in by a medical professional or institution (, PA, ORGAN TUNER, urgent care, hospital, or care home...) When possible be specific @ -Sent from [facility]. Did you speak to anyone other than the patient for history (EMS, parent, family, police, friend...)? What history was obtained from this source @ -No Did you review nursing and triage notes (agree or disagree)? Why? @ -I reviewed and agree with nursing and triage notes Were old charts reviewed (outside hosp., previous admission, EMS record, old EKG, old radiological studies, urgent care reports/EKG's, care home records)? Report findings @ -Old charts including EKGs were reviewed from 2021 Differential Diagnosis (chest pain, altered mental status, abdominal pain women, abdominal pain men, vaginal bleeding, weakness, fever, dyspnea, syncope, headache, dizziness, GI bleed, back pain, seizure, CVA, palpatations, mental health, musculoskeletal)? @ -Differential Dyspnea: Coronary syndrome, arrhythmia, tamponade, asthma, COPD, pulmonary embolism, pneumonia, pneumothorax, pulmonary effusion, anaphylaxis, diabetic ketoacidosis, flailed chest, pulmonary contusion, diaphragmatic rupture, anemia, neuromuscular, this is not meant to be an all-inclusive list. Differential Fever: Pneumonia, viral URI, endocarditis, myocarditis, pericarditis, otitis, sinusitis, peritonsillar Abscess, retropharyngeal Abscess, epiglottitis, peritonitis, appendicitis, Harper cystitis, diverticulitis, hepatitis, colitis, UTI, PID, TOA, pyelonephritis, prostatitis, epididymitis, meningitis, encephalitis, pulmonary embolism, CVA, thyroid storm, pancreatitis, adrenal crisis, cavernous sinus thrombosis, this is not meant to be an all-inclusive list. EKG interpreted by me (3pts min.). @ -As above X-rays interpreted by me (1pt min.). @ -Chest axis Ray reveals a right lower lobe infiltrate with pleural effusion. CT interpreted by me (1pt min.). @ -None done U/S interpreted by me (1pt. min.). @ -None done What testing was considered but not performed or refused? (CT, X-rays, U/S, labs)? Why? @ -None What meds were considered but not given or refused? Why? @ -None Did you discuss the management of the patient with other professionals (professionals i.e. , PA, ORGAN TUNER, lab, RT, psych nurse, school social worker, parachute marker, te acher, weapons electrical engineering officer, machine adjuster leader case trim)? Give summary @ -Discussed with Dr. Marroquin who accepted the admission. Was smoking cessation discussed for >3mins.? @ -No Was critical care preformed (if so, how long)? @ -Yes, 40 minutes Were there social determinants of health that impacted care today? How? (Homelessness, low income, unemployed, alcoholism, drug addiction, transportation, low edu. Level, literacy, decrease access to med. care, usp, rehab)? @ -No Was there de-escalation of care discussed even if they declined (Discuss DNR or withdrawal of care, Hospice)? DNR status @ -No What co-morbidities impacted this encounter? (DM, HTN, Smoking, COPD, CAD, Cancer, CVA, ARF, Chemo, Hep., AIDS, mental health diagnosis, sleep apnea, morbid obesity)? @ -None Was patient admitted / discharged? Hospital course, mention meds given and route, prescriptions, significant lab abnormalities, going to OR and other pertinent info. @ -Based on the patient's presentation and physical exam, presents in hypoxic respiratory failure likely from infectious cause. Resents her nursing facility. She is DNR/DNI per paperwork as well as confirmed with patient's who is at bedside. Patient initially presented febrile, tachycardiac, with softer blood pressures, in hypoxic. It immediately placed on BiPAP an ABG drawn. We will obtain broad infectious labs. Chest x-ray and EKG will also be obtained. Patiently met sepsis criteria at this time, 1455 and was immediately placed on broad-spectrum vancomycin and cefepime, was started on 1 L fluid bolus with 130 mL/h of normal saline. Additional fluid bolus ordered later on upon completion of the initial bolus to meeet the 30 mL per KG criteria. Blood cultures obtained and sent. Lactic acid was found to be slightly elevated to 2.6. Patient also received IV Tylenol for fever. EKG showed atrial fibrillation with rapid ventricular response likely secondary to dehydration as well as the patient's underlying pathology acute infection. Chest x-ray reveals a right lower lobe pneumonia. Labs remarkable for normal leukocytosis, a mild chronic anemia with a hemoglobin of 9.5 which appears to be stable, and AKA with BUN of 124 and creatinine of 1.35 with hyperkalemia of 7.6. Lactic acid is also elevated to 2.6. Troponin is indeterminate. Remainder of the labs within acceptable limits.Patient's ABG shows adequate oxygen saturation on current BiPAP settings. We will continue to monitor. Patient was given hyperkalemia cocktail consisting of calcium, lokelma, bicarb, insulin. Contreras catheter was placed. I updated the patient's . Patient will be admitted at this time. I spoke with Dr. Marroquin who accepted the admission. Consults placed to nephrology, cardiology, pulmonology. Patient admitted to stepdown. Undiagnosed new problem with uncertain prognosis? @ -No Drug Therapy requiring intensive monitoring for toxicity (Heparin, Nitro, Insulin, Cardizem)? @ -No Were any procedures done? @ -No Diagnosis/symptom? @ -Hypoxic respiratory failure, pneumonia, sepsis Acute, or Chronic, or Acute on Chronic? @ -Acute Uncomplicated (without systemic symptoms) or Complicated (systemic symptoms)? @ -Complicated Side effects of treatment? @ -No Exacerbation, Progression, or Severe Exacerbation? @ -No Poses a threat to life or bodily function? How? (Chest pain, USA, HI, pneumonia, PE, COPD, DKA, ARF, appy, cholecystitis, CVA, Diverticulitis, Homicidal, Suicid al, threat to staff... and all critical care pts) @ -Yes Diagnosis/symptom? @ -Acute kidney injury, hyperkalemia, dehydration Acute, or Chronic, or Acute on Chronic? @ -Acute Uncomplicated (without systemic symptoms) or Complicated (systemic symptoms)? @ -Complicated Side effects of treatment? @ -none Exacerbation, Progression, or Severe Exacerbation] @ -no Poses a threat to life or bodily function? @ -Yes - Lab Data Result diagrams: 06/14/23 06:45 06/14/23 06:45 Lab Results 06/13/23 06/13/23 06/13/23 Range/Units 14:58 14:58 14:58 WBC 6.4 (3.8-10.6) k/uL RBC 3.18 L (3.80-5.40) m/uL Hgb 9.5 L (11.4-16.0) gm/dL Hct 30.1 L (34.0-46.0) % MCV 94.7 (80.0-100.0) fL MCH 30.0 (25.0-35.0) pg MCHC 31.7 (31.0-37.0) g/dL RDW 14.6 (11.5-15.5) % Plt Count 499 H (150-450) k/uL MPV 8.0 Neutrophils % 68 % Lymphocytes % 27 % Monocytes % 3 % Eosinophils % 0 % Basophils % 0 % Neutrophils # 4.3 (1.3-7.7) k/uL Lymphocytes # 1.7 (1.0-4.8) k/uL Monocytes # 0.2 (0-1.0) k/uL Eosinophils # 0.0 (0-0.7) k/uL Basophils # 0.0 (0-0.2) k/uL PT 9.4 (9.0-12.0) sec INR 0.9 (<1.2) APTT 20.8 L (22.0-30.0) sec Sample Site ABG pH (7.35-7.45) ABG pCO2 (35-45) mmHg ABG pO2 (83-108) mmHg ABG HCO3 (21-25) mmol/L ABG Total CO2 (19-24) mmol/L ABG O2 Saturation (94-97) % ABG Base Excess mmol/L Jerson Test FiO2 % Sodium (137-145) mmol/L Potassium (3.5-5.1) mmol/L Chloride (98-107) mmol/L Carbon Dioxide (22-30) mmol/L Anion Gap mmol/L BUN (7-17) mg/dL Creatinine (0.52-1.04) mg/dL Est GFR (CKD-EPI)AfAm (>60 ml/min/1.73 sqM) Est GFR (CKD-EPI)NonAf (>60 ml/min/1.73 sqM) Glucose (74-99) mg/dL Lactic Ac Sepsis Rflx Plasma Lactic Acid Celio (0.7-2.0) mmol/L Calcium (8.4-10.2) mg/dL Magnesium (1.6-2.3) mg/dL Total Bilirubin (0.2-1.3) mg/dL AST (14-36) U/L ALT (4-34) U/L Alkaline Phosphatase (38-126) U/L Troponin I (0.000-0.034) ng/mL Total Protein (6.3-8.2) g/dL Albumin (3.5-5.0) g/dL Urine Color Light Yellow Urine Appearance Clear (Clear) Urine pH 7.5 (5.0-8.0) Ur Specific [place] 1.014 (1.001-1.035) Urine Protein Trace H (Negative) Urine Glucose (UA) Negative (Negative) Urine Ketones Negative (Negative) Urine Blood Negative (Negative) Urine Nitrite Negative (Negative) Urine Bilirubin Negative (Negative) Urine Urobilinogen <2.0 (<2.0) mg/dL Ur Leukocyte Esterase Trace H (Negative) Urine RBC 3 (0-5) /hpf Urine WBC 3 (0-5) /hpf Influenza Type A (PCR) (Not Detectd) Influenza Type B (PCR) (Not Detectd) RSV (PCR) (Not Detectd) SARS-CoV-2 (PCR) (Not Detectd) 06/13/23 06/13/23 06/13/23 Range/Units 14:58 14:58 14:58 WBC (3.8-10.6) k/uL RBC (3.80-5.40) m/uL Hgb (11.4-16.0) gm/dL Hct (34.0-46.0) % MCV (80.0-100.0) fL MCH (25.0-35.0) pg MCHC (31.0-37.0) g/dL RDW (11.5-15.5) % Plt Count (150-450) k/uL MPV Neutrophils % % Lymphocytes % % Monocytes % % Eosinophils % % Basophils % % Neutrophils # (1.3-7.7) k/uL Lymphocytes # (1.0-4.8) k/uL Monocytes # (0-1.0) k/uL Eosinophils # (0-0.7) k/uL Basophils # (0-0.2) k/uL PT (9.0-12.0) sec INR (<1.2) APTT (22.0-30.0) sec Sample Site ABG pH (7.35-7.45) ABG pCO2 (35-45) mmHg ABG pO2 (83-108) mmHg ABG HCO3 (21-25) mmol/L ABG Total CO2 (19-24) mmol/L ABG O2 Saturation (94-97) % ABG Base Excess mmol/L Jerson Test FiO2 % Sodium 134 L (137-145) mmol/L Potassium 7.6 H* (3.5-5.1) mmol/L Chloride 100 (98-107) mmol/L Carbon Dioxide 24 (22-30) mmol/L Anion Gap 10 mmol/L BUN 124 H* (7-17) mg/dL Creatinine 1.35 H (0.52-1.04) mg/dL Est GFR (CKD-EPI)AfAm 44 (>60 ml/min/1.73 sqM) Est GFR (CKD-EPI)NonAf 38 (>60 ml/min/1.73 sqM) Glucose 174 H (74-99) mg/dL Lactic Ac Sepsis Rflx Plasma Lactic Acid Celio 2.6 H* (0.7-2.0) mmol/L Calcium 8.9 (8.4-10.2) mg/dL Magnesium 4.5 H (1.6-2.3) mg/dL Total Bilirubin 0.5 (0.2-1.3) mg/dL AST 87 H (14-36) U/L ALT 49 H (4-34) U/L Alkaline Phosphatase 112 (38-126) U/L Troponin I 0.024 (0.000-0.034) ng/mL Total Protein 7.2 (6.3-8.2) g/dL Albumin 3.4 L (3.5-5.0) g/dL Urine Color Urine Appearance (Clear) Urine pH (5.0-8.0) Ur Specific [place] (1.001-1.035) Urine Protein (Negative) Urine Glucose (UA) (Negative) Urine Ketones (Negative) Urine Blood (Negative) Urine Nitrite (Negative) Urine Bilirubin (Negative) Urine Urobilinogen (<2.0) mg/dL Ur Leukocyte Esterase (Negative) Urine RBC (0-5) /hpf Urine WBC (0-5) /hpf Influenza Type A (PCR) (Not Detectd) Influenza Type B (PCR) (Not Detectd) RSV (PCR) (Not Detectd) SARS-CoV-2 (PCR) (Not Detectd) 06/13/23 06/13/23 06/13/23 Range/Units 14:58 15:05 16:04 WBC (3.8-10.6) k/uL RBC (3.80-5.40) m/uL Hgb (11.4-16.0) gm/dL Hct (34.0-46.0) % MCV (80.0-100.0) fL MCH (25.0-35.0) pg MCHC (31.0-37.0) g/dL RDW (11.5-15.5) % Plt Count (150-450) k/uL MPV Neutrophils % % Lymphocytes % % Monocytes % % Eosinophils % % Basophils % % Neutrophils # (1.3-7.7) k/uL Lymphocytes # (1.0-4.8) k/uL Monocytes # (0-1.0) k/uL Eosinophils # (0-0.7) k/uL Basophils # (0-0.2) k/uL PT (9.0-12.0) sec INR (<1.2) APTT (22.0-30.0) sec Sample Site Right Radial ABG pH 7.44 (7.35-7.45) ABG pCO2 37 (35-45) mmHg ABG pO2 90 (83-108) mmHg ABG HCO3 25 (21-25) mmol/L ABG Total CO2 26 H (19-24) mmol/L ABG O2 Saturation 97.1 H (94-97) % ABG Base Excess 0.7 mmol/L Jerson Test Yes FiO2 100 % Sodium (137-145) mmol/L Potassium (3.5-5.1) mmol/L Chloride (98-107) mmol/L Carbon Dioxide (22-30) mmol/L Anion Gap mmol/L BUN (7-17) mg/dL Creatinine (0.52-1.04) mg/dL Est GFR (CKD-EPI)AfAm (>60 ml/min/1.73 sqM) Est GFR (CKD-EPI)NonAf (>60 ml/min/1.73 sqM) Glucose (74-99) mg/dL Lactic Ac Sepsis Rflx Y Plasma Lactic Acid Celio (0.7-2.0) mmol/L Calcium (8.4-10.2) mg/dL Magnesium (1.6-2.3) mg/dL Total Bilirubin (0.2-1.3) mg/dL AST (14-36) U/L ALT (4-34) U/L Alkaline Phosphatase (38-126) U/L Troponin I (0.000-0.034) ng/mL Total Protein (6.3-8.2) g/dL Albumin (3.5-5.0) g/dL Urine Color Urine Appearance (Clear) Urine pH (5.0-8.0) Ur Specific [place] (1.001-1.035) Urine Protein (Negative) Urine Glucose (UA) (Negative) Urine Ketones (Negative) Urine Blood (Negative) Urine Nitrite (Negative) Urine Bilirubin (Negative) Urine Urobilinogen (<2.0) mg/dL Ur Leukocyte Esterase (Negative) Urine RBC (0-5) /hpf Urine WBC (0-5) /hpf Influenza Type A (PCR) Not Detected (Not Detectd) Influenza Type B (PCR) Not Detected (Not Detectd) RSV (PCR) Not Detected (Not Detectd) SARS-CoV-2 (PCR) Not Detected (Not Detectd) - EKG Data -: EKG Interpreted by Me EKG Comments: 12-lead Electrocardiogram Interpretation Note EKG was reviewed and interpreted by myself. 12-lead ECG performed at 1453 is interpreted by me as revealing atrial fibrillation with mildly peaked T waves at a rate of 128 beats per minute. [place] is normal. QRS duration 66 ms, QTc is 354 ms.. There were no ST or T wave abnormalities to suggest myocardial ischemia or injury. R wave progression across the precordium was satisfactory. By my interpretation this EKG is non-diagnostic for acute ischemia. 12-lead Electrocardiogram Interpretation Note EKG was reviewed and interpreted by myself. 12-lead ECG performed at 1644 is interpreted by me as revealing atrial fibrillation at a rate of 113 beats per minute. [place] is normal. QRS duration is 61 ms, QTc is 378 ms.. There were no ST or T wave abnormalities to suggest myocardial ischemia or injury. R wave progression across the precordium was satisfactory. By my interpretation this EKG is non-diagnostic for acute ischemia. Critical Care Time Critical Care Time: Yes Total Critical Care Time: 40 Disposition Clinical Impression: Sepsis, Pneumonia, Dehydration, NASEEM (acute kidney injury), Hyperkalemia, Acute respiratory failure with hypoxia Disposition: ADMITTED IP TO THIS HOSP Condition: Serious Time of Disposition: 16:45
[2023-06-13] MEDS ORDERED: SODIUM CHLORIDE 0.9% 1,000 ML IV ONE (17:40)
[2023-06-13] MEDS: RIVAROXABAN 15 MG TAB PO SCH (20:46)
[2023-06-13] MEDS: ATORVASTATIN 40 MG TAB PEG/G-TUBE SCH (20:46)
[2023-06-13] MEDS: LATANOPROST 0.005% OPHTH DROPS 2.5 ML BTL BOTH EYES SCH (20:47)
[2023-06-13] MEDS: TIMOLOL 0.5% OPHTH DROPS 5 ML BTL BOTH EYES SCH (20:48)
[2023-06-13] MEDS: BRIMONIDINE TARTRATE 0.2% DROPS 5 ML BTL BOTH EYES SCH (20:48)
[2023-06-13] MEDS ORDERED: HEPARIN SODIUM,PORCINE 5,000 UNIT/ML 1 ML VIAL SQ SCH (21:00)
[2023-06-13] MEDS: ACETAMINOPHEN TAB 325 MG TAB PO PRN (22:22)
[2023-06-14] MEDS ORDERED: CEFEPIME 2 GM in SODIUM CHLORIDE 0.9% 100 ML IVPB SCH ×2
[2023-06-14] MEDS: clonazePAM 0.5 MG TAB PEG/G-TUBE SCH ×3 (00:24→20:21)
[2023-06-14] MEDS: QUEtiapine 25 MG TAB PEG/G-TUBE SCH ×2 (00:24→20:21)
--- NOTE | 2023-06-14 01:11 | P.HPIM ---
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 On admission patient was febrile with Tmax 102.1. Patient was tachycardic and tachypneic requiring nonrebreather and eventually placed on BiPAP in the ER. Patient was awake alert and oriented x1-2 on admission. She thinks she might have aspirated. She did have cough and shortness of breath. Patient's is bedside and is able to provide history. Patient was recently admitted to the hospital and had stent placement about 4 weeks ago. Chest x-ray on admission showed small right pleural effusion with right basilar consolidation concerning for pneumonia. COPD changes. EKG showed atrial fibrillation with rapid ventricular response with heart rate 113. Patient was given IV hydration was started on broad-spectrum antibiotics in the ER. Laboratory data showed WBC 6.4, hemoglobin 9.5 and platelets 499 ABG showed pH 7.44 PCO2 37 PO2 90 and bicarb is 25 Sodium 134 potassium 7.6 chloride 100 bicarb is 24 BUN 124 and creatinine 135 and blood sugar is 174. Lactic acid 2.6 on admission. AST 87 ALT 47 alk phos 112 and troponin 0.024, 0.45 and 0.060 Urinalysis is negative for infection. Influenza A, B, RSV and COVID-19 PCR not detected. Review of Systems ROS unobtainable: due to mental status Past Medical History Past Medical History: Chest Pain / Angina, Diabetes Mellitus, Deep Vein Thrombosis (DVT), Eye Disorder, Hyperlipidemia, Musculoskeletal Disorder, Pulmonary Embolus (PE), Skin Disorder Additional Past Medical History / Comment(s): Colitis. mult DVT's, PE's after a fall with multiple fractures. Has tremors hands. Glaucoma & macular degeneration bilat.Neuropathy hands, feet. Unable to walk now. Rash on legs. History of Any Multi-Drug Resistant Organisms: None Reported Past Surgical History: Adenoidectomy, Appendectomy, Ear Surgery, Hysterectomy, Tonsillectomy, Tubal Ligation Additional Past Surgical History / Comment(s): BILAT CATARACTS. REPAIR PERFORFATED LT EARDRUM. COLONOSCOPY. Has IVC Filter. Past Anesthesia/Blood Transfusion Reactions: Previous Problems w/ Anesthesia, Family History of Problems w/ Anesthesia, Motion Sickness Additional Past Anesthesia/Blood Transfusion Reaction / Comment(s): SLOW TO COME OUT OF ANESTHESIA, STATES "SISTER ALSO HAS A HARD TIME COMING OUT OF ANESTHESIA" Past Psychological History: Bipolar Smoking Status: Never smoker Past Alcohol Use History: None Reported Past Drug Use History: None Reported - Past Family History Brother(s) Family Medical History: Cancer Additional Family Medical History / Comment(s): leukemia Mother Family Medical History: Cancer Additional Family Medical History / Comment(s): Colon cancer; lung cancer now Medications and Allergies Home Medications Medication Instructions Recorded Confirmed Type Aspirin 81 mg PEG/G-TUBE DAILY 06/01/15 06/13/23 History Escitalopram [Lexapro] 10 mg PEG/G-TUBE DAILY 06/01/15 06/13/23 History Latanoprost Ophth [Xalatan 0.005%] 1 drops BOTH EYES HS 06/01/15 06/13/23 History Rivaroxaban [Xarelto] 20 mg PEG/G-TUBE HS 06/01/15 06/13/23 History Brimonidine Tartrate/Timolol 1 drop BOTH EYES BID 05/27/22 06/13/23 History [Combigan 0.2%-0.5% Eye Drops] Losartan Potassium [Cozaar] 50 mg PEG/G-TUBE BID 05/27/22 06/13/23 History Ondansetron [Zofran] 4 mg PEG/G-TUBE Q8HR PRN 05/27/22 06/13/23 History Acetaminophen Tab [Tylenol] 650 mg PEG/G-TUBE Q6H PRN 06/13/23 06/13/23 History Acetaminophen-Codeine 300-30mg 1 tab PEG/G-TUBE TID PRN 06/13/23 06/13/23 History [Tylenol w/codeine #3] Atorvastatin [Lipitor] 40 mg PEG/G-TUBE HS 06/13/23 06/13/23 History Clopidogrel [Plavix] 75 mg PEG/G-TUBE DAILY 06/13/23 06/13/23 History Ezetimibe [Zetia] 10 mg PEG/G-TUBE HS 06/13/23 06/13/23 History Ferrous Sulfate [Feosol] 325 mg PEG/G-TUBE MOWEFR 06/13/23 06/13/23 History Folic Acid 1 mg PEG/G-TUBE DAILY 06/13/23 06/13/23 History Magnesium Hydroxide [Milk of 2,400 mg PEG/G-TUBE DAILY 06/13/23 06/13/23 History Magnesia] Melatonin 3 mg PEG/G-TUBE HS PRN 06/13/23 06/13/23 History Multivitamins, Thera [Multivitamin 1 tab PEG/G-TUBE DAILY 06/13/23 06/13/23 History (formulary)] Pantoprazole [Protonix] 40 mg PEG/G-TUBE DAILY 06/13/23 06/13/23 History QUEtiapine [SEROquel] 12.5 mg PEG/G-TUBE HS 06/13/23 06/13/23 History clonazePAM [KlonoPIN] 0.5 mg PEG/G-TUBE BID 06/13/23 06/13/23 History Allergies Allergy/AdvReac Type Severity Reaction Status Date / Time Sulfa (Sulfonamide Allergy Anaphylaxis Verified 06/13/23 15:51 Antibiotics) Physical Exam Vitals: Vital Signs Temp Pulse Resp BP Pulse Ox FiO2 06/13/23 21:37 92 24 115/63 93 L 06/13/23 20:00 92 22 107/52 94 L 06/13/23 19:34 90 20 103/50 94 L 06/13/23 19:32 40 06/13/23 19:00 92 21 101/46 94 L 06/13/23 18:25 92 24 98/54 94 L 06/13/23 18:17 40 06/13/23 18:16 60 06/13/23 17:35 97.1 F L 06/13/23 17:30 114 H 22 85/50 99 06/13/23 17:00 114 H 32 H 109/53 98 06/13/23 16:23 113 H 26 H 127/53 94 L 06/13/23 16:00 110 H 36 H 86/70 95 06/13/23 15:30 107 H 31 H 90/50 95 06/13/23 14:58 100 06/13/23 14:57 100 06/13/23 14:55 36 H 06/13/23 14:50 102.1 F H 06/13/23 14:43 130 H 28 H 125/107 86 L Intake and Output 06/13/23 06/13/23 06/13/23 06:59 14:59 22:59 Output Total 600 Balance -600 Output: Urine 600 Uretheral (Contreras) 600 Other: Weight 72.575 kg PHYSICAL EXAMINATION: Patient is lying in the bed ,no acute distress, awake alert but could not communicate. Patient is on BiPAP. HEENT: Normocephalic. Neck is supple. Pupils reactive. Nostrils clear. Oral cavity is moist. Neck reveals no JVD, carotid bruits, or thyromegaly. CHEST EXAMINATION: Trachea is central. Symmetrical expansion. Bibasilar diminished sounds. No wheezing.. CARDIAC: Normal S1, S2 with no gallops. No murmurs ABDOMEN: Soft. Bowel sounds present. Nontender. No organomegaly. No abdominal bruits. Extremities: reveal no edema. No clubbing or cyanosis Neurologically awake, alert, oriented x1-2 .no gross focal neurological deficits noted. Skin: No rash or skin lesions. Petechial rash over the right miller region Psychiatric: Coperative. Could not be assessed completely, Musculoskeletal: No joint swelling or deformity. Results CBC & Chem 7: 06/13/23 14:58 06/13/23 19:54 Labs: Abnormal Lab Results - Last 24 Hours (Table) 06/13/23 06/13/23 06/13/23 Range/Units 14:58 14:58 14:58 RBC 3.18 L (3.80-5.40) m/uL Hgb 9.5 L (11.4-16.0) gm/dL Hct 30.1 L (34.0-46.0) % Plt Count 499 H (150-450) k/uL APTT 20.8 L (22.0-30.0) sec ABG Total CO2 (19-24) mmol/L ABG O2 Saturation (94-97) % Sodium (137-145) mmol/L Potassium (3.5-5.1) mmol/L BUN (7-17) mg/dL Creatinine (0.52-1.04) mg/dL Glucose (74-99) mg/dL Plasma Lactic Acid Celio (0.7-2.0) mmol/L Magnesium (1.6-2.3) mg/dL AST (14-36) U/L ALT (4-34) U/L Troponin I (0.000-0.034) ng/mL Albumin (3.5-5.0) g/dL Urine Protein Trace H (Negative) Ur Leukocyte Esterase Trace H (Negative) 06/13/23 06/13/23 06/13/23 Range/Units 14:58 14:58 15:05 RBC (3.80-5.40) m/uL Hgb (11.4-16.0) gm/dL Hct (34.0-46.0) % Plt Count (150-450) k/uL APTT (22.0-30.0) sec ABG Total CO2 26 H (19-24) mmol/L ABG O2 Saturation 97.1 H (94-97) % Sodium 134 L (137-145) mmol/L Potassium 7.6 H* (3.5-5.1) mmol/L BUN 124 H* (7-17) mg/dL Creatinine 1.35 H (0.52-1.04) mg/dL Glucose 174 H (74-99) mg/dL Plasma Lactic Acid Celio 2.6 H* (0.7-2.0) mmol/L Magnesium 4.5 H (1.6-2.3) mg/dL AST 87 H (14-36) U/L ALT 49 H (4-34) U/L Troponin I (0.000-0.034) ng/mL Albumin 3.4 L (3.5-5.0) g/dL Urine Protein (Negative) Ur Leukocyte Esterase (Negative) 06/13/23 06/13/23 06/13/23 Range/Units 18:06 19:54 19:54 RBC (3.80-5.40) m/uL Hgb (11.4-16.0) gm/dL Hct (34.0-46.0) % Plt Count (150-450) k/uL APTT (22.0-30.0) sec ABG Total CO2 (19-24) mmol/L ABG O2 Saturation (94-97) % Sodium (137-145) mmol/L Potassium 6.1 H* (3.5-5.1) mmol/L BUN (7-17) mg/dL Creatinine (0.52-1.04) mg/dL Glucose (74-99) mg/dL Plasma Lactic Acid Celio (0.7-2.0) mmol/L Magnesium (1.6-2.3) mg/dL AST (14-36) U/L ALT (4-34) U/L Troponin I 0.045 H* 0.060 H* (0.000-0.034) ng/mL Albumin (3.5-5.0) g/dL Urine Protein (Negative) Ur Leukocyte Esterase (Negative) Thrombosis Risk Factor Assmnt - DVT/VTE Prophylaxis DVT/VTE Prophylaxis: Pharmacologic Prophylaxis ordered Assessment and Plan Assessment: Acute hypoxic respiratory failure secondary to pneumonia requiring BiPAP currently. Right lower lobe pneumonia Sepsis secondary to above Acute kidney injury likely due to AT continued N with hemodynamic instability Hyperkalemia secondary to acute kidney injury. Potassium 7.6 on admission Elevated troponin level Lactic acidosis 2.6 Recent history of cardiac catheterization and stent placement about 4 weeks ago Inclusion body myositis. Patient is bedridden at baseline. Diabetes type 2 [id number] History of multiple DVT and PE on anticoagulation with Xarelto Bipolar disorder Glaucoma and macular degeneration bilaterally. Plan: Patient was given IV fluid bolus in the ER. Patient was given calcium gluconate, insulin/D50 and sodium bicarb in the ER for hyperkalemia. Follow-up repeat potassium level. Continue with broad-spectrum antibiotics vancomycin and cefepime. Patient is currently on BiPAP and continue with oxygen supplementation. Continue with aspirin Plavix and statins and also patient on Xarelto at home. Follow-up blood cultures. Critical care team, cardiology and nephrology was consulted for evaluation. Prognosis guarded at this time. Discussed with her at bedside in [facility]. Time with Patient: Greater than 30
[2023-06-14 01:39] LABS: Glucose,Whole Blood 77 mg/dL (70-110)
[2023-06-14] MEDS ORDERED: SODIUM CHLORIDE 0.9% 500 ML 500 ML IV ONE (01:39)
[2023-06-14 02:23] LABS: Glucose,Whole Blood 78 mg/dL (70-110)
[2023-06-14] MEDS ORDERED: SODIUM BICARB 8.4% 50 ML SYR (1 MEQ/ML) IV STA (03:01)
[2023-06-14] MEDS ORDERED: SODIUM ZIRCONIUM CYCLOSILICATE 10 GM PACKET PO ONE (03:15)
[2023-06-14] MEDS ORDERED: CALCIUM GLUCONATE IN NACL 1 GM in SALINE 1 100ML.BAG IVPB ONE (03:15)
[2023-06-14] MEDS: CEFEPIME 2 GM in SODIUM CHLORIDE 0.9% 100 ML IVPB SCH ×2 (04:31→15:46)
[2023-06-14] MEDS: NOREPINEPHRINE 4 MG in SODIUM CHLORIDE 0.9% 250 ML IV SCH ×2 (05:26→21:57)
[2023-06-14 07:02] LABS: African American GFR (CKD) 70 (>60 ml/min/1.73 sqM); Anion Gap 6 mmol/L; Blood Urea Nitrogen 97 mg/dL (7-17); Calcium 8.5 mg/dL (8.4-10.2); Carbon Dioxide 23 mmol/L (22-30); Chloride 110 mmol/L (98-107); Glucose 99 mg/dL (74-99); Magnesium 3.5 mg/dL (1.6-2.3); Non-African American GFR(CKD) 60 (>60 ml/min/1.73 sqM); Sodium 139 mmol/L (137-145)
[2023-06-14 07:20] LABS: Basophils % (A) 0 %; Eosinophils % (A) 0 %; HCT 22.3 % (34.0-46.0); Hypochromasia Slight; Lymphocytes # (A) 1.2 k/uL (1.0-4.8); Lymphocytes % (A) 11 %; MCH 30.7 pg (25.0-35.0); MCHC 32.3 g/dL (31.0-37.0); Mean Platelet Volume 7.9; Monocytes # (A) 0.4 k/uL (0-1.0); Monocytes % (A) 4 %; Neutrophils # (A) 8.9 k/uL (1.3-7.7); Neutrophils % (A) 84 %; Platelet Count 371 k/uL (150-450); RBC 2.35 m/uL (3.80-5.40); RDW 14.7 % (11.5-15.5); WBC 10.6 k/uL (3.8-10.6)
[2023-06-14 07:21] LABS: HGB 7.2 gm/dL (11.4-16.0)
[2023-06-14] MEDS: CLOPIDOGREL 75 MG TAB PEG/G-TUBE SCH (08:44)
[2023-06-14] MEDS: PANTOPRAZOLE 40 MG TABLET PO SCH (08:44)
[2023-06-14] MEDS ORDERED: ASPIRIN 81 MG PEG/G-TUBE SCH (09:00)
--- NOTE | 2023-06-14 09:51 | P.CRDCN ---
History of Present Illness Consult date: 06/14/23 History of present illness: History of Present Illness: The patient is a 78 year old female who was transferred from the alf for progressive dyspnea fever and possible aspiration pneumonia. She has a known history of inclusion body myositis, diabetes mellitus, hyperlipidemia, prior history of PE and DVT anticoagulated who had a PEG tube and apparently was getting stronger so they started to feed her and probably aspirated. She is awake but confused and not answering questions. She is in sinus mechanism. Her EKG on admission shows sinus tachycardia. She was at [facility] recently with epistaxis and non-STEMI underwent cardiac catheterization and was found to have significant obstructive disease involving the LAD. There is report of his stent placed although details of that are not available. I am not able to obtain any history of chest discomfort at this time. No other history could be obtained at this point. On presentation she was found to have worsening renal function, anemia and mild troponin elevation. She had hyperka lemia that improved. Medications: Plavix 75 mg daily, Lipitor 40 mg daily,Xarelto 1 mg daily, aspirin once a day, Seroquel, Cozaar 50 mg daily, clonazepam, Seroquel, Ezetimibe 10 mg daily, Lexapro Review of Systems: Could not be obtained Physical Examination: 78-year-old female, alert , not answering questions or following commands,Blood pressure 113/60, Heart rate 80 Head: Normocephalic. Eyes: Sclerae nonicteric. Neck: Good carotid upstroke, no bruit, no jugular venous distention. Lungs: Bilateral rhonchi Heart: Regular rate and rhythm, S1-S2, no S3, no rub. Systolic ejection murmur. Abdomen: Soft nontender, positive bowel sounds no organomegaly, PEG tube in place. Extremities: +1 edema, intact distal pulses. [place] Labs: Potassium 7.6, BUN 124, creatinine 1.35. Troponin 0.024, 0.045 and 0.060. BUN today 97 with creatinine of 0.93, potassium 5.0, hemoglobin 7.2. Chest x-ray with right basilar consolidation suggestive of pneumonia EKG: Sinus tach rate of 113 with QS in V1 to V4 Impression: 1. Change in mental status with febrile episode and probable aspiration pneumonia 2. Troponin elevation consistent with type II myocardial infarction 3. Status post recent stent, details are not available 4. Acute renal injury, improving 5. History of pulmonary embolism and DVT, anticoagulated 6. History of hyperlipidemia 7. History of hypertension Plan: 1. Continue Plavix 2. Continue anticoagulation 3. Follow renal functions 4. Obtain an echocardiogram Doppler 5. Obtain results of cardiac catheterization and stenting 6. Follow renal functions 7. Depending on her progress further recommendations will be made, thank you for this consult we will follow with you. Past Medical History Past Medical History: Chest Pain / Angina, Diabetes Mellitus, Deep Vein Thrombosis (DVT), Eye Disorder, Hyperlipidemia, Musculoskeletal Disorder, Pulmonary Embolus (PE), Skin Disorder Additional Past Medical History / Comment(s): Colitis. mult DVT's, PE's after a fall with multiple fractures. Has tremors hands. Glaucoma & macular degeneration bilat.Neuropathy hands, feet. Unable to walk now. Rash on legs. History of Any Multi-Drug Resistant Organisms: None Reported Past Surgical History: Adenoidectomy, Appendectomy, Ear Surgery, Hysterectomy, Tonsillectomy, Tubal Ligation Additional Past Surgical History / Comment(s): BILAT CATARACTS. REPAIR PERFORFATED LT EARDRUM. COLONOSCOPY. Has IVC Filter. Past Anesthesia/Blood Transfusion Reactions: Previous Problems w/ Anesthesia, Family History of Problems w/ Anesthesia, Motion Sickness Additional Past Anesthesia/Blood Transfusion Reaction / Comment(s): SLOW TO COME OUT OF ANESTHESIA, STATES "SISTER ALSO HAS A HARD TIME COMING OUT OF ANESTHESIA" Past Psychological History: Bipolar Smoking Status: Never smoker Past Alcohol Use History: None Reported Past Drug Use History: None Reported - Past Family History Brother(s) Family Medical History: Cancer Additional Family Medical History / Comment(s): leukemia Mother Family Medical History: Cancer Additional Family Medical History / Comment(s): Colon cancer; lung cancer now Medications and Allergies Home Medications Medication Instructions Recorded Confirmed Type Aspirin 81 mg PEG/G-TUBE DAILY 06/01/15 06/13/23 History Escitalopram [Lexapro] 10 mg PEG/G-TUBE DAILY 06/01/15 06/13/23 History Latanoprost Ophth [Xalatan 0.005%] 1 drops BOTH EYES HS 06/01/15 06/13/23 History Rivaroxaban [Xarelto] 20 mg PEG/G-TUBE HS 06/01/15 06/13/23 History Brimonidine Tartrate/Timolol 1 drop BOTH EYES BID 05/27/22 06/13/23 History [Combigan 0.2%-0.5% Eye Drops] Losartan Potassium [Cozaar] 50 mg PEG/G-TUBE BID 05/27/22 06/13/23 History Ondansetron [Zofran] 4 mg PEG/G-TUBE Q8HR PRN 05/27/22 06/13/23 History Acetaminophen Tab [Tylenol] 650 mg PEG/G-TUBE Q6H PRN 06/13/23 06/13/23 History Acetaminophen-Codeine 300-30mg 1 tab PEG/G-TUBE TID PRN 06/13/23 06/13/23 History [Tylenol w/codeine #3] Atorvastatin [Lipitor] 40 mg PEG/G-TUBE HS 06/13/23 06/13/23 History Clopidogrel [Plavix] 75 mg PEG/G-TUBE DAILY 06/13/23 06/13/23 History Ezetimibe [Zetia] 10 mg PEG/G-TUBE HS 06/13/23 06/13/23 History Ferrous Sulfate [Feosol] 325 mg PEG/G-TUBE MOWEFR 06/13/23 06/13/23 History Folic Acid 1 mg PEG/G-TUBE DAILY 06/13/23 06/13/23 History Magnesium Hydroxide [Milk of 2,400 mg PEG/G-TUBE DAILY 06/13/23 06/13/23 History Magnesia] Melatonin 3 mg PEG/G-TUBE HS PRN 06/13/23 06/13/23 History Multivitamins, Thera [Multivitamin 1 tab PEG/G-TUBE DAILY 06/13/23 06/13/23 History (formulary)] Pantoprazole [Protonix] 40 mg PEG/G-TUBE DAILY 06/13/23 06/13/23 History QUEtiapine [SEROquel] 12.5 mg PEG/G-TUBE HS 06/13/23 06/13/23 History clonazePAM [KlonoPIN] 0.5 mg PEG/G-TUBE BID 06/13/23 06/13/23 History Allergies Allergy/AdvReac Type Severity Reaction Status Date / Time Sulfa (Sulfonamide Allergy Anaphylaxis Verified 06/13/23 15:51 Antibiotics) Physical Exam Vitals: Vital Signs Temp Pulse Pulse Resp BP BP Pulse Ox 06/14/23 09:00 84 25 H 113/58 96 06/14/23 08:45 85 19 111/48 99 06/14/23 08:30 84 21 98/48 98 06/14/23 08:15 81 21 100/52 97 06/14/23 08:00 99.9 F H 80 21 96/47 97 06/14/23 07:45 77 24 103/46 94 L 06/14/23 07:30 79 24 114/53 93 L 06/14/23 07:15 81 20 116/54 94 L 06/14/23 07:00 82 20 115/56 100 06/14/23 06:55 83 18 112/60 98 06/14/23 06:50 82 25 H 120/98 98 06/14/23 06:45 86 29 H 118/83 98 06/14/23 06:40 84 25 H 123/64 96 06/14/23 06:35 85 26 H 95/57 96 06/14/23 06:30 81 22 124/57 96 06/14/23 06:25 83 15 109/64 98 06/14/23 06:20 83 18 119/56 97 06/14/23 06:15 82 16 115/63 06/14/23 06:10 81 15 82/47 94 L 06/14/23 06:05 78 24 96/49 94 L 06/14/23 06:00 78 23 81/43 93 L 06/14/23 05:55 77 21 89/45 93 L 06/14/23 05:50 78 21 77/45 93 L 06/14/23 05:45 79 21 97/55 94 L 06/14/23 05:40 80 22 97/55 94 L 06/14/23 05:35 79 21 97/55 95 06/14/23 05:30 82 20 74/42 99 06/14/23 05:25 82 20 74/42 94 L 06/14/23 05:20 82 17 74/42 89 L 06/14/23 05:15 79 20 88/48 93 L 06/14/23 05:00 80 25 H 107/87 94 L 06/14/23 04:45 86 15 109/47 95 06/14/23 04:30 85 18 116/53 95 06/14/23 04:29 06/14/23 04:15 84 22 105/48 98 06/14/23 04:00 100 F H 79 12 103/47 93 L 06/14/23 03:42 06/14/23 03:30 19 114/54 90 L 06/14/23 03:00 82 25 H 95/46 90 L 06/14/23 02:30 78 25 H 105/53 94 L 06/14/23 02:21 40 H 91 L 06/14/23 01:38 80/38 06/14/23 01:37 69/41 06/13/23 23:41 06/13/23 23:25 97.6 F 06/13/23 22:14 101.2 F H 86 30 H 114/63 92 L 06/13/23 22:00 88 30 H 101/76 93 L 06/13/23 21:37 92 24 115/63 93 L 06/13/23 21:30 25 H 121/57 93 L 06/13/23 21:00 91 28 H 108/60 93 L 06/13/23 20:30 92 25 H 112/48 94 L 06/13/23 20:00 104 H 22 104/54 94 L 06/13/23 19:34 90 20 103/50 94 L 06/13/23 19:32 06/13/23 19:30 91 20 101/47 93 L 06/13/23 19:25 93 22 101/47 94 L 06/13/23 19:00 92 21 101/46 94 L 06/13/23 18:25 92 24 98/54 94 L 06/13/23 18:17 06/13/23 18:16 06/13/23 17:35 97.1 F L 06/13/23 17:30 114 H 22 85/50 99 06/13/23 17:00 114 H 32 H 109/53 98 06/13/23 16:23 113 H 26 H 127/53 94 L 06/13/23 16:00 110 H 36 H 86/70 95 06/13/23 15:30 107 H 31 H 90/50 95 06/13/23 14:58 06/13/23 14:57 06/13/23 14:55 36 H 06/13/23 14:50 102.1 F H 06/13/23 14:43 130 H 28 H 125/107 86 L FiO2 06/14/23 09:00 06/14/23 08:45 06/14/23 08:30 06/14/23 08:15 06/14/23 08:00 06/14/23 07:45 06/14/23 07:30 06/14/23 07:15 06/14/23 07:00 06/14/23 06:55 06/14/23 06:50 06/14/23 06:45 06/14/23 06:40 06/14/23 06:35 06/14/23 06:30 06/14/23 06:25 06/14/23 06:20 06/14/23 06:15 06/14/23 06:10 06/14/23 06:05 06/14/23 06:00 06/14/23 05:55 06/14/23 05:50 06/14/23 05:45 06/14/23 05:40 06/14/23 05:35 06/14/23 05:30 06/14/23 05:25 06/14/23 05:20 06/14/23 05:15 06/14/23 05:00 06/14/23 04:45 06/14/23 04:30 06/14/23 04:29 60 06/14/23 04:15 06/14/23 04:00 06/14/23 03:42 60 06/14/23 03:30 06/14/23 03:00 06/14/23 02:30 06/14/23 02:21 06/14/23 01:38 06/14/23 01:37 06/13/23 23:41 40 06/13/23 23:25 06/13/23 22:14 40 06/13/23 22:00 06/13/23 21:37 06/13/23 21:30 06/13/23 21:00 06/13/23 20:30 06/13/23 20:00 06/13/23 19:34 06/13/23 19:32 40 06/13/23 19:30 06/13/23 19:25 06/13/23 19:00 06/13/23 18:25 06/13/23 18:17 40 06/13/23 18:16 60 06/13/23 17:35 06/13/23 17:30 06/13/23 17:00 06/13/23 16:23 06/13/23 16:00 06/13/23 15:30 06/13/23 14:58 100 06/13/23 14:57 100 06/13/23 14:55 06/13/23 14:50 06/13/23 14:43 Intake and Output 06/13/23 06/14/23 06/14/23 22:59 06:59 14:59 Intake Total 335.991 469.681 Output Total 600 665 275 Balance -600 -329.009 194.681 Intake: IV 300 Cefepime 2 gm In Sodium 100 Chloride 0.9% 100 ml @ 25 mls/hr IVPB Q12H [facility] Rx# :[id number] Sodium Chloride 0.9% 1, 200 000 ml @ 130 mls/hr IV . Q7H42M [facility] Rx#:[id number] Intake, IV Titration 335.991 169.681 Amount Calcium Gluconate in NaCl 100 1 gm In Saline 1 100ml. bag @ 100 mls/hr IVPB ONCE ONE Rx#:[id number] Norepinephrine 4 mg In 5.991 69.681 Sodium Chloride 0.9% 250 ml @ 0.03 MCG/KG/MIN 8. 295 mls/hr IV .Q24H [facility] Rx#:[id number] Sodium Chloride 0.9% 1, 130 100 000 ml @ 130 mls/hr IV . Q7H42M [facility] Rx#:[id number] Sodium Chloride 0.9% 500 100 ml 500 ml @ 999 mls/hr IV .Q31M ONE Rx#:[id number] Output: Urine 600 665 275 Uretheral (Contreras) 600 Other: Voiding Method Indwelling Catheter Indwelling Catheter Weight 72.575 kg 59.9 kg Results 06/14/23 06:45 06/14/23 06:45 Cardiac Enzymes 06/13/23 06/13/23 06/13/23 Range/Units 14:58 14:58 18:06 AST 87 H (14-36) U/L Troponin I 0.024 0.045 H* (0.000-0.034) ng/mL 06/13/23 06/14/23 Range/Units 19:54 01:21 AST (14-36) U/L Troponin I 0.060 H* 0.059 H* (0.000-0.034) ng/mL Coagulation 06/13/23 Range/Units 14:58 PT 9.4 (9.0-12.0) sec APTT 20.8 L (22.0-30.0) sec CBC 06/13/23 06/14/23 Range/Units 14:58 06:45 WBC 6.4 10.6 (3.8-10.6) k/uL RBC 3.18 L 2.35 L (3.80-5.40) m/uL Hgb 9.5 L 7.2 L D (11.4-16.0) gm/dL Hct 30.1 L 22.3 L (34.0-46.0) % Plt Count 499 H 371 (150-450) k/uL Comprehensive Metabolic Panel 06/13/23 06/13/23 06/14/23 Range/Units 14:58 19:54 01:21 Sodium 134 L (137-145) mmol/L Potassium 7.6 H* 6.1 H* 6.5 H* (3.5-5.1) mmol/L Chloride 100 (98-107) mmol/L Carbon Dioxide 24 (22-30) mmol/L BUN 124 H* (7-17) mg/dL Creatinine 1.35 H (0.52-1.04) mg/dL Glucose 174 H (74-99) mg/dL Calcium 8.9 (8.4-10.2) mg/dL AST 87 H (14-36) U/L ALT 49 H (4-34) U/L Alkaline Phosphatase 112 (38-126) U/L Total Protein 7.2 (6.3-8.2) g/dL Albumin 3.4 L (3.5-5.0) g/dL 06/14/23 Range/Units 06:45 Sodium 139 (137-145) mmol/L Potassium 5.0 (3.5-5.1) mmol/L Chloride 110 H (98-107) mmol/L Carbon Dioxide 23 (22-30) mmol/L BUN 97 H (7-17) mg/dL Creatinine 0.93 (0.52-1.04) mg/dL Glucose 99 (74-99) mg/dL Calcium 8.5 (8.4-10.2) mg/dL AST (14-36) U/L ALT (4-34) U/L Alkaline Phosphatase (38-126) U/L Total Protein (6.3-8.2) g/dL Albumin (3.5-5.0) g/dL Current Medications Generic Name Dose Route Start Last Admin Trade Name Freq PRN Reason Stop Dose Admin Acetaminophen 650 mg 06/13/23 16:54 06/13/23 22:22 Acetaminophen Tab 325 Mg Tab PO 650 mg Q6HR PRN Administration Mild Pain or Fever > 100.5 Aspirin 81 mg 06/14/23 09:00 06/14/23 08:44 Aspirin 81 Mg PEG/G-TUBE 81 mg DAILY ERIKA Administration Atorvastatin Calcium 40 mg 06/13/23 21:00 06/13/23 20:46 Atorvastatin 40 Mg Tab PEG/G-TUBE 40 mg HS ERIKA Administration Brimonidine Tartrate 1 drops 06/13/23 21:00 06/13/23 20:48 Brimonidine Tartrate 0.2% Drops 5 Ml Btl BOTH EYES 1 drops BID ERIKA Administration Clonazepam 0.5 mg 06/14/23 00:30 06/14/23 08:44 Clonazepam 0.5 Mg Tab PEG/G-TUBE 0.5 mg BID ERIKA Administration Clopidogrel Bisulfate 75 mg 06/14/23 09:00 06/14/23 08:44 Clopidogrel 75 Mg Tab PEG/G-TUBE 75 mg DAILY ERIKA Administration Vancomycin HCl 1,250 mg/ 250 mls @ 125 mls/hr 06/14/23 10:00 Sodium Chloride IVPB Q18H ERIKA Cefepime HCl 2 gm/ Sodium 100 mls @ 25 mls/hr 06/14/23 04:00 06/14/23 04:31 Chloride IVPB 25 mls/hr Q12H ERIKA Administration Protocol Norepinephrine Bitartrate 4 mg 254 mls @ 8.295 mls/hr 06/14/23 02:15 06/14/23 09:18 / Sodium Chloride IV 0 mcg/kg/min .Q24H ERIKA 0 mls/hr Titration Protocol 0.03 MCG/KG/MIN Sodium Chloride 1,000 mls @ 100 mls/hr 06/14/23 09:30 Saline 0.9% IV .Q10H ERIKA Latanoprost 1 drops 06/13/23 21:00 06/13/23 20:47 Latanoprost 0.005% Ophth Drops 2.5 Ml Btl BOTH EYES 1 drops HS ERIKA Administration Naloxone HCl 0.2 mg 06/13/23 16:54 Naloxone 0.4 Mg/Ml 1 Ml Vial IV Q2M PRN Opioid Reversal Ondansetron HCl 4 mg 06/13/23 16:54 Ondansetron 4 Mg/2 Ml Vial IVP Q8HR PRN Nausea And Vomiting Pantoprazole Sodium 40 mg 06/14/23 09:00 06/14/23 08:44 Pantoprazole 40 Mg Tablet PO 40 mg DAILY ERIKA Administration Quetiapine Fumarate 12.5 mg 06/14/23 00:15 06/14/23 00:24 Quetiapine 25 Mg Tab PEG/G-TUBE 12.5 mg HS ERIKA Administration Rivaroxaban 15 mg 06/13/23 21:00 06/13/23 20:46 Rivaroxaban 15 Mg Tab PO 15 mg HS ERIKA Administration Protocol Timolol Maleate 1 drops 06/13/23 21:00 06/13/23 20:48 Timolol 0.5% Ophth Drops 5 Ml Btl BOTH EYES 1 drops BID ERIKA Administration Intake and Output 06/13/23 06/14/23 06/14/23 22:59 06:59 14:59 Intake Total 335.991 469.681 Output Total 600 665 275 Balance -600 -329.009 194.681 Intake: IV 300 Cefepime 2 gm In Sodium 100 Chloride 0.9% 100 ml @ 25 mls/hr IVPB Q12H [facility] Rx# :[id number] Sodium Chloride 0.9% 1, 200 000 ml @ 130 mls/hr IV . Q7H42M [facility] Rx#:[id number] Intake, IV Titration 335.991 169.681 Amount Calcium Gluconate in NaCl 100 1 gm In Saline 1 100ml. bag @ 100 mls/hr IVPB ONCE ONE Rx#:[id number] Norepinephrine 4 mg In 5.991 69.681 Sodium Chloride 0.9% 250 ml @ 0.03 MCG/KG/MIN 8. 295 mls/hr IV .Q24H [facility] Rx#:[id number] Sodium Chloride 0.9% 1, 130 100 000 ml @ 130 mls/hr IV . Q7H42M [facility] Rx#:[id number] Sodium Chloride 0.9% 500 100 ml 500 ml @ 999 mls/hr IV .Q31M [facility] Rx#:[id number] Output: Urine 600 665 275 Uretheral (Contreras) 600 Other: Voiding Method Indwelling Catheter Indwelling Catheter Weight 72.575 kg 59.9 kg 06/14/23 06:45 06/14/23 06:45
[2023-06-14] MEDS ORDERED: VANCOMYCIN 1,250 MG in SODIUM CHLORIDE 0.9% 250 ML IVPB SCH (10:00)
--- NOTE | 2023-06-14 10:13 | OP ---
OPERATIVE REPORT DATE OF SERVICE : PROCEDURE PERFORMED: Placement of a left radial arterial line. PREOPERATIVE DIAGNOSES: Hypotension, septic, and septic shock. POSTOPERATIVE DIAGNOSES: Hypotension, septic, and septic shock. ANESTHESIA: None deployed. DESCRIPTION OF PROCEDURE: The left wrist was prepared in a sterile fashion. Drapes were applied. The left radial artery was palpated, cannulated easily, a guidewire was placed, and a Cook catheter was inserted over the guidewire, and the guidewire was removed. Good blood flow, good waveform, no complications. The line was secured using 3-0 silk sutures. MMODL / IJN: [id number] /
--- NOTE | 2023-06-14 10:44 | P.NPCON ---
History of Present Illness - Reason for Consult acute renal failure, hyperkalemia - History of Present Illness Reason for consultation: Acute kidney injury and hyperkalemia History of present illness: Excellent patient is a 78-year-old female seen in renal consultation for acute kidney injury and hyperkalemia. Patient's creatinine on admission was 1.35 and is 0.93 today. Patient did receive 4 L of IV fluids on admission and is currently receiving normal saline at 100 mL an hour. She is on Levophed. Nonoliguric. Patient has a PEG tube but did start oral intake recently. She was into the hospital due to concern for aspiration. She receiving IV antibiotics. Patient was on losartan outpatient. Potassium level was 7.6 on admission and is 5.0 today. Blood pressure was low in the systolic 70s to 80s and most recent reading this morning was 113/58. I don't see NSAIDs and her home medication list. Also no diuretics. Patient is resting in bed. Poor historian. Vital signs are stable. On vasopressor support. General: No acute distress. HEENT: Head exam is unremarkable. On nasal cannula. LUNGS: No audible rhonchi or wheezes. HEART: Rate and Rhythm are regular. ABDOMEN: Nontender. Active noted. EXTREMITITES: No edema. Past Medical History Past Medical History: Chest Pain / Angina, Diabetes Mellitus, Deep Vein Thrombosis (DVT), Eye Disorder, Hyperlipidemia, Musculoskeletal Disorder, Pulmonary Embolus (PE), Skin Disorder Additional Past Medical History / Comment(s): Colitis. mult DVT's, PE's after a fall with multiple fractures. Has tremors hands. Glaucoma & macular degeneration bilat.Neuropathy hands, feet. Unable to walk now. Rash on legs. History of Any Multi-Drug Resistant Organisms: None Reported Past Surgical History: Adenoidectomy, Appendectomy, Ear Surgery, Hysterectomy, Tonsillectomy, Tubal Ligation Additional Past Surgical History / Comment(s): BILAT CATARACTS. REPAIR PERFORFATED LT EARDRUM. COLONOSCOPY. Has IVC Filter. Past Anesthesia/Blood Transfusion Reactions: Previous Problems w/ Anesthesia, Family History of Problems w/ Anesthesia, Motion Sickness Additional Past Anesthesia/Blood Transfusion Reaction / Comment(s): SLOW TO COME OUT OF ANESTHESIA, STATES "SISTER ALSO HAS A HARD TIME COMING OUT OF ANESTHESIA" Past Psychological History: Bipolar Smoking Status: Never smoker Past Alcohol Use History: None Reported Past Drug Use History: None Reported - Past Family History Brother(s) Family Medical History: Cancer Additional Family Medical History / Comment(s): leukemia Mother Family Medical History: Cancer Additional Family Medical History / Comment(s): Colon cancer; lung cancer now Medications and Allergies Home Medications Medication Instructions Recorded Confirmed Type Aspirin 81 mg PEG/G-TUBE DAILY 06/01/15 06/13/23 History Escitalopram [Lexapro] 10 mg PEG/G-TUBE DAILY 06/01/15 06/13/23 History Latanoprost Ophth [Xalatan 0.005%] 1 drops BOTH EYES HS 06/01/15 06/13/23 History Rivaroxaban [Xarelto] 20 mg PEG/G-TUBE HS 06/01/15 06/13/23 History Brimonidine Tartrate/Timolol 1 drop BOTH EYES BID 05/27/22 06/13/23 History [Combigan 0.2%-0.5% Eye Drops] Losartan Potassium [Cozaar] 50 mg PEG/G-TUBE BID 05/27/22 06/13/23 History Ondansetron [Zofran] 4 mg PEG/G-TUBE Q8HR PRN 05/27/22 06/13/23 History Acetaminophen Tab [Tylenol] 650 mg PEG/G-TUBE Q6H PRN 06/13/23 06/13/23 History Acetaminophen-Codeine 300-30mg 1 tab PEG/G-TUBE TID PRN 06/13/23 06/13/23 History [Tylenol w/codeine #3] Atorvastatin [Lipitor] 40 mg PEG/G-TUBE HS 06/13/23 06/13/23 History Clopidogrel [Plavix] 75 mg PEG/G-TUBE DAILY 06/13/23 06/13/23 History Ezetimibe [Zetia] 10 mg PEG/G-TUBE HS 06/13/23 06/13/23 History Ferrous Sulfate [Feosol] 325 mg PEG/G-TUBE MOWEFR 06/13/23 06/13/23 History Folic Acid 1 mg PEG/G-TUBE DAILY 06/13/23 06/13/23 History Magnesium Hydroxide [Milk of 2,400 mg PEG/G-TUBE DAILY 06/13/23 06/13/23 History Magnesia] Melatonin 3 mg PEG/G-TUBE HS PRN 06/13/23 06/13/23 History Multivitamins, Thera [Multivitamin 1 tab PEG/G-TUBE DAILY 06/13/23 06/13/23 History (formulary)] Pantoprazole [Protonix] 40 mg PEG/G-TUBE DAILY 06/13/23 06/13/23 History QUEtiapine [SEROquel] 12.5 mg PEG/G-TUBE HS 06/13/23 06/13/23 History clonazePAM [KlonoPIN] 0.5 mg PEG/G-TUBE BID 06/13/23 06/13/23 History Allergies Allergy/AdvReac Type Severity Reaction Status Date / Time Sulfa (Sulfonamide Allergy Anaphylaxis Verified 06/13/23 15:51 Antibiotics) Physical Exam Vitals: Vital Signs Temp Pulse Pulse Resp BP BP Pulse Ox 06/14/23 09:00 84 25 H 113/58 96 06/14/23 08:45 85 19 111/48 99 06/14/23 08:30 84 21 98/48 98 06/14/23 08:15 81 21 100/52 97 06/14/23 08:00 99.9 F H 80 21 96/47 97 06/14/23 07:45 77 24 103/46 94 L 06/14/23 07:30 79 24 114/53 93 L 06/14/23 07:15 81 20 116/54 94 L 06/14/23 07:00 82 20 115/56 100 06/14/23 06:55 83 18 112/60 98 06/14/23 06:50 82 25 H 120/98 98 06/14/23 06:45 86 29 H 118/83 98 06/14/23 06:40 84 25 H 123/64 96 06/14/23 06:35 85 26 H 95/57 96 06/14/23 06:30 81 22 124/57 96 06/14/23 06:25 83 15 109/64 98 06/14/23 06:20 83 18 119/56 97 06/14/23 06:15 82 16 115/63 06/14/23 06:10 81 15 82/47 94 L 06/14/23 06:05 78 24 96/49 94 L 06/14/23 06:00 78 23 81/43 93 L 06/14/23 05:55 77 21 89/45 93 L 06/14/23 05:50 78 21 77/45 93 L 06/14/23 05:45 79 21 97/55 94 L 06/14/23 05:40 80 22 97/55 94 L 06/14/23 05:35 79 21 97/55 95 06/14/23 05:30 82 20 74/42 99 06/14/23 05:25 82 20 74/42 94 L 06/14/23 05:20 82 17 74/42 89 L 06/14/23 05:15 79 20 88/48 93 L 06/14/23 05:00 80 25 H 107/87 94 L 06/14/23 04:45 86 15 109/47 95 06/14/23 04:30 85 18 116/53 95 06/14/23 04:29 06/14/23 04:15 84 22 105/48 98 06/14/23 04:00 100 F H 79 12 103/47 93 L 06/14/23 03:42 06/14/23 03:30 19 114/54 90 L 06/14/23 03:00 82 25 H 95/46 90 L 06/14/23 02:30 78 25 H 105/53 94 L 06/14/23 02:21 40 H 91 L 06/14/23 01:38 80/38 06/14/23 01:37 69/41 06/13/23 23:41 06/13/23 23:25 97.6 F 06/13/23 22:14 101.2 F H 86 30 H 114/63 92 L 06/13/23 22:00 88 30 H 101/76 93 L 06/13/23 21:37 92 24 115/63 93 L 06/13/23 21:30 25 H 121/57 93 L 06/13/23 21:00 91 28 H 108/60 93 L 06/13/23 20:30 92 25 H 112/48 94 L 06/13/23 20:00 104 H 22 104/54 94 L 06/13/23 19:34 90 20 103/50 94 L 06/13/23 19:32 06/13/23 19:30 91 20 101/47 93 L 06/13/23 19:25 93 22 101/47 94 L 06/13/23 19:00 92 21 101/46 94 L 06/13/23 18:25 92 24 98/54 94 L 06/13/23 18:17 06/13/23 18:16 06/13/23 17:35 97.1 F L 06/13/23 17:30 114 H 22 85/50 99 06/13/23 17:00 114 H 32 H 109/53 98 06/13/23 16:23 113 H 26 H 127/53 94 L 06/13/23 16:00 110 H 36 H 86/70 95 06/13/23 15:30 107 H 31 H 90/50 95 06/13/23 14:58 06/13/23 14:57 06/13/23 14:55 36 H 06/13/23 14:50 102.1 F H 06/13/23 14:43 130 H 28 H 125/107 86 L FiO2 06/14/23 09:00 06/14/23 08:45 06/14/23 08:30 06/14/23 08:15 06/14/23 08:00 06/14/23 07:45 06/14/23 07:30 06/14/23 07:15 06/14/23 07:00 06/14/23 06:55 06/14/23 06:50 06/14/23 06:45 06/14/23 06:40 06/14/23 06:35 06/14/23 06:30 06/14/23 06:25 06/14/23 06:20 06/14/23 06:15 06/14/23 06:10 06/14/23 06:05 06/14/23 06:00 06/14/23 05:55 06/14/23 05:50 06/14/23 05:45 06/14/23 05:40 06/14/23 05:35 06/14/23 05:30 06/14/23 05:25 06/14/23 05:20 06/14/23 05:15 06/14/23 05:00 06/14/23 04:45 06/14/23 04:30 06/14/23 04:29 60 06/14/23 04:15 06/14/23 04:00 06/14/23 03:42 60 06/14/23 03:30 06/14/23 03:00 06/14/23 02:30 06/14/23 02:21 06/14/23 01:38 06/14/23 01:37 06/13/23 23:41 40 06/13/23 23:25 06/13/23 22:14 40 06/13/23 22:00 06/13/23 21:37 06/13/23 21:30 06/13/23 21:00 06/13/23 20:30 06/13/23 20:00 06/13/23 19:34 06/13/23 19:32 40 06/13/23 19:30 06/13/23 19:25 06/13/23 19:00 06/13/23 18:25 06/13/23 18:17 40 06/13/23 18:16 60 06/13/23 17:35 06/13/23 17:30 06/13/23 17:00 06/13/23 16:23 06/13/23 16:00 06/13/23 15:30 06/13/23 14:58 100 06/13/23 14:57 100 06/13/23 14:55 06/13/23 14:50 06/13/23 14:43 Intake and Output 06/13/23 06/14/23 06/14/23 22:59 06:59 14:59 Intake Total 335.991 474.935 Output Total 600 665 275 Balance -600 -329.009 199.935 Intake: IV 300 Cefepime 2 gm In Sodium 100 Chloride 0.9% 100 ml @ 25 mls/hr IVPB Q12H ERIKA Rx# :[id number] Sodium Chloride 0.9% 1, 200 000 ml @ 130 mls/hr IV . Q7H42M STA Rx#:[id number] Intake, IV Titration 335.991 174.935 Amount Calcium Gluconate in NaCl 100 1 gm In Saline 1 100ml. bag @ 100 mls/hr IVPB ONCE ONE Rx#:[id number] Norepinephrine 4 mg In 5.991 74.935 Sodium Chloride 0.9% 250 ml @ 0.03 MCG/KG/MIN 8. 295 mls/hr IV .Q24H ERIKA Rx#:[id number] Sodium Chloride 0.9% 1, 130 100 000 ml @ 130 mls/hr IV . Q7H42M STA Rx#:[id number] Sodium Chloride 0.9% 500 100 ml 500 ml @ 999 mls/hr IV .Q31M ONE Rx#:[id number] Output: Urine 600 665 275 Uretheral (Contreras) 600 Other: Voiding Method Indwelling Catheter Indwelling Catheter Weight 72.575 kg 59.9 kg Results - Lab Results Most recent lab results ABG pH 7.44 (7.35-7.45) 06/13/23 15:05 ABG pCO2 37 mmHg (35-45) 06/13/23 15:05 ABG pO2 90 mmHg (83-108) 06/13/23 15:05 ABG HCO3 25 mmol/L (21-25) 06/13/23 15:05 ABG O2 Saturation 97.1 % (94-97) H 06/13/23 15:05 Calcium 8.5 mg/dL (8.4-10.2) 06/14/23 06:45 Magnesium 3.5 mg/dL (1.6-2.3) H 06/14/23 06:45 06/14/23 06:45 06/14/23 06:45 Assessment and Plan Plan: Assessment: 1. Acute kidney injury mostly prerenal secondary to hypotension/sepsis. Improved. Creatinine 1.35 on admission and is 0.93 today. 2. Hyperkalemia secondary to acute kidney injury and losartan. Improved. 3. Hypermagnesemia from acute kidney injury and milk of magnesia. Trending down. 4. Septic shock secondary to aspiration pneumonia on antibiotics and Levophed. 5. Hypovolemic hyponatremia improved with IV hydration. Plan: Maintain IV fluids. Avoid nephrotoxins. Continue to hold anti-hypertensives. Wean Levophed. Continue to monitor renal function and urine output. Thank you for the consultation. I will continue to follow the patient daily during her hospital stay.
--- NOTE | 2023-06-14 11:07 | P.CNPUL ---
History of Present Illness Consult date: 06/14/23 Requesting physician: Yuan Marroquin Reason for consult: pneumonia Chief complaint: Shortness of breath, fever, altered mental status. 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 She was brought into the ER yesterday mostly with increased shortness of breath, altered mental status and more confusion, fever with a T-max of 102.1, she was noted to be short of breath, hypoxic, and she required to be on a nonrebreather mask and at one point she was on BiPAP in the ER. Chest x-ray clearly showed evidence of right lower lobe pneumonia and right-sided small pleural effusion. Patient was admitted to the floor initially, however she developed hypotension and she does not improve with fluid boluses/2 L, hence I was notified about this patient and I admitted the patient to the ICU. Started the patient on norepinephrine, and she is presently on norepinephrine at 0.08 mcg/kg/m. She is receiving IV fluid at a rate of 100 mL per hour in the form of 0.9 normal saline, she is on cefepime and vancomycin. Blood pressure was poor this morning and I recommended a left radial arterial line which was placed. ABG showed a pO2 of 90 pCO2 37 pH of 7.44. Patient is supposedly on enteral feeding via PEG tube which is presently on hold because of concern about possible aspiration. Patient lives at the [facility], and she is mostly bedbound. CODE STATUS is DO NOT RESUSCITATE. Not much history could be obtained from the patient as she seems to be confused, moaning and groaning most of the time, but no purposeful responses. WBC count is 10.6 hemoglobin is 7.2 electrolytes are normal renal profile is normal her potassium yesterday was 6.5, she was given treatment for high potassium and repeat potassium this morning is 5, troponin is noted to be a bit elevated at 0.059. Review of Systems ROS unobtainable: due to mental status Past Medical History Past Medical History: Chest Pain / Angina, Diabetes Mellitus, Deep Vein Thrombosis (DVT), Eye Disorder, Hyperlipidemia, Musculoskeletal Disorder, Pulmonary Embolus (PE), Skin Disorder Additional Past Medical History / Comment(s): Colitis. mult DVT's, PE's after a fall with multiple fractures. Has tremors hands. Glaucoma & macular degeneration bilat.Neuropathy hands, feet. Unable to walk now. Rash on legs. History of Any Multi-Drug Resistant Organisms: None Reported Past Surgical History: Adenoidectomy, Appendectomy, Ear Surgery, Hysterectomy, Tonsillectomy, Tubal Ligation Additional Past Surgical History / Comment(s): BILAT CATARACTS. REPAIR PERFORFATED LT EARDRUM. COLONOSCOPY. Has IVC Filter. Past Anesthesia/Blood Transfusion Reactions: Previous Problems w/ Anesthesia, Family History of Problems w/ Anesthesia, Motion Sickness Additional Past Anesthesia/Blood Transfusion Reaction / Comment(s): SLOW TO COME OUT OF ANESTHESIA, STATES "SISTER ALSO HAS A HARD TIME COMING OUT OF ANESTHESIA" Past Psychological History: Bipolar Smoking Status: Never smoker Past Alcohol Use History: None Reported Past Drug Use History: None Reported - Past Family History Brother(s) Family Medical History: Cancer Additional Family Medical History / Comment(s): leukemia Mother Family Medical History: Cancer Additional Family Medical History / Comment(s): Colon cancer; lung cancer now Medications and Allergies Home Medications Medication Instructions Recorded Confirmed Type Aspirin 81 mg PEG/G-TUBE DAILY 06/01/15 06/13/23 History Escitalopram [Lexapro] 10 mg PEG/G-TUBE DAILY 06/01/15 06/13/23 History Latanoprost Ophth [Xalatan 0.005%] 1 drops BOTH EYES HS 06/01/15 06/13/23 History Rivaroxaban [Xarelto] 20 mg PEG/G-TUBE HS 06/01/15 06/13/23 History Brimonidine Tartrate/Timolol 1 drop BOTH EYES BID 05/27/22 06/13/23 History [Combigan 0.2%-0.5% Eye Drops] Losartan Potassium [Cozaar] 50 mg PEG/G-TUBE BID 05/27/22 06/13/23 History Ondansetron [Zofran] 4 mg PEG/G-TUBE Q8HR PRN 05/27/22 06/13/23 History Acetaminophen Tab [Tylenol] 650 mg PEG/G-TUBE Q6H PRN 06/13/23 06/13/23 History Acetaminophen-Codeine 300-30mg 1 tab PEG/G-TUBE TID PRN 06/13/23 06/13/23 History [Tylenol w/codeine #3] Atorvastatin [Lipitor] 40 mg PEG/G-TUBE HS 06/13/23 06/13/23 History Clopidogrel [Plavix] 75 mg PEG/G-TUBE DAILY 06/13/23 06/13/23 History Ezetimibe [Zetia] 10 mg PEG/G-TUBE HS 06/13/23 06/13/23 History Ferrous Sulfate [Feosol] 325 mg PEG/G-TUBE MOWEFR 06/13/23 06/13/23 History Folic Acid 1 mg PEG/G-TUBE DAILY 06/13/23 06/13/23 History Magnesium Hydroxide [Milk of 2,400 mg PEG/G-TUBE DAILY 06/13/23 06/13/23 History Magnesia] Melatonin 3 mg PEG/G-TUBE HS PRN 06/13/23 06/13/23 History Multivitamins, Thera [Multivitamin 1 tab PEG/G-TUBE DAILY 06/13/23 06/13/23 History (formulary)] Pantoprazole [Protonix] 40 mg PEG/G-TUBE DAILY 06/13/23 06/13/23 History QUEtiapine [SEROquel] 12.5 mg PEG/G-TUBE HS 06/13/23 06/13/23 History clonazePAM [KlonoPIN] 0.5 mg PEG/G-TUBE BID 06/13/23 06/13/23 History Allergies Allergy/AdvReac Type Severity Reaction Status Date / Time Sulfa (Sulfonamide Allergy Anaphylaxis Verified 06/13/23 15:51 Antibiotics) Physical Exam Vitals: Vital Signs Temp Pulse Pulse Resp BP BP Pulse Ox 06/14/23 09:00 84 25 H 113/58 96 06/14/23 08:45 85 19 111/48 99 06/14/23 08:30 84 21 98/48 98 06/14/23 08:15 81 21 100/52 97 06/14/23 08:00 99.9 F H 80 21 96/47 97 06/14/23 07:45 77 24 103/46 94 L 06/14/23 07:30 79 24 114/53 93 L 06/14/23 07:15 81 20 116/54 94 L 06/14/23 07:00 82 20 115/56 100 06/14/23 06:55 83 18 112/60 98 06/14/23 06:50 82 25 H 120/98 98 06/14/23 06:45 86 29 H 118/83 98 06/14/23 06:40 84 25 H 123/64 96 06/14/23 06:35 85 26 H 95/57 96 06/14/23 06:30 81 22 124/57 96 06/14/23 06:25 83 15 109/64 98 06/14/23 06:20 83 18 119/56 97 06/14/23 06:15 82 16 115/63 06/14/23 06:10 81 15 82/47 94 L 06/14/23 06:05 78 24 96/49 94 L 06/14/23 06:00 78 23 81/43 93 L 06/14/23 05:55 77 21 89/45 93 L 06/14/23 05:50 78 21 77/45 93 L 06/14/23 05:45 79 21 97/55 94 L 06/14/23 05:40 80 22 97/55 94 L 06/14/23 05:35 79 21 97/55 95 06/14/23 05:30 82 20 74/42 99 06/14/23 05:25 82 20 74/42 94 L 06/14/23 05:20 82 17 74/42 89 L 06/14/23 05:15 79 20 88/48 93 L 06/14/23 05:00 80 25 H 107/87 94 L 06/14/23 04:45 86 15 109/47 95 06/14/23 04:30 85 18 116/53 95 06/14/23 04:29 06/14/23 04:15 84 22 105/48 98 06/14/23 04:00 100 F H 79 12 103/47 93 L 06/14/23 03:42 06/14/23 03:30 19 114/54 90 L 06/14/23 03:00 82 25 H 95/46 90 L 06/14/23 02:30 78 25 H 105/53 94 L 06/14/23 02:21 40 H 91 L 06/14/23 01:38 80/38 06/14/23 01:37 69/41 06/13/23 23:41 06/13/23 23:25 97.6 F 06/13/23 22:14 101.2 F H 86 30 H 114/63 92 L 06/13/23 22:00 88 30 H 101/76 93 L 06/13/23 21:37 92 24 115/63 93 L 06/13/23 21:30 25 H 121/57 93 L 06/13/23 21:00 91 28 H 108/60 93 L 06/13/23 20:30 92 25 H 112/48 94 L 06/13/23 20:00 104 H 22 104/54 94 L 06/13/23 19:34 90 20 103/50 94 L 06/13/23 19:32 06/13/23 19:30 91 20 101/47 93 L 06/13/23 19:25 93 22 101/47 94 L 06/13/23 19:00 92 21 101/46 94 L 06/13/23 18:25 92 24 98/54 94 L 06/13/23 18:17 06/13/23 18:16 06/13/23 17:35 97.1 F L 06/13/23 17:30 114 H 22 85/50 99 06/13/23 17:00 114 H 32 H 109/53 98 06/13/23 16:23 113 H 26 H 127/53 94 L 06/13/23 16:00 110 H 36 H 86/70 95 06/13/23 15:30 107 H 31 H 90/50 95 06/13/23 14:58 06/13/23 14:57 06/13/23 14:55 36 H 06/13/23 14:50 102.1 F H 06/13/23 14:43 130 H 28 H 125/107 86 L FiO2 06/14/23 09:00 06/14/23 08:45 06/14/23 08:30 06/14/23 08:15 06/14/23 08:00 06/14/23 07:45 06/14/23 07:30 06/14/23 07:15 06/14/23 07:00 06/14/23 06:55 06/14/23 06:50 06/14/23 06:45 06/14/23 06:40 06/14/23 06:35 06/14/23 06:30 06/14/23 06:25 06/14/23 06:20 06/14/23 06:15 06/14/23 06:10 06/14/23 06:05 06/14/23 06:00 06/14/23 05:55 06/14/23 05:50 06/14/23 05:45 06/14/23 05:40 06/14/23 05:35 06/14/23 05:30 06/14/23 05:25 06/14/23 05:20 06/14/23 05:15 06/14/23 05:00 06/14/23 04:45 06/14/23 04:30 06/14/23 04:29 60 06/14/23 04:15 06/14/23 04:00 06/14/23 03:42 60 06/14/23 03:30 06/14/23 03:00 06/14/23 02:30 06/14/23 02:21 06/14/23 01:38 06/14/23 01:37 06/13/23 23:41 40 06/13/23 23:25 06/13/23 22:14 40 06/13/23 22:00 06/13/23 21:37 06/13/23 21:30 06/13/23 21:00 06/13/23 20:30 06/13/23 20:00 06/13/23 19:34 06/13/23 19:32 40 06/13/23 19:30 06/13/23 19:25 06/13/23 19:00 06/13/23 18:25 06/13/23 18:17 40 06/13/23 18:16 60 06/13/23 17:35 06/13/23 17:30 06/13/23 17:00 06/13/23 16:23 06/13/23 16:00 06/13/23 15:30 06/13/23 14:58 100 06/13/23 14:57 100 06/13/23 14:55 06/13/23 14:50 06/13/23 14:43 Intake and Output 06/13/23 06/14/23 06/14/23 22:59 06:59 14:59 Intake Total 335.991 474.935 Output Total 600 665 275 Balance -600 -329.009 199.935 Intake: IV 300 Cefepime 2 gm In Sodium 100 Chloride 0.9% 100 ml @ 25 mls/hr IVPB Q12H ERIKA Rx# :[id number] Sodium Chloride 0.9% 1, 200 000 ml @ 130 mls/hr IV . Q7H42M STA Rx#:[id number] Intake, IV Titration 335.991 174.935 Amount Calcium Gluconate in NaCl 100 1 gm In Saline 1 100ml. bag @ 100 mls/hr IVPB ONCE ONE Rx#:[id number] Norepinephrine 4 mg In 5.991 74.935 Sodium Chloride 0.9% 250 ml @ 0.03 MCG/KG/MIN 8. 295 mls/hr IV .Q24H ERIKA Rx#:[id number] Sodium Chloride 0.9% 1, 130 100 000 ml @ 130 mls/hr IV . Q7H42M STA Rx#:[id number] Sodium Chloride 0.9% 500 100 ml 500 ml @ 999 mls/hr IV .Q31M ONE Rx#:[id number] Output: Urine 600 665 275 Uretheral (Contreras) 600 Other: Voiding Method Indwelling Catheter Indwelling Catheter Indwelling Catheter Weight 72.575 kg 59.9 kg Physical Exam: Revealed a 78-year-old female confused, in no distress. On nasal cannula. Head: Atraumatic, normocephalic. HEENT:[Neck is supple.] [No neck masses.] [No thyromegaly.] [No JVD.] Chest: [Diminished breath sounds and crackles at the right base. No rhonchi and no wheezes Cardiac Exam: [Normal S1 and S2, no S3 gallop, no murmur.] Abdomen: [Soft, nontender, no megaly, no rebound, no guarding, normal bowel sounds.] PEG tube is noted to be intact Extremities: [No clubbing, no edema, no cyanosis.] Neurological Exam: Patient is awake, but confused, seems to be quite rigid, and does not follow any instructions, does not seem to comprehend and her mental status is compromised. Psychiatric: Could not assess. Musculoskeletal: Evidence of muscular rigidity otherwise unremarkable Results - Laboratory Findings CBC and BMP: 06/14/23 06:45 06/14/23 06:45 ABG ABG pH 7.44 (7.35-7.45) 06/13/23 15:05 ABG pCO2 37 mmHg (35-45) 06/13/23 15:05 ABG pO2 90 mmHg (83-108) 06/13/23 15:05 ABG O2 Saturation 97.1 % (94-97) H 06/13/23 15:05 PT/INR, D-dimer PT 9.4 sec (9.0-12.0) 06/13/23 14:58 INR 0.9 (<1.2) 06/13/23 14:58 Abnormal lab findings: Abnormal Labs 06/13/23 06/13/23 06/13/23 14:58 14:58 14:58 RBC 3.18 L Hgb 9.5 L Hct 30.1 L Plt Count 499 H Neutrophils # APTT 20.8 L ABG Total CO2 ABG O2 Saturation Sodium Potassium Chloride BUN Creatinine Glucose Plasma Lactic Acid Celio Magnesium AST ALT Troponin I Albumin Urine Protein Trace H Ur Leukocyte Esterase Trace H 06/13/23 06/13/23 06/13/23 14:58 14:58 15:05 RBC Hgb Hct Plt Count Neutrophils # APTT ABG Total CO2 26 H ABG O2 Saturation 97.1 H Sodium 134 L Potassium 7.6 H* Chloride BUN 124 H* Creatinine 1.35 H Glucose 174 H Plasma Lactic Acid Celio 2.6 H* Magnesium 4.5 H AST 87 H ALT 49 H Troponin I Albumin 3.4 L Urine Protein Ur Leukocyte Esterase 06/13/23 06/13/23 06/13/23 18:06 19:54 19:54 RBC Hgb Hct Plt Count Neutrophils # APTT ABG Total CO2 ABG O2 Saturation Sodium Potassium 6.1 H* Chloride BUN Creatinine Glucose Plasma Lactic Acid Celio Magnesium AST ALT Troponin I 0.045 H* 0.060 H* Albumin Urine Protein Ur Leukocyte Esterase 06/14/23 06/14/23 06/14/23 01:21 01:21 06:45 RBC 2.35 L Hgb 7.2 L D Hct 22.3 L Plt Count Neutrophils # 8.9 H APTT ABG Total CO2 ABG O2 Saturation Sodium Potassium 6.5 H* Chloride BUN Creatinine Glucose Plasma Lactic Acid Celio Magnesium AST ALT Troponin I 0.059 H* Albumin Urine Protein Ur Leukocyte Esterase 06/14/23 06:45 RBC Hgb Hct Plt Count Neutrophils # APTT ABG Total CO2 ABG O2 Saturation Sodium Potassium Chloride 110 H BUN 97 H Creatinine Glucose Plasma Lactic Acid Celio Magnesium 3.5 H AST ALT Troponin I Albumin Urine Protein Ur Leukocyte Esterase - Diagnostic Findings Chest x-ray: image reviewed (As noted in HPI, suspect pneumonia in the right lower lobe with a small right parapneumonic effusion) Assessment and Plan Assessment: Impression: Acute healthcare acquired pneumonia with right parapneumonic effusion, possible aspiration pneumonia Acute hypoxic respiratory failure secondary to pneumonia and parapneumonic effusion Suspect sepsis and septic shock since the patient did not respond to fluid boluses of almost 4 L, required norepinephrine and remains on norepinephrine Acute kidney injury/ATN Acute hyperkalemia secondary to acute kidney injury History of underlying coronary artery disease, recent cardiac catheterization and stent placement about a month ago. 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 Recommendation: Continue to monitor the patient in the ICU Continue antibiotics patient is receiving cefepime and vancomycin will adjust antibiotics based on the final cultures from blood and sputum Continue norepinephrine titrate and possibly discontinue if blood pressure improves today. Titrate oxygen and maintaining O2 sats above 90% Continue GI and DVT prophylaxis Resume her aspirin and Plavix as well as statin considering her underlying coronary artery disease and recent stent placement Check blood cultures and sputum cultures Continue to monitor daily electrolytes and renal status We will continue to follow Patient is critically ill, CODE STATUS is DO NOT RESUSCITATE. Time with Patient: Greater than 30
[2023-06-14] MEDS: SODIUM CHLORIDE 0.9% 1,000 ML IV SCH ×2 (11:08→20:23)
[2023-06-14] MEDS: TIMOLOL 0.5% OPHTH DROPS 5 ML BTL BOTH EYES SCH ×2 (11:08→20:22)
[2023-06-14] MEDS: BRIMONIDINE TARTRATE 0.2% DROPS 5 ML BTL BOTH EYES SCH ×2 (11:08→20:22)
[2023-06-14 11:29] LABS: Glucose,Whole Blood 107 mg/dL (70-110)
[2023-06-14] MEDS: LATANOPROST 0.005% OPHTH DROPS 2.5 ML BTL BOTH EYES SCH (20:21)
[2023-06-14] MEDS: ATORVASTATIN 40 MG TAB PEG/G-TUBE SCH (20:21)
[2023-06-14] MEDS: RIVAROXABAN 15 MG TAB PO SCH (20:21)
[2023-06-14] MEDS: ACETAMINOPHEN TAB 325 MG TAB PO PRN (20:21)
[2023-06-14] MEDS: METOPROLOL TARTRATE 25 MG TAB PO SCH (20:24)
[2023-06-14] MEDS ORDERED: HYDROCORTISONE SUCCINATE 100 MG/2 ML VIAL IV STA (21:17)
[2023-06-14] MEDS ORDERED: SODIUM CHLORIDE 0.9% 1,000 ML IV ONE (21:18)
[2023-06-14 21:30] LABS: ABG Base Excess -2.4 mmol/L; ABG HCO3 23 mmol/L (21-25); ABG Oxygen Saturation 98.2 % (94-97); ABG PCO2 40 mmHg (35-45); ABG PH 7.37 (7.35-7.45); ABG PO2 147 mmHg (83-108); ABG TCO2 24 mmol/L (19-24); Allen Test Performed? Yes
[2023-06-14] MEDS ORDERED: NOREPINEPHRINE 32 MG in SODIUM CHLORIDE 0.9% 218 ML IV SCH (21:30)
[2023-06-14] MEDS: VASOPRESSIN 20 UNIT in SODIUM CHLORIDE 0.9% 50 ML IV SCH (21:31)
[2023-06-14] MEDS ORDERED: NOREPINEPHRINE 4 MG in SODIUM CHLORIDE 0.9% 250 ML IV SCH (22:00)
[2023-06-14] MEDS: VANCOMYCIN 1,000 MG in SODIUM CHLORIDE 0.9% 250 ML IVPB SCH (23:15)
[2023-06-14 23:31] LABS: Glucose,Whole Blood 105 mg/dL (70-110)
--- NOTE | 2023-06-15 01:31 | P.PN ---
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 On admission patient was febrile with Tmax 102.1. Patient was tachycardic and tachypneic requiring nonrebreather and eventually placed on BiPAP in the ER. Patient was awake alert and oriented x1-2 on admission. She thinks she might have aspirated. She did have cough and shortness of breath. Patient's is bedside and is able to provide history. Patient was recently admitted to the hospital and had stent placement about 4 weeks ago. Chest x-ray on admission showed small right pleural effusion with right basilar consolidation concerning for pneumonia. COPD changes. EKG showed atrial fibrillation with rapid ventricular response with heart rate 113. Patient was given IV hydration was started on broad-spectrum antibiotics in the ER. Laboratory data showed WBC 6.4, hemoglobin 9.5 and platelets 499 ABG showed pH 7.44 PCO2 37 PO2 90 and bicarb is 25 Sodium 134 potassium 7.6 chloride 100 bicarb is 24 BUN 124 and creatinine 135 and blood sugar is 174. Lactic acid 2.6 on admission. AST 87 ALT 47 alk phos 112 and troponin 0.024, 0.45 and 0.060 Urinalysis is negative for infection. Influenza A, B, RSV and COVID-19 PCR not detected. 06/14/2023 Patient is in the ICU. Currently nasal cannula oxygen at 6 L high flow. Patient is lethargic and nonverbal. Patient is at bedside. Laboratory data showed WBC 10.6 hemoglobin 7.2 and platelets 371. Blood pressure improved with pressor support. Sodium 139 potassium improved to 5.0 chloride 110 bicarb is 23 BUN 97 and creatinine 0.93 and magnesium 3.5. TSH within normal limits. Patient remains on antibiotics in the form of vancomycin and cefepime. Also IV hydration with normal saline. Cardiology, nephrology and critical care team is on board. CODE STATUS is DNR/DNI. Patient's is considering go for comfort care once he discusses with their children. Current medications reviewed. Objective - Vital Signs Vital signs: Vital Signs Temp 97.2 F L 06/14/23 16:00 Pulse 87 06/14/23 19:00 Resp 19 06/14/23 19:00 BP 126/59 06/14/23 18:15 Pulse Ox 98 06/14/23 19:00 FiO2 60 06/14/23 04:29 Intake & Output 06/14/23 06/14/23 06/15/23 06:59 18:59 06:59 Intake Total 608.367 8962.411 100 Output Total 665 1095 125 Balance -329.009 454.411 -25 Weight 59.9 kg Intake: IV 1200 100 Cefepime 2 gm In Sodium 200 Chloride 0.9% 100 ml @ 25 mls/hr IVPB Q12H [facility] Rx# :[id number] Sodium Chloride 0.9% 1, 800 100 000 ml @ 100 mls/hr IV . Q10H [facility] Rx#:[id number] Sodium Chloride 0.9% 1, 200 000 ml @ 130 mls/hr IV . Q7H42M [facility] Rx#:[id number] Intake, IV Titration 335.991 289.411 Amount Calcium Gluconate in NaCl 100 1 gm In Saline 1 100ml. bag @ 100 mls/hr IVPB ONCE ONE Rx#:[id number] Norepinephrine 4 mg In 5.991 189.411 Sodium Chloride 0.9% 250 ml @ 0.03 MCG/KG/MIN 8. 295 mls/hr IV .Q24H [facility] Rx#:[id number] Sodium Chloride 0.9% 1, 130 100 000 ml @ 130 mls/hr IV . Q7H42M [facility] Rx#:[id number] Sodium Chloride 0.9% 500 100 ml 500 ml @ 999 mls/hr IV .Q31M ONE Rx#:[id number] Other 60 Output: Urine 665 1095 125 Other: Voiding Method Indwelling Catheter Indwelling Catheter ABP, PAP, CO, CI - Last Documented Arterial Blood Pressure 149/40 - Exam PHYSICAL EXAMINATION: Patient is lying in the bed ,no acute distress, patient is lethargic and obtunded. HEENT: Normocephalic. Neck is supple. Pupils reactive. Nostrils clear. Oral cavity is moist. Neck reveals no JVD, carotid bruits, or thyromegaly. CHEST EXAMINATION: Trachea is central. Symmetrical expansion. Bibasilar diminished sounds. No wheezing.. CARDIAC: Normal S1, S2 with no gallops. No murmurs ABDOMEN: Soft. Bowel sounds present. Nontender. No organomegaly. No abdominal bruits. Extremities: reveal no edema. No clubbing or cyanosis Neurologically patient is lethargic and obtunded.no gross focal neurological deficits noted. Skin: No rash or skin lesions. Petechial rash over the right miller region Psychiatric: Could not be assessed completely, Musculoskeletal: No joint swelling or deformity. - Labs CBC & Chem 7: 06/14/23 06:45 06/14/23 06:45 Labs: Abnormal Lab Results - Last 24 Hours (Table) 06/13/23 06/13/23 06/14/23 Range/Units 19:54 19:54 01:21 RBC (3.80-5.40) m/uL Hgb (11.4-16.0) gm/dL Hct (34.0-46.0) % Neutrophils # (1.3-7.7) k/uL Potassium 6.1 H* (3.5-5.1) mmol/L Chloride (98-107) mmol/L BUN (7-17) mg/dL Magnesium (1.6-2.3) mg/dL Troponin I 0.060 H* 0.059 H* (0.000-0.034) ng/mL 06/14/23 06/14/23 06/14/23 Range/Units 01:21 06:45 06:45 RBC 2.35 L (3.80-5.40) m/uL Hgb 7.2 L D (11.4-16.0) gm/dL Hct 22.3 L (34.0-46.0) % Neutrophils # 8.9 H (1.3-7.7) k/uL Potassium 6.5 H* (3.5-5.1) mmol/L Chloride 110 H (98-107) mmol/L BUN 97 H (7-17) mg/dL Magnesium 3.5 H (1.6-2.3) mg/dL Troponin I (0.000-0.034) ng/mL Assessment and Plan Assessment: Acute hypoxic respiratory failure secondary to pneumonia requiring BiPAP currently on 6l via NC. Right lower lobe pneumonia Septic shock secondary to above Acute metabolic encephalopathy Acute kidney injury likely due to AT continued N with hemodynamic instability Hyperkalemia secondary to acute kidney injury. Potassium 7.6 on admission Elevated troponin level Lactic acidosis 2.6 Recent history of cardiac catheterization and stent placement about 4 weeks ago Inclusion body myositis. Patient is bedridden at baseline. Diabetes type 2 [id number] History of multiple DVT and PE on anticoagulation with Xarelto Bipolar disorder Glaucoma and macular degeneration bilaterally. Plan: Patient was given IV fluid bolus in the ER. Patient was given calcium gluconate, insulin/D50 and sodium bicarb in the ER for hyperkalemia. Was also given Lokelma and sodium bicarbonate. Follow-up repeat potassium level 5.0. Continue with broad-spectrum antibiotics vancomycin and cefepime. continue with oxygen supplementation. Continue with aspirin Plavix and statins and also patient on Xarelto at home. Follow-up blood cultures. Critical care team, cardiology and nephrology was consulted for evaluation. Prognosis guarded at this time. Discussed with her at bedside in detail. CODE STATUS DNR/DNI. Time with Patient: Greater than 30
[2023-06-15] MEDS: VASOPRESSIN 20 UNIT in SODIUM CHLORIDE 0.9% 50 ML IV SCH ×2 (01:53→15:23)
[2023-06-15] MEDS: CEFEPIME 2 GM in SODIUM CHLORIDE 0.9% 100 ML IVPB SCH ×2 (03:00→17:55)
[2023-06-15 04:14] LABS: Basophils % (A) 0 %; Eosinophils % (A) 0 %; Hypochromasia Moderate; Lymphocytes # (A) 0.8 k/uL (1.0-4.8); Lymphocytes % (A) 8 %; MCH 30.1 pg (25.0-35.0); MCHC 31.2 g/dL (31.0-37.0); MCV 96.4 fL (80.0-100.0); Mean Platelet Volume 8.4; Monocytes # (A) 0.1 k/uL (0-1.0); Monocytes % (A) 1 %; Neutrophils # (A) 8.8 k/uL (1.3-7.7); Neutrophils % (A) 90 %; Platelet Count 273 k/uL (150-450); RBC 1.82 m/uL (3.80-5.40); RDW 14.8 % (11.5-15.5); WBC 9.8 k/uL (3.8-10.6)
[2023-06-15 04:32] LABS: HGB 5.5 gm/dL (11.4-16.0)
[2023-06-15 04:33] LABS: HCT 17.6 % (34.0-46.0)
[2023-06-15 05:36] LABS: ALT 46 U/L (4-34); AST 85 U/L (14-36); African American GFR (CKD) 80 (>60 ml/min/1.73 sqM); Albumin 1.9 g/dL (3.5-5.0); Alkaline Phosphatase 83 U/L (38-126); Anion Gap 8 mmol/L; Blood Urea Nitrogen 67 mg/dL (7-17); Calcium 7.8 mg/dL (8.4-10.2); Carbon Dioxide 18 mmol/L (22-30); Chloride 120 mmol/L (98-107); Glucose 106 mg/dL (74-99); Non-African American GFR(CKD) 69 (>60 ml/min/1.73 sqM); Potassium 4.1 mmol/L (3.5-5.1); Sodium 146 mmol/L (137-145); Total Bilirubin 0.4 mg/dL (0.2-1.3); Total Protein 4.6 g/dL (6.3-8.2)
[2023-06-15 05:58] LABS: Glucose,Whole Blood 123 mg/dL (70-110)
--- NOTE | 2023-06-15 07:32 | XR ---
EXAMINATION TYPE: XR chest 1V portable DATE OF EXAM: 06/15/2023 5:49 AM COMPARISON: Chest radiographs from 06/13/2023 TECHNIQUE: XR chest 1V portable Portable AP radiograph of the chest. CLINICAL INDICATION:Female, 78 years old with history of right lower lobe pneumonia; FINDINGS: Lungs/Pleura: Increased small to moderate size right pleural effusion with right basilar consolidatio n. Small left pleural effusion. Hyperinflation. No pneumothorax. Biapical pleural thickening. Pulmonary vascularity: Pulmonary vascular congestion. Heart/mediastinum: Cardiomediastinal silhouette is enlarged and stable. Musculoskeletal: No acute osseous pathology. IMPRESSION: 1. Small pleural effusion with increased small to moderate size right pleural effusion with right ba silar consolidation which may represent atelectasis versus infiltrate. 2. Cardiomegaly with mild pulmonary vascular congestion. Correlate for CHF exacerbation. 3. COPD changes.
[2023-06-15] MEDS: METOPROLOL TARTRATE 25 MG TAB PO SCH (08:37)
[2023-06-15] MEDS: CLOPIDOGREL 75 MG TAB PEG/G-TUBE SCH (08:40)
[2023-06-15] MEDS: TIMOLOL 0.5% OPHTH DROPS 5 ML BTL BOTH EYES SCH (08:40)
[2023-06-15] MEDS: BRIMONIDINE TARTRATE 0.2% DROPS 5 ML BTL BOTH EYES SCH (08:40)
[2023-06-15] MEDS: PANTOPRAZOLE 40 MG TABLET PO SCH (08:40)
[2023-06-15] MEDS: SODIUM CHLORIDE 0.9% 1,000 ML IV SCH (08:42)
--- NOTE | 2023-06-15 09:12 | P.PN ---
Subjective Progress Note Date: 06/15/23 PROGRESS NOTE The patient is a 78 year old female who was transferred from the detention for progressive dyspnea fever and possible aspiration pneumonia. She has a known history of inclusion body myositis, diabetes mellitus, hyperlipidemia, prior history of PE and DVT anticoagulated who had a PEG tube and apparently was getting stronger so they started to feed her and probably aspirated. She is danie ke but confused and not answering questions. She is in sinus mechanism. Her EKG on admission shows sinus tachycardia. She was at [facility] recently with epistaxis and non-STEMI underwent cardiac catheterization and was found to have significant obstructive disease involving the LAD. There is report of his stent placed although details of that are not available. I am not able to obtain any history of chest discomfort at this time. No other history could be obtained at this point. On presentation she was found to have worsening renal function, anemia and mild troponin elevation. She had hyperkalemia that improved. June 15: Patient is awake but not answering questions. Continues to be in sinus mechanism. She was anemic and her anticoagulation was stopped. She is on vasopressin. There is no evidence of malignant arrhythmia. According to the nursing staff the family is discussing the CODE STATUS. The results of her workup and stenting done recently are not available to me at this time. Medications: Plavix 75 mg daily, Lipitor 40 mg daily, metoprolol 25 mg twice a day, vasopressin PHYSICAL EXAMINATION: Blood pressure 140/50 heart rate 60 LUNGS: Decreased breath sounds on the right base HEART: Regular rate and rhythm, S1, S2. No S3. Systolic ejection murmur ABDOMEN: Soft, nontender, no organomegaly, PEG tube in place EXTREMETIES: Trace edema LAB: Hemoglobin 5.5, potassium 4.1, BUN 67, creatinine 0.83, chest x-ray was right- sided effusion and infiltrate IMPRESSION: 1. Respiratory distress with probable aspiration pneumonia 2. Anemia, no clear source of bleeding 3. Recent stenting, details not available 4. History of DVT and PE was on anticoagulation 5. Probable septic shock 6. Acute renal injury improving 7. Inclusion body myositis PLAN: 1. Obtain an echocardiogram with Doppler 2. Awaiting decision family regarding CODE STATUS 3. Obtain records of her recent intervention 4. Prognosis is guarded Objective - Vital Signs Vital signs: Vital Signs Temp 97.6 F 06/15/23 08:00 Pulse 63 06/15/23 08:15 Resp 18 06/15/23 08:15 BP 121/56 06/15/23 08:15 Pulse Ox 95 06/15/23 08:15 FiO2 60 06/14/23 04:29 Intake & Output 06/14/23 06/15/23 06/15/23 18:59 06:59 18:59 Intake Total 6740.040 6465.838 200 Output Total 1095 780 100 Balance 929.136 4098.838 100 Weight 62 kg Intake: IV 1200 1200 200 Cefepime 2 gm In Sodium 200 Chloride 0.9% 100 ml @ 25 mls/hr IVPB Q12H [facility] Rx# :[id number] Sodium Chloride 0.9% 1, 800 1200 200 000 ml @ 100 mls/hr IV . Q10H [facility] Rx#:[id number] Sodium Chloride 0.9% 1, 200 000 ml @ 130 mls/hr IV . Q7H42M [facility] Rx#:[id number] Intake, IV Titration 853.131 3031.838 Amount Norepinephrine 4 mg In 126.853 Sodium Chloride 0.9% 250 ml @ 0.03 MCG/KG/MIN 6. 847 mls/hr IV .Q24H [facility] Rx#:[id number] Norepinephrine 4 mg In 189.411 11.429 Sodium Chloride 0.9% 250 ml @ 0.03 MCG/KG/MIN 8. 295 mls/hr IV .Q24H [facility] Rx#:[id number] Sodium Chloride 0.9% 1, 100 000 ml @ 130 mls/hr IV . Q7H42M [facility] Rx#:[id number] Sodium Chloride 0.9% 1, 1000 000 ml @ 999 mls/hr IV . Q1H1M ONE Rx#:[id number] Vasopressin 20 unit In 38.556 Sodium Chloride 0.9% 50 ml @ 0.03 UNITS/MIN 4.59 mls/hr IV .Q11H7M [facility] Rx# :[id number] Other 60 Output: Urine 1095 780 100 Other: Voiding Method Indwelling Catheter Indwelling Catheter Indwelling Catheter ABP, PAP, CO, CI - Last Documented Arterial Blood Pressure 149/48 - Labs CBC & Chem 7: 06/15/23 04:00 06/15/23 04:00 Labs: Abnormal Lab Results - Last 24 Hours (Table) 06/14/23 06/15/23 06/15/23 Range/Units 21:27 04:00 04:00 RBC 1.82 L (3.80-5.40) m/uL Hgb 5.5 L* D (11.4-16.0) gm/dL Hct 17.6 L* (34.0-46.0) % Neutrophils # 8.8 H (1.3-7.7) k/uL Lymphocytes # 0.8 L (1.0-4.8) k/uL ABG pO2 147 H (83-108) mmHg ABG O2 Saturation 98.2 H (94-97) % Sodium 146 H (137-145) mmol/L Chloride 120 H (98-107) mmol/L Carbon Dioxide 18 L (22-30) mmol/L BUN 67 H (7-17) mg/dL Glucose 106 H (74-99) mg/dL POC Glucose (mg/dL) (70-110) mg/dL Calcium 7.8 L (8.4-10.2) mg/dL Magnesium (1.6-2.3) mg/dL AST 85 H (14-36) U/L ALT 46 H (4-34) U/L Total Protein 4.6 L (6.3-8.2) g/dL Albumin 1.9 L (3.5-5.0) g/dL 06/15/23 06/15/23 Range/Units 04:00 05:57 RBC (3.80-5.40) m/uL Hgb (11.4-16.0) gm/dL Hct (34.0-46.0) % Neutrophils # (1.3-7.7) k/uL Lymphocytes # (1.0-4.8) k/uL ABG pO2 (83-108) mmHg ABG O2 Saturation (94-97) % Sodium (137-145) mmol/L Chloride (98-107) mmol/L Carbon Dioxide (22-30) mmol/L BUN (7-17) mg/dL Glucose (74-99) mg/dL POC Glucose (mg/dL) 123 H (70-110) mg/dL Calcium (8.4-10.2) mg/dL Magnesium 3.1 H (1.6-2.3) mg/dL AST (14-36) U/L ALT (4-34) U/L Total Protein (6.3-8.2) g/dL Albumin (3.5-5.0) g/dL Microbiology - Last 24 Hours (Table) 06/13/23 14:58 Blood Culture - Preliminary Blood 06/13/23 14:58 Blood Culture Gram Stain - Preliminary Blood
--- NOTE | 2023-06-15 10:20 | P.PN ---
Subjective Patient is seen in follow-up for acute kidney injury and hyperkalemia. Renal function back to baseline potassium level normal. Hemoglobin low today. On vasopressin. Comfort measures being considered. Family to come in this afternoon. Vital signs are stable. On vasopressor support. General: No acute distress. HEENT: Head exam is unremarkable. LUNGS: No audible rhonchi or wheezes. HEART: Rate and Rhythm are regular. ABDOMEN: PEG tube noted. EXTREMITITES: No edema. Objective - Vital Signs Vital signs: Vital Signs Temp 97.6 F 06/15/23 08:00 Pulse 63 06/15/23 08:15 Resp 18 06/15/23 08:15 BP 121/56 06/15/23 08:15 Pulse Ox 95 06/15/23 08:15 FiO2 60 06/14/23 04:29 Intake & Output 06/14/23 06/15/23 06/15/23 18:59 06:59 18:59 Intake Total 6983.152 7955.838 200 Output Total 1095 780 100 Balance 973.908 4290.838 100 Weight 62 kg Intake: IV 1200 1200 200 Cefepime 2 gm In Sodium 200 Chloride 0.9% 100 ml @ 25 mls/hr IVPB Q12H [facility] Rx# :[id number] Sodium Chloride 0.9% 1, 800 1200 200 000 ml @ 100 mls/hr IV . Q10H [facility] Rx#:[id number] Sodium Chloride 0.9% 1, 200 000 ml @ 130 mls/hr IV . Q7H42M [facility] Rx#:[id number] Intake, IV Titration 610.804 2609.838 Amount Norepinephrine 4 mg In 126.853 Sodium Chloride 0.9% 250 ml @ 0.03 MCG/KG/MIN 6. 847 mls/hr IV .Q24H [facility] Rx#:[id number] Norepinephrine 4 mg In 189.411 11.429 Sodium Chloride 0.9% 250 ml @ 0.03 MCG/KG/MIN 8. 295 mls/hr IV .Q24H [facility] Rx#:[id number] Sodium Chloride 0.9% 1, 100 000 ml @ 130 mls/hr IV . Q7H42M [facility] Rx#:[id number] Sodium Chloride 0.9% 1, 1000 000 ml @ 999 mls/hr IV . Q1H1M ONE Rx#:[id number] Vasopressin 20 unit In 38.556 Sodium Chloride 0.9% 50 ml @ 0.03 UNITS/MIN 4.59 mls/hr IV .Q11H7M [facility] Rx# :[id number] Other 60 Output: Urine 1095 780 100 Other: Voiding Method Indwelling Catheter Indwelling Catheter Indwelling Catheter ABP, PAP, CO, CI - Last Documented Arterial Blood Pressure 149/48 - Labs CBC & Chem 7: 06/15/23 04:00 06/15/23 04:00 Labs: Abnormal Lab Results - Last 24 Hours (Table) 06/14/23 06/15/23 06/15/23 Range/Units 21:27 04:00 04:00 RBC 1.82 L (3.80-5.40) m/uL Hgb 5.5 L* D (11.4-16.0) gm/dL Hct 17.6 L* (34.0-46.0) % Neutrophils # 8.8 H (1.3-7.7) k/uL Lymphocytes # 0.8 L (1.0-4.8) k/uL ABG pO2 147 H (83-108) mmHg ABG O2 Saturation 98.2 H (94-97) % Sodium 146 H (137-145) mmol/L Chloride 120 H (98-107) mmol/L Carbon Dioxide 18 L (22-30) mmol/L BUN 67 H (7-17) mg/dL Glucose 106 H (74-99) mg/dL POC Glucose (mg/dL) (70-110) mg/dL Calcium 7.8 L (8.4-10.2) mg/dL Magnesium (1.6-2.3) mg/dL AST 85 H (14-36) U/L ALT 46 H (4-34) U/L Total Protein 4.6 L (6.3-8.2) g/dL Albumin 1.9 L (3.5-5.0) g/dL 06/15/23 06/15/23 Range/Units 04:00 05:57 RBC (3.80-5.40) m/uL Hgb (11.4-16.0) gm/dL Hct (34.0-46.0) % Neutrophils # (1.3-7.7) k/uL Lymphocytes # (1.0-4.8) k/uL ABG pO2 (83-108) mmHg ABG O2 Saturation (94-97) % Sodium (137-145) mmol/L Chloride (98-107) mmol/L Carbon Dioxide (22-30) mmol/L BUN (7-17) mg/dL Glucose (74-99) mg/dL POC Glucose (mg/dL) 123 H (70-110) mg/dL Calcium (8.4-10.2) mg/dL Magnesium 3.1 H (1.6-2.3) mg/dL AST (14-36) U/L ALT (4-34) U/L Total Protein (6.3-8.2) g/dL Albumin (3.5-5.0) g/dL Microbiology - Last 24 Hours (Table) 06/13/23 14:58 Blood Culture - Preliminary Blood 06/13/23 14:58 Blood Culture Gram Stain - Preliminary Blood Assessment and Plan Plan: Assessment: 1. Acute kidney injury mostly prerenal secondary to hypotension/sepsis. Improved. Creatinine 1.35 on admission and is 0.83 today. 2. Hyperkalemia secondary to acute kidney injury and losartan. Improved. 3. Hypermagnesemia from acute kidney injury and milk of magnesia. Trending down. 4. Septic shock secondary to aspiration pneumonia on antibiotics and vasopressin. 5. Hypovolemic hyponatremia improved with IV hydration. Now hypernatremic from lack of water intake. 6. Acute blood loss anemia. Plan: Change IV fluids to D5W at 50 mL an hour. Wean vasopressors. Comfort measures being considered. Family to come in this afternoon.
--- NOTE | 2023-06-15 11:40 | P.PN ---
Subjective Progress Note Date: 06/15/23 Principal diagnosis: Acute hypoxic respiratory failure secondary to pneumonia and parapneumonic pleural effusion as well as sepsis and septic shock. 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 She was brought into the ER yesterday mostly with increased shortness of breath, altered mental status and more confusion, fever with a T-max of 102.1, she was noted to be short of breath, hypoxic, and she required to be on a nonrebreather mask and at one point she was on BiPAP in the ER. Chest x-ray clearly showed evidence of right lower lobe pneumonia and right-sided small pleural effusion. Patient was admitted to the floor initially, however she developed hypotension and she does not improve with fluid boluses/2 L, hence I was notified about this patient and I admitted the patient to the ICU. Started the patient on norepinephrine, and she is presently on norepinephrine at 0.08 mcg/kg/m. She is receiving IV fluid at a rate of 100 mL per hour in the form of 0.9 normal saline, she is on cefepime and vancomycin. Blood pressure was poor this morning and I recommended a left radial arterial line which was placed. ABG showed a pO2 of 90 pCO2 37 pH of 7.44. Patient is supposedly on enteral feeding via PEG tube which is presently on hold because of concern about possible aspiration. Patient lives at the [facility], and she is mostly bedbound. CODE STATUS is DO NOT RESUSCITATE. Not much history could be obtained from the patient as she seems to be confused, moaning and groaning most of the time, but no purposeful responses. WBC count is 10.6 hemoglobin is 7.2 electrolytes are normal renal profile is normal her potassium yesterday was 6.5, she was given treatment for high potassium and repeat potassium this morning is 5, troponin is noted to be a bit elevated at 0.059. Patient was reevaluated today on 06/15/2023, patient is marginal at best. She has positive blood cultures showing gram-positive cocci in clusters, patient is on Vanco and cefepime at this point. Hemoglobin dropped down to 5.5, patient is receiving IV fluid at 100 mL/h and vasopressin at 0.03 units per minutes. Family is considering comfort care according to the nurses were discussed her condition with the , and waiting for the children to come in and proceed with comfort care measures. Hence blood transfusion is presently on hold, and the patient would have been considered for a right sided thoracentesis but will hold on this decision at this point since family is heading towards possibly comfort care measures on this patient. WBC count is 9.8 hemoglobin is 5.5. Basic metabolic profile is relatively normal patient does have a bicarb of 18, BUN of 67 creatinine 0.83. ABG was basically unremarkable yesterday. Patient has non-anion gap, hyperchloremic metabolic acidosis chest x-ray today shows increase in the size of the right-sided pleural effusion and right basilar consolidation with cardiomegaly and mild pulmonary vascular congestion. Objective - Vital Signs Vital signs: Vital Signs Temp 97.6 F 06/15/23 08:00 Pulse 78 06/15/23 11:00 Resp 25 H 06/15/23 11:00 BP 110/54 06/15/23 10:45 Pulse Ox 94 L 06/15/23 11:00 FiO2 60 06/14/23 04:29 Intake & Output 06/14/23 06/15/23 06/15/23 18:59 06:59 18:59 Intake Total 3407.337 2572.838 380 Output Total 1095 780 240 Balance 496.131 3638.838 140 Weight 62 kg Intake: IV 1200 1200 320 Cefepime 2 gm In Sodium 200 Chloride 0.9% 100 ml @ 25 mls/hr IVPB Q12H E[facility] Rx# :[id number] Sodium Chloride 0.9% 1, 200 000 ml @ 130 mls/hr IV . Q7H42M STA Rx#:[id number] Sodium Chloride 0.9% 1, 800 1200 220 000 ml @ 20 mls/hr IV . Q24H E[facility]KA Rx#:[id number] d5w @ 50 100 Intake, IV Titration 984.153 0001.838 Amount Norepinephrine 4 mg In 126.853 Sodium Chloride 0.9% 250 ml @ 0.03 MCG/KG/MIN 6. 847 mls/hr IV .Q24H E[facility]KA Rx#:[id number] Norepinephrine 4 mg In 189.411 11.429 Sodium Chloride 0.9% 250 ml @ 0.03 MCG/KG/MIN 8. 295 mls/hr IV .Q24H ERIKA Rx#:[id number] Sodium Chloride 0.9% 1, 100 000 ml @ 130 mls/hr IV . Q7H42M STA Rx#:[id number] Sodium Chloride 0.9% 1, 1000 000 ml @ 999 mls/hr IV . Q1H1M ONE Rx#:[id number] Vasopressin 20 unit In 38.556 Sodium Chloride 0.9% 50 ml @ 0.03 UNITS/MIN 4.59 mls/hr IV .Q11H7M [facility] Rx# :[id number] Tube Feeding 60 Other 60 Output: Urine 1095 780 240 Other: Voiding Method Indwelling Catheter Indwelling Catheter Indwelling Catheter ABP, PAP, CO, CI - Last Documented Arterial Blood Pressure 145/49 - Exam Physical Exam: Revealed a 78-year-old female confused, in no distress. On nasal cannula. 7 L/m. Head: Atraumatic, normocephalic. HEENT:[Neck is supple.] [No neck masses.] [No thyromegaly.] [No JVD.] Chest: [Diminished breath sounds and crackles at the right base. No rhonchi and no wheezes Cardiac Exam: [Normal S1 and S2, no S3 gallop, no murmur.] Abdomen: [Soft, nontender, no megaly, no rebound, no guarding, normal bowel sounds.] PEG tube is noted to be intact Extremities: [No clubbing, no edema, no cyanosis.] Neurological Exam: Patient is awake, but confused, seems to be quite rigid, and does not follow any instructions, does not seem to comprehend and her mental status is compromised. Psychiatric: Could not assess. Musculoskeletal: Evidence of muscular rigidity otherwise unremarkable - Labs CBC & Chem 7: 06/15/23 04:00 06/15/23 04:00 Labs: Abnormal Lab Results - Last 24 Hours (Table) 06/14/23 06/15/23 06/15/23 Range/Units 21:27 04:00 04:00 RBC 1.82 L (3.80-5.40) m/uL Hgb 5.5 L* D (11.4-16.0) gm/dL Hct 17.6 L* (34.0-46.0) % Neutrophils # 8.8 H (1.3-7.7) k/uL Lymphocytes # 0.8 L (1.0-4.8) k/uL ABG pO2 147 H (83-108) mmHg ABG O2 Saturation 98.2 H (94-97) % Sodium 146 H (137-145) mmol/L Chloride 120 H (98-107) mmol/L Carbon Dioxide 18 L (22-30) mmol/L BUN 67 H (7-17) mg/dL Glucose 106 H (74-99) mg/dL POC Glucose (mg/dL) (70-110) mg/dL Calcium 7.8 L (8.4-10.2) mg/dL Magnesium (1.6-2.3) mg/dL AST 85 H (14-36) U/L ALT 46 H (4-34) U/L Total Protein 4.6 L (6.3-8.2) g/dL Albumin 1.9 L (3.5-5.0) g/dL 06/15/23 06/15/23 Range/Units 04:00 05:57 RBC (3.80-5.40) m/uL Hgb (11.4-16.0) gm/dL Hct (34.0-46.0) % Neutrophils # (1.3-7.7) k/uL Lymphocytes # (1.0-4.8) k/uL ABG pO2 (83-108) mmHg ABG O2 Saturation (94-97) % Sodium (137-145) mmol/L Chloride (98-107) mmol/L Carbon Dioxide (22-30) mmol/L BUN (7-17) mg/dL Glucose (74-99) mg/dL POC Glucose (mg/dL) 123 H (70-110) mg/dL Calcium (8.4-10.2) mg/dL Magnesium 3.1 H (1.6-2.3) mg/dL AST (14-36) U/L ALT (4-34) U/L Total Protein (6.3-8.2) g/dL Albumin (3.5-5.0) g/dL Microbiology - Last 24 Hours (Table) 06/13/23 14:58 Blood Culture - Preliminary Blood 06/13/23 14:58 Blood Culture Gram Stain - Preliminary Blood Assessment and Plan Assessment: Impression: Acute healthcare acquired pneumonia with right parapneumonic effusion, possible aspiration pneumonia Acute hypoxic respiratory failure secondary to pneumonia and parapneumonic effusion Gram-positive bacteremia Suspect sepsis and septic shock secondary to gram-positive bacteremia, final culture is pending patient is on vancomycin and cefepime Acute kidney injury/ATN Acute hyperkalemia secondary to acute kidney injury History of underlying coronary artery disease, recent cardiac catheterization and stent placement about a month ago. 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 Acute anemia, exact etiology is not clear, could be dealt you should know considering the patient received significant amount of fluid since admission patient may require blood transfusion however since the family is considering comfort care measures would hold on blood transfusion for now, unless comfort care measures are not to be pursued. Then we will transfuse the patient Recommendation: Continue to monitor the patient in the ICU Continue antibiotics patient is receiving cefepime and vancomycin Continue vasopressin and titrate accordingly Titrate oxygen and maintaining O2 sats above 90%, patient is now on 7 L nasal cannula Continue GI and DVT prophylaxis Continue aspirin and Plavix as well as statin considering her underlying cor onary artery disease and recent stent placement Blood cultures have been noted, positive for gram-positive cocci in clusters Continue to monitor daily electrolytes and renal status We will continue to follow Patient is critically ill, CODE STATUS is DO NOT RESUSCITATE. The family is considering comfort care measures Patient is critically ill and critical care time is over 30 minutes Time with Patient: Greater than 30
[2023-06-15 12:03] LABS: Glucose,Whole Blood 127 mg/dL (70-110)
[2023-06-15 13:16] LABS: Glucose,Whole Blood 144 mg/dL (70-110)
[2023-06-15 17:07] VITALS: BP 144/62; TEMP 98
[2023-06-15] MEDS ORDERED: MORPHINE SULFATE 2 MG/ML SYRINGE IVP PRN (17:10)
[2023-06-15] MEDS ORDERED: LORazepam 2 MG/ML INJ IV PRN (17:47)
[2023-06-15] MEDS ORDERED: ATROPINE OPHTH SOLN 1% 5ML BTL SUBLINGUAL PRN (17:47)
[2023-06-15] MEDS: VANCOMYCIN 1,000 MG in SODIUM CHLORIDE 0.9% 250 ML IVPB SCH (17:55)
[2023-06-15] MEDS ORDERED: SCOPOLAMINE 1 MG/72 HR PATCH TRANSDERM SCH (18:00)
[2023-06-15] MEDS: MORPHINE SULFATE (100 MG/2 ML) 100 MG in SODIUM CHLORIDE 0.9% 100 ML IV SCH ×2 (18:19→22:51)
--- NOTE | 2023-06-16 00:27 | P.PN ---
Subjective Progress Note Date: 06/15/23 Patient is a 78-year-old female with a known history of inclusion body myositis currently at [facility], diabetes type 2, hyperlipidemia, history of PE, multiple DVTs on anticoagulation with Xarelto, bilateral neuropathy and bipolar disorder was sent from [facility] facility residency due to complaints of shortness of breath. On admission patient was febrile with Tmax 102.1. Patient was tachycardic and tachypneic requiring nonrebreather and eventually placed on BiPAP in the ER. Patient was awake alert and oriented x1-2 on admission. She thinks she might have aspirated. She did have cough and shortness of breath. Patient's is bedside and is able to provide history. Patient was recently admitted to the hospital and had stent placement about 4 weeks ago. Chest x-ray on admission showed small right pleural effusion with right basilar consolidation concerning for pneumonia. COPD changes. EKG showed atrial fibrillation with rapid ventricular response with heart rate 113. Patient was given IV hydration was started on broad-spectrum antibiotics in the ER. Laboratory data showed WBC 6.4, hemoglobin 9.5 and platelets 499 ABG showed pH 7.44 PCO2 37 PO2 90 and bicarb is 25 Sodium 134 potassium 7.6 chloride 100 bicarb is 24 BUN 124 and creatinine 135 and blood sugar is 174. Lactic acid 2.6 on admission. AST 87 ALT 47 alk phos 112 and troponin 0.024, 0.45 and 0.060 Urinalysis is negative for infection. Influenza A, B, RSV and COVID-19 PCR not detected. 06/14/2023 Patient is in the ICU. Currently nasal cannula oxygen at 6 L high flow. Patient is lethargic and nonverbal. Patient is at bedside. Laboratory data showed WBC 10.6 hemoglobin 7.2 and platelets 371. Blood pressure improved with pressor support. Sodium 139 potassium improved to 5.0 chloride 110 bicarb is 23 BUN 97 and creatinine 0.93 and magnesium 3.5. TSH within normal limits. Patient remains on antibiotics in the form of vancomycin and cefepime. Also IV hydration with normal saline. Cardiology, nephrology and critical care team is on board. CODE STATUS is DNR/DNI. Patient's is considering go for comfort care once he discusses with their children. 06/15/2023 Patient is in the MICU. Patient is lethargic and obtunded. Currently on 6 L high flow oxygen. Otherwise patient is being continued on antibiotics of vancomycin and cefepime. Blood cultures growing coag negative Staph aureus. Other laboratory showed hemoglobin dropped to 5.5 today. WBC 9.8 and platelets 273. Sodium 146 potassium 4.1 chloride 120 bicarb is 18 BUN 67 creatinine 0.83 and albumin 1.9. Chest x-ray showed small pleural effusion with increased small to moderate-sized right pleural effusion with right basilar consolidation which may represent atelectasis versus infiltrate. Patient's is at bedside. Family is considering comfort care at this time. Transfusion is on hold.. Current medications reviewed. Objective - Vital Signs Vital signs: Vital Signs Temp 98.0 F 06/15/23 16:00 Pulse 105 H 06/15/23 17:00 Resp 29 H 06/15/23 17:00 BP 144/62 06/15/23 17:00 Pulse Ox 91 L 06/15/23 17:00 FiO2 60 06/14/23 04:29 Intake & Output 06/14/23 06/15/23 06/15/23 18:59 06:59 18:59 Intake Total 4721.637 2642.838 726.334 Output Total 1095 780 440 Balance 388.993 1233.838 286.334 Weight 62 kg Intake: IV 1200 1200 620 Cefepime 2 gm In Sodium 200 Chloride 0.9% 100 ml @ 25 mls/hr IVPB Q12H [facility] Rx# :[id number] Sodium Chloride 0.9% 1, 200 000 ml @ 130 mls/hr IV . Q7H42M STA Rx#:[id number] Sodium Chloride 0.9% 1, 800 1200 220 000 ml @ 20 mls/hr IV . Q24H E[facility]KA Rx#:[id number] d5w @ 50 400 Intake, IV Titration 620.309 7025.838 46.334 Amount Morphine Sulfate (100 mg/ 1.377 2 ml) 100 mg In Sodium Chloride 0.9% 100 ml @ 1 MG/HR 1.02 mls/hr IV . Q24H E[facility]KA Rx#:[id number] Norepinephrine 4 mg In 126.853 Sodium Chloride 0.9% 250 ml @ 0.03 MCG/KG/MIN 6. 847 mls/hr IV .Q24H [facility]KA Rx#:[id number] Norepinephrine 4 mg In 189.411 11.429 Sodium Chloride 0.9% 250 ml @ 0.03 MCG/KG/MIN 8. 295 mls/hr IV .Q24H [facility]KA Rx#:[id number] Sodium Chloride 0.9% 1, 100 000 ml @ 130 mls/hr IV . Q7H42M STA Rx#:[id number] Sodium Chloride 0.9% 1, 1000 000 ml @ 999 mls/hr IV . Q1H1M ONE Rx#:[id number] Vasopressin 20 unit In 38.556 44.957 Sodium Chloride 0.9% 50 ml @ 0.03 UNITS/MIN 4.59 mls/hr IV .Q11H7M [facility] Rx# :[id number] Tube Feeding 60 Other 60 Output: Urine 1095 780 440 Other: Voiding Method Indwelling Catheter Indwelling Catheter Indwelling Catheter ABP, PAP, CO, CI - Last Documented Arterial Blood Pressure 145/49 - Exam PHYSICAL EXAMINATION: Patient is lying in the bed ,no acute distress, patient is lethargic and obtunded. HEENT: Normocephalic. Neck is supple. Pupils reactive. Nostrils clear. Oral cavity is moist. Neck reveals no JVD, carotid bruits, or thyromegaly. CHEST EXAMINATION: Trachea is central. Symmetrical expansion. Bibasilar diminished sounds. No wheezing.. CARDIAC: Normal S1, S2 with no gallops. No murmurs ABDOMEN: Soft. Bowel sounds present. Nontender. No organomegaly. No abdominal bruits. Extremities: reveal no edema. No clubbing or cyanosis Neurologically patient is lethargic and obtunded.no gross focal neurological deficits noted. Skin: No rash or skin lesions. Petechial rash over the right miller region Psychiatric: Could not be assessed completely, Musculoskeletal: No joint swelling or deformity. - Labs CBC & Chem 7: 06/15/23 04:00 06/15/23 04:00 Labs: Abnormal Lab Results - Last 24 Hours (Table) 06/14/23 06/15/23 06/15/23 Range/Units 21:27 04:00 04:00 RBC 1.82 L (3.80-5.40) m/uL Hgb 5.5 L* D (11.4-16.0) gm/dL Hct 17.6 L* (34.0-46.0) % Neutrophils # 8.8 H (1.3-7.7) k/uL Lymphocytes # 0.8 L (1.0-4.8) k/uL ABG pO2 147 H (83-108) mmHg ABG O2 Saturation 98.2 H (94-97) % Sodium 146 H (137-145) mmol/L Chloride 120 H (98-107) mmol/L Carbon Dioxide 18 L (22-30) mmol/L BUN 67 H (7-17) mg/dL Glucose 106 H (74-99) mg/dL POC Glucose (mg/dL) (70-110) mg/dL Calcium 7.8 L (8.4-10.2) mg/dL Magnesium (1.6-2.3) mg/dL AST 85 H (14-36) U/L ALT 46 H (4-34) U/L Total Protein 4.6 L (6.3-8.2) g/dL Albumin 1.9 L (3.5-5.0) g/dL 06/15/23 06/15/23 06/15/23 Range/Units 04:00 05:57 12:01 RBC (3.80-5.40) m/uL Hgb (11.4-16.0) gm/dL Hct (34.0-46.0) % Neutrophils # (1.3-7.7) k/uL Lymphocytes # (1.0-4.8) k/uL ABG pO2 (83-108) mmHg ABG O2 Saturation (94-97) % Sodium (137-145) mmol/L Chloride (98-107) mmol/L Carbon Dioxide (22-30) mmol/L BUN (7-17) mg/dL Glucose (74-99) mg/dL POC Glucose (mg/dL) 123 H 127 H (70-110) mg/dL Calcium (8.4-10.2) mg/dL Magnesium 3.1 H (1.6-2.3) mg/dL AST (14-36) U/L ALT (4-34) U/L Total Protein (6.3-8.2) g/dL Albumin (3.5-5.0) g/dL 06/15/23 Range/Units 13:15 RBC (3.80-5.40) m/uL Hgb (11.4-16.0) gm/dL Hct (34.0-46.0) % Neutrophils # (1.3-7.7) k/uL Lymphocytes # (1.0-4.8) k/uL ABG pO2 (83-108) mmHg ABG O2 Saturation (94-97) % Sodium (137-145) mmol/L Chloride (98-107) mmol/L Carbon Dioxide (22-30) mmol/L BUN (7-17) mg/dL Glucose (74-99) mg/dL POC Glucose (mg/dL) 144 H (70-110) mg/dL Calcium (8.4-10.2) mg/dL Magnesium (1.6-2.3) mg/dL AST (14-36) U/L ALT (4-34) U/L Total Protein (6.3-8.2) g/dL Albumin (3.5-5.0) g/dL Microbiology - Last 24 Hours (Table) 06/13/23 14:58 Blood Culture Gram Stain - Preliminary Blood Blood Culture - Preliminary Coagulase Negative Staph 06/13/23 14:58 Blood Culture - Preliminary Blood Assessment and Plan Assessment: Acute hypoxic respiratory failure secondary to pneumonia requiring BiPAP currently on 6l via NC. Right lower lobe pneumonia Septic shock secondary to above Acute metabolic encephalopathy Acute kidney injury likely due to ATN with hemodynamic instability Hyperkalemia secondary to acute kidney injury. Potassium 7.6 on admission Elevated troponin level Lactic acidosis 2.6 Recent history of cardiac catheterization and stent placement about 4 weeks ago Inclusion body myositis. Patient is bedridden at baseline. Diabetes type 2 [id number] History of multiple DVT and PE on anticoagulation with Xarelto Bipolar disorder Glaucoma and macular degeneration bilaterally. Plan: Patient was given calcium gluconate, insulin/D50 and sodium bicarb in the ER for hyperkalemia. Was also given Lokelma and sodium bicarbonate. Follow-up repeat potassium level 5.0. Continue with broad-spectrum antibiotics vancomycin and cefepime.Patient was also on pressor support. continue with oxygen supplementation. Continue with aspirin Plavix and statins and also patient on Xarelto at home. Follow-up final blood cultures. Critical care team, cardiology and nephrology was consulted for evaluation. Prognosis is poor at this time. Discussed with her at bedside in detail. CODE STATUS DNR/DNI.Family is considering comfort care tomorrow. Time with Patient: Greater than 30
[2023-06-16] MEDS: LATANOPROST 0.005% OPHTH DROPS 2.5 ML BTL BOTH EYES SCH (00:54)
[2023-06-16] MEDS: MORPHINE SULFATE (100 MG/2 ML) 100 MG in SODIUM CHLORIDE 0.9% 100 ML IV SCH ×3 (02:27→08:41)
[2023-06-16] MEDS ORDERED: VANCOMYCIN TROUGH DUE 1 EACH MISC MISCELLANE ONE (07:00)
[2023-06-16] MEDS: QUEtiapine 25 MG TAB PEG/G-TUBE SCH (07:20)
[2023-06-16] MEDS: BRIMONIDINE TARTRATE 0.2% DROPS 5 ML BTL BOTH EYES SCH (07:20)
[2023-06-16] MEDS: TIMOLOL 0.5% OPHTH DROPS 5 ML BTL BOTH EYES SCH (07:20)
[2023-06-16 08:51] VITALS: PULSE 56; RESP 13
--- NOTE | 2023-06-18 13:49 | P.DS ---
Providers Date of admission: 06/13/23 16:56 Expected date of discharge: 06/16/23 Attending physician: Yuan Marroquin Consults: 06/13/23 17:33 Consult Physician Routine Consulting Provider: Agustina Morris Consult Reason/Comments: sepsis, pneumonia, hypoxic respiratory failure Do you want consulting provider notified?: Yes Primary care physician: Baldo Gibbs Hospital Course: Preliminary cause of Right lower lobe pneumonia with septic shock Final diagnosis Acute hypoxic respiratory failure secondary to pneumonia requiring BiPAP currently on 6l via NC. Right lower lobe pneumonia Septic shock secondary to above Acute metabolic encephalopathy Acute kidney injury likely due to ATN with hemodynamic instability Hyperkalemia secondary to acute kidney injury. Potassium 7.6 on admission Elevated troponin level Lactic acidosis 2.6 Recent history of cardiac catheterization and stent placement about 4 weeks ago Inclusion body myositis. Patient is bedridden at baseline. Diabetes type 2 [id number] History of multiple DVT and PE on anticoagulation with Xarelto Bipolar disorder Glaucoma and macular degeneration bilaterally. Discharge disposition Patient has . According to nursing documentation, time of was 0911 on 06/16/2023. Total time taken greater than 35 minutes Hospital course This is a 78-year-old female who was residing at a nursing facility came here with fevers tachycardia to Requiring BiPAP and shortness of breath found to have extensive pneumonia along with atrial fibrillation with RVR. Patient was placed on BiPAP to maintain in the ICU with overall poor prognosis. Patient was initiated on antibiotics with continued pleural effusions. Patient's hemoglobin was also noted to be 5.5 and was having some septic shock likely secondary to pneumonia. Patient is family was considering comfort care. Patient was placed on comfort measures and ultimately at 0911 on morphine drip. Please refer to other consultation notes for further HPI. Overall prognosis was poor and guarded and patient had been no code with DO NOT RESUSCITATE/DO NOT INTUBATE. The impression and plan of care has been dictated by Sophie Garcia, Nurse Practitioner as directed. Dr. Keshawn MD I have performed a history and examination and MDM of this patient, discussed the same with the dictator, and agree with the dictator's assessment and plan as written ,documented as a scribe. Based on total visit time, I have performed more than 50% of the visit. Patient Condition at Discharge: Poor Plan - Discharge Summary Discharge Rx Participant: No New Discharge Prescriptions: No Action Rivaroxaban [Xarelto] 20 mg PEG/G-TUBE HS Latanoprost Ophth [Xalatan 0.005%] 1 drops BOTH EYES HS Escitalopram [Lexapro] 10 mg PEG/G-TUBE DAILY Aspirin 81 mg PEG/G-TUBE DAILY Ondansetron [Zofran] 4 mg PEG/G-TUBE Q8HR PRN PRN Reason: Nausea And Vomiting Brimonidine Tartrate/Timolol [Combigan 0.2%-0.5% Eye Drops] 1 drop BOTH EYES BID Melatonin 3 mg PEG/G-TUBE HS PRN PRN Reason: Insomnia clonazePAM [KlonoPIN] 0.5 mg PEG/G-TUBE BID QUEtiapine [SEROquel] 12.5 mg PEG/G-TUBE HS Magnesium Hydroxide [Milk of Magnesia] 2,400 mg PEG/G-TUBE DAILY Ezetimibe [Zetia] 10 mg PEG/G-TUBE HS Losartan Potassium [Cozaar] 50 mg PEG/G-TUBE BID Acetaminophen-Codeine 300-30mg [Tylenol w/codeine #3] 1 tab PEG/G-TUBE TID PRN PRN Reason: Pain Acetaminophen Tab [Tylenol] 650 mg PEG/G-TUBE Q6H PRN PRN Reason: Fever And/ Or Pain Multivitamins, Thera [Multivitamin (formulary)] 1 tab PEG/G-TUBE DAILY Pantoprazole [Protonix] 40 mg PEG/G-TUBE DAILY Clopidogrel [Plavix] 75 mg PEG/G-TUBE DAILY Folic Acid 1 mg PEG/G-TUBE DAILY Ferrous Sulfate [Feosol] 325 mg PEG/G-TUBE MOWEFR Atorvastatin [Lipitor] 40 mg PEG/G-TUBE HS Discharge Medication List Aspirin 81 mg PEG/G-TUBE DAILY 06/01/15 [History] Escitalopram [Lexapro] 10 mg PEG/G-TUBE DAILY 06/01/15 [History] Latanoprost Ophth [Xalatan 0.005%] 1 drops BOTH EYES HS 06/01/15 [History] Rivaroxaban [Xarelto] 20 mg PEG/G-TUBE HS 06/01/15 [History] Brimonidine Tartrate/Timolol [Combigan 0.2%-0.5% Eye Drops] 1 drop BOTH EYES BID 05/27/22 [History] Losartan Potassium [Cozaar] 50 mg PEG/G-TUBE BID 05/27/22 [History] Ondansetron [Zofran] 4 mg PEG/G-TUBE Q8HR PRN 05/27/22 [History] Acetaminophen Tab [Tylenol] 650 mg PEG/G-TUBE Q6H PRN 06/13/23 [History] Acetaminophen-Codeine 300-30mg [Tylenol w/codeine #3] 1 tab PEG/G-TUBE TID PRN 06/13/23 [History] Atorvastatin [Lipitor] 40 mg PEG/G-TUBE HS 06/13/23 [History] Clopidogrel [Plavix] 75 mg PEG/G-TUBE DAILY 06/13/23 [History] Ezetimibe [Zetia] 10 mg PEG/G-TUBE HS 06/13/23 [History] Ferrous Sulfate [Feosol] 325 mg PEG/G-TUBE MOWEFR 06/13/23 [History] Folic Acid 1 mg PEG/G-TUBE DAILY 06/13/23 [History] Magnesium Hydroxide [Milk of Magnesia] 2,400 mg PEG/G-TUBE DAILY 06/13/23 [History] Melatonin 3 mg PEG/G-TUBE HS PRN 06/13/23 [History] Multivitamins, Thera [Multivitamin (formulary)] 1 tab PEG/G-TUBE DAILY 06/13/23 [History] Pantoprazole [Protonix] 40 mg PEG/G-TUBE DAILY 06/13/23 [History] QUEtiapine [SEROquel] 12.5 mg PEG/G-TUBE HS 06/13/23 [History] clonazePAM [KlonoPIN] 0.5 mg PEG/G-TUBE BID 06/13/23 [History] Follow up Appointment(s)/Referral(s): Baldo Gibbs MD [Primary Care Provider] - 1-2 days Discharge Disposition: - Preliminary Cause of Preliminary Cause of : Right lower lobe pneumonia with septic shock
== END 2023-06-16 12:45 | disposition expired | DRG 871 ==
LOC: EC 14:41 → 3SCARD 16:56 → 2SICU 06-14 02:32
PROVIDERS: ADMIT Internal Medicine; ATTEND Internal Medicine
PROC: 5A09357 Assistance with Respiratory Ventilation, Less than 24 Consecutive Hours, Continuous Positive Airway Pressure (ICD-10-PCS; principal; 2023-06-13)
PROC: 3E033XZ Introduction of Vasopressor into Peripheral Vein, Percutaneous Approach (ICD-10-PCS; 2023-06-13)
PROC: 4A133B1 Monitoring of Arterial Pressure, Peripheral, Percutaneous Approach (ICD-10-PCS; 2023-06-14)
PROC: 4A133J1 Monitoring of Arterial Pulse, Peripheral, Percutaneous Approach (ICD-10-PCS; 2023-06-14)
PROC: 03HY32Z Insertion of Monitoring Device into Upper Artery, Percutaneous Approach (ICD-10-PCS; 2023-06-14)
DX: A41.89 Other specified sepsis (principal); G93.41 Metabolic encephalopathy; J15.9 Unspecified bacterial pneumonia; J69.0 Pneumonitis due to inhalation of food and vomit; J96.01 Acute respiratory failure with hypoxia; R65.21 Severe sepsis with septic shock; N17.0 Acute kidney failure with tubular necrosis; I21.A1 Myocardial infarction type 2; J44.0 Chronic obstructive pulmonary disease with (acute) lower respiratory infection; D62 Acute posthemorrhagic anemia; D68.59 Other primary thrombophilia; E87.0 Hyperosmolality and hypernatremia; E87.1 Hypo-osmolality and hyponatremia; E87.20 Acidosis, unspecified; J90 Pleural effusion, not elsewhere classified; Z20.822 Contact with and (suspected) exposure to COVID-19; Z66 Do not resuscitate; Z51.5 Encounter for palliative care; G72.41 Inclusion body myositis [IBM]; F31.9 Bipolar disorder, unspecified; I10 Essential (primary) hypertension; I25.10 Atherosclerotic heart disease of native coronary artery without angina pectoris; I48.91 Unspecified atrial fibrillation; R04.0 Epistaxis; Y95 Nosocomial condition; E86.0 Dehydration; B96.89 Other specified bacterial agents as the cause of diseases classified elsewhere; E11.42 Type 2 diabetes mellitus with diabetic polyneuropathy; E78.5 Hyperlipidemia, unspecified; E83.41 Hypermagnesemia; E86.1 Hypovolemia; E87.5 Hyperkalemia; E87.8 Other disorders of electrolyte and fluid balance, not elsewhere classified; H40.9 Unspecified glaucoma; Z74.01 Bed confinement status; Z88.2 Allergy status to sulfonamides; Z98.51 Tubal ligation status; Z98.42 Cataract extraction status, left eye; Z98.41 Cataract extraction status, right eye; Z79.82 Long term (current) use of aspirin; Z79.02 Long term (current) use of antithrombotics/antiplatelets; Z79.01 Long term (current) use of anticoagulants; Z79.899 Other long term (current) drug therapy; Z86.718 Personal history of other venous thrombosis and embolism; Z90.710 Acquired absence of both cervix and uterus; Z93.1 Gastrostomy status; Z95.5 Presence of coronary angioplasty implant and graft; Z95.828 Presence of other vascular implants and grafts; Z86.711 Personal history of pulmonary embolism
CPT/HCPCS: 36415; 36600; 71045; 80048; 80053; 81001; 82805; 83605; 83735; 84132; 84443; 84484; 85025; 85610; 85730; 87040; 87636; 93005; 94660; 96365; 96368; 96375; 96376; 99291